=== PATIENT | female | born 1950 | race Caucasian/White ===

== ENCOUNTER 2021-08-30 13:01 | Inpatient (IN) | payer OTHER ==
--- NOTE | 2021-08-30 16:04 | P.HP ---
Certification for Inpatient With expected LOS: >2 Midnights Practitioner: I am a practitioner with admitting privileges, knowledge of patient current condition, hospital course, and medical plan of care. Services: Services provided to patient in accordance with Admission requirements found in Title 42 Section 412.3 of the Code of Federal Regulations Patient History Date of Service: 08/30/21 Reason for admission: Abdominal pain nausea vomiting History of Present Illness: Patient is 71 years of age developed acute onset of nausea vomiting and abdominal pain went to EMERGENCY room and was transferred with a diagnosis of possible volvulus he is having severe abdominal pain prior history of weight loss surgery Allergies morphine Allergy (Verified 08/30/21 13:27) Hives hydromorphone [From Dilaudid] Adverse Reaction (Verified 08/30/21 13:28) Shortness of breath meperidine [From Demerol] Adverse Reaction (Verified 08/30/21 13:27) hallucinations Penicillins Adverse Reaction (Verified 08/30/21 13:27) Shortness of breath Home Medications: Levothyroxine [Synthroid] 50 mcg PO [id number] 08/30/21 - Past Medical/Surgical History Has patient received pneumonia vaccine in the past: Yes Diabetic: No -: Hypothyroidism -: Hiatal hernia -: Gastric Bypass sx -: Cholecystectomy - Social History Smoking Status: Never smoker Alcohol use: No CD- Drugs: No Caffeine use: Yes Place of Residence: Home Review of Systems 10-point ROS is otherwise unremarkable Gastrointestinal: Nausea, Vomiting, Abdominal Pain Physical Examination - Vital Signs Temperature: 99.0 F Blood Pressure: 151/84 Pulse: 85 Respirations: 16 Pulse Ox (%): 99 - Physical Exam General: Alert, Moderate distress Neck: Supple Respiratory: Clear to auscultation bilaterally Cardiovascular: No edema, Regular rate/rhythm Gastrointestinal: Normal bowel sounds, Tenderness (Rebound tenderness) Musculoskeletal: No clubbing, No contractures, No warmth Assessment and Plan - Problems (Diagnosis) (1) Volvulus of ascending colon Current Visit: Yes Status: Acute Plan: Patient is 71 years of age admitted with acute onset of abdominal pain nausea vomiting Joon here from [facility] emergency room CT scan showed dilated right colon decompressed left colon spacious for developing volvulus free fluid in the abdomen prior history of gastric bypass moderate size hiatal hernia moderate intrahepatic biliary dilatation suspect chronic apparently her pancreatic duct is also dilated probably chronic white count is 10.7 hemoglobin 14.7 BUN 16 creatinine 0.5 electrolytes are normal urinalysis is negative this was from record review of [facility] emergency room Will admit to make her n.p.o. consult Dr. Baca general surgery which he has been informed pain relief IV fluids other orders as per general surgery - Advance Directives Does patient have a Living Will: No Does patient have a Durable POA for Healthcare: No
[2021-08-30] MEDS: ONDANSETRON 4 MG/2 ML VIAL IV PRN (16:12)
[2021-08-30] MEDS: FENTANYL CITR 100 MCG/2 ML IV PRN ×2 (16:15→20:30)
[2021-08-30] MEDS: NA CHLORIDE 0.9% 1,000 ML IV SCH (16:17)
[2021-08-30 17:01] LABS: Albumin 2.8 g/dL (3.4-5.0); Bilirubin Total 0.7 mg/dL (0.2-1.0); Potassium 3.2 mmol/L (3.5-5.1); Protein, Total 6.3 g/dL (6.4-8.2); Thyroid Stimulating Hormone 2.68 uIU/mL (0.360-3.740)
--- NOTE | 2021-08-30 17:24 | P.CNS ---
Date of Consult: 08/30/21 PC: 8-year-old female was transferred from a outpatient emergency room to our facility with abdominal pain. Pain apparently began 2 days ago. Has been intermittent over that time. Now has got to the point where it hurts when she is tries to move. States she has not had any bowel movements. HPC: Previous morbid obesity PSHx: Ronald-en-Y gastric bypass surgery, gallbladder surger Social Hx: Allergic to morphine Demerol hydromorphone Sys R: No cough, wheeze, shortness of breath. No chest pain or palpitations. Has some arthritis in her hips and her back, but does not take any medication for this apart from Advil or Motrin. O/E: Awake alert stable at the moment HEENT: Nonicteric Chest: Chest movement equal bilaterally Abd: Abdomen is soft, does have some lower abdominal discomfort Lyons: Intact Data: CT scan shows dilated loops of colon. The report suggests early volvulus, but the cecum is in the normal position. The sigmoid colon is seen in the true pelvis. There is a "swirling affect" seen in the upper part of the abdomen but does not show any true vascular compromise. The CT scan study was done with IV contrast, and no oral. Impression: Abdominal pain, per radiology possible early volvulus Plan: The patient has been admitted to the hospital. She will receive IV fluids, pain medicine, and I will have her place a nasogastric tube for now. We will repeat lab work in the a.m. May benefit with a CT scan of abdomen and pelvis tomorrow with oral contrast. I have discussed with with the patient, she understands that if things change or she should suddenly decline she may require surgical intervention. She is comfortable with this decision.
[2021-08-31] MEDS: FENTANYL CITR 100 MCG/2 ML IV PRN ×4 (01:06→21:46)
[2021-08-31] MEDS: ONDANSETRON 4 MG/2 ML VIAL IV PRN ×4 (01:07→21:48)
[2021-08-31] MEDS: NA CHLORIDE 0.9% 1,000 ML IV SCH ×2 (03:37→19:00)
[2021-08-31 04:27] LABS: Absolute Lymphocytes (CBC) 1.5 K/uL (0.7-4.9); Hematocrit 38.4 % (36.0-45.0); Lymphocytes % 15.9 % (15.3-44.8); MCV 88.7 fL (80-100); MPV 7.6 fL (7.6-11.3); RBC Red Blood Cell Count 4.33 M/uL (3.86-4.86)
[2021-08-31 04:49] LABS: Albumin 2.7 g/dL (3.4-5.0); Bilirubin Total 0.7 mg/dL (0.2-1.0); Potassium 3.2 mmol/L (3.5-5.1); Protein, Total 6.1 g/dL (6.4-8.2)
--- NOTE | 2021-08-31 08:25 | RAD REPORT ---
EXAM DESCRIPTION: RAD - Chest Single View - 08/31/2021 5:34 am CLINICAL HISTORY: Abdominal pain Chest pain. COMPARISON: No comparisons FINDINGS: Portable technique limits examination quality. The lungs are emphysematous but grossly clear. The heart is normal in size. No displaced fractures. IMPRESSION: No acute intrathoracic process suspected.
--- NOTE | 2021-08-31 09:30 | RAD REPORT ---
EXAM DESCRIPTION: CTAbdomen Pelvis W Contrast - 08/31/2021 9:11 am CLINICAL HISTORY: Abdominal pain. r/o obstruction COMPARISON: No comparisons TECHNIQUE: Biphasic CT imaging of the abdomen and pelvis was performed with 100 ml non-ionic IV cont rast. All CT scans are performed using dose optimization technique as appropriate and may include automated exposure control or mA/KV adjustment according to patient size. FINDINGS: The lung bases are clear.Moderate hiatal hernia with postsurgical changes present. Several low-density hepatic lesions are present compatible with cysts. Somewhat poorly visualized enh ancing lesion is seen in the posterior right lobe of the liver superiorly measuring 3.6 x 2.4 cm. Mod erate biliary dilatation in the liver. Cholecystectomy. The spleen, pancreas, adrenal glands and both kidneys are normal. There is significant dilatation of small bowel loops in the central superior abdomen measuring up to 9 cm in distention. There is a twisting appearance in caliber change of the small bowel present. The findings are suspicious for internal hernia or volvulus. Mild free fluid is seen in the abdomen and p carlita. Sigmoid diverticulosis coli without diverticulitis. No evidence of significant lymphadenopath y. Lumbar degenerative changes are present. IMPRESSION: Significant small bowel dilatation is present in the upper abdomen measuring up to 9 cm in diameter. There is a twisting in the central upper mesenteric with significant caliber change of t he small bowel suggesting an internal hernia or volvulus is present.
[2021-08-31] MEDS: ENOXAPARIN 40 MG/0.4 ML SQ SCH (10:31)
[2021-08-31] MEDS: Ringers Lactate 1,000 ML IV ONE ×2 (13:35→14:09)
[2021-08-31] MEDS ORDERED: dexAMETHasone 10 MG/ML VIAL ONE (13:39)
[2021-08-31] MEDS ORDERED: propofoL 200 MG/20 ML VIAL IV ONE (13:39)
[2021-08-31] MEDS ORDERED: FENTANYL CITR 250 MCG/5 ML ONE (13:40)
[2021-08-31] MEDS ORDERED: ONDANSETRON 4 MG/2 ML VIAL ONE ×2 (13:40→17:15)
[2021-08-31] MEDS ORDERED: LIDOCAINE 2% MPF 5 ML VIAL ONE (13:40)
[2021-08-31] MEDS ORDERED: KETOROLAC 30 MG/ML INJ ONE (13:40)
[2021-08-31] MEDS ORDERED: ROCURONIUM 50 MG/5 ML VIAL IV ONE (13:40)
[2021-08-31] MEDS ORDERED: VECURONIUM 10 MG/VIAL IV ONE (13:43)
[2021-08-31] MEDS ORDERED: NS 0.9% VIAL 10 ML ONE ×2 (13:43→14:42)
[2021-08-31] MEDS ORDERED: SUCCINYLCHOLINE 20 MG/ML (10 ML) IV ONE (13:51)
[2021-08-31] MEDS: Levofloxacin500mg IV 500 MG/100 ML BAG IV ONE ×2 (14:09→14:45)
[2021-08-31] MEDS ORDERED: Phenylephrine HCl 10 MG/ML 1 ML VIAL ONE (14:42)
[2021-08-31] MEDS ORDERED: GLYCOPYRROLATE 0.2 MG/ML SYR ONE (16:29)
[2021-08-31] MEDS ORDERED: NEOSTIGMINE 1 MG/ML -10 ML VIAL ONE (16:29)
--- NOTE | 2021-08-31 16:40 | P.OP ---
Preoperative diagnosis: Bowel obstruction Postoperative diagnosis: Strangulated internal hernia Primary procedure: Exploratory laparotomy Secondary procedure: Right hemicolectomy Other procedure(s): , Ileocolic anastomosis, lysis of dense band Anesthesia: General Estimated blood loss: Less than 50 cc Specimen: Ilio cecal valve and right colon, umbilical implant, dense band Operative Technique: The patient brought the operating room placed supine on the table. After the induction of adequate general endotracheal anesthesia, the area of the abdomen was prepped with a DuraPrep solution, a Hatfield catheter was inserted, and she was draped in the usual aseptic manner. A generous midline incision was made below the umbilicus. This was brought down through the skin and subcutaneous tissue. We were able to divide the fascia in the midline. Using a hemostat we gently probed down through the layers to encountered the peritoneum itself. This was elevated and sharply incised with a 10 blade. Having safely accessed the peritoneal cavity, a finger was placed in the abdominal wall to protect this as we opened for the full length of our incision. As we did this, we could see that there was a marked amount of thinning of the tissue of the anterior abdominal wall. It appears the patient had a large hernia in the upper midline as well. We went through the hernia sac. The incision was then opened to just below the costal cartilage. At this point we could see the intestinal contents. There was a large dilated loop of colon seen in the right upper quadrant. A band coming from the right upper quadrant down towards the left was right across this and was markedly adherent showing evidence of strangulation of the intestine and the band itself. We tried to slowly reduce the ileum underneath this band however it became apparent that this part of the cecum was of questionable viability. The band was now fully lysed. It was sent for histopathology. The bowel having been freed we could now run it from the upper portion of the abdomen down to the ileocecal valve. The ileum was divided just proximal to the ileocecal valve. The mesentery of the cecum and right colon was now taken down. We were able to trace this up to the hepatic flexure area. The hole of the right side of the cecum was essentially already mobilized. In addition to the Band-Aid also gave this a causation of a cecal bascule. The intestine was now divided at the right colon. The mesentery of the right colon, cecum, and ileal were taken down with the LigaSure. We were now able to bring the ileum up towards this portion of colon. A [id number] functional end-to-end anastomosis was now constructed. We were also able to close the mesenteric defect with a running suture of chromic. At this point the abdomen was inspected to ensure adequate hemostasis. There was intermittent oozing from the remains of the omentum itself. This was controlled using the LigaSure. The intestines were now returned to their normal anatomical position. The abdomen was again inspected sure ensure adequate hemostasis. The midline incision was closed with a oh looped nylon one started from the bottom 1 at the top and these were tied just below the umbilicus. At this point the subcutaneous tissue was inspected. The skin was then approximated and closed with elsa. At the end of the procedure she was in a stable condition was sent to the recovery room. Needle sponge and instrument count were correct. No drains were placed. Complications: None Transferred to: Recovery Room Condition: Good
[2021-08-31] MEDS: FENTANYL CITR 100 MCG/2 ML ONE ×5 (17:10→17:55)
--- NOTE | 2021-08-31 17:37 | P.PN ---
Subjective Date of Service: 08/31/21 Chief Complaint: Abdominal pain nausea vomiting Subjective: Worsening Condition worseing c/o severe abdominal pain/ desean for repeat Ct of abdomen with contrast Review of Systems Gastrointestinal: Nausea, Vomiting, Abdominal Pain Physical Examination - Vital Signs Temperature: 97.2 F Blood Pressure: 146/64 Pulse: 72 Respirations: 16 Pulse Ox (%): 96 - Physical Exam General: Alert, Oriented x3, Moderate distress Respiratory: Clear to auscultation bilaterally Gastrointestinal: Hypoactive, Tenderness, Rebound, Guarding - Studies Laboratory Data (last 24 hrs) 08/31/21 04:07: Sodium 141, Potassium 3.2 L, BUN 14, Creatinine 0.55, Glucose 105, Total Bilirubin 0.7, AST 16, ALT 16, Alkaline Phosphatase 66 08/31/21 04:07: WBC 9.4, Hgb 13.1, Hct 38.4, Plt Count 239 Assessment And Plan - Current Problems (Diagnosis) (1) Volvulus of ascending colon Current Visit: Yes Status: Acute Plan: Pt hasa acute abdomen due to Volvulus. REpeat Ct pending Mild hypokalemia. PAin control with fentanyl/ Labs reviewed
[2021-08-31] MEDS ORDERED: NA CHLORIDE 0.9% 1,000 ML ONE (17:46)
[2021-09-01] MEDS: FENTANYL CITR 100 MCG/2 ML IV PRN ×6 (01:40→21:54)
[2021-09-01] MEDS: ONDANSETRON 4 MG/2 ML VIAL IV PRN ×6 (01:40→21:54)
[2021-09-01] MEDS: NA CHLORIDE 0.9% 1,000 ML IV SCH ×2 (03:08→13:39)
[2021-09-01 05:03] LABS: Absolute Lymphocytes (CBC) 0.7 K/uL (0.7-4.9); Hematocrit 33.3 % (36.0-45.0); MCV 89.3 fL (80-100); MPV 7.5 fL (7.6-11.3); RBC Red Blood Cell Count 3.73 M/uL (3.86-4.86)
[2021-09-01 05:17] LABS: Potassium 3.7 mmol/L (3.5-5.1)
[2021-09-01 06:04] VITALS: BMI 26.3
[2021-09-01] MEDS: ENOXAPARIN 40 MG/0.4 ML SQ SCH (09:10)
[2021-09-01] MEDS: LEVOTHYROXINE SOD 0.05 MG TABLET PO SCH (11:25)
--- NOTE | 2021-09-01 17:01 | P.PN ---
Subjective Date of Service: 09/01/21 Chief Complaint: Abdominal pain nausea vomiting Patient complaining of intermittent abdominal pain. No vomiting. No BM yet but states that she has been passing gas. Physical Examination - Vital Signs Temperature: 98.4 F Blood Pressure: 139/66 Pulse: 77 Respirations: 14 Pulse Ox (%): 94 - Physical Exam General: Alert, In no apparent distress, Oriented x3 HEENT: Mucous membr. moist/pink Neck: JVD not distended Respiratory: Clear to auscultation bilaterally, Normal air movement Cardiovascular: No edema, Regular rate/rhythm, Normal S1 S2 Gastrointestinal: Hypoactive, Non-distended, Tenderness Musculoskeletal: No swelling Integumentary: No rashes Neurological: Normal speech, Normal strength at 5/5 x4 extr - Studies Laboratory Data (last 24 hrs) 09/01/21 04:44: Sodium 144, Potassium 3.7, BUN 16, Creatinine 0.51 L, Glucose 116 H 09/01/21 04:44: WBC 12.1 H D, Hgb 11.2 L, Hct 33.3 L, Plt Count 249 Assessment And Plan - Current Problems (Diagnosis) (1) Volvulus of ascending colon Current Visit: Yes Status: Acute - Plan Continue pain management as needed. Patient is n.p.o. General surgery considering ice chips. Serial abdominal examination. Continue IV fluid. Mild leukocytosis today. We will start antibiotics if WBC continues to trend up.
[2021-09-01] MEDS: Levofloxacin500mg IV 500 MG/100 ML BAG IV SCH (21:52)
[2021-09-02] MEDS: NA CHLORIDE 0.9% 1,000 ML IV SCH ×3 (00:14→18:50)
[2021-09-02] MEDS: ONDANSETRON 4 MG/2 ML VIAL IV PRN ×2 (02:18→06:01)
[2021-09-02] MEDS: FENTANYL CITR 100 MCG/2 ML IV PRN ×2 (02:19→06:01)
[2021-09-02 05:12] LABS: Absolute Lymphocytes (CBC) 1.1 K/uL (0.7-4.9); Hematocrit 32.4 % (36.0-45.0); Lymphocytes % 13.6 % (15.3-44.8); MCV 89.6 fL (80-100); MPV 7.5 fL (7.6-11.3); RBC Red Blood Cell Count 3.61 M/uL (3.86-4.86)
[2021-09-02 05:20] LABS: Potassium 3.5 mmol/L (3.5-5.1)
[2021-09-02] MEDS: LEVOTHYROXINE SOD 0.05 MG TABLET PO SCH (06:01)
[2021-09-02] MEDS: ENOXAPARIN 40 MG/0.4 ML SQ SCH (09:16)
[2021-09-02] MEDS: HYDROCODONE/APAP 7.5/325 MG TAB PO PRN ×3 (10:36→21:03)
--- NOTE | 2021-09-02 15:00 | P.PN ---
Subjective Date of Service: 09/02/21 Chief Complaint: Abdominal pain nausea vomiting Patient complaining of intermittent abdominal pain. She is tolerating clear liquid diet. No BM yet but states that she has been passing gas. Physical Examination - Vital Signs Temperature: 98.8 F Blood Pressure: 115/57 Pulse: 80 Respirations: 18 Pulse Ox (%): 98 - Physical Exam General: Alert, In no apparent distress, Oriented x3 HEENT: Mucous membr. moist/pink Neck: JVD not distended Respiratory: Clear to auscultation bilaterally, Normal air movement Cardiovascular: No edema, Regular rate/rhythm, Normal S1 S2 Gastrointestinal: Normal bowel sounds, Soft and benign, Non-distended Musculoskeletal: No swelling Integumentary: No rashes, No cyanosis Neurological: Normal strength at 5/5 x4 extr - Studies Laboratory Data (last 24 hrs) 09/02/21 04:45: Sodium 141, Potassium 3.5, BUN 11, Creatinine 0.43 L, Glucose 93 09/02/21 04:45: WBC 8.4 D, Hgb 11.0 L, Hct 32.4 L, Plt Count 268 Assessment And Plan - Current Problems (Diagnosis) (1) Volvulus of ascending colon Current Visit: Yes Status: Acute - Plan Continue pain management as needed. Currently on clear liquid diet. Diet advancement per general surgery Serial abdominal examination. Continue IV fluid. Reduced IV fluid rate Patient started on Levaquin. Leukocytosis resolved.
[2021-09-02] MEDS: Levofloxacin500mg IV 500 MG/100 ML BAG IV SCH (21:02)
[2021-09-03] MEDS: ONDANSETRON 4 MG/2 ML VIAL IV PRN (00:28)
[2021-09-03] MEDS: HYDROCODONE/APAP 7.5/325 MG TAB PO PRN ×5 (00:28→22:24)
[2021-09-03] MEDS: LEVOTHYROXINE SOD 0.05 MG TABLET PO SCH (05:12)
[2021-09-03 06:15] LABS: Absolute Lymphocytes (CBC) 1.3 K/uL (0.7-4.9); Hematocrit 29.8 % (36.0-45.0); Lymphocytes % 21.2 % (15.3-44.8); MCV 89.4 fL (80-100); MPV 7.1 fL (7.6-11.3); RBC Red Blood Cell Count 3.33 M/uL (3.86-4.86)
[2021-09-03 06:25] LABS: Potassium 3.6 mmol/L (3.5-5.1)
[2021-09-03] MEDS: ENOXAPARIN 40 MG/0.4 ML SQ SCH (08:59)
[2021-09-03] MEDS: NA CHLORIDE 0.9% 1,000 ML IV SCH (12:01)
--- NOTE | 2021-09-03 12:47 | P.PN ---
Subjective Date of Service: 09/03/21 Chief Complaint: Abdominal pain nausea vomiting Patient complaining of intermittent abdominal pain. She has been tolerating clear liquid diet. She had bowel movement this morning. Physical Examination - Vital Signs Temperature: 98.5 F Blood Pressure: 116/63 Pulse: 66 Respirations: 16 Pulse Ox (%): 98 - Physical Exam General: Alert, In no apparent distress, Oriented x3 HEENT: Mucous membr. moist/pink Neck: JVD not distended Respiratory: Clear to auscultation bilaterally, Normal air movement Cardiovascular: No edema, Regular rate/rhythm, Normal S1 S2 Gastrointestinal: Soft and benign, Non-distended Musculoskeletal: No swelling Integumentary: No rashes Neurological: Normal strength at 5/5 x4 extr - Studies Laboratory Data (last 24 hrs) 09/03/21 05:49: Sodium 136, Potassium 3.6, BUN 8, Creatinine 0.45 L, Glucose 95 09/03/21 05:49: WBC 5.9 D, Hgb 10.1 L, Hct 29.8 L, Plt Count 261 Assessment And Plan - Current Problems (Diagnosis) (1) Volvulus of ascending colon Current Visit: Yes Status: Acute - Plan Continue pain management as needed. Patient had a bowel movement today. Case discussed with Dr. Pruitt. Diet advanced to full liquid. Continue IV fluids until patient oral intake improved Continue Levaquin. Leukocytosis resolved. Activity as tolerated.
--- NOTE | 2021-09-03 17:24 | P.PN ---
Date of Service: 09/03/21 Subjective: I reviewed the entire chart prior to seeing the patient. I was asked to evaluate this patient as Dr. Baca is out of town. Patient is awake and alert with minimal nausea but no vomiting. Patient was advanced to full liquid diet. Patient is passing gas. Pain is well controlled. Objective: Vital signs stable, afebrile. Laboratory data reviewed. Abdomen: Soft, nondistended, positive bowel sound, no nontender. Wound is clean, dry and intact. Assessment: Status post right hemicolectomy Plan: Patient is clinically doing very well. Encourage ambulation, incentive spirometry and DVT prophylaxis. Advance to GI soft diet in the morning. If tolerated, patient can go home in the next day or 2. CC:
[2021-09-03 23:46] VITALS: O2SAT 97
[2021-09-04] MEDS: LEVOTHYROXINE SOD 0.05 MG TABLET PO SCH (05:59)
[2021-09-04] MEDS: NA CHLORIDE 0.9% 1,000 ML IV SCH (06:51)
[2021-09-04] MEDS: ENOXAPARIN 40 MG/0.4 ML SQ SCH (09:19)
[2021-09-04] MEDS: HYDROCODONE/APAP 7.5/325 MG TAB PO PRN (10:48)
--- NOTE | 2021-09-04 10:57 | P.DS ---
Admission Date: 08/30/21 Discharge Date: 09/04/21 Disposition: ROUTINE DISCHARGE Discharge Condition: FAIR Reason for Admission: Abdominal pain nausea vomiting - Problems (1) Volvulus of ascending colon Current Visit: Yes Status: Acute Brief History of Present Illness: Patient is 71 years of age with a prior history of weight loss surgery developed acute onset of nausea vomiting and abdominal pain. CT abdomen and pelvis done in the ED demonstrated small bowel dilatation, and a bowel twist suggestive of volvulus versus internal hernia. General surgery was consulted and patient hospitalized for further management. Hospital Course: Admitted to the medical floor, seen by general surgery-Dr. Baca who performed right hemicolectomy, ileocecal anastomosis and lysis of band. Patient was treated with antibiotics briefly. Her clinical condition improved with return of bowel function. Patient had a bowel movement and tolerated soft diet. General surgery followed and patient deemed stable for discharge. Vital Signs/Physical Exam: Temp Pulse Resp BP Pulse Ox 98.6 F 79 18 132/67 95 09/04/21 08:00 09/04/21 08:00 09/04/21 10:48 09/04/21 08:00 09/04/21 10:48 General: Alert, In no apparent distress, Oriented x3 HEENT: Mucous membr. moist/pink Neck: JVD not distended Respiratory: Clear to auscultation bilaterally, Normal air movement Cardiovascular: No edema, Regular rate/rhythm, Normal S1 S2 Gastrointestinal: Normal bowel sounds, Soft and benign, Non-distended Musculoskeletal: No swelling Integumentary: No rashes Neurological: Normal strength at 5/5 x4 extr Laboratory Data at Discharge: WBC 5.9 K/uL (4.3-10.9) D 09/03/21 05:49 Hgb 10.1 g/dL (12.0-15.0) L 09/03/21 05:49 Hct 29.8 % (36.0-45.0) L 09/03/21 05:49 Plt Count 261 K/uL (152-406) 09/03/21 05:49 Sodium 136 mmol/L (136-145) 09/03/21 05:49 Potassium 3.6 mmol/L (3.5-5.1) 09/03/21 05:49 BUN 8 mg/dL (7-18) 09/03/21 05:49 Creatinine 0.45 mg/dL (0.55-1.3) L 09/03/21 05:49 Glucose 95 mg/dL (74-106) 09/03/21 05:49 Total Bilirubin 0.7 mg/dL (0.2-1.0) 08/31/21 04:07 AST 16 U/L (15-37) 08/31/21 04:07 ALT 16 U/L (12-78) 08/31/21 04:07 Alkaline Phosphatase 66 U/L (45-117) 08/31/21 04:07 Lipase 105 U/L (73-393) 08/30/21 16:22 Home Medications: Levothyroxine [Synthroid*] 50 mcg PO [id number] 08/30/21 Codeine/APAP [Tylenol W/Codeine #3 tab] 1 tab PO Q6HP PRN #30 tab 09/04/21 New Medications: Codeine/APAP [Tylenol W/Codeine #3 tab] 1 tab PO Q6HP PRN #30 tab PRN Reason: Pain Diet: Regular Activity: Ad camille Followup: Duncan Baca MD [ACTIVE - CAN ADMIT] - 1 Week Time spent managing pt's care (in minutes): 37
[2021-09-04 12:31] VITALS: BP 124/69; TEMP 97.8
--- OUTSIDE RECORDS SUMMARY | 2021-09-09 21:41 | XMS REPORT | Continuity of Care Document ---
:1950 Author Organization [facility] t Address [address] [place] [address] Care Team Providers Name Role Phone Juan Harrington MD Primary Care Physician JUAN HARRINGTON Attending Clinician Unavailable Adriel MARTINS Attending Clinician Unavailable LAB90 Attending Clinician Unavailable MAMADOUID-JOSE FRAGA Attending Clinician Unavailab jacob OLIVER-JOSE PLUMMER Attending Clinician Unavailable Juan Harrington MD Attending Clinician AMOS_Jed_Kimberly Attending Clinician Unavailable COVID-PFIZER VACC-2JOSE Attending Clinician UnavailJOSE Clarke Attending Clinician Unavailable Nieves Adkins Attending Clinician [phone] Stephane Michelle Attending Clinician Unavailable AMOS_Jed_Kimberly Admitting Clinician Unavailable Stephane Michelle Admitting Clinician Unavailable Payers Payer Name Policy Type Policy Number Effective Date Expiration Date S siobhan [employer] TXP 7 [id number] 2021 CLASSIC NO PREMIUM 00:00:00 R2T MEDICARE B-[place]: [id number] 2016 NOVDrivewyzeS SOLUTIONS 00:00:00 Problems Condition Condition Condition Status Onset Resolution Last Treating Co mments Source Name Details Category Date Date Treatment Clinician Date Elevated Elevated Disease Active 2020-02 Kelse y LDL LDL 2-01 Seybold cholestero cholestero 00:00: l level l level 00 Hypothyroi Hypothyroi Disease Active 2020-02 K marimar dism dism 1-10 Seybold (acquired) (acquired) 00:00: 00 Hx of Hx of Disease Active 2020-02 Toya bariatric bariatric 1-10 Seyb old surgery surgery 00:00: 00 Allergies, Adverse Reactions, Alerts Allergy Allergy Status Severity Reaction(s) Onset Inactive Treating Comm ents Source Name Type Date Date Clinician Penicill Propensi Active Toya amine ty to 4-19 Seybold adverse 00:00: reaction 00 s hydromor DA Active U 2018-0 [facility] phone 3-13 Clear 00:00: Caicedo [address] [facility] Hydromor Propensi Active 0 Toya phone ty to 5-17 Seybold adverse 00:00: reaction 00 s Meperidi Propensi Active Other 0 Hallucina Michael sey ne ty to 2-07 tions Seybold adverse 00:00: reaction 00 s Penicill Propensi Active Rash Toya in G ty to 2-07 Seybold adverse 00:00: reaction 00 s Penicill DA Active U 0 [facility] ins 1-23 Clear 00:00: Caicedo [address] [facility] meperidi DA Active U 2017-0 [facility] ne 1-23 Clear 00:00: Caicedo [address] [facility] "ALL DA Active U 2017-0 [facility] NARCOTIC 1-22 Bayshor S" 00:00: e 00 [facility] [place] Social History Social Habit Start Date Stop Date Quantity Comments Source History of Toya Santos tobacco use Exposure to Not sure Toya casarez SARS-CoV-2 (event) Tobacco use and 2020-12-31 2020-12-31 Smokeless tobacco Miguel Salmeronold exposure 00:00:00 00:00:00 non-user Sex Ass[birth year] Toya mejia 00:00:00 00:00:00 Smoking Status Start Date Stop Date Source Smokes tobacco daily 2020-12-31 00:00:00 Toya Santos Medications Ordered Filled Start Stop Current Ordering Indication Dosage Frequency Signature Comments Components Source Medication Medication Date Date Medication? Clinician (SIG) Name Name Multiple Yes 1{tbl} Take 1 Kelse y Vitamins-Mi 4-19 tablet by Sey bold nerals 08:21: mouth (Multi-Indy 58 daily min/Mineral (before s) oral lunch) Tablet Sucralfate Yes 1g Take 1 g Michael sey 1 g oral 4-10 by mouth Seybold Tablet 00:00: at bedtime 00 Omeprazole Yes 1{capsu Take 1 Ke lsey 20 MG oral 4-06 le} capsule by P4RCy bold Delayed 00:00: mouth Release 00 daily Capsule Multiple 2020-02 Yes 1{tbl} Take 1 Kelse y Vitamins-Mi 2-01 tablet by Zympi bold nerals 09:39: mouth (Multi-Indy 47 daily min/Mineral (before s) oral lunch) Tablet Levothyroxi 2020-02 Yes [id number] 50ug Take 1 Toya ne Sodium 2-01 tablet (50 Seyb old 50 MCG oral 00:00: mcg total) Tablet 00 by mouth every morning Levothyroxi 2020-02 Yes [id number] 50ug Take 1 Toya ne Sodium 2-01 tablet (50 Seyb old 50 MCG oral 00:00: mcg total) Tablet 00 by mouth every morning Levothyroxi 2020-02- No 50ug Take 50 Ke lsey ne Sodium 1-10 11-10 mcg by Seybold 50 MCG oral 08:40: 00:00 mouth Tablet 15 :00 every morning Multiple 2020-02 Yes 1{tbl} Take 1 Kelse y Vitamins-Mi 1-10 tablet by P4RCy bold nerals 08:03: mouth (Multi-Indy 37 daily min/Mineral (before s) oral lunch) Tablet Levothyroxi 2020-02 Yes [id number] 50ug Take 1 Toya ne Sodium 1-10 tablet (50 Seyb old 50 MCG oral 00:00: mcg total) Tablet 00 by mouth every morning Levothyroxi 2020-02- No [id number] 50ug Take 1 Toya ne Sodium 1-10 12-01 tablet (50 Sey bold 50 MCG oral 00:00: 00:00 mcg total) Tablet 00 :00 by mouth every morning Immunizations Ordered Immunization Filled Immunization Date Status Commen ts Source Name Name COVID-19 VACCINE 2021-06-09 Completed Toya alvaradoqi [employer] 12+ ([place] 00:00:00 cap) Covid-19 Vaccine 2021-01-21 Completed Toya Viktoriya delgadillold ([employer]), Mrna-lnp, 00:00:00 Osmar Protein, Pf, 30mcg/0.3ml,IM Covid-19 Vaccine 2021-01-21 Completed Toya Viktoriya alvaradobold ([employer]), Mrna-lnp, 00:00:00 Osmar Protein, Pf, 30mcg/0.3ml,IM Influenza Virus 2020-12-31 Completed Toya mejia Vaccine, 00:00:00 Quadrivalent, High Dose, Age 65 And Up Covid-19 Vaccine 2020-12-31 Completed Toya alvaradobold ([employer]), Mrna-lnp, 00:00:00 Osmar Protein, Pf, 30mcg/0.3ml,IM Influenza Virus 2020-12-31 Completed Toya mejia Vaccine, 00:00:00 Quadrivalent, High Dose, Age 65 And Up Covid-19 Vaccine 2020-12-31 Completed Toya alvaradobold ([employer]), Mrna-lnp, 00:00:00 Osmar Protein, Pf, 30mcg/0.3ml,IM Influenza Virus 2020-12-31 Completed Toya mejia Vaccine, 00:00:00 Quadrivalent, High Dose, Age 65 And Up Covid-19 Vaccine 2020-12-31 Completed Toya alvaradobold ([employer]), Mrna-lnp, 00:00:00 Osmar Protein, Pf, 30mcg/0.3ml,IM Vital Signs Vital Name Observation Time Observation Value Comments Source Systolic blood pressure 2021-06-09 13:17:00 150 mm[Hg] Toya Santos Diastolic blood 2021-06-09 13:17:00 73 mm[Hg] Michaelse y Seybold pressure Heart rate 2021-06-09 13:17:00 63 /min Toya S hcristianobotanisha Body temperature 2021-06-09 13:17:00 36.94 Opal Antonia ey Seybold Respiratory rate 2021-06-09 13:17:00 15 /min Antonia christiano Seybold Body height 2021-06-09 13:17:00 170.2 cm Toya Sadler eybold Body weight 2021-06-09 13:17:00 69.4 kg Toya S eybold BMI 2021-06-09 13:17:00 23.96 kg/m2 Toya S eybold Systolic blood pressure 2021-01-21 15:33:00 140 mm[Hg] Toya Seybold Diastolic blood 2021-01-21 15:33:00 72 mm[Hg] Kelse y Seybold pressure Heart rate 2021-01-21 15:33:00 71 /min Toya S eybold Body temperature 2021-01-21 15:33:00 36.67 Opal Antonia ey Seybold Respiratory rate 2021-01-21 15:33:00 16 /min Antonia ey Seybold Body height 2021-01-21 15:33:00 170.2 cm Toya S eybold Body weight 2021-01-21 15:33:00 66.225 kg Toya Sadler eybold BMI 2021-01-21 15:33:00 22.87 kg/m2 Tyoa S eybold Systolic blood pressure 2020-12-31 14:00:00 138 mm[Hg] Toya Seybold Diastolic blood 2020-12-31 14:00:00 72 mm[Hg] Kelse y Seybold pressure Heart rate 2020-12-31 14:00:00 67 /min Toya S eybold Body temperature 2020-12-31 14:00:00 36.61 Opal Antonia ey Seybold Respiratory rate 2020-12-31 14:00:00 15 /min Antonia ey Seybold Body height 2020-12-31 14:00:00 170.2 cm Toya Sadler eybold Body weight 2020-12-31 14:00:00 65.772 kg Toya S eybold BMI 2020-12-31 14:00:00 22.71 kg/m2 Toya Sadler eybold Procedures This patient has no known procedures. Encounters Start End Encounter Admission Attending Care Care Encounter Source Date/Time Date/Time Type Type Clinicians Facility Department ID 2021-09-07 2021-09-07 Outpatient TOYA HARRINGTON [id number] Toya 00:00:00 00:00:00 AIMEE Seybol d 2021-09-01 2021-09-01 Outpatient LAKSHMI TOYA LYON [id number] Toya 00:00:00 00:00:00 WANDY Seybol d 2021-08-17 2021-08-17 Outpatient TOYA HARRINGTON [id number] Toya 00:00:00 00:00:00 AIMEE Seybol d 2021-06-16 2021-06-16 Outpatient TOYA HARRINGTON [id number] Toya 00:00:00 00:00:00 AIMEE Seybol d 2021-06-10 2021-06-10 Outpatient TOYA HARRINGTON [id number] Toya 00:00:00 00:00:00 AIMEE Seybol d 2021-06-09 2021-06-09 Outpatient LAB90 TOYA LYON [id number] Toya 10:20:00 10:20:00 Seybol d 2021-06-09 2021-06-09 Outpatient COVID-PFIZE TOYA LYON [id number] Toya 10:00:00 10:00:00 R BOOSTER, Sey bold CAICEDO 2021-06-09 2021-06-09 Outpatient COVID-PFIZE TOYA LYON [id number] Toya 10:00:00 10:00:00 R VACC, Seybol d CAICEDO 2021-06-09 2021-06-09 Office HarlanSimon brantley [id number] Toya 08:15:00 08:30:00 Visit Aimee Ledezma [id number] Se jackie Garcia [id number] 2021-03-11 2021-03-11 Outpatient TOYA LYON [id number] Toya 00:00:00 00:00:00 Seybol d 2021-02-04 2021-02-04 Outpatient GC_EDEC_Hay PRIV PRIV [id number] [facility] 03:06:00 03:06:00 es_A [id number] Medica l 2021-02-04 2021-02-04 Outpatient GC_EDEC_Hay PRIV PRIV [id number] [facility] 03:06:00 03:06:00 es_A [id number] Medica l 2021-02-02 2021-02-02 Outpatient TOYA TOYA [id number] Toya 00:00:00 00:00:00 Seybol d 2021-01-29 2021-01-29 Outpatient TOYA HARRINGTON [id number] Toya 00:00:00 00:00:00 AIMEE Seybol d 2021-01-28 2021-01-28 Outpatient TOYA TOYA [id number] Toya 00:00:00 00:00:00 Seybol d 2021-01-21 2021-01-21 Outpatient LAB90 TOYA TOYA [id number] Toya 10:15:00 10:15:00 Seybol d 2021-01-21 2021-01-21 Office Simon Harrington [id number] Toya 09:30:00 10:00:00 Visit Aimee Ledezma [id number] Se jackie Garcia [id number] 2021-01-21 2021-01-21 Outpatient COVID-PFIZE TOYA LYON [id number] Toya 09:00:00 09:00:00 R VACC-2, Seyb old CAICEDO 2021-01-12 2021-01-12 Outpatient TOYA LYON [id number] Toya 00:00:00 00:00:00 Seybol d 2020-12-31 2020-12-31 Outpatient SIMON HSIEH TOYA LYON [id number] Toya 10:00:00 10:00:00 Seybol d 2020-12-31 2020-12-31 Outpatient LAB90 TOYA TOYA [id number] Toya 09:30:00 09:30:00 Seybol d 2020-12-31 2020-12-31 Outpatient COVID-PFIZE TOYA LYON [id number] Toya 09:15:00 09:15:00 R VACC-1, Seyb old CAICEDO 2020-12-31 2020-12-31 Office Simon Harrington [id number] Toya 07:53:00 08:38:00 Visit Aimee Ledezma [id number] Se jackie Garcia [id number] 2020-12-31 2020-12-31 Outpatient TOYA HARRINGTON [id number] Toya 00:00:00 00:00:00 AIMEE casarez 2020-06-27 2020-06-27 Outpatient GC_EDEC_Hay PRIV PRIV [id number] [facility] 01:07:00 01:07:00 es_A [id number] Medica l 2020-06-12 2020-06-12 Outpatient GC_EDEC_Hay PRIV PRIV [id number] [facility] 01:17:00 01:17:00 es_A [id number] Medica l 2020-06-10 2020-06-10 Outpatient GC_EDEC_Hay PRIV PRIV [id number] [facility] 01:19:00 01:19:00 es_A [id number] Medica l 2020-06-10 2020-06-10 Outpatient Jed, PRIV PRIV [id number] 00:00:00 00:00:00 Chrystal [id number] [facility] [id number] 2020-06-09 2020-06-09 Outpatient GC_EDEC_Hay PRIV PRIV [id number] [facility] 10:07:00 10:07:00 es_A [id number] Medica l 2020-06-06 2020-06-06 Outpatient GC_EDEC_Hay PRIV PRIV [id number] [facility] 09:55:00 09:55:00 es_A [id number] Medica l 2020-06-04 2020-06-04 Outpatient GC_EDEC_Hay PRIV PRIV [id number] [facility] 02:16:00 02:16:00 es_A [id number] Medica l 2018-05-05 2018-05-16 [facility] [id number] [facility] 15:09:00 21:04:00 Kathleen Guerrero [facility] Results Test Description Test Time Test Comments Results Result [facility] e Comments COMMON BILE DUCT 2018-05-15 13:28:00 RUN DATE: 05/15/18 [facility] PAGE 1 RUN TIME: 1328 Specimen Inquiry RUN USER: INTERFACE PATIENT: ANA PENALOZA LOC: CHRISTI U #: [id number] AGE/SX: 67/F ROOM: [facility] RE05/05/18REG DR: Kathleen Michelle MD : 52 BED: A DIS: STATUS: ADM IN TLOC: SPEC #: [id number] RECD: 05/11/18 STATUS: KAREL REQ #: [id number] LEEANN: 05/11/18- SUBM DR: Kathleen Michelle MD ENTERED: 05/11/18 SP TYPE: COMMON NATHALIE OTHR DR: No Primary or Family Physician Gilberto Conway MD, Ronald W DO Lam, David N MDORDERED: GROSS COPIES TO: No Primary or Family Physician Gilberto Conway MD [address] [place] [address] Kathleen Michelle MD [address] [place], [place] [id number] Alexis High DO [address] [place] [address] Khoi Ivory MD [address] [place] [address] PROCEDURES: GROSS (05/12/18-1250) TISSUES: BILE DUCT, NOS - BX AND 4 SLIDES CLINICAL HISTORY COLLECTION DATE: 05/11/18 HISTORY BILE DUCT STRICTURE CONTINUED ON NEXT PAGE RUN DATE: 05/15/18 [facility] PAGE 2 RUN TIME: 1328 Specimen Inquiry RUN USER: INTERFACE SPEC #: [id number] PATIENT: PENALOZAANA BROWNE #[id number] (Continued) COMMENT The bile duct biopsy, including multiple deeper levels, shows mild acute and chronic inflammation with cytologic atypia. Additionally, there are detached strips of columnar cells with cytologic atypia and intraepithelial neutrophils. Cytology evaluation shows tissue fragments and small groups of atypical ductal cells and neutrophils. The atypia is within spectrum of reactive changes. Overall, a reactive atypia in a background of acute and chronic inflammation is favored. However, possibility of a well differentiated tumor cannot be entirely ruled out. Recommend clinical correlation and follow up as clinically indicated. Intradepartmental consultation: RRB/DMW FINAL DIAGNOSIS Common bile duct stricture, distal, biopsy: ACUTE AND CHRONIC INFLAMMATION WITH ATYPIA (see comment) Common bile duct stricture, distal, brushing: DUCTAL CELLS WITH ACUTE INFLAMMATION AND ATYPIA, (see comment) FA/sm D 30914, 08496 MACROSCOPIC The specimen consists of four slides to be stained for cytologic evaluation and two red-cotto biopsy fragments measuring 0.2 cm each. GROSS PERFORMED AT [facility] [address] [place] [address] (P)[phone] PERFORMING SITE Diagnosis performed at: [facility] [place] [address] [place] [address] CONTINUED ON NEXT PAGE RUN DATE: 05/15/18 [facility] PAGE 3 RUN TIME: 1328 Specimen Inquiry RUN USER: INTERFACE SPEC #: [id number] PATIENT: ANA PENALOZA #[id number] (Continued) Signed SIGNATURE ON FILE London Peres MD 05/15/18 1328 END OF REPORT COMPREHENSIVE METABOLIC PANEL 2018-05-15 05:49:00 Test Item Value Reference Range Interpretation Comme nts SODIUM (test code = NA) 144 mmol/L 136-145 N POTASSIUM (test code = K) 3.3 mmol/L 3.5-5.1 L CHLORIDE (test code = CL) 109.0 mmol/L 98-107 H CARBON DIOXIDE (test code = 26.0 mmol/L 21-32 N CO2) ANION GAP (test code = GAP) 12.3 10-20 N GLUCOSE (test code = GLU) 82 mg/dL 74-106 N BLOOD UREA NITROGEN (test code 12 mg/dL 7-18 N = BUN) GLOMERULAR FILTRATION RATE > 60 mL/min >=60 E stimated GFR by using (test code = GFR) Modified M DRD formula.Chronic kidney disease is defined as either kidney d amageor GFR <60 mL/min/1.73 m2 for >3 months. CREATININE (test code = CREAT) 0.60 mg/dL 0.55-1.02 N Note change in reference range due to ch ashley in reagent. BUN/CREATININE RATIO (test code 20.0 10-20 N = BUN/CREA) TOTAL PROTEIN (test code = 5.8 gram/dL 6.4-8.2 L PROT) ALBUMIN (test code = ALB) 2.3 g/dL 3.4-5.0 L GLOBULIN (test code = GLOB) 3.5 gram/dL 2.7-4.2 N ALBUMIN/GLOBULIN RATIO (test 0.7 0.75-1.50 L code = A/G) CALCIUM (test code = CA) 8.5 mg/dL 8.5-10.1 N BILIRUBIN TOTAL (test code = 1.00 mg/dL 0.0-1.0 N BILT) SGOT/AST (test code = AST) 116 IUnit/L 15-37 H SGPT/ALT (test code = ALT) 173 IUnit/L 12-78 H ALKALINE PHOSPHATASE TOTAL 116 IUnit/L 45-117 N * *Note change in reference (test code = ALKP) range due to change in reagent. COMPREHENSIVE METABOLIC [id number] 05:29:00 Test Item Value Reference Range Interpretation Comments SODIUM (test code = NA) 144 mmol/L 136-145 N POTASSIUM (test code = K) 3.3 mmol/L 3.5-5.1 L CHLORIDE (test code = CL) 109.0 mmol/L 98-107 H CARBON DIOXIDE (test code = CO2) mmol/L 21-32 ANION GAP (test code = GAP) 10-20 GLUCOSE (test code = GLU) mg/dL 74-106 BLOOD UREA NITROGEN (test code = mg/dL 7-18 BUN) GLOMERULAR FILTRATION RATE (test mL/min >=60 code = GFR) CREATININE (test code = CREAT) mg/dL 0.55-1.02 BUN/CREATININE RATIO (test code 10-20 = BUN/CREA) TOTAL PROTEIN (test code = PROT) gram/dL 6.4-8.2 ALBUMIN (test code = ALB) g/dL 3.4-5.0 GLOBULIN (test code = GLOB) gram/dL 2.7-4.2 ALBUMIN/GLOBULIN RATIO (test 0.75-1.50 code = A/G) CALCIUM (test code = CA) mg/dL 8.5-10.1 BILIRUBIN TOTAL (test code = mg/dL 0.0-1.0 BILT) SGOT/AST (test code = AST) IUnit/L 15-37 SGPT/ALT (test code = ALT) IUnit/L 12-78 ALKALINE PHOSPHATASE TOTAL (test IUnit/L 45-117 code = ALKP) CBC W/AUTO [id number] 05:22:00 Test Item Value Reference Range Interpretation Comments WHITE BLOOD CELL (test code = 8.3 K/mm3 4.5-12.5 N WBC) RED BLOOD CELL (test code = 4.08 mill/mm3 3.7-5.2 N RBC) HEMOGLOBIN (test code = HGB) 11.6 gram/dL 11.5-15.5 N HEMATOCRIT (test code = HCT) 37.2 % 36.0-46.0 N MEAN CELL VOLUME (test code = 91.2 fL 80-98 N MCV) MEAN CELL HGB (test code = MCH) 28.4 picogram 27.0-33.0 N MEAN CELL HGB CONCETRATION 31.2 gram/dL 33.0-36.0 L (test code = MCHC) RED CELL DISTRIBUTION WIDTH 14.6 % 11.6-16.2 N (test code = RDW) RED CELL DISTRIBUTION WIDTH SD 49.3 fL 37.0-51.0 N (test code = RDW-SD) PLATELET COUNT (test code = 297 K/mm3 150-450 N PLT) MEAN PLATELET VOLUME (test code 9.1 fL 6.7-11.0 N = MPV) NEUTROPHIL % (test code = NT%) 48.5 % 39.0-69.0 N IMMATURE GRANULOCYTE % (test 0.6 % 0.0-5.0 N code = IG%) LYMPHOCYTE % (test code = LY%) 40.4 % 25.0-55.0 N MONOCYTE % (test code = MO%) 8.6 % 0.0-10.0 N EOSINOPHIL % (test code = EO%) 1.5 % 0.0-5.0 N BASOPHIL % (test code = BA%) 0.4 % 0.0-1.0 N NUCLEATED RBC % (test code = 0.0 % 0-0 N NRBC%) NEUTROPHIL # (test code = NT#) 4.02 K/mm3 1.8-7.7 N IMMATURE GRANULOCYTE # (test 0.05 x10 3/uL 0-0.03 H code = IG#) LYMPHOCYTE # (test code = LY#) 3.34 K/mm3 1.0-5.0 N MONOCYTE # (test code = MO#) 0.71 K/mm3 0-0.8 N EOSINOPHIL # (test code = EO#) 0.12 K/mm3 0.0-0.5 N BASOPHIL # (test code = BA#) 0.03 K/mm3 0.0-0.2 N NUCLEATED RBC # (test code = 0.00 K/mm3 0.0-0.1 N NRBC#) CBC W/AUTO [id number] 05:16:00 Test Item Value Reference Range Interpretation Comments WHITE BLOOD CELL (test code = K/mm3 4.5-12.5 WBC) RED BLOOD CELL (test code = RBC) mill/mm3 3.7-5.2 HEMOGLOBIN (test code = HGB) 11.6 gram/dL 11.5-15.5 N HEMATOCRIT (test code = HCT) 37.2 % 36.0-46.0 N MEAN CELL VOLUME (test code = fL 80-98 MCV) MEAN CELL HGB (test code = MCH) picogram 27.0-33.0 MEAN CELL HGB CONCETRATION (test gram/dL 33.0-36.0 code = MCHC) RED CELL DISTRIBUTION WIDTH % 11.6-16.2 (test code = RDW) RED CELL DISTRIBUTION WIDTH SD fL 37.0-51.0 (test code = RDW-SD) PLATELET COUNT (test code = PLT) K/mm3 150-450 MEAN PLATELET VOLUME (test code fL 6.7-11.0 = MPV) NEUTROPHIL % (test code = NT%) % 39.0-69.0 IMMATURE GRANULOCYTE % (test % 0.0-5.0 code = IG%) LYMPHOCYTE % (test code = LY%) % 25.0-55.0 MONOCYTE % (test code = MO%) % 0.0-10.0 EOSINOPHIL % (test code = EO%) % 0.0-5.0 BASOPHIL % (test code = BA%) % 0.0-1.0 NEUTROPHIL # (test code = NT#) K/mm3 1.8-7.7 LYMPHOCYTE # (test code = LY#) K/mm3 1.0-5.0 MONOCYTE # (test code = MO#) K/mm3 0-0.8 EOSINOPHIL # (test code = EO#) K/mm3 0.0-0.5 BASOPHIL # (test code = BA#) K/mm3 0.0-0.2 - SP PERC BRUSH [id number] 08:16:00 Name: ANA PENALOZA [facility] : 1950 Age/S: 67 / F [address] [facility] Unit #: [id number] Loc: ISMAEL Y[place] [address] Phys: Kathleen Michelle MD Acct: [id number] Dis Date: Status: ADM IN PHONE #: [phone] Exam Date: 05/11/2018 1506 FAX #: [phone] Reason: EXAMS: CPT CODE: [id number] SP PERC BRUSH BIOPSY [id number] Fluoro Time: 336 DAP (Gy m2): 74481 Air Kerma (mGy): 109.1 REASON FOR EXAM:Distal common bile duct obstruction PROCEDURE: 1. Cholangiogram with replacement and upsize of existing biliary drain 2. Gallatin biopsy of distal common bile duct stricture 3. Forcep biopsy ofdistal common bile duct stricture Anesthesia: General Anesthesiologist: Dr. Vela FINDINGS: Prior to the procedure, informed consent was obtained after risks and benefits of the procedure were explained to the patient. The patient agreed and wanted to proceed. The patient was brought to special procedures and placed supine on the table. The abdomen was prepped was draped in the usual fashion. All elements of maximal sterile barrier techniques were applied. Contrast injected into the existing biliary drain show persistent distal common bile duct stenosis/stricture with a short segment high-grade stenosis (90%). Gallatin biopsy of this area was performed with a 3 mm brush. Scanty samples were obtained.Additional forceps biopsy were obtained at the common bile duct stricture. All samples were submitted for cytology analysis. A new 10-Bermudian internal/external biliary drain was replaced over the guidewire with the distal tip formed within the small bowel and a side holes located within the common bile duct and right intrahepatic biliary duct MEDICATIONS: None COMPLICATIONS: None Blood loss: Less than 5 mL Fluoroscopic time: 336 seconds Radiation dose: 109 mGy IMPRESSION: Technically successfulbrush biopsy and forcep biopsy of the distal common bile duct stricture. Upsizing of the existing internal/external biliary drain from an 8-Bermudian to a 10-Bermudian biliary tube at 0816 Reported and signed by: James Wallis M.D. PAGE 1 Signed Report (CONTINUED) Name: ANA PENALOZA [facility] : 1950 Age/S: 67 / F [address] [facility] Unit #: [id number] Loc: ISMAEL [place] [address] Phys: Kathleen Michelle MD Acct: [id number] Dis Date: Status: ADM IN PHONE #: [phone] Exam Date: 05/11/2018 1503 FAX #: [phone] Reason: EXAMS: CPT CODE: [id number] SP PERC BRUSH BIOPSY [id number] Fluoro Time: 336 DAP (Gy m2): 07534 Air Kerma (mGy): 109.1 <Continued> CC: Kathleen Michelle MD; Alexis High DO Technologist: [facility] Date/Time: 05/12/2018 (08) tMICHELLE Orig Print D/T: S: 05/12/2018 (0819) PAGE 2 Signed Report- INJ CHOLANGIO EXST [id number] 08:16:00 Name: ANA PENALOZA [facility] : 1950 Age/S: 67 / F [address] [facility] Unit #: [id number] Loc: ISMAEL [place] [address] Phys: Kathleen Michelle MD Acct: [id number] Dis Date: Status: ADM IN PHONE #: [phone] Exam Date: 05/11/2018 1506 FAX #: [phone] Reason: EXAMS: CPT CODE: [id number] INJ CHOLANGIO EXST ACCES [id number] Fluoro Time: 336 DAP (Gy m2): 58899 Air Kerma (mGy): 109.1 REASON FOR EXAM:Distal common bile duct obstruction PROCEDURE: 1. Cholangiogram with replacement and upsize of existing biliary drain 2. Gallatin biopsy of distal common bile duct stricture 3. Forcep biopsy ofdistal common bile duct stricture Anesthesia: General Anesthesiologist: Dr. Vela FINDINGS: Prior to the procedure, informed consent was obtained after risks and benefits of the procedure were explained to the patient. The patient agreed and wanted to proceed. The patient was brought to special procedures and placed supine on the table. The abdomen was prepped was draped in the usual fashion. All elements of maximal sterile barrier techniques were applied. Contrast injected into the existing biliary drain show persistent distal common bile duct stenosis/stricture with a short segment high-grade stenosis (90%). Gallatin biopsy of this area was performed with a 3 mm brush. Scanty samples were obtained.Additional forceps biopsy were obtained at the common bile duct stricture. All samples were submitted for cytology analysis. A new 10-B[place]udian internal/external biliary drain was replaced over the guidewire with the distal tip formed within the small bowel and a side holes located within the common bile duct and right intrahepatic biliary duct MEDICATIONS: None COMPLICATIONS: None Blood loss: Less than 5 mL Fluoroscopic time: 336 seconds Radiation dose: 109 mGy IMPRESSION: Technically successfulbrush biopsy and forcep biopsy of the distal common bile duct stricture. Upsizing of the existing internal/external biliary drain from an 8-B[place]udian to a 10-B[place]udian biliary tube at 0816 Reported and signed by: James Wallis M.D. PAGE 1 Signed Report (CONTINUED) Name: PENALOZAANADAVE BROWNE [facility] : 1950 Age/S: 67 / F [address] [facility] Unit #: [id number] Loc: [place]MA[place] [address] Phys: Kathleen Michelle MD Acct: [id number] Dis Date: Status: ADM IN PHONE #: [phone] Exam Date: 05/11/2018 7669 FAX #: [phone] Reason: EXAMS: CPT CODE: [id number] INJ CHOLANGIO EXST ACCES 19518 Fluoro Time: 336 DAP (Gy m2): 70182 Air Kerma (mGy): 109.1 <Continued> CC: Kathleen Michelle MD; Alexis High DO Technologist: Chiki Drummond Trnvab Date/Time: 05/12/2018 (0816) Deion Orig Print D/T: S: 05/12/2018 (0819) PAGE 2 Signed Report- EXCHANGE BILIARY CATH 2018-05-12 08:16:00 Name: ANA PENALOZA [facility] : 1950 Age/S: 67 / F [address] [facility] Unit #: [id number] Loc: [place] [address] Phys: Kathleen Michelle MD Acct: [id number] Dis Date: Status: ADM IN PHONE #: [phone] Exam Date: 05/11/2018 1505 FAX #: [phone] Reason: EXAMS: CPT CODE: [id number] EXCHANGE BILIARY CATH 58602 Fluoro Time: 336 DAP (Gy m2): 60971 Air Kerma (mGy): 109.1 REASON FOR EXAM:Distal common bile duct obstruction PROCEDURE: 1. Cholangiogram with replacement and upsize of existing biliary drain 2. Gallatin biopsy of distal common bile duct stricture 3. Forcep biopsy ofdistal common bile duct stricture Anesthesia: General Anesthesiologist: Dr. Vela FINDINGS: Prior to the procedure, informed consent was obtained after risks and benefits of the procedure were explained to the patient. The patient agreed and wanted to proceed. The patient was brought to special procedures and placed supine on the table. The abdomen was prepped was draped in the usual fashion. All elements of maximal sterile barrier techniques were applied. Contrast injected into the existing biliary drain show persistent distal common bile duct stenosis/stricture with a short segment high-grade stenosis (90%). Gallatin biopsy of this area was performed with a 3 mm brush. Scanty samples were obtained.Additional forceps biopsy were obtained at the common bile duct stricture. All samples were submitted for cytology analysis. A new 10-Bermudian internal/external biliary drain was replaced over the guidewire with the distal tip formed within the small bowel and a side holes located within the common bile duct and right intrahepatic biliary duct MEDICATIONS: None COMPLICATIONS: None Blood loss: Less than 5 mL Fluoroscopic time: 336 seconds Radiation dose: 109 mGy IMPRESSION: Technically successfulbrush biopsy and forcep biopsy of the distal common bile duct stricture. Upsizing of the existing internal/external biliary drain from an 8-Bermudian to a 10-Bermudian biliary tube at 0816 Reported and signed by: James Wallis M.D. PAGE 1 Signed Report (CONTINUED) Name: ANA PENALOZA [facility] : 1950 Age/S: 67 / F [address] [facility] #: [id number] Loc: Christa palmer, ISMAEL [address] Phys: Kathleen Michelle MD Acct: [id number] Dis Date: Status: ADM IN PHONE #: [phone] Exam Date: 05/11/2018 7218 FAX #: [phone] Reason: EXAMS: CPT CODE: [id number] EXCHANGE BILIARY CATH 31855 Fluoro Time: 336 DAP (Gy m2): 63279 Air Kerma (mGy): 109.1 <Continued> CC: Kathleen Michelle MD; Alexis High DO Technologist: Chiki Drummond Trnvab Date/Time: 05/12/2018 (0816) [email or web address] Orig Print D/T: S: 05/12/2018 (818) PAGE 2 Signed ReportBASIC METABOLIC PANEL 2018-05-11 06:42:00 Test Item Value Reference Range Interpretation Comments SODIUM (test code = 142 mmol/L 136-145 N NA) POTASSIUM (test code 3.4 mmol/L 3.5-5.1 L = K) CHLORIDE (test code = 105.0 mmol/L 98-107 N CL) CARBON DIOXIDE (test 30.0 mmol/L 21-32 N code = CO2) ANION GAP (test code 10.4 10-20 N = GAP) GLUCOSE (test code = 79 mg/dL 74-106 N GLU) BLOOD UREA NITROGEN 7 mg/dL 7-18 N (test code = BUN) GLOMERULAR FILTRATION > 60 mL/min >=60 Estima sofi GFR by RATE (test code = using Panchito fied MDRD GFR) formula.Chronic kidney disease is defined as eith er kidney damageor GFR <60 mL/min/1.73 m2 for >3 months. CREATININE (test code 0.50 mg/dL 0.55-1.02 L Note change in = CREAT) reference range due to change in reagent. BUN/CREATININE RATIO 13.6 10-20 N (test code = BUN/CREA) CALCIUM (test code = 8.8 mg/dL 8.5-10.1 N CA) BASIC METABOLIC [id number] 06:37:00 Test Item Value Reference Range Interpretation Comments SODIUM (test code = NA) 142 mmol/L 136-145 N POTASSIUM (test code = K) 3.4 mmol/L 3.5-5.1 L CHLORIDE (test code = CL) 105.0 mmol/L 98-107 N CARBON DIOXIDE (test code = CO2) mmol/L 21-32 ANION GAP (test code = GAP) 10-20 GLUCOSE (test code = GLU) mg/dL 74-106 BLOOD UREA NITROGEN (test code = mg/dL 7-18 BUN) GLOMERULAR FILTRATION RATE (test mL/min >=60 code = GFR) CREATININE (test code = CREAT) mg/dL 0.55-1.02 BUN/CREATININE RATIO (test code 10-20 = BUN/CREA) CALCIUM (test code = CA) mg/dL 8.5-10.1 PROTHROMBIN [id number] 06:03:00 Test Item Value Reference Range Interpretation Comments PROTHROMBIN TIME 12.8 seconds 9.0-14.0 N PATIENT (test code = PTP) INTERNATIONAL NORMAL 1.1 0.8-1.2 N The the rapeutic range RATIO (test code = for oral INR) anticoagulant t herapy formost indicat ions is an internati onal normalized rati o (INR)of between 2.0 and 3.0. The recommended therapeutic INR range for various cli nical situations is l isted below: Clinical Situat ion INR range Pulmonary embol ism treatment (2.0-3.0)Venou s thrombosis treatmentVenous thrombosis prophylaxis (hi gh risk surgery)Prevent ion of systemic emboli sm from: A cute myocardial infa rction Valvula r heart disease Atrial fibrilla tion Mechanical pros thetic heart valves (2.5-3.5) IS PATIENT ON ANTICOAGULANTS? NCOMMENTS TO SPACE SCIENCES DIRECTOR: NEED FOR SURGERY ON 05/11/18THROMBOPLASTIN TIME [id number] 06:03:00 Test Item Value Reference Range Interpretation Comments THROMBOPLASTIN TIME PARTIAL 34.7 seconds 25.0-36.5 N (test code = PTT) IS PATIENT ON ANTICOAGULANTS? NCOMMENTS TO SPACE SCIENCES DIRECTOR: NEED FOR SURGERY ON 05/11/18CBC W/AUTO [id number] 05:44:00 Test Item Value Reference Range Interpretation Comments WHITE BLOOD CELL (test code = 8.8 K/mm3 4.5-12.5 N WBC) RED BLOOD CELL (test code = 4.12 mill/mm3 3.7-5.2 N RBC) HEMOGLOBIN (test code = HGB) 11.9 gram/dL 11.5-15.5 N HEMATOCRIT (test code = HCT) 38.0 % 36.0-46.0 N MEAN CELL VOLUME (test code = 92.2 fL 80-98 N MCV) MEAN CELL HGB (test code = MCH) 28.9 picogram 27.0-33.0 N MEAN CELL HGB CONCETRATION 31.3 gram/dL 33.0-36.0 L (test code = MCHC) RED CELL DISTRIBUTION WIDTH 14.6 % 11.6-16.2 N (test code = RDW) RED CELL DISTRIBUTION WIDTH SD 49.9 fL 37.0-51.0 N (test code = RDW-SD) PLATELET COUNT (test code = 276 K/mm3 150-450 N PLT) MEAN PLATELET VOLUME (test code 9.4 fL 6.7-11.0 N = MPV) NEUTROPHIL % (test code = NT%) 57.3 % 39.0-69.0 N IMMATURE GRANULOCYTE % (test 0.5 % 0.0-5.0 N code = IG%) LYMPHOCYTE % (test code = LY%) 31.4 % 25.0-55.0 N MONOCYTE % (test code = MO%) 9.8 % 0.0-10.0 N EOSINOPHIL % (test code = EO%) 0.8 % 0.0-5.0 N BASOPHIL % (test code = BA%) 0.2 % 0.0-1.0 N NUCLEATED RBC % (test code = 0.0 % 0-0 N NRBC%) NEUTROPHIL # (test code = NT#) 5.03 K/mm3 1.8-7.7 N IMMATURE GRANULOCYTE # (test 0.04 x10 3/uL 0-0.03 H code = IG#) LYMPHOCYTE # (test code = LY#) 2.76 K/mm3 1.0-5.0 N MONOCYTE # (test code = MO#) 0.86 K/mm3 0-0.8 H EOSINOPHIL # (test code = EO#) 0.07 K/mm3 0.0-0.5 N BASOPHIL # (test code = BA#) 0.02 K/mm3 0.0-0.2 N NUCLEATED RBC # (test code = 0.00 K/mm3 0.0-0.1 N NRBC#) MANUAL DIFF REQUIRED (test code NO = MDIFF) CBC W/AUTO [id number] 05:43:00 Test Item Value Reference Range Interpretation Comments WHITE BLOOD CELL (test code = K/mm3 4.5-12.5 WBC) RED BLOOD CELL (test code = RBC) mill/mm3 3.7-5.2 HEMOGLOBIN (test code = HGB) 11.9 gram/dL 11.5-15.5 N HEMATOCRIT (test code = HCT) 38.0 % 36.0-46.0 N MEAN CELL VOLUME (test code = fL 80-98 MCV) MEAN CELL HGB (test code = MCH) picogram 27.0-33.0 MEAN CELL HGB CONCETRATION (test gram/dL 33.0-36.0 code = MCHC) RED CELL DISTRIBUTION WIDTH % 11.6-16.2 (test code = RDW) RED CELL DISTRIBUTION WIDTH SD fL 37.0-51.0 (test code = RDW-SD) PLATELET COUNT (test code = PLT) K/mm3 150-450 MEAN PLATELET VOLUME (test code fL 6.7-11.0 = MPV) NEUTROPHIL % (test code = NT%) % 39.0-69.0 IMMATURE GRANULOCYTE % (test % 0.0-5.0 code = IG%) LYMPHOCYTE % (test code = LY%) % 25.0-55.0 MONOCYTE % (test code = MO%) % 0.0-10.0 EOSINOPHIL % (test code = EO%) % 0.0-5.0 BASOPHIL % (test code = BA%) % 0.0-1.0 NEUTROPHIL # (test code = NT#) K/mm3 1.8-7.7 LYMPHOCYTE # (test code = LY#) K/mm3 1.0-5.0 MONOCYTE # (test code = MO#) K/mm3 0-0.8 EOSINOPHIL # (test code = EO#) K/mm3 0.0-0.5 BASOPHIL # (test code = BA#) K/mm3 0.0-0.2 FLUID,[id number] 16:16:00 RUN DATE: 05/10/18 [place] [facility] PAGE 1 RUN TIME: 1616 Specimen Inquiry RUN USER: INTERFACE PATIENT: ANA PENALOZA LOC: MychalDWAINE U #: [id number] AGE/SX: 67/F ROOM: [facility] RE05/05/18SAY DR: Kathleen Michelle MD : [birth year] BED: A DIS: STATUS: ADM IN TLOC: SPEC #: [id number] RECD: 05/09/18 STATUS: KAREL JACOBO #: [id number] LEEANN: 05/08/18- SUBM DR: James Wallis MD ENTERED: 05/09/18 SP TYPE: FL OTHER OTHR DR: Gilberto Conway MD, Ronald W DO Lam, David N MDORDERED: GROSS COPIES TO: Gilberto Conway MD [address] [place] [address] Alexis High DO [address] [place], [place] [id number] Khoi Ivory MD [address] [place] [address] James Wallis MD [address] [place] [address] MARKERS: INTRADEPARTMENTAL CONSULT PROCEDURES: GROSS (05/10/18-1313) TISSUES: BILE, NOS - 3 ML GREEN CLINICAL HISTORY COLLECTION DATE: 05/08/2018 HISTORY OF BILE DUCT OBSTRUCTION COMMENT Two concentrated smears, a cytospin and cell block are prepared from the fluid. Fragments of particulate debris are present. A few of these resemble minute fragments of plant material. Significant numbers of epithelial cells are not present. Bacterial forms are noted including rods and cocci. Correlation is necessary. CONTINUED ON NEXT PAGE RUN DATE: 05/10/18 [facility] PAGE 2 RUN TIME: 1616 Specimen Inquiry RUN USER: INTERFACE SPEC #: [id number] PATIENT: ANA PENALOZA #[id number] (Continued) COMMENT (Continued) Intradepartmental consultation: FA FINAL DIAGNOSIS Bile, cytology: PARTICULATE DEBRIS BACTERIAL FORMS PRESENT (RODS AND COCCI) RRB/sm D 62409, 81784 MACROSCOPIC The specimen consists of 3 mL of green fluid to be concentrated and processed for cytologic evaluation. GROSS PERFORMED AT [facility] [address] [place] [address] [phone] MICROSCOPIC All of the stains, including any controls performed, stain appropriately. MICROSCOPIC PERFORMED AT [facility] [address] [place] [address] [phone])[phone] PERFORMING SITE Diagnosis performed at: [facility] [address] [place] [id number] Signed SIGNATURE ON FILE Bernabe Klein MD 05/10/18 1616 END OF REPORT AG [id number] 08:23:00 Test Item Value Reference Range Interpretation Comments AG CARCINOEMBRYONIC (test code = 0.9 ng/mL 0.0-3.0 N CEA) ALPHA FETOPROTEIN TUMOR [id number] 08:23:00 Test Item Value Reference Interpretation Comments Range ALPHA FETOPROTEIN 2.7 ng/mL 0.0-8.3 Ann Diag nostics TUMOR MARKER Electrochemilum inescence (test code = Immunoassay(ECL IA)Values AFPTM) obtained with d ifferent assay methods or kits cannotbe used interchangeably . Results cannot be inter preted asabsolute evid ence of the presence or abs ence of malignantdiseas e.This test is not interpretab le in females. [id number] 08:23:00 Test Item Value Reference Range Interpretation Comments CA 19-9 (test code = CA19) Unit/mL AG [id number] 08:23:00 Test Item Value Reference Range Interpretation Comments AG CARCINOEMBRYONIC (test code = 0.9 ng/mL 0.0-3.0 N CEA) ALPHA FETOPROTEIN TUMOR [id number] 08:23:00 Test Item Value Reference Interpretation Comments Range ALPHA FETOPROTEIN 2.7 ng/mL 0.0-8.3 Ann Diag nostics TUMOR MARKER Electrochemilum inescence (test code = Immunoassay(ECL IA)Values AFPTM) obtained with d ifferent assay methods or kits cannotbe used interchangeably . Results cannot be inter preted asabsolute evid ence of the presence or abs ence of malignantdiseas e.This test is not interpretab le in females. [id number] 08:23:00 Test Item Value Reference Range Interpretation Comments CA 19-9 (test 32 U/mL 0-35 Ann Diagnost ics code = CA19) Electrochemilum inescence Immunoassay(ECL IA)Values obtained with different assay methods or kits cannotbe u sed interchangeably . Results cannot be interpreted asabsolute evidence of the presence or absence of malignantdiseas e.Performed At: [facility] [address] [id number] Daryl Monroe MD Ph:[phone] [id number] 06:13:00 Test Item Value Reference Range Interpretation Comments AG CARCINOEMBRYONIC (test code = 0.9 ng/mL 0.0-3.0 N CEA) ALPHA FETOPROTEIN TUMOR [id number] 06:13:00 Test Item Value Reference Range Interpretation Comments ALPHA FETOPROTEIN TUMOR MARKER (test ng/mL code = AFPTM) [id number] 06:13:00 Test Item Value Reference Range Interpretation Comments CA 19-9 (test code = CA19) Unit/mL COMPREHENSIVE METABOLIC [id number] 06:08:00 Test Item Value Reference Range Interpretation Comments SODIUM (test code = 141 mmol/L 136-145 N NA) POTASSIUM (test code = 3.5 mmol/L 3.5-5.1 N K) CHLORIDE (test code = 107.0 mmol/L 98-107 N CL) CARBON DIOXIDE (test 28.0 mmol/L 21-32 N code = CO2) ANION GAP (test code = 9.5 10-20 L GAP) GLUCOSE (test code = 87 mg/dL 74-106 N GLU) BLOOD UREA NITROGEN 7 mg/dL 7-18 N (test code = BUN) GLOMERULAR FILTRATION > 60 mL/min >=60 Estima sofi GFR by RATE (test code = GFR) using Modified MDRD formula.Chronic kidney disease is defined as eith er kidney damageor GFR <60 mL/min/1.73 m2 for >3 months. CREATININE (test code 0.50 mg/dL 0.55-1.02 L Note change in = CREAT) reference range due to change in reagent. BUN/CREATININE RATIO 14.4 10-20 N (test code = BUN/CREA) TOTAL PROTEIN (test 5.9 gram/dL 6.4-8.2 L code = PROT) ALBUMIN (test code = 2.5 g/dL 3.4-5.0 L ALB) GLOBULIN (test code = 3.4 gram/dL 2.7-4.2 N GLOB) ALBUMIN/GLOBULIN RATIO 0.7 0.75-1.50 L (test code = A/G) CALCIUM (test code = 8.4 mg/dL 8.5-10.1 L CA) BILIRUBIN TOTAL (test 0.30 mg/dL 0.0-1.0 N code = BILT) SGOT/AST (test code = 17 IUnit/L 15-37 N AST) SGPT/ALT (test code = 22 IUnit/L 12-78 N ALT) ALKALINE PHOSPHATASE 63 IUnit/L 45-117 N Note change in TOTAL (test code = reference range due ALKP) to change in reagent. COMPREHENSIVE METABOLIC [id number] 05:58:00 Test Item Value Reference Range Interpretation Comments SODIUM (test code = NA) 141 mmol/L 136-145 N POTASSIUM (test code = K) 3.5 mmol/L 3.5-5.1 N CHLORIDE (test code = CL) 107.0 mmol/L 98-107 N CARBON DIOXIDE (test code = CO2) mmol/L 21-32 ANION GAP (test code = GAP) 10-20 GLUCOSE (test code = GLU) mg/dL 74-106 BLOOD UREA NITROGEN (test code = mg/dL 7-18 BUN) GLOMERULAR FILTRATION RATE (test mL/min >=60 code = GFR) CREATININE (test code = CREAT) mg/dL 0.55-1.02 BUN/CREATININE RATIO (test code 10-20 = BUN/CREA) TOTAL PROTEIN (test code = PROT) gram/dL 6.4-8.2 ALBUMIN (test code = ALB) g/dL 3.4-5.0 GLOBULIN (test code = GLOB) gram/dL 2.7-4.2 ALBUMIN/GLOBULIN RATIO (test 0.75-1.50 code = A/G) CALCIUM (test code = CA) mg/dL 8.5-10.1 BILIRUBIN TOTAL (test code = mg/dL 0.0-1.0 BILT) SGOT/AST (test code = AST) IUnit/L 15-37 SGPT/ALT (test code = ALT) IUnit/L 12-78 ALKALINE PHOSPHATASE TOTAL (test IUnit/L 45-117 code = ALKP) BODY FLUID CELL [id number] 11:09:00 Test Item Value Reference Range Interpretation Comments FLUID SOURCE (test BILE code = SOURCEFL) FLUID COLOR (test GREEN COLORLESS code = COLFL) FLUID APPEARANCE HAZY (test code = APPFL) FLUID WBC (test 0 per mm3 0-150 N QC performed - Cell code = WBCFL) count on both sides of chamber agreeswithin 20 % ? Y FLUID RBC (test 14 per mm3 0-50 N RESULTS CALL ED TO code = RBCFL) [id number] BY Netta ARCEOKP1 05/08/18 2210 FLUID COMMENT (test PATHOLOGST.TO code = COMFL) REVIEW TOTAL CELLS COUNTED 0 cells NONE SEE N. ON DIFF (test code = TOTCELLFL) REVIEWED BY (test DRVern PATHOLOGIST code = REVIEW) [facility] BILIARY CATH [id number] 07:00:00 Name: ANA PENALOZA [facility] : 1950 Age/S: 67 / F [address] [facility] Unit #: [id number] Loc: [place] [address] Phys: Kathleen Michelle MD Acct: [id number] Dis Date: Status: ADM IN PHONE #: [phone] Exam Date: 05/08/2018 1401 FAX #: [phone] Reason: EXAMS: CPT CODE: [id number] [facility] BILIARY CATH INT/EXT 26065 Fluoro Time: 474 DAP (Gy m2): 29941 Air Kerma (mGy): 176.2 REASON FOR EXAM:Right upper quadrant pain, status post gastric bypass with dilated common bile duct PROCEDURE: Ultrasound and fluoroscopic guided cholangiogram and placement of biliary drainage tube Anesthesia: General Anesthesiologist: Dr. Barajas FINDINGS: Prior to the procedure,informed consent was obtained after risks and benefits of the procedure were explained to the patient. The patient agreed and wanted to proceed. The patient was brought to special pro cedures and placed supine on the table. The abdomen was prepped was draped in the usual fashion. All elements of maximal sterile barrier techniques were applied. Ultrasound demonstrates mild dilatation of the common bile duct with minimal intrahepatic biliary dilatation. Under real time ultrasound guidance, a 22-gauge Chiba needle was advanced into the dilated commonbile duct. A cholangiogram was performed. It shows a high- grade stricture at the distal common bile duct in the area of the head to the pancreas. There is minimal intrahepatic biliary distention. An AccuStick needle was advanced into a dilated right hepatic duct. The AccuStick sheath was advanced into the common bile duct. The guidewire was successfully advanced past the distal common bile duct stenosis. An 8-Bermudian biliary tube was in place would be distal tip in the small bowel and the proximal sidehole within the right hepatic duct. MEDICATIONS: None COMPLICATIONS: None Blood loss: Less than 5 mL Fluoroscopic time: 480 seconds Radiation dose: 176 mGy IMPRESSION: Mild dilatation of the common bile duct with a high-grade stricture in the distal common bile duct in the area of the head of the pancreas. Successful placement of an 8-Bermudian biliary tube. at 0700 Reported and signed by: James Wallis M.D. PAGE 1 Signed Report (CONTINUED) Name: PENALOZAANA [facility] : 1950 Age/S: 67 / F [address] [facility] Unit #: [id number] Loc: [place] [address] Phys: Kathleen Michelle MD Acct: [id number] Dis Date: Status: ADM IN PHONE #: [phone] Exam Date: 05/08/2018 1401 FAX #: [phone] Reason: EXAMS: CPT CODE: [id number] [facility] BILIARY CATH INT/EXT 97272 Fluoro Time: 474 DAP (Gy m2): 32185 Air Kerma (mGy): 176.2 <Continued> CC: Kathleen Michelle MD; Alexis High DO Technologist: BRANT PHAN RT(R) Trnscb Date/Time: 05/09/2018 (0700) tMICHELLE Orig Print D/T: S: 05/09/2018 (0703) PAGE 2 Signed Report- INJ CHOLANG EXST ACCES [id number] 07:00:00 Name: ANA PENALOZA [facility] : 1950 [age]/S: [age] / F [address] [facility] Unit #: [id number] Loc: [place] Yee [address] Phys: RomatheodorakimebrlyKathleen Stephane KINNEY Acct: [id number] Dis Date: Status: ADM IN PHONE #: [phone] Exam Date: 05/08/2018 1401 FAX #: [phone] Reason: EXAMS: CPT CODE: [id number] [place] [address] Fluoro Time: 474 DAP (Gy m2): 97413 Air Kerma (mGy): 176.2 REASON FOR EXAM:Right upper quadrant pain, status post gastric bypass with dilated common bile duct PROCEDURE: Ultrasound and fluoroscopic guided cholangiogram and placement of biliary drainage tube Anesthesia: General Anesthesiologist: Dr. Barajas FINDINGS: Prior to the procedure,informed consent was obtained after risks and benefits of the procedure were explained to the patient. The patient agreed and wanted to proceed. The patient was brought to special procedures and placed supine on the table. The abdomen was prepped was draped in the usual fashion. All elements of maximal sterile barrier techniques were applied. Ultrasound demonstrates mild dilatation of the common bile duct with minimal intrahepatic biliary dilatation. Under real time ultrasound guidance, a 22-gauge Chiba needle was advanced into the dilated commonbile duct. A cholangiogram was performed. It shows a high-grade stricture at the distal common bile duct in the area of the head to the pancreas. There is minimal intrahepatic biliary distention. An AccuStick needle was advanced into a dilated right hepatic duct. The AccuStick sheath was advanced into the common bile duct. The guidewire was successfully advanced past the distal common bile duct stenosis. An 8-Bermudian biliary tube was in place would be distal tip in the small bowel and the proximal sidehole within the right hepatic duct. MEDICATIONS: None COMPLICATIONS: None Blood loss: Less than 5 mL Fluoroscopic time: 480 seconds Radiation dose: 176 mGy IMPRESSION: Mild dilatation of the common bile duct with a high-grade stricture in the distal common bile duct in the area of the head of the pancreas. Successful placement of an 8-Bermudian biliary tube. at 0700 Reported and signed by: James Wallis M.D. PAGE 1 Signed Report (CONTINUED) Name: ANA PENALOZA [facility] : 1950 Age/S: 67 / F [facility] Unit #: [id number] Loc: [place] [address] Phys: Kathleen Michelle MD Acct: [id number] Dis Date: Status: ADM IN PHONE #: [phone] Exam Date: 05/08/2018 1401 FAX #: [phone] Reason: EXAMS: CPT CODE: [id number] [place] [address] Fluoro Time: 474 DAP (Gy m2): 30182 Air Kerma (mGy): 176.2 <Continued> CC: Kathleen Michelle MD; Alexis High DO Technologist: BRANT PHAN RT(R) Trnscb Date/Time: 05/09/2018 (07) [email or web address] Orig Print D/T: S: 05/09/2018 (0703) PAGE 2 Signed Report- USG NDL PLACEMENT (Bxg/Asp)2018-05-09 07:00:00 Name: ANA PENALOZA [facility] : 1950 Age/S: 67 / F [facility] Unit #: [id number] Loc: [place] [address] Phys: James Wallis MD Acct: [id number] Dis Date: Status: ADM IN PHONE #: [phone] Exam Date: 05/08/2018 1353 FAX #: [phone] Reason: CHOLANGIOGRAM W/POSS BILIARY DRAIN EXAMS: CPTCODE: [id number] USG NDL PLACEMENT (Bxg/Asp) 19160 REASON FOR EXAM:Right upper quadrant pain, status post gastric bypass with dilated common bile duct PROCEDURE: Ultrasound and fluoroscopic guided cholangiogram and placement of biliary drainage tube Anesthesia: General Anesthesiologist: Dr. Barajas FINDINGS: Prior to the procedure, informed consent was obtained after risks and benefits of the procedure were explained to the patient. The patient agreed and wanted to proceed. The patient was brought to special procedures and placed supine on the table. The abdomen was prepped was draped in the usual fashion. All elements of maximal sterile barrier techniques were applied. Ultrasound demonstrates mild dilatation of the common bile duct with minimal intrahepatic biliary dilatation. Under real time ultrasound guidance, a 22-gauge Chiba needle was advanced into the dilated common bile duct. A cholangiogram was performed. It shows a high-grade stricture at the distal common bile duct in the area of the head to the pancreas. There is minimal intrahepatic biliary distention. An AccuStick needle was advanced into a dilated right hepatic duct. The AccuStick sheath was advanced into the common bile duct. The guidewire was successfully advanced past the distal common bile duct stenosis. An 8-Bermudian biliary tube was in place would be distal tip in the small bowel and the proximal sidehole within the right hepatic duct. MEDICATIONS: None COMPLICATIONS: None Blood loss:Less than 5 mL Fluoroscopic time: 480 seconds Radiation dose: 176 mGy IMPRESSION: Mild dilatation of the common bile duct with a high-grade stricture in the distal common bile duct in the area of the head of the pancreas. Successful placement of an 8-Bermudian biliary tube. at 0700 Reported and signed by: James Wallis M.D. PAGE 1 Signed Report (CONTINUED) Name: ANA PENALOZA [facility] : 1950 Age/S: 67 / F [address] [facility] Unit #: [id number] Loc: [place] [address] Phys: James Wallis MD Acct: [id number] Dis Date: Status: ADM IN PHONE #: [phone] Exam Date: 05/08/2018 9348 FAX #: [phone] Reason: CHOLANGIOGRAM W/POSS BILIARY DRAIN EXAMS: CPT CODE: [id number] USG NDL PLACEMENT (Bxg/Asp) [id number] <Continued> CC: Kathleen Michelle MD;Alexis High DO Technologist: TOBIN PURCELL RT(R),GALINA Trnscb Date/Time:05/09/2018 (0700) [email or web address] Orig Print D/T: S: 05/09/2018 (0703) Probe: PAGE 2 [address] Report[address]ODY FL[address] CE[id number] 22:49:00 Test Item Value Reference Range Interpretation Comments FLUID SOURCE (test BILE code = SOURCEFL) FLUID COLOR (test GREEN COLORLESS code = COLFL) FLUID APPEARANCE HAZY (test code = APPFL) FLUID WBC (test 0 per mm3 0-150 N QC performed - Cell code = WBCFL) count on both sides of chamber agreeswithin 20 % ? Y FLUID RBC (test 14 per mm3 0-50 N RESULTS CALL ED TO code = RBCFL) [id number] BY Netta ARCEOKP 05/08/18 2210 FLUID COMMENT (test PATHOLOGST.TO code = COMFL) REVIEW TOTAL CELLS COUNTED 0 cells NONE SEE N. ON DIFF (test code = TOTCELLFL) REVIEWED BY (test PATHOLOGIST code = REVIEW) BODY FLUID CELL [id number] 22:10:00 Test Item Value Reference Range Interpretation Comments FLUID SOURCE (test BILE code = SOURCEFL) FLUID COLOR (test GREEN COLORLESS code = COLFL) FLUID APPEARANCE HAZY (test code = APPFL) FLUID WBC (test code 0 per mm3 0-150 N QC perf ormed - Cell = WBCFL) count on both s ides of chamber agreesw ithin 20% ? Y FLUID RBC (test code 14 per mm3 0-50 N RESULTS CALLED TO = RBCFL) [id number] [facility]18 2210 TOTAL CELLS COUNTED cells ON DIFF (test code = TOTCELLFL) REVIEWED BY (test PATHOLOGIST code = REVIEW) BODY FLUID CELL [id number] 16:44:00 Test Item Value Reference Range Interpretation Comments FLUID SOURCE (test code = SOURCEFL) FLUID COLOR (test COLORLESS code = COLFL) FLUID APPEARANCE (test code = APPFL) FLUID WBC (test code per mm3 0-150 = WBCFL) FLUID WBC AUTO (test 30 cells/uL code = WBCFLA) FLUID RBC (test code per mm3 0-50 = RBCFL) FLUID RBC AUTO (test 1000 cells/uL code = RBCFLA) FLUID TOTAL CELLS 33 cells/uL >0 Fluid WBC (test code = TCFL) RBC Type cells/uL cells/uL CSF (0-5) n/a Peritoneal n/a n/a Pleu ral n/a n/a Synovial <2 00 n/a Jesus isadora CSF (0-30) n /a TOTAL CELLS COUNTED cells ON DIFF (test code = TOTCELLFL) REVIEWED BY (test PATHOLOGIST code = REVIEW) THYROID PROFILE [id number] 06:15:00 Test Item Value Reference Range Interpretation Comments T3 UPTAKE (test code = 34.0 % 30.0-40.0 N T3UP) T4 (THYROXINE) (test 9.3 ug/dL 4.5-13.9 N code = T4) T7 (FREE THYROXINE 3.16 FTI 1.3-5.1 N INDEX) (test code = T7) THYROID STIMULATING 6.650 uIU/mL 0.36-3.74 H TSH REFE RENCE HORMONE (test code = RANGES: EUTHYROID: TSH) 0.35 - 4.3 mIU/mL HYPO : > 5.5 mIU/mL HYPER : < 0.35 mIU/mL BASIC METABOLIC [id number] 05:57:00 Test Item Value Reference Range Interpretation Comments SODIUM (test code = 147 mmol/L 136-145 H NA) POTASSIUM (test code 3.8 mmol/L 3.5-5.1 N = K) CHLORIDE (test code = 111.0 mmol/L 98-107 H CL) CARBON DIOXIDE (test 30.0 mmol/L 21-32 N code = CO2) ANION GAP (test code 9.8 10-20 L = GAP) GLUCOSE (test code = 82 mg/dL 74-106 N GLU) BLOOD UREA NITROGEN 11 mg/dL 7-18 N (test code = BUN) GLOMERULAR FILTRATION > 60 mL/min >=60 Estima sofi GFR by RATE (test code = using Panchito fied MDRD GFR) formula.Chronic kidney disease is defined as [facility] kidney damageor GFR <60 mL/min/1.73 m2 for >3 months. CREATININE (test code 0.50 mg/dL 0.55-1.02 L Note change in = CREAT) reference range due to change in reagent. BUN/CREATININE RATIO 21.4 10-20 H (test code = BUN/CREA) CALCIUM (test code = 8.7 mg/dL 8.5-10.1 N CA) BASIC METABOLIC [id number] 05:50:00 Test Item Value Reference Range Interpretation Comments SODIUM (test code = NA) 147 mmol/L 136-145 H POTASSIUM (test code = K) 3.8 mmol/L 3.5-5.1 N CHLORIDE (test code = CL) 111.0 mmol/L 98-107 H CARBON DIOXIDE (test code = CO2) mmol/L 21-32 ANION GAP (test code = GAP) 10-20 GLUCOSE (test code = GLU) mg/dL 74-106 BLOOD UREA NITROGEN (test code = mg/dL 7-18 BUN) GLOMERULAR FILTRATION RATE (test mL/min >=60 code = GFR) CREATININE (test code = CREAT) mg/dL 0.55-1.02 BUN/CREATININE RATIO (test code 10-20 = BUN/CREA) CALCIUM (test code = CA) mg/dL 8.5-10.1 PROTHROMBIN [id number] 05:37:00 Test Item Value Reference Range Interpretation Comments PROTHROMBIN TIME 11.8 seconds 9.0-14.0 N PATIENT (test code = PTP) INTERNATIONAL NORMAL 1.0 0.8-1.2 N The the rapeutic range RATIO (test code = for oral INR) anticoagulant t herapy formost indicat ions is an internati onal normalized rati o (INR)of between 2.0 and 3.0. The recommended therapeutic INR range for various cli nical situations is l isted below: Clinical Situat ion INR range Pulmonary embol ism treatment (2.0-3.0)Venou s thrombosis treatmentVenous thrombosis prophylaxis (hi gh risk surgery)Prevent ion of systemic emboli sm from: A cute myocardial infa rction Valvula r heart disease Atrial fibrilla tion Mechanical pros thetic heart valves (2.5-3.5) IS PATIENT ON ANTICOAGULANTS? NTHROMBOPLASTIN TIME [id number] 05:37:00 Test Item Value Reference Range Interpretation Comments THROMBOPLASTIN TIME PARTIAL 36.7 seconds 25.0-36.5 H (test code = PTT) IS PATIENT ON ANTICOAGULANTS? NCBC W/AUTO [id number] 05:28:00 Test Item Value Reference Range Interpretation Comments WHITE BLOOD CELL (test code = 7.6 K/mm3 4.5-12.5 N WBC) RED BLOOD CELL (test code = 4.30 mill/mm3 3.7-5.2 N RBC) HEMOGLOBIN (test code = HGB) 12.5 gram/dL 11.5-15.5 N HEMATOCRIT (test code = HCT) 40.1 % 36.0-46.0 N MEAN CELL VOLUME (test code = 93.3 fL 80-98 N MCV) MEAN CELL HGB (test code = MCH) 29.1 picogram 27.0-33.0 N MEAN CELL HGB CONCETRATION 31.2 gram/dL 33.0-36.0 L (test code = MCHC) RED CELL DISTRIBUTION WIDTH 14.5 % 11.6-16.2 N (test code = RDW) RED CELL DISTRIBUTION WIDTH SD 49.1 fL 37.0-51.0 N (test code = RDW-SD) PLATELET COUNT (test code = 302 K/mm3 150-450 N PLT) MEAN PLATELET VOLUME (test code 9.6 fL 6.7-11.0 N = MPV) NEUTROPHIL % (test code = NT%) 47.1 % 39.0-69.0 N IMMATURE GRANULOCYTE % (test 0.4 % 0.0-5.0 N code = IG%) LYMPHOCYTE % (test code = LY%) 43.8 % 25.0-55.0 N MONOCYTE % (test code = MO%) 6.8 % 0.0-10.0 N EOSINOPHIL % (test code = EO%) 1.6 % 0.0-5.0 N BASOPHIL % (test code = BA%) 0.3 % 0.0-1.0 N NUCLEATED RBC % (test code = 0.0 % 0-0 N NRBC%) NEUTROPHIL # (test code = NT#) 3.56 K/mm3 1.8-7.7 N IMMATURE GRANULOCYTE # (test 0.03 x10 3/uL 0-0.03 N code = IG#) LYMPHOCYTE # (test code = LY#) 3.31 K/mm3 1.0-5.0 N MONOCYTE # (test code = MO#) 0.51 K/mm3 0-0.8 N EOSINOPHIL # (test code = EO#) 0.12 K/mm3 0.0-0.5 N BASOPHIL # (test code = BA#) 0.02 K/mm3 0.0-0.2 N NUCLEATED RBC # (test code = 0.00 K/mm3 0.0-0.1 N NRBC#) CBC W/AUTO [id number] 05:21:00 Test Item Value Reference Range Interpretation Comments WHITE BLOOD CELL (test code = K/mm3 4.5-12.5 WBC) RED BLOOD CELL (test code = RBC) mill/mm3 3.7-5.2 HEMOGLOBIN (test code = HGB) 12.5 gram/dL 11.5-15.5 N HEMATOCRIT (test code = HCT) 40.1 % 36.0-46.0 N MEAN CELL VOLUME (test code = fL 80-98 MCV) MEAN CELL HGB (test code = MCH) picogram 27.0-33.0 MEAN CELL HGB CONCETRATION (test gram/dL 33.0-36.0 code = MCHC) RED CELL DISTRIBUTION WIDTH % 11.6-16.2 (test code = RDW) RED CELL DISTRIBUTION WIDTH SD fL 37.0-51.0 (test code = RDW-SD) PLATELET COUNT (test code = PLT) K/mm3 150-450 MEAN PLATELET VOLUME (test code fL 6.7-11.0 = MPV) NEUTROPHIL % (test code = NT%) % 39.0-69.0 IMMATURE GRANULOCYTE % (test % 0.0-5.0 code = IG%) LYMPHOCYTE % (test code = LY%) % 25.0-55.0 MONOCYTE % (test code = MO%) % 0.0-10.0 EOSINOPHIL % (test code = EO%) % 0.0-5.0 BASOPHIL % (test code = BA%) % 0.0-1.0 NEUTROPHIL # (test code = NT#) K/mm3 1.8-7.7 LYMPHOCYTE # (test code = LY#) K/mm3 1.0-5.0 MONOCYTE # (test code = MO#) K/mm3 0-0.8 EOSINOPHIL # (test code = EO#) K/mm3 0.0-0.5 BASOPHIL # (test code = BA#) K/mm3 0.0-0.2 - MRI ABDOMEN W/O [id number] 11:46:00 FAX: Gilberto Davies [phone] [place]: St: ADM FAX: SusankimberlyKathleen IMD FAX: Evonne Alexis High Miguel [phone] Name: ANA PENALOZA [facility] : 1950 Age/S: 67/F [address] [facility] Unit #: [id number] Loc: V.[address] [place] [address] Phys: Gilberto ConwayOK Acct: [id number] Dis Date: Status: ADM IN PHONE #: [phone] Exam Date: 05/05/2018 1134 FAX #: [phone] Reason: r/o CBD stone EXAMS: CPT CODE: [id number] MRI ABDOMEN W/O CONT 48472 HISTORY: Evaluate for CBD stones. COMPARISON: Ultrasound and CT scan from May 03, 2018. MRCP: 3-D images Dilated CBD measuring 1.3 cm. No filling defects are visible however abrupt termination at the ampulla. This could represent a stone at the ampulla. Dilated pancreatic duct at 5.8 mm. Dilated common hepatic and right and left hepatic ducts. Patient is post cholecystectomy. No ascites. IMPRESSION: Dilated CBD at 1.3 cm with abrupt termination at the ampulla. This could represent an ampullary stone. ERCP would be of value. Dilated pancreatic duct at 5.8 mm. at 1146 Reported and signed by: Guilherme Silverman M.D. CC: Gilberto Conway MD; Kathleen Michelle MD; Alexis High DO Technologist: Delmar Phoenix)(MR) Trnscrd Date/Time/By: 05/05/2018 (1146) : By: [email or web address] Orig Print D/T: S: 05/05/2018 (6841) PAGE 1 Signed [id number] 03:18:00 Test Item Value Reference Range Interpretation Comments TROPONIN-I (test code = TROPI) <0.015 ng/mL 0-0.045 N COMMENTS TO SPACE SCIENCES DIRECTOR: COLLECT 3 HOURS AFTER PREVIOUS SAMPLECOMPREHENSIVE METABOLIC [id number] 03:18:00 Test Item Value Reference Range Interpretation Comments SODIUM (test code = 143 mmol/L 136-145 N NA) POTASSIUM (test code = 3.7 mmol/L 3.5-5.1 N K) CHLORIDE (test code = 110.0 mmol/L 98-107 H CL) CARBON DIOXIDE (test 22.0 mmol/L 21-32 N code = CO2) ANION GAP (test code = 14.7 10-20 N GAP) GLUCOSE (test code = 89 mg/dL 74-106 N GLU) BLOOD UREA NITROGEN 8 mg/dL 7-18 N (test code = BUN) GLOMERULAR FILTRATION > 60 mL/min >=60 Estima sofi GFR by RATE (test code = GFR) using Modified MDRD formula.Chronic kidney disease is defined as ei er kidney damageor GFR <60 mL/min/1.73 m2 for >3 months. CREATININE (test code 0.40 mg/dL 0.55-1.02 L Note change in = CREAT) reference range due to change in reagent. BUN/CREATININE RATIO 20.5 10-20 H (test code = BUN/CREA) TOTAL PROTEIN (test 5.2 gram/dL 6.4-8.2 L code = PROT) ALBUMIN (test code = 2.8 g/dL 3.4-5.0 L ALB) GLOBULIN (test code = 2.4 gram/dL 2.7-4.2 L GLOB) ALBUMIN/GLOBULIN RATIO 1.2 0.75-1.50 N (test code = A/G) CALCIUM (test code = 8.0 mg/dL 8.5-10.1 L CA) BILIRUBIN TOTAL (test 0.30 mg/dL 0.0-1.0 N code = BILT) SGOT/AST (test code = 8 IUnit/L 15-37 L AST) SGPT/ALT (test code = 12 IUnit/L 12-78 N ALT) ALKALINE PHOSPHATASE 64 IUnit/L 45-117 N Note change in TOTAL (test code = reference range due ALKP) to change in reagent. COMPREHENSIVE METABOLIC [id number] 03:10:00 Test Item Value Reference Range Interpretation Comments SODIUM (test code = NA) 143 mmol/L 136-145 N POTASSIUM (test code = K) 3.7 mmol/L 3.5-5.1 N CHLORIDE (test code = CL) 110.0 mmol/L 98-107 H CARBON DIOXIDE (test code = CO2) mmol/L 21-32 ANION GAP (test code = GAP) 10-20 GLUCOSE (test code = GLU) mg/dL 74-106 BLOOD UREA NITROGEN (test code = mg/dL 7-18 BUN) GLOMERULAR FILTRATION RATE (test mL/min >=60 code = GFR) CREATININE (test code = CREAT) mg/dL 0.55-1.02 BUN/CREATININE RATIO (test code 10-20 = BUN/CREA) TOTAL PROTEIN (test code = PROT) gram/dL 6.4-8.2 ALBUMIN (test code = ALB) g/dL 3.4-5.0 GLOBULIN (test code = GLOB) gram/dL 2.7-4.2 ALBUMIN/GLOBULIN RATIO (test 0.75-1.50 code = A/G) CALCIUM (test code = CA) mg/dL 8.5-10.1 BILIRUBIN TOTAL (test code = mg/dL 0.0-1.0 BILT) SGOT/AST (test code = AST) IUnit/L 15-37 SGPT/ALT (test code = ALT) IUnit/L 12-78 ALKALINE PHOSPHATASE TOTAL (test IUnit/L 45-117 code = ALKP) CBC W/AUTO [id number] 02:48:00 Test Item Value Reference Range Interpretation Comments WHITE BLOOD CELL (test code = 8.1 K/mm3 4.5-12.5 N WBC) RED BLOOD CELL (test code = 4.12 mill/mm3 3.7-5.2 N RBC) HEMOGLOBIN (test code = HGB) 12.0 gram/dL 11.5-15.5 N HEMATOCRIT (test code = HCT) 37.9 % 36.0-46.0 N MEAN CELL VOLUME (test code = 92.0 fL 80-98 N MCV) MEAN CELL HGB (test code = MCH) 29.1 picogram 27.0-33.0 N MEAN CELL HGB CONCETRATION 31.7 gram/dL 33.0-36.0 L (test code = MCHC) RED CELL DISTRIBUTION WIDTH 14.6 % 11.6-16.2 N (test code = RDW) RED CELL DISTRIBUTION WIDTH SD 49.1 fL 37.0-51.0 N (test code = RDW-SD) PLATELET COUNT (test code = 255 K/mm3 150-450 N PLT) MEAN PLATELET VOLUME (test code 9.2 fL 6.7-11.0 N = MPV) NEUTROPHIL % (test code = NT%) 57.6 % 39.0-69.0 N IMMATURE GRANULOCYTE % (test 0.2 % 0.0-5.0 N code = IG%) LYMPHOCYTE % (test code = LY%) 32.8 % 25.0-55.0 N MONOCYTE % (test code = MO%) 7.8 % 0.0-10.0 N EOSINOPHIL % (test code = EO%) 1.4 % 0.0-5.0 N BASOPHIL % (test code = BA%) 0.2 % 0.0-1.0 N NUCLEATED RBC % (test code = 0.0 % 0-0 N NRBC%) NEUTROPHIL # (test code = NT#) 4.65 K/mm3 1.8-7.7 N IMMATURE GRANULOCYTE # (test 0.02 x10 3/uL 0-0.03 N code = IG#) LYMPHOCYTE # (test code = LY#) 2.65 K/mm3 1.0-5.0 N MONOCYTE # (test code = MO#) 0.63 K/mm3 0-0.8 N EOSINOPHIL # (test code = EO#) 0.11 K/mm3 0.0-0.5 N BASOPHIL # (test code = BA#) 0.02 K/mm3 0.0-0.2 N NUCLEATED RBC # (test code = 0.00 K/mm3 0.0-0.1 N NRBC#) MANUAL DIFF REQUIRED (test code NO = MDIFF) [id number] 22:26:00 Test Item Value Reference Range Interpretation Comments TROPONIN-I (test code = TROPI) <0.015 ng/mL 0-0.045 N COMMENTS TO SPACE SCIENCES DIRECTOR: COLLECT 3 HOURS AFTER PREVIOUS SAMPLE- US ABDOMEN [id number] 19:15:00 Name: ANA PENALOZA [facility] : 1950 Age/S: 67 / F [address] [facility] Unit #: [id number] Loc: [place] [address] Phys: Kathleen Michelle MD Acct: [id number] Dis Date: Status: ADM IN PHONE #: [phone] Exam Date: 05/03/2018 1840 FAX #: [phone] Reason: RUQ cons tant pain EXAMS: CPTCODE: [id number] US ABDOMEN [facility] [id number] EXAM: Ultrasound abdomen, limited; INFORMATION: Right upper quadrant pain; FINDINGS: The liver is enlarged and shows several small cysts. A 1 cm echogenic lesion was seen anteriorly in the right lobe consistent with a small hemangioma. The slightly larger cavernous hemangioma, demonstrated by CT he was not clearly identified on this study. Status post cholecystectomy. There is minimal dilatation of the central portions of intrahepatic bile ducts and there is significant dilatation of the common bile duct, up to 17 mm. There is noevidence of a stone or other obstructing lesion. The pancreas is unremarkable. Theright kidney is of normal size and shape; no hydronephrosis, no stones and no parenchymal abnormalities. The right kidney measures 8.3 x 4.6 x 4.1 cm. No ascites. Imaged portions of the IVC and abdominal aorta are unremarkable. IMPRESSION: 1. Multiple hepatic cysts and small cavernous hemangioma. The large hemangioma demonstrated by CT he was not identified sonographically. 2. Dilatation of the extrahepatic bile duct without obvious obstructing lesion and mild dilatation of intrahepatic ducts. at 1915 Reported and signed by: Kwaku Ayon M.D. CC: Kathleen Michelle MD; Alexis High DO Technologist: Jyothi Perez Trnscb Date/Time: 05/03/2018 (1914) [place] Orig Print D/T: S: 05/03/2018 (1917) Probe: PAGE 1 Signed Report- CT ABD PELVIS [id number] 16:05:00 Name: ANA PENALOZA [facility] : 1950 Age/S: 67 / F [address] [facility] Unit #: [id number] Loc: [place] [address] Phys: Virgilio Hughes MD Acct: [id number] Dis Date: Status: REG ER PHONE #: [phone] Exam Date: 05/03/2018 1443 FAX #: [phone] Reason: RUQ pain EXAMS: CPTCODE: [id number] CT ABD PELVIS W/CONT 80720 EXAM: CT ofthe abdomen and pelvis with contrast; INFORMATION: Right upper quadrant pain; TECHNIQUE AND FINDINGS: CT dose reduction protocol; 5 mm cuts through the abdomen and pelvis during and after intravenous infusion of contrast material. The liver is of normal size and shape. There are multiple cysts in both lobes of the liver; the largest measures 3cm in diameter. There is a 2.5 cm lesion with nodular enhancement and gradual fill-in on the delayed study. This lesion is located in segment 6 of the liver is consistent with a cavernous hemangioma. 1; a flash enhancing lesion in the anterior lateral aspect of segment 7 a lso fills in on the delayed scan and is consistent with a small cavernous hemangioma. Status post cholecystectomy; dilatation of extrahepatic bile ducts without evidence of obstructing lesion. Atrophic pancreas without focal lesions. Spleen, adrenal glands and kidneys unremarkable. No hydronephrosis. No acute bowel abnormalities. No pelvic mass lesions.No retroperitoneal adenopathy. Calcified plaques in the abdominal aorta and the iliac arteries. IMPRESSION: 1. No acute abdominal or pelvic abnormalities. 2. Multiple small hepatic cysts. 3. 2 cavernous hemangiomas in the right lobe of the liver. 3. Extrahepatic biliary dilatation without evidence of an obstructing lesion. at 1605 Reported and signed by: Kwaku Ayon M.D. CC: Alexis High DO; Virgilio Hughes MD Technologist:Karan Love RT(R),(MR),(CT); CTDI: DLP: Trnscb Date/Time: 05/03/2018 (1605) [place] Orig Print D/T: S: 05/03/2018 (9235) CTDI: DLP: PAGE 1 Signed Report- CT CHEST W/[id number] 15:57:00 Name: ANA PENALOZA [facility] : 1950 Age/S: 67 / F [address] [facility] Unit #: [id number] Loc: [place] [address] Phys: Virgilio Hughes MD Acct: [id number] Dis Date: Status: REG ER PHONE #: [phone] Exam Date: 05/03/2018 1443 FAX #: [phone] Reason: RUQ pain hypotension sudden onset EXAMS: CPTCODE: [id number] CT CHEST W/CONTRAST 74204 EXAM: CT ofthe chest with contrast; INFORMATION: Chest pain, hypotension; TECHNIQUE: CT dose reduction protocol; 1.25 mm cuts were obtained through the chest during intravenous infusion of contrast material; multiplanar reconstructions were obtained; PE protocol; FINDINGS: The pulmonary arteries are densely enhancing and are without filling defects. The thoracic aorta shows calcified plaques; no evidence of dissection or aneurysm; calcifications of the ordering arteries; No evidence of hilar or mediastinal adenopathy; No effusions. Lung windows show no parenchymal abnormalities. IMPRESSION: No evidence of pulmonary embolism, aortic dissection or other acute abnormalities. at 1557 Reported and signed by: Kwaku Ayon M.D. CC: Alexis High DO; Virgilio Hughes MD Technologist:Karan Love RT (R),(MR),(CT); CTDI: DLP: Trnscb Date/Time: 05/03/2018 (0327) [place] Orig Print D/T: S: 05/03/2018 (1600) CTDI: DLP: PAGE 1 Signed ReportBASIC METABOLIC [id number] 14:04:00 Test Item Value Reference Range Interpretation Comments SODIUM (test code = 144 mmol/L 136-145 N NA) POTASSIUM (test code 3.4 mmol/L 3.5-5.1 L = K) CHLORIDE (test code = 111.0 mmol/L 98-107 H CL) CARBON DIOXIDE (test 24.0 mmol/L 21-32 N code = CO2) ANION GAP (test code 12.4 10-20 N = GAP) GLUCOSE (test code = 84 mg/dL 74-106 N GLU) BLOOD UREA NITROGEN 13 mg/dL 7-18 N (test code = BUN) GLOMERULAR FILTRATION > 60 mL/min >=60 Estima sofi GFR by RATE (test code = using Panchito fied MDRD GFR) formula.Chronic kidney disease is defined as eith er kidney damageor GFR <60 mL/min/1.73 m2 for >3 months. CREATININE (test code 0.70 mg/dL 0.55-1.02 N Note change in = CREAT) reference range due to change in reagent. BUN/CREATININE RATIO 19.3 10-20 N (test code = BUN/CREA) CALCIUM (test code = 8.9 mg/dL 8.5-10.1 N CA) HEPATIC FUNCTION [id number] 14:04:00 Test Item Value Reference Range Interpretation Comments TOTAL PROTEIN (test 6.5 gram/dL 6.4-8.2 N code = PROT) ALBUMIN (test code = 2.9 g/dL 3.4-5.0 L ALB) GLOBULIN (test code = 3.6 gram/dL 2.7-4.2 N GLOB) ALBUMIN/GLOBULIN RATIO 0.8 0.75-1.50 N (test code = A/G) BILIRUBIN TOTAL (test 0.40 mg/dL 0.0-1.0 N code = BILT) BILIRUBIN DIRECT (test 0.10 mg/dL 0.0-0.20 N code = BILD) SGOT/AST (test code = 11 IUnit/L 15-37 L AST) SGPT/ALT (test code = 16 IUnit/L 12-78 N ALT) ALKALINE PHOSPHATASE 72 IUnit/L 45-117 N Note change in TOTAL (test code = reference range due ALKP) to change in reagent. [id number] 14:04:00 Test Item Value Reference Range Interpretation Comments LIPASE (test code = LIP) 106 U/L 73.0-393.0 N HCG SERUM [id number] 14:04:00 Test Item Value Reference Range Interpretation Comments HCG SERUM QUAL (test NEGATIVE NEGATIVE This H CGQL test is NOT code = HCGQL) applicable for MALE patients.Check with nurse about probable order error.If Tumor Marker Test needed, nu rse should order test "HCG TU"(Test #550.10234)---- - [id number] 14:04:00 Test Item Value Reference Range Interpretation Comments TROPONIN-I (test code = TROPI) <0.015 ng/mL 0-0.045 N BASIC METABOLIC [id number] 14:00:00 Test Item Value Reference Range Interpretation Comments SODIUM (test code = NA) 144 mmol/L 136-145 N POTASSIUM (test code = K) 3.4 mmol/L 3.5-5.1 L CHLORIDE (test code = CL) 111.0 mmol/L 98-107 H CARBON DIOXIDE (test code = CO2) mmol/L 21-32 ANION GAP (test code = GAP) 10-20 GLUCOSE (test code = GLU) mg/dL 74-106 BLOOD UREA NITROGEN (test code = mg/dL 7-18 BUN) GLOMERULAR FILTRATION RATE (test mL/min >=60 code = GFR) CREATININE (test code = CREAT) mg/dL 0.55-1.02 BUN/CREATININE RATIO (test code 10-20 = BUN/CREA) CALCIUM (test code = CA) mg/dL 8.5-10.1 HEPATIC FUNCTION [id number] 14:00:00 Test Item Value Reference Range Interpretation Comments TOTAL PROTEIN (test code = PROT) gram/dL 6.4-8.2 ALBUMIN (test code = ALB) g/dL 3.4-5.0 GLOBULIN (test code = GLOB) gram/dL 2.7-4.2 ALBUMIN/GLOBULIN RATIO (test code = 0.75-1.50 A/G) BILIRUBIN TOTAL (test code = BILT) mg/dL 0.0-1.0 BILIRUBIN DIRECT (test code = BILD) mg/dL 0.0-0.20 SGOT/AST (test code = AST) IUnit/L 15-37 SGPT/ALT (test code = ALT) IUnit/L 12-78 ALKALINE PHOSPHATASE TOTAL (test IUnit/L 45-117 code = ALKP) [id number] 14:00:00 Test Item Value Reference Range Interpretation Comments LIPASE (test code = LIP) U/L 73.0-393.0 HCG SERUM [id number] 14:00:00 Test Item Value Reference Range Interpretation Comments HCG SERUM QUAL (test NEGATIVE NEGATIVE This H CGQL test is NOT code = HCGQL) applicable for MALE patients.Check with nurse about probable order error.If Tumor Marker Test needed, nu rse should order test "HCG TU"(Test #[id number])---- - [id number] 14:00:00 Test Item Value Reference Range Interpretation Comments TROPONIN-I (test code = TROPI) ng/mL 0-0.045 BASIC METABOLIC [id number] 13:55:00 Test Item Value Reference Range Interpretation Comments SODIUM (test code = NA) 144 mmol/L 136-145 N POTASSIUM (test code = K) 3.4 mmol/L 3.5-5.1 L CHLORIDE (test code = CL) 111.0 mmol/L 98-107 H CARBON DIOXIDE (test code = CO2) mmol/L 21-32 ANION GAP (test code = GAP) 10-20 GLUCOSE (test code = GLU) mg/dL 74-106 BLOOD UREA NITROGEN (test code = mg/dL 7-18 BUN) GLOMERULAR FILTRATION RATE (test mL/min >=60 code = GFR) CREATININE (test code = CREAT) mg/dL 0.55-1.02 BUN/CREATININE RATIO (test code 10-20 = BUN/CREA) CALCIUM (test code = CA) mg/dL 8.5-10.1 HEPATIC FUNCTION [id number] 13:55:00 Test Item Value Reference Range Interpretation Comments TOTAL PROTEIN (test code = PROT) gram/dL 6.4-8.2 ALBUMIN (test code = ALB) g/dL 3.4-5.0 GLOBULIN (test code = GLOB) gram/dL 2.7-4.2 ALBUMIN/GLOBULIN RATIO (test code = 0.75-1.50 A/G) BILIRUBIN TOTAL (test code = BILT) mg/dL 0.0-1.0 BILIRUBIN DIRECT (test code = BILD) mg/dL 0.0-0.20 SGOT/AST (test code = AST) IUnit/L 15-37 SGPT/ALT (test code = ALT) IUnit/L 12-78 ALKALINE PHOSPHATASE TOTAL (test IUnit/L 45-117 code = ALKP) [id number] 13:55:00 Test Item Value Reference Range Interpretation Comments LIPASE (test code = LIP) U/L 73.0-393.0 HCG SERUM [id number] 13:55:00 Test Item Value Reference Range Interpretation Comments HCG SERUM QUAL (test code = HCGQL) NEGATIVE [id number] 13:55:00 Test Item Value Reference Range Interpretation Comments TROPONIN-I (test code = TROPI) ng/mL 0-0.045 URINALYSIS [id number] 13:48:00 Test Item Value Reference Range Interpretation Comments UA COLOR (test code = COLU) STRAW YELLOW UA APPEARANCE (test code = CLEAR CLEAR APPU) UA GLUCOSE DIPSTICK (test NEGATIVE mg/dL NEGATIVE code = DGLUU) UA BILIRUBIN DIPSTICK (test NEGATIVE mg/dL NEGATIVE code = BILU) UA KETONE DIPSTICK (test 20 (Small) mg/dL NEGATIVE A code = KETU) UA SPECIFIC GRAVITY (test 1.005 1.001-1.035 code = SGU) UA BLOOD DIPSTICK (test code Negative NEGATIVE = FRANK) UA PH DIPSTICK (test code = 7.0 5.0-8.0 LORI) UA PROTEIN DIPSTICK (test Negative mg/dL NEGATIVE code = PROU) UA UROBILINIOGEN DIPSTICK NEGATIVE mg/dL NEGATIVE (test code = URO) UA NITRITE DIPSTICK (test NEGATIVE NEGATIVE code = LIT) UA LEUKOCYTE ESTERASE W NEGATIVE NEGATIVE REFLEX (test code = LEUUR) UA WBC (test code = WBCU) 0-5 #/HPF 0-5 UA RBC (test code = RBCU) 0-2 #/HPF 0-5 UA EPITHELIAL CELLS (test FEW per HPF FEW code = EPIU) UA BACTERIA (test code = MODERATE #/HPF NONE A BACU) Urine Source? Clean CatchCBC W/O [id number] 13:46:00 Test Item Value Reference Range Interpretation Comments WHITE BLOOD CELL (test code = 8.9 K/mm3 4.5-12.5 N WBC) RED BLOOD CELL (test code = 4.42 mill/mm3 3.7-5.2 N RBC) HEMOGLOBIN (test code = HGB) 13.1 gram/dL 11.5-15.5 N HEMATOCRIT (test code = HCT) 39.8 % 36.0-46.0 N MEAN CELL VOLUME (test code = 90.0 fL 80-98 N MCV) MEAN CELL HGB (test code = MCH) 29.6 picogram 27.0-33.0 N MEAN CELL HGB CONCETRATION 32.9 gram/dL 33.0-36.0 L (test code = MCHC) RED CELL DISTRIBUTION WIDTH 14.6 % 11.6-16.2 N (test code = RDW) PLATELET COUNT (test code = 282 K/mm3 150-450 N PLT) MEAN PLATELET VOLUME (test code 9.9 fL 6.7-11.0 N = MPV) CBC W/O [id number] 13:42:00 Test Item Value Reference Range Interpretation Comments WHITE BLOOD CELL (test code = K/mm3 4.5-12.5 WBC) RED BLOOD CELL (test code = RBC) mill/mm3 3.7-5.2 HEMOGLOBIN (test code = HGB) 13.1 gram/dL 11.5-15.5 N HEMATOCRIT (test code = HCT) 39.8 % 36.0-46.0 N MEAN CELL VOLUME (test code = fL 80-98 MCV) MEAN CELL HGB (test code = MCH) picogram 27.0-33.0 MEAN CELL HGB CONCETRATION (test gram/dL 33.0-36.0 code = MCHC) RED CELL DISTRIBUTION WIDTH % 11.6-16.2 (test code = RDW) PLATELET COUNT (test code = PLT) K/mm3 150-450 MEAN PLATELET VOLUME (test code fL 6.7-11.0 = MPV)
== END 2021-09-04 12:00 | disposition home or self-care (01) | DRG 329 ==
LOC: 2ND 13:04 → 3RD-ICU 08-31 16:39 → 2ND 09-02 11:15
PROVIDERS: ADMIT Internal Medicine Sleep Medicine; ATTEND Internal Medicine Sleep Medicine
PROC: 0DNB0ZZ Release Ileum, Open Approach (ICD-10-PCS; 2021-08-31)
PROC: 0DNF0ZZ Release Right Large Intestine, Open Approach (ICD-10-PCS; 2021-08-31)
PROC: 0DTF0ZZ Resection of Right Large Intestine, Open Approach (ICD-10-PCS; principal; 2021-08-31 13:00)
DX: K56.50 Intestinal adhesions [bands], unspecified as to partial versus complete obstruction (principal); K42.1 Umbilical hernia with gangrene; K56.2 Volvulus; E03.9 Hypothyroidism, unspecified; Z98.84 Bariatric surgery status; D12.2 Benign neoplasm of ascending colon; Z88.0 Allergy status to penicillin
CPT/HCPCS: 36415; 71045; 74177; 80048; 80053; 83690; 84443; 85025; 88304; 88305; 88307; 97116; 97161; 97530; J0330; J1100; J1650; J2370; J2405; J2704; J2710; J3010; J7030; J7120; Q9967

== ENCOUNTER 2021-09-07 07:34 | Emergency (ER) | payer OTHER ==
[2021-09-07 09:45] LABS: Absolute Lymphocytes (CBC) 1.7 K/uL (0.7-4.9); Hematocrit 33.7 % (36.0-45.0); Lymphocytes % 18.2 % (15.3-44.8); MCV 87.6 fL (80-100); MPV 6.2 fL (7.6-11.3); RBC Red Blood Cell Count 3.85 M/uL (3.86-4.86)
[2021-09-07 09:49] LABS: Protime INR 1.13
--- NOTE | 2021-09-07 09:50 | ER ---
Nurse's Notes [facility] Name: Jamila Castillo Age: 71 yrs Sex: Female : 1950 Arrival Date: 09/07/2021 Time: 07:36 Bed 16 Private MD: Diagnosis: Serous Drainage from Surgical Site Presentation: 09/07 08:13 Chief complaint: Patient states: small bowel resection x 1 week and states 'pink blood vg1 oozing' at surgical site and was released from hospital x 2 days ago. Denies fever or purulent drainage. Coronavirus screen: Vaccine status: Patient reports receiving the 2nd dose of the covid vaccine. Client denies travel out of the [place] in the last 14 days. Ebola Screen: Patient denies exposure to infectious person. Patient denies travel to an Ebola-affected area in the 21 days before illness onset. Initial Sepsis Screen: Does the patient meet any 2 criteria? No. Patient's initial sepsis screen is negative. Does the patient have a suspected source of infection? No. Patient's initial sepsis screen is negative. Risk Assessment: Do you want to hurt yourself or someone else? Patient reports no desire to harm self or others. Onset of symptoms was September 06, 2021. 08:13 Method Of Arrival: Wheelchair vg1 08:13 Acuity: KAYLA 3 vg1 Triage Assessment: 08:17 General: Appears uncomfortable, Behavior is cooperative. Pain: Complains of pain in vg1 abdomen. Historical: - Allergies: 08:17 PENICILLINS; vg1 08:17 Demerol; vg1 08:17 Dilaudid; vg1 - Home Meds: 08:17 levothyroxine oral [Active]; vg1 - PMHx: 08:17 Hypothyroidism; vg1 - PSHx: 08:17 Small bowel resection; Cholecystectomy; hysterectomy; Thyroidectomy; vg1 - Immunization history:: Client reports receiving the 2nd dose of the Covid vaccine. - Social history:: Smoking status: Patient reports the use of cigarette tobacco products, denies chronic smoking, but will smoke occasionally. Screenin:10 Abuse screen: Denies threats or abuse. Denies injuries from another. Nutritional machuca screening: No deficits noted. Tuberculosis screening: No symptoms or risk factors identified. Fall Risk None identified. Assessment: 10:10 Derm: Wound noted abdomen, surgical incision drainage. machuca Vital Signs: 08:13 BP 116 / 71; Pulse 78; Resp 16; Temp 98.2; Pulse Ox 96% on R/A; Weight 71.21 kg; Height vg1 5 ft. 7 in. (170.18 cm); Pain 8/10; 08:13 Body Mass Index 24.59 (71.21 kg, 170.18 cm) vg1 ED Course: 07:36 Patient arrived in ED. mr 08:16 Carissa Higgins, [facility] 7 08:17 Rohan Chung DO is Attending Physician. jh7 08:17 Triage completed. vg1 08:17 Arm band placed on. vg1 09:30 Surgeon. eb 09:48 Duncan Baca MD is Referral Physician. 7 10:10 Patient has correct armband on for positive identification. Bed in low position. machuca 10:10 No provider procedures requiring assistance completed. Inserted saline lock: 20 gauge machuca in left antecubital area, using aseptic technique. IV discontinued, intact, Pressure dressing applied. Administered Medications: No medications were administered Medication: 10:10 VIS not applicable for this client. machuca Outcome: 09:49 Discharge ordered by . 7 10:11 Discharged to home ambulatory. machuca 10:11 Condition: good 10:11 Discharge instructions given to patient. 10:11 Patient left the ED. machuca Signatures: Shayy Heller mr MayerSadie Victoria, RN RN 1 Lin Sales RN RN Carissa Higgins FNP [employer]IE[employer]ICATION[employer] OFFICER [facility]
--- NOTE | 2021-09-07 09:50 | EDPHYS ---
Physician Documentation [facility] Name: Jamila Castillo Age: 71 yrs Sex: Female : 1950 Arrival Date: 09/07/2021 Time: 07:36 Bed 16 Private MD: ED Physician Rohan Chung HPI: 09/07 08:35 This 71 yrs old Female presents to ER via Wheelchair with complaints of Post Surgical jh7 Bleeding. 08:35 Onset: The symptoms/episode began/occurred last night. Associated signs and symptoms: jh7 Pertinent positives: Pertinent negatives: abdominal pain, fever. Patient presents for excessive post surgical drainage after a small bowel resection occurring 1 week ago today. She states that Dr. Baca performed the surgery. She states that she was released from the hospital 2 days ago. Denies any fever, increased tenderness, redness, or purulent drainage. States that its light pink drainage that has been running down her leg and soaking her clothes. Historical: - Allergies: 08:17 PENICILLINS; vg1 08:17 Demerol; vg1 08:17 Dilaudid; vg1 - Home Meds: 08:17 levothyroxine oral [Active]; vg1 - PMHx: 08:17 Hypothyroidism; vg1 - PSHx: 08:17 Small bowel resection; Cholecystectomy; hysterectomy; Thyroidectomy; vg1 - Immunization history:: Client reports receiving the 2nd dose of the Covid vaccine. - Social history:: Smoking status: Patient reports the use of cigarette tobacco products, denies chronic smoking, but will smoke occasionally. ROS: 08:35 Constitutional: Negative for fever, chills, and weight loss, Neck: Negative for injury, jh7 pain, and swelling, Cardiovascular: Negative for chest pain, palpitations, and edema, Respiratory: Negative for shortness of breath, cough, wheezing, and pleuritic chest pain, Abdomen/GI: Negative for abdominal pain, nausea, vomiting, diarrhea, and constipation, Back: Negative for injury and pain, Neuro: Negative for headache, weakness, numbness, tingling, and seizure. 08:35 Skin: Positive for Post surgical drainage, Negative for abrasions, erythema, rash, swelling. 08:35 All other systems are negative. Exam: 09:27 Constitutional: This is a well developed, well nourished patient who is awake, alert, jh7 and in no acute distress. Cardiovascular: Regular rate and rhythm with a normal S1 and S2. No gallops, murmurs, or rubs. Normal PMI, no JVD. No pulse deficits. Respiratory: Lungs have equal breath sounds bilaterally, clear to auscultation and percussion. No rales, rhonchi or wheezes noted. No increased work of breathing, no retractions or nasal flaring. Abdomen/GI: Soft, non-tender, with normal bowel sounds. No distension or tympany. No guarding or rebound. No evidence of tenderness throughout. Back: No spinal tenderness. No costovertebral tenderness. Full range of motion. Neuro: Awake and alert, GCS 15, oriented to person, place, time, and situation. Motor strength 5/5 in all extremities. Sensory grossly intact. Normal gait. 09:27 Skin: Large vertical surgical incision from the epigastrum to the pubic area with surgical elsa placed. There is a significant amount of serosanguineous drainage near the umbilicus with no erythema, tenderness to palpation, purulent drainage, or warmth to the touch.. Vital Signs: 08:13 BP 116 / 71; Pulse 78; Resp 16; Temp 98.2; Pulse Ox 96% on R/A; Weight 71.21 kg; Height vg1 5 ft. 7 in. (170.18 cm); Pain 8/10; 08:13 Body Mass Index 24.59 (71.21 kg, 170.18 cm) vg1 MDM: 07:49 Patient medically screened. ms3 09:00 Differential diagnosis: Surgical site infection, surgical wound dehiscence. Data [facility] reviewed: vital signs, nurses notes, lab test result(s). Data interpreted: Pulse oximetry: is 96 %. Interpretation: normal. Counseling: I had a detailed discussion with the patient and/or guardian regarding: the historical points, exam findings, and any diagnostic results supporting the discharge/admit diagnosis, the need for outpatient follow up, a general surgeon. ED course: Spoke to general surgeon Dr. Baca regarding the patient's condition. He suggested that I remove 1 staple from the surgical site. This will allow the serous drainage to be more easily released. The patient will then follow-up in his clinic on Tuesday. I relayed this information to the patient and removed 1 staple directly superior to the umbilicus. Her wound was dressed with an ABD pad. If she develops any new concerning symptoms, she may return to the ER for further eval.. 09/07 08:17 Order name: CBC with Diff; Complete Time: 09:50 [facility] 09/07 08:17 Order name: CMP 7 09/07 08:17 Order name: PT-INR; Complete Time: 09:50 jh7 Administered Medications: No medications were administered Disposition: 21:50 Co-signature as Attending Physician, Rohan Chung DO I was immediately available on-site ms3 in the Emergency Department for consultation in the care of the patient. . Disposition Summary: 09/07/21 09:49 Discharge Ordered Location: Home [facility] Problem: new [facility] Symptoms: are unchanged [facility] Condition: Stable [facility] Diagnosis - Serous Drainage from Surgical Site [facility] Followup: [facility] - With: Duncan Baca MD - When: 48 Hours - Reason: Recheck today's complaints Discharge Instructions: - Discharge Summary Sheet [facility] - Open Small Bowel Resection, Care After [facility] Forms: - Medication Reconciliation Form [facility] - Thank You Letter [facility] Signatures: Dispatcher [employer] Lavinia Coulter RN RN vg1 Rohan Chung DO DO ms3 Carissa Higgins FNP [employer] [facility] Corrections: (The following items were deleted from the chart) 10:48 09:27 Skin: Large vertical surgical incision inferior to the umbilicus with surgical jh7 elsa placed. There is a significant amount of serosanguineous drainage with no erythema, tenderness to palpation, purulent drainage, or warmth to the touch.. [facility] 10:48 09:27 Constitutional: This is a well developed, well nourished patient who is awake, jh7 alert, and in no acute distress. Cardiovascular: Regular rate and rhythm with a normal S1 and S2. No gallops, murmurs, or rubs. Normal PMI, no JVD. No pulse deficits. Respiratory: Lungs have equal breath sounds bilaterally, clear to auscultation and percussion. No rales, rhonchi or wheezes noted. No increased work of breathing, no retractions or nasal flaring. Abdomen/GI: Soft, non-tender, with normal bowel sounds. No distension or tympany. No guarding or rebound. No evidence of tenderness throughout. Back: No spinal tenderness. No costovertebral tenderness. Full range of motion. Neuro: Awake and alert, GCS 15, oriented to person, place, time, and situation. Motor strength 5/5 in all extremities. Sensory grossly intact. Normal gait. jh7
[2021-09-07 10:30] VITALS: BP 116/71; TEMP 98.2; O2SAT 96
[2021-09-07 11:19] LABS: Albumin 2.2 g/dL (3.4-5.0); Bilirubin Total 0.4 mg/dL (0.2-1.0); Protein, Total 5.9 g/dL (6.4-8.2)
[2021-09-07 11:44] LABS: Potassium 3.5 mmol/L (3.5-5.1)
== END 2021-09-07 10:11 | disposition home or self-care (01) ==
LOC: ER 07:34
DX: Z48.01 Encounter for change or removal of surgical wound dressing (principal); Z98.890 Other specified postprocedural states
CPT/HCPCS: 36415; 80053; 85025; 85610; 99283

== ENCOUNTER 2021-12-10 14:48 | Observation (INO) | payer OTHER ==
--- OUTSIDE RECORDS SUMMARY | 2021-12-10 14:56 | XMS REPORT | Continuity of Care Document ---
:1950 Author Organization [facility] t Address [address] [place] [address] Care Team Providers Name Role Phone Alexis High DO Primary Care Physician [phone] JAMESON STONE Attending Clinician Unavailable JOE FUENTES Attending Clinician Unavailable AIMEE HARRINGTON Attending Clinician Unavailable LAB90 Attending Clinician Unavailable WANDY MARTINS Attending Clinician Unavailable COVID-PFIZER BOOSTER, [place] Attending Clinician Unava ilable COVID-PFIZER VACC, [place] Attending Clinician Unavaildillon Harrington MD, Aimee Garcia Attending Clinician [phone] [email or web address] Attending Clinician Unavailable COVID-PFIZER VACC-2, [place] Attending Clinician Master brock [facility] Attending Clinician Unavailable Chrystal Adkins Attending Clinician [phone] Kathleen Michelle I Attending Clinician Unavailable [email or web address]_A Admitting Clinician Unavailable Kathleen Michelle I Admitting Clinician Unavailable Payers Payer Name Policy Type Policy Number Effective Date Expiration Date [facility] [place] 7 [id number] 2021 CLASSIC NO PREMIUM 00:00:00 R2T MEDICARE B-[place]: [id number] 2016 [employer] 00:00:00 Problems Condition Condition Condition Status Onset Resolution Last Treating Co mments Source Name Details Category Date Date Treatment Clinician Date Hyperchole Hyperchole Disease Active K marimar sterolemia sterolemia 06-09 Se ybold 00:00: - 00 Externa l Elevated Elevated Disease Active 2020-02 Kelse y LDL LDL 2- Seybold cholestero cholestero 00:00: l level l level 00 Hypothyroi Hypothyroi Disease Active 2020-02 K elsey dism dism 1-10 Seybold (acquired) (acquired) 00:00: - 00 Externa l Hx of Hx of Disease Active 2020-02 Toya bariatric bariatric 1- Seyb old surgery surgery 00:00: - 00 Externa l Hypothyroi Hypothyroi Problem Active P rivia dism dism 06-10 Medical 00:00: 00 Chronic Chronic Disease Active [facility] midline midline 8 st low back low back 00:00: Hospit a pain with pain with 00 l right-side right-side d sciatica d sciatica Obesity Obesity Disease Recurre [facility] i nce [facility] 00:00: Hospita 00 l Right Right Disease Active [facility] flank pain flank pain 09-11 st 00:00: Hospita 00 l Flank pain Flank pain Disease Active M ethodi 09-09 st 00:00: Hospita 00 l History of History of Disease Active M ethodi Ronald-en-Y Ronald-en-Y 08-16 gastric gastric 00:00: Hospita bypass bypass 00 l Fatty Fatty Disease Recurre Methodi liver liver nce 08-08 st 00:00: Hospita 00 l Arthritis Arthritis Disease Recurre Me thodi nce 06-14 st 00:00: Hospita 00 l Hypothyroi Hypothyroi Disease Recurre Methodi dism dism nce 06-14 st 00:00: Hospita 00 l Allergies, Adverse Reactions, Alerts Allergy Allergy Status Severity Reaction(s) Onset Inactive Treating Comm ents Source Name Type Date Date Clinician Penicill Propensi Active 2022-0 Toya amine ty to 06-09 Seybold adverse 00:00: reaction 00 s Penicill Propensi Active Toya amine ty to 06-09 Seybold adverse 00:00: - reaction 00 Externa s l hydromor DA Active [facility] phone 3-13 Clear 00:00: Caicedo 00 [facility] Hydromor Propensi Active Toya phone ty to 07-07 Seybold adverse 00:00: - reaction 00 Externa s l Hydromor Propensi Active Method i phone ty to 07-07 st adverse 00:00: Hospita reaction 00 l s to drug Meperidi Propensi Active Other Hallucina Michael sey ne ty to 03-30 tions Seybold adverse 00:00: - reaction 00 Externa s l Penicill Propensi Active Rash Toya in G ty to 03-30 Seybold adverse 00:00: - reaction 00 Externa s l Meperidi Propensi Active Other (See Hallucina Methodi ne ty to Comments) 03-[address] adverse 00:00: Hospita reaction 00 l s to drug Penicill Propensi Active Rash Method i in ty to 03-30 st adverse 00:00: Hospita reaction 00 l s to drug Penicill DA Active [facility] ins 1-23 Clear 00:00: Caicedo 00 [facility] meperidi DA Active [facility] ne 1-23 Clear 00:00: Caicedo 00 [facility] "ALL DA Active [facility] NARCOTIC 1- [facility]" [facility] Demerol Allergy Active [facility] Dilaudid Allergy Active [facility] Penicill Allergy Active [facility] amine to Medical sub[facility]anc [facility] Family History Family Member Diagnosis Comments Start Date Stop Date Source Natural [facility] Natural mother [facility] Social History Social Habit Start Date Stop Date Quantity Comments Source History of tobacco Toya Santos - use External Exposure to Not sure Toya casarez SARS-CoV-2 (event) History SDOH [facility] History SDOH [facility] Tobacco use and 2020-12-31 2020-12-31 Smokeless tobacco Ke lsey Seybold - exposure 00:00:00 00:00:00 non-user External Alcohol intake 2018-09-27 2018-09-27 Current [facility] 00:00:00 00:00:00 non-drinker of Hospital alcohol (finding) History SDOH 2018-07-04 2018-07-04 1 [facility] Frequency 00:00:00 00:00:00 Hospita l Cigarettes smoked 2017-04-04 2017-04-[address] current (pack per 00:00:00 00:00:00 Hospita l day) - Reported Cigarette 2017-04-04 2017-04-04 [facility] pack-years 00:00:00 00:00:00 Hospital Sex Ass[birth year] At [birth year] [facility] 00:00:00 00:[facility]:00 Hospital Smoking Status Start Date Stop Date Source Former Smoker [facility] Smokes tobacco daily 2020-12-31 00:00:00 Toya Seybold - External Medications Ordered Filled Start Stop Current Ordering Indication Dosage Frequency Signature Comments Components Source Medication Medication Date Date Medication? Clinician (SIG) Name Name Multiple 2021-02 Yes 1{tbl} Take 1 Kelse y Vitamins-Mi 0-03 tablet by Simin busby nerals 08:39: mouth - (Multi-Indy 28 daily Externa min/Mineral (before l s) oral lunch) Tablet Famotidine 2021-02 Yes [id number] 20mg Take 1 Toya (PEPCID) 20 0-03 tablet (20 Se ybold MG oral 00:00: mg total) - tablet 00 by mouth 2 Externa times l daily Vitamin D, Yes [id number] TAKE ONE Toya Ergocalcife 7-13 CAPSULE BY Se ybpatricia rol, 1.25 00:00: MOUTH ONCE - MG (67864 00 WEEKLY Externa UT) oral l Capsule Multiple Yes 1{tbl} Take 1 Kelse y Vitamins-Mi 4-19 tablet by Sejada bold nerals 08:21: mouth (Multi-Indy 58 daily min/Mineral (before s) oral lunch) Tablet Sucralfate Yes 1g Take 1 g Michael sey 1 g oral 4-10 by mouth Seybold Tablet 00:00: at bedtime 00 Sucralfate 2021- No 1g Take 1 g Ke lsey 1 g oral 4-10 10-03 by mouth Seybol d Tablet 00:00: 00:00 at bedtime - 00 :00 Externa l Omeprazole Yes 1{capsu Take 1 Ke lsey 20 MG oral 4- le} capsule by Sey bold Delayed 00:00: mouth Release 00 daily Capsule Omeprazole 0 2021- No 1{capsu Take 1 K elsey 20 MG oral 4-06 10- le} capsule by Se ybold Delayed 00:00: 00:00 mouth - Release 00 :00 daily Externa Capsule l Multiple 2020-02 Yes 1{tbl} Take 1 Kelse y Vitamins-Mi 2-01 tablet by Sey bold nerals 09:39: mouth (Multi-Indy 47 daily min/Mineral (before s) oral lunch) Tablet Levothyroxi 2020-02 Yes [id number] 50ug Take 1 Toya ne Sodium 2-01 tablet (50 Seyb old 50 MCG oral 00:00: mcg total) - Tablet 00 by mouth Externa every l morning Levothyroxi 2020-02 Yes [id number] 50ug Take 1 Toya ne Sodium 2-01 tablet (50 Seyb old 50 MCG oral 00:00: mcg total) Tablet 00 by mouth every morning Levothyroxi 2020-02 Yes [id number] 50ug Take 1 Toya ne Sodium 2-01 tablet (50 Seyb old 50 MCG oral 00:00: mcg total) Tablet 00 by mouth every morning Levothyroxi 2020-02- No 50ug Take 50 Ke lsey ne Sodium 1-10 11-10 mcg by Seybold 50 MCG oral 08:40: 00:00 mouth Tablet 15 :00 every morning Multiple 2020-02 Yes 1{tbl} Take 1 Kelse y Vitamins-Mi 1-10 tablet by Sey bold nerals 08:03: mouth (Multi-Indy 37 daily min/Mineral (before s) oral lunch) Tablet Levothyroxi 2020-02 Yes [id number] 50ug Take 1 Toya ne Sodium 1-10 tablet (50 Seyb old 50 MCG oral 00:00: mcg total) Tablet 00 by mouth every morning Levothyroxi 2020-02- No [id number] 50ug Take 1 Toya ne Sodium 1-10 12-01 tablet (50 Sey bold 50 MCG oral 00:00: 00:00 mcg total) Tablet 00 :00 by mouth every morning promethazin 2019-0 Yes 25mg Q6H Take 25 mg Methodi e 5-[address] (PHENERGAN) 08:29: every 6 Hos aide 25 MG 09 (six) l tablet hours as needed for nausea or vomiting. ergocalcife 2019-0 Yes [id number] Q7D Take Meth samantha rol 5-14 50,[address] (VITAMIN 08:29: Units by Hospi ta D2) 50,000 09 mouth once l unit a week. capsule ferrous 2019-0 Yes 325mg QD Take 325 Metho di sulfate 325 5-[address] (65 FE) MG 08:29: mouth Hospit a tablet 09 daily with l breakfast. multivitami 2019-0 Yes 1{tbl} QD Take 1 Me thodi n with 5-[address] minerals 08:29: mouth Hospita tablet 09 daily l before lunch. levothyroxi 2019-0 Yes 50ug QD Take 50 Met hodi ne 5-[address] (SYNTHROID, 08:29: mouth Hospi ta LEVOXYL) 50 09 every l mcg tablet morning. cholecalcif 2019-0 Yes [id number] QD Take Meth samantha nikhil 5-14 10,000 [address] (VITAMIN 08:29: Units by Hospi ta D3) 10,000 09 mouth l unit daily capsule before lunch. promethazin 2019-0 Yes 25mg Q6H Take 25 mg Methodi e 5-[address] (PHENERGAN) 08:29: every 6 Hos aide 25 MG 09 (six) l tablet hours as needed for nausea or vomiting. ergocalcife 2019-0 Yes [id number] Q7D Take Meth samantha rol 5-14 50,000 [address] (VITAMIN 08:29: Units by Hospi ta D2) 50,000 09 mouth once l unit a week. capsule ferrous 2019-0 Yes 325mg QD Take 325 Metho di sulfate 325 5-[address] (65 FE) MG 08:29: mouth Hospit a tablet 09 daily with l breakfast. multivitami 2019-0 Yes 1{tbl} QD Take 1 Me thodi n with 5-[address] minerals 08:29: mouth Hospita tablet 09 daily l before lunch. levothyroxi 2019-0 Yes 50ug QD Take 50 Met hodi ne 5-[address] (SYNTHROID, 08:29: mouth Hospi ta LEVOXYL) 50 09 every l mcg tablet morning. cholecalcif 2019-0 Yes [id number] QD Take Meth samantha nikhil 5-14 10,000 st (VITAMIN 08:29: Units by Hospi ta D3) 10,000 09 mouth l unit daily capsule before lunch. promethazin 2019-0 Yes 25mg Q6H Take 25 mg Methodi e 5-[address] (PHENERGAN) 08:29: every 6 Hos aide 25 MG 09 (six) l tablet hours as needed for nausea or vomiting. ergocalcife 2019-0 Yes [id number] Q7D Take Meth samantha rol 5-14 50,000 st (VITAMIN 08:29: Units by Hospi ta D2) 50,000 09 mouth once l unit a week. capsule ferrous 0 Yes 325mg QD Take 325 Metho di sulfate 325 5-[address] (65 FE) MG 08:29: mouth Hospit a tablet 09 daily with l breakfast. multivitami 2019-0 Yes 1{tbl} QD Take 1 Me thodi n with 5-[address] minerals 08:29: mouth Hospita tablet 09 daily l before lunch. levothyroxi 2019-0 Yes 50ug QD Take 50 Met hodi ne 5-[address] (SYNTHROID, 08:29: mouth Hospi ta LEVOXYL) 50 09 every l mcg tablet morning. cholecalcif 2019-0 Yes [id number] QD Take Meth samantha nikhil 5-14 10,000 st (VITAMIN 08:29: Units by Hospi ta D3) 10,000 09 mouth l unit daily capsule before lunch. ondansetron 2018- Yes 4mg Q8H Take 1 Meth samantha (ZOFRAN) 4 2-29 tablet (4 st MG tablet 00:00: mg total) Hos aide 00 by mouth l every 8 (eight) hours as needed for nausea or vomiting for up to 10 doses. ondansetron 2018- Yes 4mg Q8H Take 1 Meth samantha (ZOFRAN) 4 2-29 tablet (4 st MG tablet 00:00: mg total) Hos aide 00 by mouth l every 8 (eight) hours as needed for nausea or vomiting for up to 10 doses. ondansetron 2017-02 Yes 4mg Q8H Take 1 Meth samantha (ZOFRAN) 4 2-29 tablet (4 st MG tablet 00:00: mg total) Hos aide 00 by mouth l every 8 (eight) hours as needed for nausea or vomiting for up to 10 doses. pantoprazol 2017-02 Yes TAKE ONE Me thodi e 2-[address] (PROTONIX) 00:00: MOUTH Hospit a 40 MG EC 00 DAILY l tablet pantoprazol 2017-02 Yes TAKE ONE Me thodi e 2-[address] (PROTONIX) 00:00: MOUTH Hospit a 40 MG EC 00 DAILY l tablet pantoprazol 2017-02 Yes TAKE ONE Me thodi e 2-[address] (PROTONIX) 00:00: MOUTH Hospit a 40 MG EC 00 DAILY l tablet cyanocobala 2017-[address] Met [facility], 07-19 1,[address] [facility] ([facility] daily. B-12) 1,000 mcg tablet, sublingual cyanocobala 2017-[address] Met [facility], 07-19 1,[address] vitamin 00:00[facility] tongue l (VITAMIN daily. B-12) 1,000 mcg tablet, sublingual cyanocobala 2018-[address] Met [facility], 07-19 1,[address] vitamin [facility]:00[facility] tongue l (VITAMIN daily. B-12) 1,000 mcg tablet, sublingual ergocalcife ergocalcife No ergocalcif [facility] rol rol nikhil Medical (vitamin (vitamin (vitamin D2) D2) D2) levothyroxi levothyroxi No 1 Q1D levothyrox [facility] ne 50 mcg ne 50 mcg ine 50 mcg Medical tablet Take tablet Take tablet 1 tablet 1 tablet Take 1 every day every day tablet by oral by oral every day route. route. by oral route. 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 cap) COVID-19 VACCINE 2021-06-09 Completed Toya S eybold PFIZER 12+ ([place] 00:00:00 cap) Covid-19 Vaccine 2021-01-21 Completed Toya S eybold ([facility]), Mrna-lnp, 00:00:00 - Ext ernal Osmar Protein, Pf, 30mcg/0.3ml,IM Covid-19 Vaccine 2021-01-21 Completed Toya S eybold ([facility]), Mrna-lnp, 00:00:00 Osmar Protein, Pf, 30mcg/0.3ml,IM Covid-19 Vaccine 2021-01-21 Completed Toya S eybold ([facility]), Mrna-lnp, 00:00:00 Osmar Protein, Pf, 30mcg/0.3ml,IM Influenza Virus 2020-12-31 Completed Toya Se ybold Vaccine, 00:00:00 - External Quadrivalent, High Dose, Age 65 And Up Covid-19 Vaccine 2020-12-31 Completed Toya S eybold ([facility]), Mrna-lnp, 00:00:00 - Ext ernal Osmar Protein, Pf, 30mcg/0.3ml,IM Influenza Virus 2020-12-31 Completed Toya Se ybold Vaccine, 00:00:00 Quadrivalent, High Dose, Age 65 And Up Covid-19 Vaccine 2020-12-31 Completed Toya S eybold ([facility]), Mrna-lnp, 00:00:00 Osmar Protein, Pf, 30mcg/0.3ml,IM Influenza Virus 2020-12-31 Completed Toya Se ybold Vaccine, 00:00:00 Quadrivalent, High Dose, Age 65 And Up Covid-19 Vaccine 2020-12-31 Completed Toya S eybold ([facility]), Mrna-lnp, 00:00:00 Osmar Protein, Pf, 30mcg/0.3ml,IM Influenza Virus 2020-12-31 Completed Toya Se ybold Vaccine, 00:00:00 Quadrivalent, High Dose, Age 65 And Up Covid-19 Vaccine 2020-12-31 Completed Toya S eybold ([facility]), Mrna-lnp, 00:00:00 Osmar Protein, Pf, 30mcg/0.3ml,IM Vital Signs Vital Name Observation Time Observation Value Comments Source Systolic blood 2021-11-23 13:34:00 140 mm[Hg] Toya Seybold - pressure External Diastolic blood 2021-11-23 13:34:00 70 mm[Hg] Kelse y Seybold - pressure External Heart rate 2021-11-23 13:34:00 91 /min Toya S eybold - External Body temperature 2021-11-23 13:34:00 36.5 Opal Antonia ey Seybold - External Respiratory rate 2021-11-23 13:34:00 16 /min Antonia ey Seybold - External Body height 2021-11-23 13:34:00 170.2 cm Toya S eybold - External Body weight 2021-11-23 13:34:00 68.947 kg Toya Sadler eybold - External BMI 2021-11-23 13:34:00 23.81 kg/m2 Toya S eybold - External Systolic blood 2021-06-09 13:17:00 150 mm[Hg] Toya Seybold pressure Diastolic blood 2021-06-09 13:17:00 73 mm[Hg] Kelse y Seybold pressure Heart rate 2021-06-09 13:17:00 63 /min Toya S eybold Body temperature 2021-06-09 13:17:00 36.94 Opal Antonia ey Seybold Respiratory rate 2021-06-09 13:17:00 15 /min Antonia ey Seybold Body height 2021-06-09 13:17:00 170.2 cm Toya S eybold Body weight 2021-06-09 13:17:00 69.4 kg Toya S eybold BMI 2021-06-09 13:17:00 23.96 kg/m2 Toya S eybold Systolic blood 2021-01-21 15:33:00 140 mm[Hg] Toya Seybold pressure Diastolic blood 2021-01-21 15:33:00 72 mm[Hg] Kelse y Seybold pressure Heart rate 2021-01-21 15:33:00 71 /min Toya S eybold Body temperature 2021-01-21 15:33:00 36.67 Opal Antonia ey Seybold Respiratory rate 2021-01-21 15:33:00 16 /min Antonia ey Seybold Body height 2021-01-21 15:33:00 170.2 cm Toya S eybold Body weight 2021-01-21 15:33:00 66.225 kg Toya S eybold BMI 2021-01-21 15:33:00 22.87 kg/m2 Toya S eybold Systolic blood 2020-12-31 14:00:00 138 mm[Hg] Toya Seybold pressure Diastolic blood 2020-12-31 14:00:00 72 mm[Hg] Kelse y Seybold pressure Heart rate 2020-12-31 14:00:00 67 /min Toya S eybold Body temperature 2020-12-31 14:00:00 36.61 Opal Antonia ey Seybold Respiratory rate 2020-12-31 14:00:00 15 /min Antonia ey Seybold Body height 2020-12-31 14:00:00 170.2 cm Toya Sadler eybold Body weight 2020-12-31 14:00:00 65.772 kg Toya Sadler eybold BMI 2020-12-31 14:00:00 22.71 kg/m2 Toya Sadler eybold Height 2020-06-10 00:00:00 66.98 [in_i] [facility] BMI (Body Mass Index) 2020-06-10 00:00:00 21.1 kg/m2 [facility] Body Weight 2020-06-10 00:00:00 134.7 [lb_av] [facility] Procedures Procedure Date / Time Performed Performing Clinician Atilio VASQUEZ 2021-11-23 13:50:51 Aimee Harrington Kelse y Seybold - External Plan of Care Planned Activity Planned Date Details Comments Source Future Scheduled 2021-12-10 HEPATITIS B VACCINES [facility] Test 11:44:59 (1 of 3 - 3-dose series) [code = HEPATITIS B VACCINES (1 of 3 - 3-dose series)] Future Scheduled 2021-12-10 COVID-19 VACCINE (#1) [facility] Test 11:44:59 [code = COVID-19 VACCINE (#1)] Future Scheduled 2021-12-10 BREAST CANCER [facility] Test 11:44:59 SCREENING [code = BREAST CANCER SCREENING] Future Scheduled 2021-12-10 COLONOSCOPY SCREENING [facility] Test 11:44:59 [code = COLONOSCOPY SCREENING] Future Scheduled 2021-12-10 SHINGLES VACCINES (1 Met [facility] Test 11:44:59 of 2) [code = SHINGLES VACCINES (1 of 2)] Future Scheduled 2021-12-10 65+ PNEUMOCOCCAL [facility] Test 11:44:59 VACCINE (1 - PCV) [code = 65+ PNEUMOCOCCAL VACCINE (1 - PCV)] Future Scheduled 2021-12-10 INFLUENZA VACCINE [facility] Test 11:44:59 [code = INFLUENZA VACCINE] Future Scheduled 2021-10-21 COVID-19 VACCINE (#1) [facility] Test 06:18:04 [code = COVID-19 VACCINE (#1)] Future Scheduled 2021-10-21 Hepatitis C screening [facility] Test 06:18:04 (procedure) [code = 552581330] Future Scheduled 2021-10-21 BREAST CANCER [facility] Test 06:18:04 SCREENING [code = BREAST CANCER SCREENING] Future Scheduled 2021-10-21 COLONOSCOPY SCREENING [facility] Test 06:18:04 [code = COLONOSCOPY SCREENING] Future Scheduled 2021-10-21 SHINGLES VACCINES (1 Met [facility] Test 06:18:04 of 2) [code = SHINGLES VACCINES (1 of 2)] Future Scheduled 2021-10-21 HEPATITIS B VACCINES Met [facility] Test 06:18:04 (1 of 3 - Risk 3-dose series) [code = HEPATITIS B VACCINES (1 of 3 - Risk 3-dose series)] Future Scheduled 2021-10-21 65+ PNEUMOCOCCAL [facility] Test 06:18:04 VACCINE (1 - PCV) [code = 65+ PNEUMOCOCCAL VACCINE (1 - PCV)] Future Scheduled 2021-10-21 INFLUENZA VACCINE [facility] Test 06:18:04 [code = INFLUENZA VACCINE] Future Scheduled 2021-10-21 COVID-19 VACCINE (#1) [facility] Test 06:18:04 [code = COVID-19 VACCINE (#1)] Future Scheduled 2021-10-21 Hepatitis C screening [facility] Test 06:18:04 (procedure) [code = 279352503] Future Scheduled 2021-10-21 BREAST CANCER [facility] Test 06:18:04 SCREENING [code = BREAST CANCER SCREENING] Future Scheduled 2021-10-21 COLONOSCOPY SCREENING [facility] Test 06:18:04 [code = COLONOSCOPY SCREENING] Future Scheduled 2021-10-21 SHINGLES VACCINES (1 Met [facility] Test 06:18:04 of 2) [code = SHINGLES VACCINES (1 of 2)] Future Scheduled 2021-10-21 HEPATITIS B VACCINES Met [facility] Test 06:18:04 (1 of 3 - Risk 3-dose series) [code = HEPATITIS B VACCINES (1 of 3 - Risk 3-dose series)] Future Scheduled 2021-10-21 65+ [facility] 06:18:04 VACCINE (1 - PCV) [code = 65+ PNEUMOCOCCAL VACCINE (1 - PCV)] Future Scheduled 2021-10-21 INFLUENZA VACCINE Method [facility] Test 06:18:04 [code = INFLUENZA VACCINE] Diagnostic Test 2020-06-10 TSH + free T4, serum [facility] Pending 00:00:00 [code = TSH + free T4, serum] Diagnostic Test 2020-06-10 CMP, serum or plasma [facility] Pending 00:00:00 [code = CMP, serum or plasma] Diagnostic Test 2020-06-10 vitamin D, [facility] Pending 00:00:00 25-hydroxy, total, serum [code = vitamin D, 25-hydroxy, total, serum] Encounters Start End Encounter Admission Attending Care Care Encounter Source Date/Time Date/Time Type Type Clinicians Facility Department ID 2022-02-23 2022-02-23 Outpatient TOYA STONE [id number] Toya 08:30:00 08:30:00 JAMESON Salmeronol hermelindo 2021-12-10 2021-12-10 Outpatient TOYA FUENTES [id number] Toya 13:45:00 13:45:00 JOE Seybol d 2021-12-10 2021-12-10 Outpatient TOYA FUENTES [id number] Toya 00:00:00 00:00:00 JOE Salmeronol hermelindo 2021-11-24 2021-11-24 Outpatient TOYA HARRINGTON [id number] Toya 00:00:00 00:00:00 AIMEE Seybol d 2021-11-23 2021-11-23 Outpatient LAB90 TOYA LYON [id number] Toya 09:40:00 09:40:00 Seybol d 2021-11-23 2021-11-23 Outpatient TOYA HARRINGTON [id number] Toya 08:30:00 08:30:00 AIMEE Seybol d 2021-09-07 2021-09-07 Outpatient TOYA HARRINGTON [id number] Toya 00:00:00 00:00:00 AIMEE Seybol d 2021-09-01 2021-09-01 Outpatient TOYA MARTINS [id number] Toya 00:00:00 00:00:00 WANDY Seybol d 2021-08-17 2021-08-17 Outpatient TOYA HARRINGTON [id number] Toya 00:00:00 00:00:00 AIMEE Seybol d 2021-06-16 2021-06-16 Outpatient TOYA HARRINGTON [id number] Toya 00:00:00 00:00:00 AIMEE Seybol d 2021-06-10 2021-06-10 Outpatient TOYA HARRINGTON [id number] Toya 00:00:00 00:00:00 AIMEE Seybol d 2021-06-09 2021-06-09 Outpatient LAB90 TOYA LYON [id number] Toya 10:20:00 10:20:00 Seybol d 2021-06-09 2021-06-09 Outpatient COVID-PFIZE TOYA LYON [id number] Toya 10:00:00 10:00:00 R BOOSTER, Sey bold CAICEDO 2021-06-09 2021-06-09 Outpatient COVID-PFIZE TOYA LYON [id number] Toya 10:00:00 10:00:00 R VACC, Seybol d CAICEDO 2021-06-09 2021-06-09 Office Simon Harrington [id number] Toya 08:15:00 08:30:00 Visit Aimee Ledezma [id number] Se jackie Somogyi [id number] 2021-03-11 2021-03-11 Outpatient TOYA LYON [id number] Toya 00:00:00 00:00:00 Seybol d 2021-02-04 2021-02-04 Outpatient GC_EDEC_Hay PRIV PRIV [id number] [facility] 03:06:00 03:06:00 es_A [id number] Medica l 2021-02-04 2021-02-04 Outpatient GC_EDEC_Hay PRIV PRIV [id number] [facility] 03:06:00 03:06:00 es_A [id number] Medica l 2021-02-02 2021-02-02 Outpatient TOYA LYON [id number] Toya 00:00:00 00:00:00 Seybol d 2021-01-29 2021-01-29 Outpatient TOYA HARRINGTON [id number] Toya 00:00:00 00:00:00 AIMEE Seybol d 2021-01-28 2021-01-28 Outpatient TOYA LYON [id number] Toya 00:00:00 00:00:00 Seybol d 2021-01-21 2021-01-21 Outpatient LAB90 TOYA LYON [id number] oTya 10:15:00 10:15:00 Seybol d 2021-01-21 2021-01-21 Office Simon Harrington [id number] Toya 09:30:00 10:00:00 Visit Aimee Ledezma [id number] Se jackie Holcombogyi [id number] 2021-01-21 2021-01-21 Outpatient COVID-PFIZE TOYA LYON [id number] [facility]a 09:00:00 09:00:00 Adriel MAK-Jaron Ann 2021-01-12 2021-01-12 Outpatient TOYA LYON [id number] [facility] 00:00:00 00:00:00 Seybol d 2020-12-31 2020-12-31 Outpatient SIMON HSIEH [id number] [facility]a 10:00:00 10:00:00 Seybol d 2020-12-31 2020-12-31 Outpatient LAB90 TOYA TOYA [id number] Toya 09:30:00 09:30:00 Seybol d 2020-12-31 2020-12-31 Outpatient COVID-PFIZE TOYA LYON [id number] [facility]a 09:15:00 09:15:00 R VACC-1, Seyb old CAICEDO 2020-12-31 2020-12-31 Office Simon Harrington [id number] Toya 07:53:00 08:38:00 Visit Aimee Ledezma [id number] Se jackie Holcombgale [id number] 2020-12-31 2020-12-31 Outpatient JUANY TOYA LYON [id number] [place] 00:00:00 00:00:00 AIMEE Salmeronol d 2020-06-27 2020-06-27 Outpatient GC_EDEC_Hay PRIV PRIV 211 [id number] [facility] 01:07:00 01:07:00 es_A [id number] Medica l 2020-06-12 2020-06-12 Outpatient GC_EDEC_Hay PRIV PRIV 211 [id number] [facility] 01:17:00 01:17:00 es_A [id number] Medica l 2020-06-10 2020-06-10 Outpatient GC_EDEC_Hay PRIV PRIV 211 [id number] [facility] 01:19:00 01:19:00 es_A [id number] Medica l 2020-06-10 2020-06-10 Outpatient Adkins, PRIV PRIV [id number] 00:00:00 00:00:00 Chrystal [id number] [facility] [id number] 2020-06-10 2020-06-10 Chrystal PRIV [facility] [id number] [facility] 00:00:00 00:00:00 [facility] Medic master Adkins MD: GC_EDEC_Pas [address] [facility] [address], [place] [address] , Ph. 2020-06-09 2020-06-09 Outpatient GC_EDEC_Hay PRIV PRIV 211 [id number] [facility] 10:07:00 10:07:00 es_A [id number] Medica l 2020-06-06 2020-06-06 Outpatient GC_EDEC_Hay PRIV PRIV 211 [id number] [facility] 09:55:00 09:55:00 es_A [id number] Medica l 2020-06-04 2020-06-04 Outpatient GC_EDEC_Hay PRIV PRIV 211 [id number] [facility] 02:16:00 02:16:00 es_A [id number] Medica l 2018-05-05 2018-05-16 Inpatient EM Miguel Angel [facility] [id number] [facility] 15:09:00 21:04:00 Nkoli [facility] Results Test Description Test Time Test Comments Results Result Comments Source QUANTAFLO 2021-11-23 13:52:32 Test Item Value Reference Range Interpretation Comme nts QuantaFlo left side (test code See_Comment [Automated message] The system which = 95328-1S) generated this result transmitted reference range : 1.40 - 0.90 NA. The reference range was not used to interpret this result as normal/abnormal . QuantaFlo right side (test code See_Comment Presentation Factors: Hypertension, = 50290-5P) Smoking History Exercise Modality: At Resthad issues with right hand being cold, applied h and warmer. Corrected ResultNormal - 1.40 - 1.00Borderline - 0.99 - 0.90Mild - 0.89 - 0.60Moderate - 0.59 - 0.30Se pearl - 0.29 - 0.00 [Automated mess age] The system which generated this result transmitted reference range : 1.40 - 0.90 NA. The reference range was not used to interpret this result as normal/abnormal . Toya Santos - ExternalCOMMON BILE [id number] 13:28:00 RUN DATE: 05/15/18 [facility] PAGE 1 RUN TIME: 1328 Specimen Inquiry RUN USER: INTERFACE KENNEY ENT: ANA PENALOZA LOC: CHRISTI U #: [id number] AGE/SX: 67/F ROOM: [facility] RE05/05/18REG DR: Kathleen Michelle MD : 51 BED: A DIS: STATUS: ADM IN TLOC: SPEC #: [id number] RECD: 05/11/18 STATUS: KAREL JACOBO #: [id number] LEEANN: 05/11/18- SUBM DR: Kathleen Michelle MD ENTERED: 05/11/18 SP TYPE: COMMON NATHALIE OTHR DR: No Primary or Family Physician Gilberto Conway MD, Ronald W DO Lam, David N MDORDERED: GROSS COPIES TO: No Primary or Family Physician Gilberto Conway MD[address] [place] [address] Kathleen Michelle MD [address] [address] Alexis High DO [address] [place] [address] Khoi Ivory MD [address] [place] [address] PROCEDURES: GROSS (05/12/18-1250) TISSUES: BILE DUCT, NOS - BX AND 4 SLIDES CLINICAL HISTORY COLLECTION DATE: 05/11/18 HISTORY BILE DUCT STRICTURE CONTINUED ON NEXT PAGE RUN DATE: 05/15/18 [place] - Lab PAGE 2 RUN TIME: 1328 Specimen Inquiry RUN USER: INTERFACE SPEC #: [id number] PATIENT: ANA PENALOZA #[id number] (Continued) COMMENT The bile duct biopsy, including multiple deeper levels, shows mild acute and chronic inflammation with cytologic atypia.Additionally, there are detached strips of columnar cells with cytologic atypia and intraepithelial neutrophils. Cytology evaluation shows tissue fragments and small groups of atypical ductal cells andneutrophils. The atypia is within spectrum of reactive [...] INFLAMMATION AND ATYPIA, (see comment) FA/sm D 39[address], [address]237 MACROSCOPIC The specimen consists of four slides to be stained for cytologic evaluation and two red-cotto biopsy fragments measuring 0.2 cm each. GROSS PERFORMED AT [facility] [address] [place] [address] [phone] PERFORMING SITE Diagnosis performed at: [facility], [place] [address] [place] [address] CONTINUED ON NEXT PAGE RUN DATE: 05/15/18 [facility] Lab PAGE 3 RUN TIME: 1328 Specimen Inquiry RUN USER: INTERFACE SPEC #: [id number] PATIENT: ANA PENALOZA #[id number] (Continued) Signed SIGNATURE ON FILE London Peres MD 05/15/18 1328 END OF REPORT COMPREHENSIVE METABOLIC [id number] 05:49:00 Test Item Value Reference Range Interpretation Comments SODIUM (test code = 144 mmol/L 136-145 N NA) POTASSIUM (test code = 3.3 mmol/L 3.5-5.1 L K) CHLORIDE (test code = 109.0 mmol/L 98-107 H CL) CARBON DIOXIDE (test 26.0 mmol/L 21-32 N code = CO2) ANION GAP (test code = 12.3 10-20 N GAP) GLUCOSE (test code = 82 mg/dL 74-106 N GLU) BLOOD UREA NITROGEN 12 mg/dL 7-18 N (test code = BUN) GLOMERULAR FILTRATION > 60 mL/min >=60 Estima sofi GFR by RATE (test code = GFR) using Modified MDRD formula.Chronic kidney disease is defined as eith er kidney damageor GFR <60 mL/min/1.73 m2 for >3 months. CREATININE (test code 0.60 mg/dL 0.55-1.02 N Note change in = CREAT) reference range due to change in reagent. BUN/CREATININE RATIO 20.0 10-20 N (test code = BUN/CREA) TOTAL PROTEIN (test 5.8 gram/dL 6.4-8.2 L code = PROT) ALBUMIN (test code = 2.3 g/dL 3.4-5.0 L ALB) GLOBULIN (test code = 3.5 gram/dL 2.7-4.2 N GLOB) ALBUMIN/GLOBULIN RATIO 0.7 0.75-1.50 L (test code = A/G) CALCIUM (test code = 8.5 mg/dL 8.5-10.1 N CA) BILIRUBIN TOTAL (test 1.00 mg/dL 0.0-1.0 N code = BILT) SGOT/AST (test code = 116 IUnit/L 15-37 H AST) SGPT/ALT (test code = 173 IUnit/L 12-78 H ALT) ALKALINE PHOSPHATASE 116 IUnit/L 45-117 N Note change in TOTAL (test code = reference range due ALKP) to change in reagent. COMPREHENSIVE METABOLIC [id number] 05:29:00 Test Item Value Reference Range Interpretation [...] IUnit/L 45-117 code = ALKP) CBC W/AUTO [id number] 05:22:00 Test Item Value Reference Range Interpretation [...] 0.00 K/mm3 0.0-0.1 N NRBC#) CBC W/AUTO [id number] 05:16:00 Test Item Value Reference Range Interpretation [...] BA#) K/mm3 0.0-0.2 - SP PERC BRUSH [id number] 08:16:00 Name: ANA PENALOZA [facility] : 1950 Age/S: 67 / F [address] [facility] Unit #: [id number] Loc: [place] [address] Phys: Kathleen Michelle MD Acct: [id number] Dis Date: Status: ADMIN PHONE #: [phone] Exam Date: 05/11/2018 1820 FAX #: [phone] Reason: EXAMS: CPT CODE: [id number] SP PERC BRUSH BIOPSY 90798 Fluoro Time: 336 DAP (Gy m2): 92427 Air Kerma (mGy): 109.1 REASONFOR EXAM:Distal common bile duct obstruction PROCEDURE: 1. Cholangiogram with replacement and upsizeof existing biliary drain 2. [place] biopsy of distal common bile duct stricture 3. Forcep biopsy of distal common bile duct stricture Anesthesia: General Anesthesiologist: [...] bile duct stenosis/stricture with a short segment high- grade stenosis (90%). [place] biopsy of this area was performed with a 3 mm brush. Scanty samples were obtained. Additional forceps biopsy were obtained at the common bile duct stricture. All samples were submitted for cytology analysis. A new 10-Micronesian internal/external biliary drain was replaced over the guidewire with the distal tip formed within the small bowel and a side holes located within the common bile duct and right intrahepatic biliary duct MEDICATIONS: None COMPLICATIONS: None Blood loss: Less than 5 mL Fluoroscopic time: 336 seconds Radiation dose: 109 mGy IMPRESSION: Technically successful brush biopsy and forcep biopsy of the distal common bile duct stricture. Upsizing of the existing internal/external biliary drain from an 8-Micronesian to a 10-Micronesian biliary tube at 0816 Reported and signed by: James Wallis M.D. PAGE 1 Signed Report (CONTINUED)Name: ANA PENALOZA [facility] : 1950 Age/S: 67 / F [address] [facility] Unit #: [id number] Loc: [place] [address] Phys: Kathleen Michelle MD Acct: [id number] Dis Date: Status: ADM IN PHONE #: [phone] Exam Date: 05/11/2018 1501 FAX #: [phone] Reason: EXAMS: CPT CODE: [id number] SP PERC BRUSH BIOPSY 92594 Fluoro Time: 336 DAP (Gy m2): 85668 Air Kerma (mGy): 109.1 (Continued) CC: Kathleen Michelle MD; Alexis High DO Technologist: Chiki Drummond [facility] Date/Time: 05/12/2018 (08) t.[email or web address].KRUNALL Orig Print D/T: S: 05/12/2018 (0819) PAGE 2 Signed Report- INJ CHOLANGIO EXST [id number] 08:16:00 Name: ANA PENALOZA [facility] : 1950 Age/S: 67 / F [address] [facility] Unit #: [id number] Loc: [place] [address] Phys: Kathleen Michelle MD Acct: [id number] Dis Date: Status: ADM IN PHONE #: [phone] Exam Date: 05/11/2018 1504 FAX #: [phone] Reason: EXAMS: CPT CODE: [id number] INJ CHOLANGIO EXST ACCES 12324 Fluoro Time: 336 DAP (Gy m2): 49718 Air Kerma (mGy): 109.1 REASON FOR EXAM:Distal common bile duct obstruction PROCEDURE: 1. Cholangiogram with replacement and upsize of existing biliary drain 2. [place] biopsy of distal common bile duct stricture 3. Forcep biopsy of distal common bile duct stricture Anesthesia: General Anesthesiologist: [...] with a short segment high-grade stenosis (90%). [place] biopsy of this area was performed with a 3 mm brush. Scanty samples were obtained. Additional forceps biopsy were obtained at the common bile duct stricture. All samples were submitted for cytology analysis. A new 10-Micronesian internal/external biliary drain was replaced over the guidewire with the distal tip formed within the small bowel and a side holes located within the common bile duct and right intrahepatic biliary duct MEDICATIONS: None COMPLICATIONS: None Blood loss: Less than 5 mL Fluoroscopic time: 336 seconds Radiation dose: 109 mGy IMPRESSION: Technically successful brush biopsy and forcep biopsy of the distal common bile duct stricture. Upsizing of the existing internal/external biliary drain from an 8-Micronesian to a 10-Micronesian biliary tube at 0816 Reported and signed by: James Wallis M.D. PAGE 1 Signed Report (CONTINUED) Name: ANA PENALOZA [facility] : 1950 Age/S: 67 / F [address] [facility] Unit #: [id number] Loc: [place] [address] Phys: Kathleen Michelle MD Acct: [id number] Dis Date: Status: ADM IN PHONE #: [phone] Exam Date: 05/11/2018 1503 FAX #: [phone] Reason: EXAMS: CPT CODE: [id number] INJ CHOLANGIO EXST ACCES 17532 Fluoro Time: 336 DAP (Gy m2): 11520 Air Kerma (mGy): 109.1 (Continued) CC: Kathleen Michelle MD; Alexis High DO Technologist: Chiki Drummond Trnscb Date/Time: 05/12/2018 (0816) FamiliaL Orig Print D/T: S: 05/12/2018 (8887) PAGE 2 Signed Report- EXCHANGE BILIARY [id number] 08:16:00 Name: ANA PENALOZA [facility] : 1950 Age/S: 67 / F [address] Unit #: [id number] Loc: [place] [address] Phys: Kathleen Michelle MD Acct: [id number] Dis Date: Status: ADMIN PHONE #: [phone] Exam Date: 05/11/2018 1509 FAX #: [phone] Reason: EXAMS: CPT CODE: [id number] EXCHANGE BILIARY CATH 82907 Fluoro Time: 336 DAP (Gy m2): 69591 Air Kerma (mGy): 109.1 REASON FOR EXAM:Distal common bile duct obstruction PROCEDURE: 1. Cholangiogram with replacement and upsize of existing biliary drain 2. [place] biopsy of distal common bile duct stricture 3. Forcep biopsy of distal common bile duct stricture Anesthesia: General Anesthesiologist: Dr. Vela FINDINGS: Prior to the procedure, informed consent was obtained after risks and benefits of the procedure were explainedto the patient. The patient agreed and wanted to proceed. The patient was brought to special procedures and placed supine on the table. The abdomen was prepped was draped in the usual fashion. All elements of maximal sterile barrier techniques were applied. Contrast injected into the existing biliary drain show persistent distal common bile duct stenosis/stricture with a short segment high-grade stenosis (90%). [place] biopsy of this area was performed with a 3 mm brush. Scanty samples were obtained. A dditional forceps biopsy were obtained at the common bile duct stricture. All samples were submittedfor cytology analysis. A new 10-Micronesian internal/external biliary drain was replaced over the guidewire with the distal tip formed within the small bowel and a side holes located within the common bile duct and right intrahepatic biliary duct MEDICATIONS: None COMPLICATIONS: None Blood loss: Less than5 mL Fluoroscopic time: 336 seconds Radiation dose: 109 mGy IMPRESSION: Technically successful brushbiopsy and forcep biopsy of the distal common bile duct stricture. Upsizing of the existing internal/external biliary drain from an 8-Micronesian to a 10-Micronesian biliary tube at 0816 Reported and signed by: James Wallis M.D. PAGE 1 Signed Report (CONTINUED) Name: ANA PENALOZA [facility] : 1950 Age/S: 67 / F [address] Unit #: [id number] Loc: [place] [address] Phys: Kathleen Michelle MD Acct: [id number] Dis Date: Status: ADM IN PHONE #: [phone] Exam Date: 05/11/2018 150 FAX #: [phone] Reason: EXAMS: CPT CODE: [id number] EXCHANGE BILIARY CATH 15993 Fluoro Time: 336 DAP (Gy m2): 55539 Air Kerma (mGy): 109.1 (Continued) CC: Kathleen Michelle MD; Alexis High DO Technologist: Chiki Drummond Trnsc[facility] Date/Time:05/12/2018 (815) t.[email or web address] Orig Print D/T: S: 05/12/2018 (0819) PAGE 2 Signed ReportBASI METABOLIC PANEL 2018-05-11 06:42:00 Test Item Value [...] 8.8 mg/dL 8.5-10.1 N CA) BASIC METABOLIC [id number] 06:37:00 Test Item Value Reference Range Interpretation [...] (test code = CA) mg/dL 8.5-10.1 PROTHROMBIN [id number] 06:03:00 Test Item Value Reference Range Interpretation [...] ion INR range Pulmonary embol ism treatment (2.0-3.0)Venous thrombosis treatmentVenous thrombosis prophylaxis (hi gh risk surgery)Prevent ion of systemic emboli sm from: Acute myocardial infa rction Valvular heart disease Atrial fibrillation Mechanical pros thetic heart valves (2.5-3.5) IS PATIENT ON ANTICOAGULANTS? NCOMMENTS TO CONSTRUCTION CARPENTERS HELPER: NEED FOR SURGERY ON 05/11/18THROMBOPLASTIN TIME [id number] 06:03:00 Test Item Value Reference Range Interpretation Comments THROMBOPLASTIN TIME PARTIAL 34.7 seconds 25.0-36.5 N (test code = PTT) IS PATIENT ON ANTICOAGULANTS? NCOMMENTS TO CONSTRUCTION CARPENTERS HELPER: NEED FOR SURGERY ON 05/11/18CBC W/AUTO [id number] 05:44:00 Test Item Value Reference Range Interpretation [...] (test code NO = MDIFF) CBC W/AUTO [id number] 05:43:00 Test Item Value Reference Range Interpretation [...] # (test code = BA#) K/mm3 0.0-0.2 [facility],[id number] 16:16:00 RUN DATE: 05/10/18 [place] [facility] PAGE 1 RUN TIME: 1616 Specimen Inquiry RUN USER: INTERFACE KENNEY ENT: ANA PENALOZA LOC: HCRISTI U #: [id number] AGE/SX: 67/F ROOM: [facility] RE05/05/18[facility] DR: Kathleen Michelle MD : 51 BED: A DIS: STATUS: ADM IN TLOC: SPEC #: [id number] RECD: 05/09/18 STATUS: KAREL JACOBO #: [id number] LEEANN: 05/08/18- SUBM DR: James Wallis MD ENTERED: 05/09/18-0 SP TYPE: FLOCARRIE HUNT DR: Gilberto Conway MD, Ronald W DO Lam, David N MDORDERED: LORRIE COPIESTO: Gilberto Conway MD [address] [place] [address] Alexis High DO[address] [place], [place] [address] Khoi Ivory MD [address] [place] [address] James Wallis MD [address] [place] [address] MARKERS: INTRADEPARTMENTAL CONSULT PROCEDURES: LORRIE (05/10/18-1313) TISSUES: BILE, NOS - 3 ML [...] CONTINUED ON NEXT PAGE RUN DATE: 05/10/18 [facility] PAGE 2 RUN TIME: 1616 Specimen Inquiry RUN USER: INTERFACE ---- --------SPEC #: [id number] PATIENT: ANA PENALOZA #[id number] (Continued) COMMENT (Continued) Intradepartmental consultation: FA FINAL DIAGNOSIS Bile, cytology: PARTICULATE DEBRIS BACTERIAL FORMS PRESENT (RODS AND COCCI) RRB/ D [address], [address] MACROSCOPIC The specimen consists of 3 mL of green fluid to be concentrated and processed for cytologic evaluation. GROSS PERFORMED AT [facility] [address] [place] [address] [phone] MICROSCOPIC All of the stains, including any controls performed, stain appropriately. MICROSCOPIC PERFORMED AT [facility] [address] [place] [address] (p)[phone] PERFORMING SITE Diagnosis performed at: [facility], [address] [address] Signed SIGNATURE ON FILE Bernabe Klein MD 05/10/18 1616 END OF REPORT AG [id number] 08:23:00 Test Item Value Reference Range Interpretation Comments AG CARCINOEMBRYONIC (test code = 0.9 ng/mL 0.0-3.0 N CEA) ALPHA FETOPROTEIN TUMOR [id number] 08:23:00 Test Item Value Reference Interpretation Comments Range ALPHA FETOPROTEIN 2.7 ng/mL 0.0-8.3 Ann [employer] nostics TUMOR MARKER Electrochemilum inescence (test code = Immunoassay(ECL IA)Values AFPTM) obtained with d ifferent assay methods or kits cannotbe used interchangeably . Results cannot be inter preted asabsolute evid ence of the presence or abs ence of malignantdiseas e.This test is not interpretab le in females. [id number] 08:23:00 Test Item Value Reference Range Interpretation Comments CA 19-9 (test code = CA19) Unit/mL AG [id number] 08:23:00 Test Item Value Reference Range Interpretation Comments AG CARCINOEMBRYONIC (test code = 0.9 ng/mL 0.0-3.0 N CEA) ALPHA FETOPROTEIN TUMOR [id number] 08:23:00 Test Item Value Reference Interpretation Comments Range ALPHA FETOPROTEIN 2.7 ng/mL 0.0-8.3 Ann [place] [employer] TUMOR MARKER Electrochemilum inescence (test code = Immunoassay(ECL IA)Values AFPTM) obtained with d ifferent assay methods or kits cannotbe used interchangeably . Results cannot be inter preted asabsolute evid ence of the presence or abs ence of malignantdiseas e.This test is not interpretab le in females. [id number] 08:23:00 Test Item Value Reference Range Interpretation Comments CA 19-9 (test 32 U/mL 0-35 [facility] code = CA19) Electrochemilum inescence Immunoassay(ECL IA)Values obtained with different assay methods or kits cannotbe u sed interchangeably . Results cannot be interpreted asabsolute evidence of the presence or absence of malignantdiseas e.Performed At: [facility] [address] [id number] Daryl Monroe MD Ph:[phone] [id number] 06:13:00 Test Item Value Reference Range Interpretation Comments AG CARCINOEMBRYONIC (test code = 0.9 ng/mL 0.0-3.0 N CEA) ALPHA FETOPROTEIN TUMOR [id number] 06:13:00 Test Item Value Reference Range Interpretation Comments ALPHA FETOPROTEIN TUMOR MARKER (test ng/mL code = AFPTM) [id number] 06:13:00 Test Item Value Reference Range Interpretation Comments CA 19-9 (test code = CA19) Unit/mL COMPREHENSIVE METABOLIC [id number] 06:08:00 Test Item Value Reference Range Interpretation [...] ALKP) to change in reagent. COMPREHENSIVE METABOLIC [id number] 05:58:00 Test Item Value Reference Range Interpretation [...] 45-117 code = ALKP) BODY FLUID CELL [id number] 11:09:00 Test Item Value Reference Range Interpretation [...] RESULTS CALL ED TO code = RBCFL) [id number] BY Netta ARCEOKP1 05/08/18 2210 FLUID COMMENT (test PATHOLOGST.TO code = COMFL) REVIEW TOTAL CELLS COUNTED 0 cells NONE SEE N. ON DIFF (test code = TOTCELLFL) REVIEWED BY (test DRVern PATHOLOGIST code = REVIEW) [facility] BILIARY CATH [id number] 07:00:00 Name: ANA PENALOZA [facility] : 1950 Age/S: 67 / F [address] [facility] Unit #: [id number] Loc: [place] [address] Phys: Kathleen Michelle MD Acct: [id number] Dis Date: Status: ADM IN PHONE #: [phone] Exam Date: 05/08/2018 1401 FAX #: [phone] Reason: EXAMS: CPT CODE: [id number] [facility] BILIARY CATH INT/EXT 68953 Fluoro Time: 474 DAP (Gy m2): 81388 Air Kerma (mGy): 176.2 REASON FOR EXAM:Right [...] the distal common bile duct stenosis. An 8-Micronesian biliary tube was in place would be [...] of the pancreas. Successful placement of an 8-Micronesian biliary tube. at 0700 Reported and signed by: James Wallis M.D. PAGE 1 Signed Re port (CONTINUED) Name: ANA PENALOZA [facility] : 1950 Age/S: 67 / F [address] [facility] Unit #: [id number] Loc: [place] [address] Phys: Kathleen Michelle MD Acct: [id number] Dis Date: Status: ADM IN PHONE #: [phone] Exam Date: 05/08/2018 1401 FAX #: [phone] Reason: EXAMS: CPT CODE: [id number] [facility] BILIARY CATH INT/EXT 76809 Fluoro Time: 474 DAP (Gy m2): 23310 Air Kerma (mGy): 176.2 (Continued) CC: Kathleen Michelle MD; Alexis High DO Technologist: BRANT PHAN RT(R) Trnscb Date/Time: 05/09/2018 (0700) t.[email or web address].KRUNALL Orig Print D/T: S: 05/09/2018 (0703) PAGE 2 Signed Report- INJ CHOLANG EXST ACCES [id number] 07:00:00 Name: ANA PENALOZA [facility] : 1950 Age/S: 67 / F [address] [facility] Unit #: [id number] Loc: [place] [address] Phys: Kathleen Michelle MD Acct: [id number] Dis Date: Status: ADMIN PHONE #: [phone] Exam Date: 05/08/2018 1401 FAX #: [phone] Reason: EXAMS: CPT CODE: [id number] [place] [address] Fluoro Time: 474 DAP (Gy m2): 97590 Air Kerma (mGy): 176.2 REASON FOR EXAM:Right [...] The guidewire was successfully advanced past the distalcommon bile duct stenosis. An 8-Micronesian biliary tube was in place would be distal tip in the small bowel and the proximal sidehole within the right hepatic duct. MEDICATIONS: None COMPLICATIONS: None Blood loss: Less than 5 mL Fluoroscopic time: 480 seconds Radiation dose: 176 mGy IMPRESSION: Mild dilatation of the common bile duct with a high-grade stricture in the distal common bile duct in the areaof the head of the pancreas. Successful placement of an 8-Micronesian biliary tube. at 0700 Reported and signed by: James Wallis M.D. PAGE 1 Signed Report (CONTINUED) Name: ANA PENALOZA [facility] : 1950 Age/S: 67 / F [address] [facility] Unit #: [id number] Loc: [place] [address] Phys: Kathleen Michelle MD Acct: [id number] Dis Date: Status: ADM IN PHONE #: [phone] Exam Date: 05/08/2018 1401 FAX #: [phone] Reason: EXAMS: CPT CODE: [id number] [place] [address] Fluoro Time: 474 DAP (Gy m2): 77049 Air Kerma (mGy): 176.2 (Continued) CC: Kathleen Michelle MD; Alexis High DO Technologist: BRANT PHAN RT(R) Trnscb Date/Time: 05/09/2018 (07) tOSMARVTL Orig Print D/T: S: 05/09/2018 (0703) PAGE 2 Signed Report- USG NDL PLACEMENT (Bxg/Asp)2018-05-09 07:00:00 Name: ANA PENALOZA [facility] : 1950 Age/S: 67 / F [address] [facility] Unit #: [id number] Loc: [place] [address] Phys: James Wallis MD Acct: [id number] Dis Date: Status: ADM IN PHONE#: [phone] Exam Date: 05/08/2018 1353 FAX #: [phone] Reason: CHOLANGIOGRAM W/POSS BILIARY DRAIN EXAMS: CPT CODE: [id number] USG NDL PLACEMENT (Bxg/Asp) 93819 REASON FOR EXAM:Right upper quadrant pain, status post gastric bypass with dilated common bile duct PROCEDURE: Ultrasound and fluorosco pic guided cholangiogram and placement of biliary drainage tube Anesthesia: General Anesthesiologist: Dr. Barajas FINDINGS: Prior to the procedure, informed consent was obtained after risks and benefitsof the procedure were explained to the patient. [...] the distal common bile duct stenosis. An 8-Micronesian biliary tube was in place would be distal tip in the small bowel and the proximal sideholewithin the right hepatic duct. MEDICATIONS: None COMPLICATIONS: None Blood loss: Less than 5 mL Fluoroscopic time: 480 seconds Radiation dose: 176 mGy IMPRESSION: Mild dilatation of the common bile duct with a high-grade stricture in the distal common bile duct in the area of the head of the pancreas.Successful placement of an 8-Micronesian biliary tube. at 0700 Reported and signed by: James Wallis M.D. PAGE 1 Signed Report (CONTINUED) Name: ANA PENALOZA [facility] : 1950 Age/S: 67 / F [address] [facility] Unit #: [id number] Loc: [place] [address] Phys: James Wallis MD Acct: [id number] Dis Date: Status: ADM IN PHONE #: [phone] Date: 05/08/2018 1353 FAX #: [phone] Reason: CHOLANGIOGRAM W/POSS BILIARY DRAIN EXAMS: CPTCODE: [id number] USG NDL PLACEMENT (Bxg/Asp) 83155 (Continued) CC: Kathleen Michelle MD; Alexis High DO Technologist: TOBIN PURCELL RT(R),RDMS Trnscb Date/Time: 05/09/2018 (0700) tMICHELLE Orig Print D/T: S: 05/09/2018 (0703) Probe: PAGE [id number] 22:49:00 Test Item Value Reference Range Interpretation [...] RESULTS CALL ED TO code = RBCFL) [id number] [facility] 05[facility]08[facility]18 2210 FLUID COMMENT (test PATHOLOGST.TO code = COMFL) REVIEW TOTAL CELLS COUNTED 0 cells NONE SEE N. ON DIFF (test code = TOTCELLFL) REVIEWED BY (test PATHOLOGIST code = REVIEW) BODY FLUID CELL [id number] 22:10:00 Test Item Value Reference Range Interpretation [...] 0-50 N RESULTS CALLED TO = RBCFL) [id number] [facility] 05/08[facility]18 2210 TOTAL CELLS COUNTED cells ON DIFF (test code = TOTCELLFL) REVIEWED BY (test PATHOLOGIST code = REVIEW) BODY FLUID CELL [id number] 16:44:00 Test Item Value Reference Range Interpretation [...] TOTAL CELLS 33 cells/uL >0 Fluid WBC RBC Type (test code = TCFL) cells/uL cells/uL CSF (0-5) n/a Peritoneal n/a n/a Pleural n/a n/a Synovial <200 n /a CSF (0- 30) n/a TOTAL CELLS COUNTED cells ON DIFF (test code = TOTCELLFL) REVIEWED BY (test PATHOLOGIST code = REVIEW) THYROID PROFILE [id number] 06:15:00 Test Item Value Reference Range Interpretation Comments T3 UPTAKE (test code = 34.0 % 30.0-40.0 N T3UP) T4 (THYROXINE) (test 9.3 ug/dL 4.5-13.9 N code = T4) T7 (FREE THYROXINE 3.16 FTI 1.3-5.1 N INDEX) (test code = T7) THYROID STIMULATING 6.650 uIU/mL 0.36-3.74 H TSH REFE RENCE HORMONE (test code = RANGES: EUTHYROID: TSH) 0.35 - 4.3 mIU/ mL HYPO : > 5.5 mIU/mL HYPER : < 0.35 mIU/mL BASIC METABOLIC [id number] 05:57:00 Test Item Value Reference Range Interpretation [...] 8.7 mg/dL 8.5-10.1 N CA) BASIC METABOLIC [id number] 05:50:00 Test Item Value Reference Range Interpretation [...] (test code = CA) mg/dL 8.5-10.1 PROTHROMBIN [id number] 05:37:00 Test Item Value Reference Range Interpretation [...] ion INR range Pulmonary embol ism treatment (2.0-3.0)Venous thrombosis treatmentVenous thrombosis prophylaxis (hi gh risk surgery)Prevent ion of systemic emboli sm from: Acute myocardial infa rction Valvular heart disease Atrial fibrillation Mechanical pros thetic heart valves (2.5-3.5) IS PATIENT ON ANTICOAGULANTS? NTHROMBOPLASTIN TIME [id number] 05:37:00 Test Item Value Reference Range Interpretation Comments THROMBOPLASTIN TIME PARTIAL 36.7 seconds 25.0-36.5 H (test code = PTT) IS PATIENT ON ANTICOAGULANTS? NCBC W/AUTO [id number] 05:28:00 Test Item Value Reference Range Interpretation [...] 0.00 K/mm3 0.0-0.1 N NRBC#) CBC W/AUTO [id number] 05:21:00 Test Item Value Reference Range Interpretation [...] BA#) K/mm3 0.0-0.2 - MRI ABDOMEN W/O [id number] 11:46:00 FAX: Gilberto Davies [phone] [place]: B St: ADM FAX: Kathleen Michelle MD FAX: Alexis Osorio [phone] Name: ANA PENALOZA [facility] : 1950 Age/S: 67/F [address] [facility] Unit #: [id number] Loc: [place] [address] Phys: Gilberto Conway MD Acct: [id number] Dis Date: Status: ADM IN PHONE #: [phone] Exam Date: 05/05/2018 1134 FAX #: [phone] Reason: r/o CBD st one EXAMS: CPT CODE: [id number] MRI ABDOMEN W/O CONT 68173 HISTORY: Evaluate for CBD stones. COMPARISON: Ultrasound [...] pancreatic duct at 5.8 mm. at 1146 Reportedand signed by: Guilherme Silverman M.D. CC: Gilberto Conway MD; Kathleen Michelle MD; Alexis High DO Technologist: Delmar Phoenix)(MR) Trnscrd Date/Time/By: 05/05/2018 (6712) : By: [email or web address] Orig Print D/T: S: 05/05/2018 (8682) PAGE 1 Signed [id number] 03:18:00 Test Item Value Reference Range Interpretation Comments TROPONIN-I (test code = TROPI) <0.015 ng/mL 0-0.045 N COMMENTS TO [employer] HELPER: COLLECT 3 HOURS AFTER PREVIOUS SAMPLECOMPREHENSIVE METABOLIC [id number] 03:18:00 Test Item Value Reference Range Interpretation [...] ALKP) to change in reagent. COMPREHENSIVE METABOLIC [id number] 03:10:00 Test Item Value Reference Range Interpretation [...] IUnit/L 45-117 code = ALKP) CBC W/AUTO [id number] 02:48:00 Test Item Value Reference Range Interpretation [...] DIFF REQUIRED (test code NO = MDIFF) [id number] 22:26:00 Test Item Value Reference Range Interpretation Comments TROPONIN-I (test code = TROPI) <0.015 ng/mL 0-0.045 N COMMENTS TO CONSTRUCTION [employer]ENT[employer] HELPER: COLLECT 3 HOURS AFTER PREVIOUS SAMPLE- US ABDOMEN LTD 2018-05-03 19:15:00 Name: ANA PENALOZA [facility] : 1950 Age/S: 67 / F [facility] Unit #: [id number] Loc: [place] [address] Phys: Kathleen Michelle MD Acct: [id number] Dis Date: Status: ADM INPHONE #: [phone] Exam Date: 05/03/2018 1840 FAX #: [phone] Reason: RUQ constant pain EXAMS: CPT CODE: [id number] US ABDOMEN LTD 71383 EXAM: Ultrasound abdomen, limited; INFORMATION: Right upper [...] duct, up to 17 mm. There is no evidence of a stone or other obstructing lesion. The pancreas is unremarkable. The right kidney is of normal size and shape; nohydronephrosis, no stones and no parenchymal abnormalities. The right kidney measures 8.3 x 4.6 x 4.1 cm. No ascites. Imaged portions of the IVC and abdominal aorta are unremarkable. IMPRESSION: 1. Multiple hepatic cysts and small cavernous hemangioma. The large hemangioma demonstrated by CT he was not identified sonographically. 2. Dilatation of the extrahepatic bile duct without obvious obstructinglesion and mild dilatation of intrahepatic ducts. at 1915 Reported and signed by: Kwaku Ayon M.D. CC: Kathleen Michelle MD; Alexis Holliday DO Technologist: Jyothi Perez Trnneb Date/Time: 05/03/2018 (1914) Francisco Orig Print D/T: S: 05/03/2018 (1917) Probe: PAGE 1 Signed Report- CT ABD PELVIS [id number] 16:05:00 Name: ANA PENALOZA [facility] : 1950 Age/S: 67 / F [address] [facility] Unit #: [id number] Loc: [place] [address] Phys: Virgilio Hughes MD Acct: [id number] Dis Date: Status: REG ER PHONE #: [phone] Exam Date: 05/03/2018 1849 FAX #: [phone] Reason: RUQ pain EXAMS: CPT CODE:[id number] CT ABD PELVIS W/CONT 50581 EXAM: CT of the abdomen and pelvis with contrast; INFORMATION:Right upper quadrant pain; TECHNIQUE AND FINDINGS: CT dose reduction protocol; 5 mm cuts through the abdomen and pelvis during and after intravenous infusion of contrast material. The liver is of normal size and shape. There are multiple cysts in both lobes of the liver; the largest measures 3 cm in diameter. There is a 2.5 cm lesion with nodular enhancement and gradual fill-in on the delayed study.This lesion is located in segment 6 of the liver is consistent with a cavernous hemangioma. 1; a flash enhancing lesion in the anterior lateral aspect of segment 7 also fills in on the delayed scan andis consistent with a small cavernous hemangioma. Status post cholecystectomy; dilatation of extrahepatic bile ducts without evidence of obstructing lesion. Atrophic pancreas without focal lesions. Spleen, adrenal glands and kidneys unremarkable. No hydronephrosis. No acute bowel abnormalities. No pelvic mass lesions. No retroperitoneal adenopathy. Calcified plaques in the abdominal [...] RT(R),(MR),(CT); CTDI: DLP: Trnscb Date/Time: 05/03/2018 (1605) [email or web address] Orig Print D/T: S: 05/03/2018 (1608) CTDI: DLP: PAGE 1 Signed Report- CT CHEST [id number] 15:57:00 Name: ANA PENALOZA [facility] : 1950 Age/S: 67 / F [address] [facility] Unit #: [id number] Loc: [place] [address] Phys: Virgilio Hughes MD Acct: [id number] Dis Date: Status: REG ER PHONE #: [phone] Exam Date: 05/03/2018 1443 FAX #: [phone] Reason: RUQ pain hypotension sudden onset EXAMS: CPT CODE: [id number] CT CHEST W/CONTRAST 80841 EXAM: CT of the chest with contrast; INFO RMATION: Chest pain, hypotension; TECHNIQUE: CT dose reduction protocol; 1.25 mm cuts were obtainedthrough the chest during intravenous infusion of contrast material; multiplanar reconstructions wereobtained; PE protocol; FINDINGS: The pulmonary arteries are densely enhancing and are without filling defects. The thoracic aorta shows calcified plaques; no evidence of dissection or aneurysm; calcifications of the ordering arteries; No evidence of hilar or mediastinal adenopathy; No effusions. Lungwindows show no parenchymal abnormalities. IMPRESSION: No evidence of pulmonary embolism, aortic dissection or other acute abnormalities. Electronically Signed by Venkat Ayon on 05/03 at 1557 Reported and signed by: Kwaku Ayon M.D. CC: Alexis High DO; Virgilio Hughes MD Technologist:Karan Love RT(R),(MR),(CT); CTDI: DLP: Trnscb Date/Time: 05/03/2018 (1557) tLAVERNEW Orig Print D/T: S: 05/03/2018 (1600) CTDI: DLP: PAGE 1 Signed ReportBASIC METABOLIC [id number] 14:04:00 Test Item Value Reference Range Interpretation [...] GFR) formula.Chronic kidney disease is defined as ei er kidney damageor GFR <60 mL/min/1.73 m2 for >3 months. CREATININE (test code 0.70 mg/dL 0.55-1.02 N Note change in = CREAT) reference range due to change in reagent. BUN/CREATININE RATIO 19.3 10-20 N (test code = BUN/CREA) CALCIUM (test code = 8.9 mg/dL 8.5-10.1 N CA) HEPATIC FUNCTION [id number] 14:04:00 Test Item Value Reference Range Interpretation [...] range due ALKP) to change in reagent. [id number] 14:04:00 Test Item Value Reference Range Interpretation Comments LIPASE (test code = LIP) 106 U/L 73.0-393.0 N HCG SERUM [id number] 14:04:00 Test Item Value Reference Range Interpretation Comments HCG SERUM QUAL (test NEGATIVE NEGATIVE This H CGQL test is NOT code = HCGQL) applicable for MALE patients.Check with nurse about probable order error.If Tumor Marker Test needed, nu rse should order test "HCG TU"(Test #550.85173)---- - [id number] 14:04:00 Test Item Value Reference Range Interpretation Comments TROPONIN-I (test code = TROPI) <0.015 ng/mL 0-0.045 N BASIC METABOLIC [id number] 14:00:00 Test Item Value Reference Range Interpretation [...] code = CA) mg/dL 8.5-10.1 HEPATIC FUNCTION [id number] 14:00:00 Test Item Value Reference Range Interpretation [...] TOTAL (test IUnit/L 45-117 code = ALKP) [id number] 14:00:00 Test Item Value Reference Range Interpretation Comments LIPASE (test code = LIP) U/L 73.0-393.0 HCG SERUM [id number] 14:00:00 Test Item Value Reference Range Interpretation Comments HCG SERUM QUAL (test NEGATIVE NEGATIVE This H CGQL test is NOT code = HCGQL) applicable for MALE patients.Check with nurse about probable order error.If Tumor Marker Test needed, nu rse should order test "HCG TU"(Test #550.63493)---- - [id number] 14:00:00 Test Item Value Reference Range Interpretation Comments TROPONIN-I (test code = TROPI) ng/mL 0-0.045 BASIC METABOLIC [id number] 13:55:00 Test Item Value Reference Range Interpretation [...] code = CA) mg/dL 8.5-10.1 HEPATIC FUNCTION [id number] 13:55:00 Test Item Value Reference Range Interpretation [...] TOTAL (test IUnit/L 45-117 code = ALKP) [id number] 13:55:00 Test Item Value Reference Range Interpretation Comments LIPASE (test code = LIP) U/L 73.0-393.0 HCG SERUM [id number] 13:55:00 Test Item Value Reference Range Interpretation Comments HCG SERUM QUAL (test code = HCGQL) NEGATIVE [id number] 13:55:00 Test Item Value Reference Range Interpretation Comments TROPONIN-I (test code = TROPI) ng/mL 0-0.045 URINALYSIS [id number] 13:48:00 Test Item Value Reference Range Interpretation [...] A BACU) Urine Source? Clean CatchCBC W/O [id number] 13:46:00 Test Item Value Reference Range Interpretation [...] fL 6.7-11.0 N = MPV) CBC W/O [id number] 13:42:00 Test Item Value Reference Range Interpretation [...]
[2021-12-10 15:56] LABS: Urine Blood Trace-intact (Negative); Urine Glucose Negative (Negative); Urine Protein Negative (Negative); Urine pH 6.5 (5.0-7.0)
[2021-12-10 16:01] LABS: Absolute Lymphocytes (CBC) 2.8 K/uL (0.7-4.9); Hematocrit 40.3 % (36.0-45.0); RBC Red Blood Cell Count 4.58 M/uL (3.86-4.86)
[2021-12-10 16:11] LABS: Protime INR 0.95
[2021-12-10 16:23] LABS: SARS-CoV-2 Antigen Rapid Res Negative (Negative)
[2021-12-10] MEDS ORDERED: Ciprofloxacin 200mg IV 200 MG/100 ML IV.SOLN. IV ONE (16:28)
[2021-12-10] MEDS ORDERED: NA CHLORIDE 0.9% 2,000 ML ONE (16:28)
[2021-12-10] MEDS ORDERED: METRONIDAZOLE 500mg IVPB 500 MG/100 ML BAG IV ONE (16:28)
[2021-12-10] MEDS ORDERED: FAMOTIDINE 20 MG/2 ML VIAL IV ONE (16:28)
[2021-12-10 16:30] LABS: Albumin 3.4 g/dL (3.4-5.0); Bilirubin Direct 0.1 mg/dL (0-0.2); Bilirubin Total 0.4 mg/dL (0.2-1.0); Magnesium 1.9 mg/dL (1.8-2.4); Potassium 3.5 mmol/L (3.5-5.1); Protein, Total 7.3 g/dL (6.4-8.2)
[2021-12-10 16:31] LABS: Troponin High Sensitivity 5.8 pg/mL (<58.9)
[2021-12-10] MEDS ORDERED: ACETAMINOPHEN 500 MG TAB ONE (16:47)
--- NOTE | 2021-12-10 18:23 | RAD REPORT ---
EXAM DESCRIPTION: CT - Abdomen Pelvis W Contrast - 12/10/2021 6:09 pm CLINICAL HISTORY: Abdominal pain COMPARISON: none. TECHNIQUE: Computed axial tomography of the abdomen pelvis was obtained. 100 cc [id number] was admin istered intravenously. Oral contrast was not requested which limits evaluation of bowel and appendix All CT scans are performed using dose optimization technique as appropriate and may include automated exposure control or mA/KV adjustment according to patient size. FINDINGS: A 3.5 centimeter vascular lesion posterior segment right lobe the liver without obvious ch ashley. Sub centimeter additional enhancing lesion within the anterior segment right lobe of liver. Mul tiple hepatic cysts. Cholecystectomy with prominence of the biliary tree. The spleen, pancreas, adrenals and kidneys demonstrate no significant abnormality. There is mild malr otation of the right kidney. There is no evidence of diverticulitis. Hysterectomy. Gastric bypass. History postsurgical changes ri ght colon. No obstruction IMPRESSION: 3.5 centimeter vascular lesion within the liver may represent a hemangioma. Nonemergent MRI of the liver would be helpful for further evaluation Prominence of biliary tree often a normal finding in an orally patient status post cholecystectomy. P athology such as a stricture or nonvisualized stone can also result in this appearance should be cecy elated clinically and with appropriate lab values
--- NOTE | 2021-12-10 18:48 | ER ---
Nurse's Notes [facility] Name: Jamila Castillo Age: 71 yrs Sex: Female : 1950 Arrival Date: 12/10/2021 Time: 14:51 Bed 24 Private MD: Kassandra Claros Diagnosis: Abdominal pain, Generalized;Vomiting Presentation: 12/10 15:08 Chief complaint: Patient states: nausea and dry heaves since 0800 this morning. hb Coronavirus screen: Vaccine status: Patient reports receiving the 2nd dose of the covid vaccine. Client denies travel out of the [place] in the last 14 days. At this time, the client does not indicate any symptoms associated with coronavirus-19. Ebola Screen: Patient negative for fever greater than or equal to 101.5 degrees Fahrenheit, and additional compatible Ebola Virus Disease symptoms Patient denies exposure to infectious person. Patient denies travel to an Ebola-affected area in the 21 days before illness onset. Initial Sepsis Screen: Does the patient meet any 2 criteria? No. Patient's initial sepsis screen is negative. Does the patient have a suspected source of infection? No. Patient's initial sepsis screen is negative. Risk Assessment: Do you want to hurt yourself or someone else? Patient reports no desire to harm self or others. Onset of symptoms was December 10, 2021. 15:08 Method Of Arrival: Ambulatory hb 15:08 Acuity: KAYLA 3 hb Triage Assessment: 15:11 General: Appears in no apparent distress. comfortable, well groomed, well developed, hb well nourished, Behavior is calm, cooperative, appropriate for age. Pain: Complains of pain in abdomen. GI: Reports lower abdominal pain. Historical: - Allergies: 15:11 Demerol; hb 15:11 Dilaudid; hb 15:11 PENICILLINS; hb - Home Meds: 15:11 levothyroxine oral [Active]; hb - PMHx: 15:11 Hypothyroidism; hb - PSHx: 15:11 Cholecystectomy; hysterectomy; Small bowel resection; Thyroidectomy; hb - Immunization history:: Adult Immunizations up to date. - Social history:: Smoking status: . Screenin:21 Abuse screen: Denies threats or abuse. Denies injuries from another. Nutritional hb screening: No deficits noted. Tuberculosis screening: No symptoms or risk factors identified. Fall Risk None identified. Assessment: 16:51 General: Appears in no apparent distress. Behavior is calm, cooperative. Pain: Pain hb currently is 7 out of 10 on a pain scale. Neuro: Level of Consciousness is awake, alert, obeys commands, Oriented to person, place, time, situation, Reports headache. Cardiovascular: Patient's skin is warm and dry. Respiratory: Respiratory effort is even, unlabored, Respiratory pattern is regular, symmetrical. GI: Reports lower abdominal pain, upper abdominal pain, nausea. : No signs and/or symptoms were reported regarding the genitourinary system. EENT: No signs and/or symptoms were reported regarding the EENT system. Derm: Skin is pink, warm \T\ dry. Musculoskeletal: No signs and/or symptoms reported regarding the musculoskeletal system. 17:52 Reassessment: Patient appears in no apparent distress at this time. Patient and/or hb family updated on plan of care and expected duration. Pain level reassessed. Patient is alert, oriented x 3, equal unlabored respirations, skin warm/dry/pink. 19:40 Reassessment: Patient appears in no apparent distress at this time. Patient and/or hb family updated on plan of care and expected duration. Pain level reassessed. Patient is alert, oriented x 3, equal unlabored respirations, skin warm/dry/pink. Vital Signs: 15:08 BP 171 / 83; Pulse 72; Resp 18; Temp 98.6; Pulse Ox 97% ; Weight 66.68 kg; Height 5 ft. hb 7 in. (170.18 cm); Pain 3/10; 17:45 BP 168 / 82; Pulse 74; Resp 15; Pulse Ox 99% on R/A; hb 19:40 BP 142 / 84; Pulse 77; Resp 16; Pulse Ox 99% on R/A; hb 15:08 Body Mass Index 23.02 (66.68 kg, 170.18 cm) ED Course: 14:51 Patient arrived in ED. mr 14:51 Kassandra Claros is Private Physician. mr 14:53 Zen Ferguson MD is Attending Physician. jyoti 15:11 Triage completed. hb 15:51 SARS RAPID Sent. hb 16:14 Inserted saline lock: 20 gauge in left antecubital area, using aseptic technique. hb 16:17 XRAY Chest (1 view) In Process Unspecified. EDMS 16:20 Lin Calle, RN is Primary Nurse. hb 16:21 Arm band placed on. hb 16:21 Patient has correct armband on for positive identification. hb 18:11 CT Abd/Pelvis - PO and IV Contrast In Process Unspecified. EDMS 18:38 Kerline Roach MD is Hospitalizing Provider. jyoti 23:18 No provider procedures requiring assistance completed. Patient admitted, IV remains in vc1 place. Administered Medications: 16:33 Drug: NS 0.9% 1000 ml Route: IV; Rate: 1 bolus; Site: left antecubital; hb 17:30 Follow up: Response: No adverse reaction; IV Status: Infusion continued; IV Intake: hb 1000ml 16:33 Drug: Pepcid (famotidine) 20 mg Route: IVP; Site: left antecubital; hb 17:52 Follow up: Response: No adverse reaction hb 16:33 Drug: Flagyl (metroNIDAZOLE) 500 mg Volume: 100 ml; Route: IVPB; Rate: 200 ml/hr; hb Infused Over: 30 mins; Site: left antecubital; 17:05 Follow up: Response: No adverse reaction; IV Status: Infusion continued; IV Intake: 50mlhb 16:50 Drug: Acetaminophen 1000 mg Route: PO; hb 17:00 Follow up: Response: No adverse reaction hb 17:51 Drug: Cipro (ciprofloxacin) 400 mg Volume: 200 ml; Route: IVPB; Infused Over: 60 mins; hb Site: left antecubital; 18:50 Follow up: Response: No adverse reaction; IV Status: Completed infusion; IV Intake: hb 100ml 17:51 Drug: NS 0.9% 1000 ml Route: IV; Rate: 125 ml/hr; Site: left antecubital; hb 20:01 Drug: Ketorolac 15 mg Route: IVP; Site: left antecubital; hb 21:00 Follow up: Response: No adverse reaction hb 20:01 Drug: Benadryl (diphenhydrAMINE) 12.5 mg Route: IVP; Site: left antecubital; hb 21:00 Follow up: Response: No adverse reaction hb 20:01 Drug: Reglan (metoCLOPramide) 5 mg Route: IVP; Site: left antecubital; hb 21:00 Follow up: Response: No adverse reaction hb Medication: 16:52 VIS not applicable for this client. hb Intake: 17:05 IV: 50ml; Total: 50ml. hb 17:30 IV: 1000ml; Total: 1050ml. hb 18:50 IV: 100ml; Total: 1150ml. hb Outcome: 18:47 Decision to Hospitalize by Provider. jyoti 23:18 Admitted to Tele accompanied by tech, via wheelchair, room 402, with chart, Report vc1 called to Karen 23:18 Condition: good 23:18 Instructed on the need for admit. 23:19 Patient left the ED. vc1 Signatures: Dispatcher [employer] EDZen Jensen MD MD cha Rivera Shayy Lin Patterson RN RN Mela Garcia RN RN vc1
--- NOTE | 2021-12-10 18:48 | EDPHYS ---
Physician Documentation [facility] Name: Jamila Castillo Age: 71 yrs Sex: Female : 1950 Arrival Date: 12/10/2021 Time: 14:51 Bed 24 Private MD: Kassandra Claros ED Physician Zen Ferguson HPI: 12/10 18:15 This 71 yrs old Female presents to ER via Ambulatory with complaints of jyoti Nausea. 18:15 The patient presents to the emergency department with nausea, vomiting, that is jyoti intermittent. Historical: - Allergies: 15:11 Demerol; hb 15:11 Dilaudid; hb 15:11 PENICILLINS; hb - Home Meds: 15:11 levothyroxine oral [Active]; hb - PMHx: 15:11 Hypothyroidism; hb - PSHx: 15:11 Cholecystectomy; hysterectomy; Small bowel resection; Thyroidectomy; hb - Immunization history:: Adult Immunizations up to date. - Social history:: Smoking status: . ROS: 18:29 Constitutional: Negative for fever, chills, and weight loss, Eyes: Negative for injury, jyoti pain, redness, and discharge, ENT: Negative for injury, pain, and discharge, Neck: Negative for injury, pain, and swelling, Cardiovascular: Negative for chest pain, palpitations, and edema, Respiratory: Negative for shortness of breath, cough, wheezing, and pleuritic chest pain, Back: Negative for injury and pain, : Negative for injury, bleeding, discharge, and swelling, MS/Extremity: Negative for injury and deformity, Skin: Negative for injury, rash, and discoloration, Neuro: Negative for headache, weakness, numbness, tingling, and seizure, Psych: Negative for depression, anxiety, suicide ideation, homicidal ideation, and hallucinations, Allergy/Immunology: Negative for hives, rash, and allergies, Endocrine: Negative for neck swelling, polydipsia, polyuria, polyphagia, and marked weight changes, Hematologic/Lymphatic: Negative for swollen nodes, abnormal bleeding, and unusual bruising. 18:29 Abdomen/GI: Positive for abdominal pain, nausea and vomiting, of the right lower quadrant and left lower quadrant. Exam: 18:29 Constitutional: This is a well developed, well nourished patient who is awake, alert, jyoti and in no acute distress. Head/Face: Normocephalic, atraumatic. Eyes: Pupils equal round and reactive to light, extra-ocular motions intact. Lids and lashes normal. Conjunctiva and sclera are non-icteric and not injected. Cornea within normal limits. Periorbital areas with no swelling, redness, or edema. ENT: Nares patent. No nasal discharge, no septal abnormalities noted. Tympanic membranes are normal and external auditory canals are clear. Oropharynx with no redness, swelling, or masses, exudates, or evidence of obstruction, uvula midline. Mucous membranes moist. Neck: Trachea midline, no thyromegaly or masses palpated, and no cervical lymphadenopathy. Supple, full range of motion without nuchal rigidity, or vertebral point tenderness. No Meningismus. Chest/axilla: Normal chest wall appearance and motion. Nontender with no deformity. No lesions are appreciated. Cardiovascular: Regular rate and rhythm with a normal S1 and S2. No gallops, murmurs, or rubs. Normal PMI, no JVD. No pulse deficits. Respiratory: Lungs have equal breath sounds bilaterally, clear to auscultation and percussion. No rales, rhonchi or wheezes noted. No increased work of breathing, no retractions or nasal flaring. Back: No spinal tenderness. No costovertebral tenderness. Full range of motion. Female : Normal external genitalia. Skin: Warm, dry with normal turgor. Normal color with no rashes, no lesions, and no evidence of cellulitis. MS/ Extremity: Pulses equal, no cyanosis. Neurovascular intact. Full, normal range of motion. Neuro: Awake and alert, GCS 15, oriented to person, place, time, and situation. Cranial nerves II-XII grossly intact. Motor strength 5/5 in all extremities. Sensory grossly intact. Cerebellar exam normal. Normal gait. Psych: Awake, alert, with orientation to person, place and time. Behavior, mood, and affect are within normal limits. 18:29 ECG was reviewed by the Attending Physician. 18:29 Abdomen/GI: Inspection: abdomen appears normal, Bowel sounds: active, all quadrants, Palpation: mild abdominal tenderness, in the right lower quadrant and left lower quadrant, Liver: no appreciated palpable abnormalities, Hernia: not appreciated. Vital Signs: 15:08 BP 171 / 83; Pulse 72; Resp 18; Temp 98.6; Pulse Ox 97% ; Weight 66.68 kg; Height 5 ft. hb 7 in. (170.18 cm); Pain 3/10; 17:45 BP 168 / 82; Pulse 74; Resp 15; Pulse Ox 99% on R/A; hb 19:40 BP 142 / 84; Pulse 77; Resp 16; Pulse Ox 99% on R/A; hb 15:08 Body Mass Index 23.02 (66.68 kg, 170.18 cm) hb MDM: 14:53 Patient medically screened. jyoti 18:33 Differential diagnosis: Nonspecific abd pain, gastritis, pancreatitis, diverticulitis, jyoti viral gastroenteritis, gastroenteritis. Data reviewed: vital signs, nurses notes, lab test result(s), EKG, radiologic studies, CT scan, plain films. Data interpreted: athletic monitor: rate is 74 beats/min, rhythm is regular, Pulse oximetry: on room air is 99 %. Test interpretation: by ED physician or midlevel provider: ECG, plain radiologic studies. Counseling: I had a detailed discussion with the patient and/or guardian regarding: the historical points, exam findings, and any diagnostic results supporting the discharge/admit diagnosis, lab results, radiology results, the need for further work-up and treatment in the hospital. Physician consultation: Duncan Baca MD and will see patient IF NECESSARY .PLEASE ADMIT. 12/10 14:57 Order name: Basic Metabolic Panel; Complete Time: 17:22 12/10 14:57 Order name: CBC with Diff; Complete Time: 17:22 12/10 14:57 Order name: LFT's; Complete Time: 17:22 12/10 14:57 Order name: Magnesium; Complete Time: 17:22 12/10 14:57 Order name: NT PRO-BNP; Complete Time: 17:22 12/10 14:57 Order name: PT-INR; Complete Time: 17:22 12/10 14:57 Order name: Troponin HS; Complete Time: 17:22 12/10 14:57 Order name: XRAY Chest (1 view); Complete Time: 19:25 jyoti 12/10 14:57 Order name: Lipase; Complete Time: 17:22 12/10 14:57 Order name: CT Abd/Pelvis - PO and IV Contrast; Complete Time: 18:29 12/10 14:57 Order name: Urine Culture [facility] 12/10 14:57 Order name: SARS RAPID; Complete Time: 17:22 jyoti 12/10 15:56 Order name: Urine Dipstick-Ancillary; Complete Time: 17:22 EDMS 12/10 14:57 Order name: EKG; Complete Time: 14:57 [facility] 12/10 14:57 Order name: Cardiac monitoring; Complete Time: 16:51 [facility] 12/10 14:57 Order name: EKG - Nurse/Tech; Complete Time: 16:51 [facility] 12/10 14:57 Order name: IV Saline Lock; Complete Time: 15:51 [facility] 12/10 14:57 Order name: Labs collected and sent; Complete Time: 15:51 jyoti 12/10 14:57 Order name: O2 Per Protocol; Complete Time: 15:51 [facility] 12/10 14:57 Order name: O2 Sat Monitoring; Complete Time: 15:51 [facility] 12/10 14:57 Order name: Urine Dipstick-Ancillary (obtain specimen); Complete Time: 16:51 jyoti EC:29 Rate is 74 beats/min. Rhythm is regular. QRS [place] is Normal. [place] interval is normal. QRS jyoti interval is normal. QT interval is normal. No Q waves. T waves are Normal. No ST changes noted. Clinical impression: NSR w/ Non-specific ST/T Changes and No evidence of ischemia. Interpreted by me. Reviewed by me. Administered Medications: 16:33 Drug: NS 0.9% 1000 ml Route: IV; Rate: 1 bolus; Site: left antecubital; hb 17:30 Follow up: Response: No adverse reaction; IV Status: Infusion continued; IV Intake: hb 1000ml 16:33 Drug: Pepcid (famotidine) 20 mg Route: IVP; Site: left antecubital; hb 17:52 Follow up: Response: No adverse reaction hb 16:33 Drug: Flagyl (metroNIDAZOLE) 500 mg Volume: 100 ml; Route: IVPB; Rate: 200 ml/hr; hb Infused Over: 30 mins; Site: left antecubital; 17:05 Follow up: Response: No adverse reaction; IV Status: Infusion continued; IV Intake: 50mlhb 16:50 Drug: Acetaminophen 1000 mg Route: PO; hb 17:00 Follow up: Response: No adverse reaction hb 17:51 Drug: Cipro (ciprofloxacin) 400 mg Volume: 200 ml; Route: IVPB; Infused Over: 60 mins; hb Site: left antecubital; 18:50 Follow up: Response: No adverse reaction; IV Status: Completed infusion; IV Intake: hb 100ml 17:51 Drug: NS 0.9% 1000 ml Route: IV; Rate: 125 ml/hr; Site: left antecubital; hb 20:01 Drug: Ketorolac 15 mg Route: IVP; Site: left antecubital; hb 21:00 Follow up: Response: No adverse reaction hb 20:01 Drug: Benadryl (diphenhydrAMINE) 12.5 mg Route: IVP; Site: left antecubital; hb 21:00 Follow up: Response: No adverse reaction hb 20:01 Drug: Reglan (metoCLOPramide) 5 mg Route: IVP; Site: left antecubital; hb 21:00 Follow up: Response: No adverse reaction hb Disposition Summary: 12/10/21 18:47 Hospitalization Ordered Hospitalization Status: Observation jyoti Provider: Kerline Roach cha Location: Telemetry/[facility]Sur (observation) jyoti Condition: Fair jyoti Problem: new jyoti Symptoms: have improved jyoti Bed/Room Type: Standard jyoti Room Assignment: 402(12/10/21 20:51) mw Diagnosis - Abdominal pain, Generalized jyoti - Vomiting jyoti Forms: - Medication Reconciliation Form jyoti - SBAR form jyoti Signatures: Dispatcher [employer] EDEmely Gordon RN RN Zen Johnson MD MD cha Baxter, Heather, RN RN hb Brown, Sophia, PA-C PA-C sb4 Corrections: (The following items were deleted from the chart) 20:51 18:47 jyoti mw
--- NOTE | 2021-12-10 19:09 | RAD REPORT ---
EXAM DESCRIPTION: Dora Single View12/10/2021 4:15 pm CLINICAL HISTORY: Abd pain COMPARISON: none FINDINGS: The lungs appear clear of acute infiltrate. The heart is normal size IMPRESSION: No acute abnormalities displayed
[2021-12-10] MEDS ORDERED: DIPHENHYDRAMINE 50 MG/ML VIAL ONE (19:54)
[2021-12-10] MEDS ORDERED: KETOROLAC 30 MG/ML INJ ONE (19:55)
--- NOTE | 2021-12-10 19:55 | P.HP ---
Certification for Inpatient Patient admitted to: Observation With expected LOS: <2 Midnights Patient will require the following post-hospital care: None Practitioner: I am a practitioner with admitting privileges, knowledge of patient current condition, hospital course, and medical plan of care. Services: Services provided to patient in accordance with Admission requirements found in Title 42 Section 412.3 of the Code of Federal Regulations Patient History Date of Service: 12/10/21 Primary Care Provider: Kassandra Claros Reason for admission: Abdominal Pain, Nausea History of Present Illness: Patient is a 71 year old female with history of hypothyroidism and small bowel obstruction status post hemicolectomy 3 months ago who presented to the ED with complaints of nausea, abdominal pain, and dry heaving. Patient reports that her symptoms began this morning. She has not eaten anything out of the ordinary. She denies vomiting, constipation, or diarrhea. She reports a normal BM this morning. She states that she has been recovering well from her surgery and was cleared by Dr. Baca this week. No lab abnormalities present. Vital signs stable. CT abdomen pelvis showed "3.5 centimeter vascular lesion within the liver may represent a hemangioma. Nonemergent MRI of the liver would be helpful for further evaluation. Prominence of biliary tree often a normal finding in an orally patient status post cholecystectomy. Pathology such as a stricture or nonvisualized stone can also result in this appearance should be correlated clinically and with appropriate lab values." Dr. Baca was contacted and wishes for patient to be admitted for observation and will see patient if necessary. She was given fluids, cipro and flagyl in ED. Patient reports she is still nauseated but no longer dry heaving. She is only complaining of headache at this time. She will be admitted for observation. Allergies morphine Allergy (Verified 08/30/21 13:27) Hives hydromorphone [From Dilaudid] Adverse Reaction (Verified 08/30/21 13:28) Shortness of breath meperidine [From Demerol] Adverse Reaction (Verified 08/30/21 13:27) hallucinations Penicillins Adverse Reaction (Verified 08/30/21 13:27) Shortness of breath Home medications list reviewed: Yes Home Medications: Levothyroxine [Synthroid*] 50 mcg PO [id number] 08/30/21 Codeine/APAP [Tylenol W/Codeine #3 tab] 1 tab PO Q6HP PRN #30 tab 09/04/21 - Past Medical/Surgical History Diabetic: No -: Hypothyroidism -: Hiatal hernia -: Gastric Bypass sx -: Cholecystectomy -: Hysterectomy -: Hemicolectomy -: Thyroidectomy Psychosocial/ Personal History: Patient lives at home. - Family History Family History: Reviewed- Non-Contributory - Social History Smoking Status: Never smoker Alcohol use: No CD- Drugs: No Caffeine use: Yes Place of Residence: Home Review of Systems Gastrointestinal: Nausea, Other (Dry Heaves) Physical Examination - Physical Exam General: Alert, In no apparent distress HEENT: Atraumatic, PERRLA, EOMI, Sclerae nonicteric Neck: Supple, 2+ carotid pulse no bruit, No LAD, Without JVD or thyroid abnormality Respiratory: Clear to auscultation bilaterally, Normal air movement Cardiovascular: Regular rate/rhythm, Normal S1 S2 Gastrointestinal: Normal bowel sounds, No tenderness Musculoskeletal: No tenderness Integumentary: No rashes Neurological: Normal speech, Normal strength at 5/5 x4 extr, Normal tone, Normal affect - Studies Laboratory Data (last 24 hrs) 12/10/21 15:35: PT 10.5, INR 0.95 12/10/21 15:35: WBC 7.70, Hgb 13.5, Hct 40.3, Plt Count 401 12/10/21 15:35: Sodium 140, Potassium 3.5, BUN 13, Creatinine 0.69, Glucose 96, Magnesium 1.9, Total Bilirubin 0.4, AST 13 L, ALT 23, Alkaline Phosphatase 75, Lipase 168 Assessment and Plan - Problems (Diagnosis) (1) Nausea Current Visit: Yes Status: Acute (2) Abdominal pain Current Visit: Yes Status: Acute Qualifiers: Abdominal location: generalized Qualified Code(s): R10.84 - Generalized abdominal pain (3) Hypothyroidism Current Visit: Yes Status: Acute Qualifiers: Hypothyroidism type: postoperative Qualified Code(s): E89.0 - Postprocedu ral hypothyroidism (4) Status post right hemicolectomy Current Visit: Yes Status: Chronic - Plan -Gentle IV hydration -Clear liquid diet for bowel rest -Antiemetics as needed -Repeat upright abdominal imaging in AM -Monitor and replete electrolytes per protocol -Reconcile and continue home medications -VTE prophylaxis -Full code Discharge Plan: Home Plan to discharge in: 24 Hours - Advance Directives Does patient have a Living Will: No Does patient have a Durable POA for Healthcare: No - Code Status/Comfort Care Code Status Assessed: Yes (Full) Critical Care: No Time Spent Managing Pts Care (In Minutes): 50
[2021-12-10] MEDS ORDERED: METOCLOPRAMIDE 10 MG/2mL INJ ONE (19:56)
[2021-12-10] MEDS ORDERED: NA CHLORIDE 0.9% 1,000 ML IV SCH (20:14)
[2021-12-10] MEDS ORDERED: ONDANSETRON 4 MG/2 ML VIAL IV PRN (20:14)
[2021-12-10] MEDS ORDERED: ACETAMINOPHEN 500 MG TAB PO PRN (20:14)
[2021-12-10 20:19] VITALS: BMI 23.0
[2021-12-11] MEDS ORDERED: KETOROLAC 30 MG/ML INJ IV ONE (00:13)
[2021-12-11] MEDS ORDERED: MAGNESIUM SULFATE 1 gm IVPB 1 GM/100 ML BAG IV ONE (00:13)
[2021-12-11] MEDS ORDERED: DIPHENHYDRAMINE 50 MG/ML VIAL IV ONE (00:13)
[2021-12-11 00:31] VITALS: O2SAT 99
[2021-12-11] MEDS ORDERED: METOCLOPRAMIDE 10 MG/2mL INJ IV SCH (01:00)
[2021-12-11 04:53] LABS: Absolute Lymphocytes (CBC) 2.1 K/uL (0.7-4.9); Hematocrit 33.3 % (36.0-45.0); Lymphocytes % 43.4 % (15.3-44.8); MCV 88.7 fL (80-100); MPV 6.8 fL (7.6-11.3); RBC Red Blood Cell Count 3.76 M/uL (3.86-4.86)
[2021-12-11 05:05] LABS: Magnesium 2.2 mg/dL (1.8-2.4); Potassium 3.8 mmol/L (3.5-5.1)
--- NOTE | 2021-12-11 08:49 | RAD REPORT ---
EXAM DESCRIPTION: RAD - Abdomen W Erect - 12/11/2021 6:07 am CLINICAL HISTORY: abd pain, history of SBO/hemicolectomy Pain COMPARISON: Abdomen Pelvis W Contrast dated 12/10/2021 FINDINGS: Contrast is present in the colon. No bowel obstruction pattern evident. No free intraperit [place] air seen. Surgical clips seen right upper quadrant. IMPRESSION: No evidence of bowel obstruction.
--- NOTE | 2021-12-11 10:12 | P.DS ---
Admission Date: 12/10/21 Discharge Date: 12/11/21 Primary Care Provider: Kassandra Claros Disposition: ROUTINE DISCHARGE Discharge Condition: FAIR Reason for Admission: Abdominal Pain, Nausea - Problems (1) Intractable nausea and vomiting Current Visit: Yes Status: Acute (2) Abdominal pain Current Visit: Yes Status: Acute Qualifiers: Abdominal location: generalized Qualified Code(s): R10.84 - Generalized abdominal pain (3) Hypothyroidism Current Visit: Yes Status: Acute Qualifiers: Hypothyroidism type: postoperative Qualified Code(s): E89.0 - Postprocedural hypothyroidism (4) Status post right hemicolectomy Current Visit: Yes Status: Chronic Brief History of Present Illness: Patient is a 71 year old female with history of hypothyroidism and small bowel obstruction status post hemicolectomy 3 months ago who presented to the ED with complaints of nausea, abdominal pain, and dry heaving. Patient reports that her symptoms began this morning. She has not eaten anything out of the ordinary. She denies vomiting, constipation, or diarrhea. She states that she has been recovering well from her surgery and was cleared by Dr. Baca this week. No lab abnormalities present. Vital signs stable. CT abdomen pelvis showed "3.5 centimeter vascular lesion within the liver may represent a hemangioma. Prominence of biliary tree often a normal finding in an orally patient status post cholecystectomy. Dr. Baca was contacted and wishes for patient to be admitted for observation and will see patient if necessary. She was given fluids, cipro and flagyl in ED. tolerance for further management. Hospital Course: Patient treated supportively with IV fluid and antiemetics as needed. No indication for antibiotics. Patient's symptoms improved and tolerated solid diet. KUB today is unremarkable. Patient is deemed stable for discharge. Vital Signs/Physical Exam: Temp Pulse Resp BP Pulse Ox 97.6 F 52 18 119/53 L 96 12/11/21 04:00 12/11/21 04:00 12/11/21 04:00 12/11/21 04:00 12/11/21 04:00 General: Alert, In no apparent distress, Oriented x3 HEENT: Mucous membr. moist/pink Neck: Supple, JVD not distended Respiratory: Clear to auscultation bilaterally, Normal air movement Cardiovascular: No edema, Regular rate/rhythm, Normal S1 S2, No murmurs Gastrointestinal: Normal bowel sounds, Soft and benign, Non-distended, No tenderness Musculoskeletal: No swelling Integumentary: No rashes, No cyanosis Neurological: Normal strength at 5/5 x4 extr Laboratory Data at Discharge: WBC 4.90 K/uL (4.3-10.9) 12/11/21 03:46 Hgb 10.9 g/dL (12.0-15.0) L D 12/11/21 03:46 Hct 33.3 % (36.0-45.0) L 12/11/21 03:46 Plt Count 310 K/uL (152-406) 12/11/21 03:46 PT 10.5 SECONDS (9.5-12.5) 12/10/21 15:35 INR 0.95 12/10/21 15:35 Sodium 141 mmol/L (136-145) 12/11/21 03:46 Potassium 3.8 mmol/L (3.5-5.1) 12/11/21 03:46 BUN 9 mg/dL (7-18) 12/11/21 03:46 Creatinine 0.63 mg/dL (0.55-1.3) 12/11/21 03:46 Glucose 85 mg/dL (74-106) 12/11/21 03:46 Phosphorus 4.0 mg/dL (2.5-4.9) 12/11/21 03:46 Magnesium 2.2 mg/dL (1.8-2.4) 12/11/21 03:46 Total Bilirubin 0.4 mg/dL (0.2-1.0) 12/10/21 15:35 AST 13 U/L (15-37) L 12/10/21 15:35 ALT 23 U/L (12-78) 12/10/21 15:35 Alkaline Phosphatase 75 U/L (45-117) 12/10/21 15:35 Lipase 168 U/L (73-393) 12/10/21 15:35 Home Medications: Levothyroxine [Synthroid*] 50 mcg PO [id number] 08/30/21 Famotidine [Pepcid*] 20 mg PO BID 12/10/21 Rosuvastatin [Crestor*] 10 mg PO DAILY 12/10/21 Diet: AHA Activity: Ad camille Followup: Kassandra Claros MD [Primary Care Provider] -
[2021-12-11 10:36] VITALS: BP 133/93
[2021-12-11 12:11] VITALS: TEMP 97
--- NOTE | 2021-12-12 16:57 | EKG ---
Test Date: 2021-12-10 Test Time: 18:34:15 Category Development Analyst: HB MEASUREMENT RESULTS: Intervals: Rate: 64 MN: 200 QRSD: 86 QT: 410 QTc: 422 [place]: P: 87 MN: 200 QRS: 65 T: 64 INTERPRETIVE STATEMENTS: Normal sinus rhythm Normal ECG No previous ECG available for comparison Electronically Signed On 12-12-21 16:54:06 CDT by Lucien Corrigan
== END 2021-12-11 12:07 | disposition home or self-care (01) ==
LOC: ER 14:48 → ERHOLD 20:05 → 4TH 22:22
PROVIDERS: ADMIT Internal Medicine; ATTEND Internal Medicine
DX: R10.9 Unspecified abdominal pain (principal); R11.2 Nausea with vomiting, unspecified; E03.9 Hypothyroidism, unspecified; Z88.0 Allergy status to penicillin; Z88.6 Allergy status to analgesic agent; Z90.49 Acquired absence of other specified parts of digestive tract; Z20.822 Contact with and (suspected) exposure to COVID-19
CPT/HCPCS: 96365; 96367; 93005; 87088; 85025 ×2; 87086; 80048 ×2; 36415; 83735 ×2; 84100; 85610; 80076; 81003; 84484; 83690; 83880; 74177; 74019; 71045; 96375; 99285; 87811; Q9967; J2765 ×2; J1200 ×2; J3475; J0744; J7030; J2405; G0378 ×3

== ENCOUNTER 2022-05-06 13:50 | Emergency (ER) | payer OTHER ==
--- OUTSIDE RECORDS SUMMARY | 2022-05-06 13:55 | XMS REPORT | Continuity of Care Document ---
:1950 Author Organization [facility] t Address [address] [place] [address] Care Team Providers Name Role Phone Alexis High DO Primary Care Physician [phone] JOE FUENTES Attending Clinician Unavailable AIMEE HARRINGTON Attending Clinician Unavailable JAMESON STONE Attending Clinician Unavailable [id number] Attending Clinician Unavailable WANDY MARTINS Attending Clinician Unavailable COVID-PFIZER BOOSTER, [place] Attending Clinician Mary ford COVID-PFIZER VACC, [place] Attending Clinician Unavaildillon Harrington MD, Aimee Garcia Attending Clinician [phone] [email or web address] Attending Clinician Unavailable COVID-PFIZER VACC-2, [place] Attending Clinician Master brock [facility]ending Clinician Unavailable Chrystal Adkins Attending Clinician [phone] Kathleen Michelle I Attending Clinician Unavailable Ant Admitting Clinician Unavailable Kathleen Michelle I Admitting Clinician Unavailable Payers Payer Name Policy Type Policy Number Effective Date Expiration Date Viktoriya mccann [employer]LLC[employer] TXP [id number] 2021 CLASSIC NO PREMIUM 00:00:00 R2T MEDICARE B-[place]: [id number] 2016 NOVMymCart 00:00:00 Problems Condition Condition Condition Status Onset Resolution Last Treating Co mments Source Name Details Category Date Date Treatment Clinician Date Right Right Disease Active 2021-02 Toya lower lower 0-20 Seybold quadrant quadrant 00:00: - abdominal abdominal 00 Exte rna pain pain l Nausea Nausea Disease Active 2021-02 Toya 0-20 Seybold 00:00: - 00 Externa l History of History of Disease Active 2021-02 Krista minaya obstructio obstructio 0-20 Se ybold n of large n of large 00:00: - intestine intestine 00 Exte rna l History of History of Disease Active 2021-02 Krista minaya right right 0-20 Seybold hemicolect hemicolect 00:00: - kenya kenya 00 Externa l Gastroesop Gastroesop Disease Active 2021-02 Krista minaya hageal hageal 0-20 Seybold reflux reflux 00:00: - disease disease 00 Externa without without l esophagiti esophagiti s s Hyperchole Hyperchole Disease Active Krista minaya sterolemia sterolemia 4-19 Se ybold 00:00: - 00 Externa l Elevated Elevated Disease Active 2020-02 Kelse y LDL LDL 2-01 Seybold cholestero cholestero 00:00: l level l level 00 Hypothyroi Hypothyroi Disease Active 2020-02 K marimar dism dism 1-10 Seybold (acquired) (acquired) 00:00: - 00 Externa l Hx of Hx of Disease Active 2020-02 Toya bariatric bariatric 1-10 Seyb old surgery surgery 00:00: - 00 Externa l Hypothyroi Hypothyroi Problem Active P rivia dism dism 4-20 Medical 00:00: 00 Chronic Chronic Disease Active [facility] midline midline 8-07 st low back low back 00:00: Hospit a pain with pain with 00 l right-side right-side d sciatica d sciatica Obesity Obesity Disease Recurre [facility] i nce 4-08 st 00:00: Hospita 00 l Right Right Disease Active [facility] flank pain flank pain 09-11 00:00: Hospita 00 l Flank pain Flank pain Disease Active M ethodi 09-09 00:00: Hospita 00 l History of History [...] [facility] phone 3-13 Clear 00:00: Caicedo [address] [facility] Hydromor Propensi Active Toya phone ty to 07-07 Seybold adverse 00:00: - reaction 00 Externa s l Hydromor Propensi Active Method i phone ty to 07-07 adverse 00:00: Hospita reaction 00 l s [...] [facility] ins 1-23 Clear 00:00: Caicedo 00 [facility] meperidi DA Active U [facility] ne 03-15 Clear 00:00: Caicedo 00 [facility] "ALL DA Active U [facility] NARCOTIC 03-14 [facility] [facility]" [facility] Demerol Allergy Active [facility] Dilaudid Allergy Active [facility] Penicill Allergy Active [facility] amine to Medical sub[facility] Family History Family Member Diagnosis Comments Start Date Stop Date Source Natural father [facility] Natural mother Cancer [facility] Social History Social Habit Start Date Stop Date Quantity Comments Source History of tobacco Toya Santos - use External Exposure to Not sure Toya casarez SARS-CoV-2 (event) History [facility] Alcohol Std Drinks Hospit al History [facility] Alcohol Binge Hospital Tobacco use and 2020-12-31 2020-12-31 Smokeless tobacco Ke jocelyne Seybold - exposure 00:00:00 00:00:00 non-user External Alcohol intake 2018-09-27 2018-09-27 Current Hinduism 00:00:00 00:00:00 non-drinker of Hospital alcohol (finding) History SDOH 2018-07-04 2018-07-04 1 [facility] Alcohol Frequency 00:00:00 00:00:00 Hospita l Cigarettes smoked 2017-04-04 2017-04-[address] current (pack per 00:00:00 00:00:00 Hospita l day) - Reported Cigarette 2017-04-04 2017-04-04 [facility] pack-years 00:00:00 00:00:00 Hospital Sex Ass[birth year] At [birth year] [facility] 00:00:00 00:00:00 Hospital Smoking Status Start Date Stop Date Source Former Smoker [facility] Smokes tobacco daily 2020-12-31 00:00:00 Toya Santos - External Medications Ordered Filled Start Stop Current Ordering Indication Dosage Frequency Signature Comments Components Source Medication Medication Date Date Medication? Clinician (SIG) Name Name Cynthia 2022- Yes [id number] Take 2 Toya n 250 MG 1-10 -16 tablets by Seyb old oral Tablet 00:00: 05:59 mouth on - 00 :00 day 1 then Externa 1 tablet l by mouth daily for 4 days thereafter . Famotidine 2021-02 Yes [id number] 20mg Take 1 Toya (PEPCID) 20 2-22 tablet (20 Se ybold MG oral 00:00: mg total) - tablet 00 by mouth 2 Externa times l daily Levothyroxi 2021-02 Yes [id number] TAKE ONE Toya ne Sodium 2-06 TABLET BY Jarono ld 50 MCG oral 00:00: MOUTH - Tablet 00 EVERY Externa MORNING l Multiple 2021-02 Yes 1{tbl} Take 1 Kelse y Vitamins-Mi 0-20 tablet by [employer] Capzles nerapolinar 13:41: mouth - (Multi-Indy 32 daily Externa min/Mineral (before l s) oral lunch) Tablet Rosuvastati 2021-02 Yes [id number] 10mg Take 1 Toya n Calcium 0-04 tablet (10 Seyb old 10 MG oral 00:00: mg total) - Tablet 00 by mouth Externa daily l Multiple 2021-02 Yes 1{tbl} Take 1 Kelse y Vitamins-Mi 0-03 tablet by Simin Capzles nerapolinar 08:39: mouth - (Multi-Indy 28 daily Externa min/Mineral (before l s) oral lunch) Tablet Famotidine 2021-02 Yes [id number] 20mg Take 1 Toya (PEPCID) 20 0-03 tablet (20 Se ybold MG oral 00:00: mg total) - tablet 00 by mouth 2 Externa times l daily Vitamin D, Yes [id number] TAKE ONE Toya Ergocalcife 7-13 CAPSULE BY Se jackie hodge, 1.25 00:00: MOUTH ONCE - MG ( WEEKLY Externa UT) oral l Capsule Vitamin D, Yes [id number] TAKE ONE Toya Ergocalcife 7-13 CAPSULE BY [employer] hodge, 1.25 00:00: MOUTH ONCE - MG ( WEEKLY Externa UT) oral l Capsule Multiple Yes 1{tbl} Take 1 Kelse y Vitamins-Mi 4-19 tablet by [employer] Capzles nerals 08:21: mouth (Multi-Indy 58 daily min/Mineral (before s) oral lunch) Tablet Sucralfate Yes 1g Take 1 g Michael sey 1 g oral 4-10 by mouth Seybold Tablet 00:00: at bedtime 00 Sucralfate 2021-0 2021- No 1g Take 1 g Ke lsey 1 g oral 4-10 10-03 by mouth Seybol d Tablet 00:00: 00:00 at bedtime - 00 :00 Externa l Omeprazole Yes 1{capsu Take 1 Ke lsey 20 MG oral 4-06 le} capsule by Sey bold Delayed 00:00: mouth Release 00 daily Capsule Omeprazole 2021- No 1{capsu Take 1 K elsey 20 MG oral 4-06 10- le} capsule by Se ybold Delayed 00:00: 00:00 mouth - Release 00 :00 daily Externa Capsule l Multiple 2020-02 Yes 1{tbl} Take 1 Kelse y Vitamins-Mi 2-01 tablet by Sey bold nerals 09:39: mouth (Multi-Indy 47 daily min/Mineral (before s) oral lunch) Tablet Levothyroxi 2020-02 Yes [id number] 50ug Take 1 Toya ne Sodium 2-01 tablet (50 Seyb old 50 MCG oral 00:00: mcg total) - Tablet 00 by mouth Externa every l morning Levothyroxi 2020-02 Yes [id number] 50ug Take 1 Toya ne Sodium 2-01 tablet (50 Seyb old 50 MCG oral 00:00: mcg total) Tablet 00 by mouth every morning Levothyroxi 2020-02 Yes [id number] 50ug Take 1 Toya ne Sodium 2-01 [...] s) oral lunch) Tablet Levothyroxi 2020-02 Yes [id number] 50ug Take 1 Toya ne Sodium 1-10 tablet (50 Seyb old 50 MCG oral 00:00: mcg total) Tablet 00 by mouth every morning Levothyroxi 2020-02- No [id number] 50ug Take 1 Toya ne Sodium 1-10 - tablet (50 Sey bold 50 MCG oral 00:00: 00:00 mcg total) Tablet 00 :00 by mouth every morning multivitami 2019-0 Yes 1{tbl} QD Take 1 Me thodi n with 5-[address] minerals 08:29: mouth Hospita tablet 09 daily l before lunch. levothyroxi 2019-0 Yes 50ug QD Take 50 Met hodi ne 5-[address] (SYNTHROID, 08:29: mouth Hospi ta LEVOXYL) 50 09 every l mcg tablet morning. cholecalcif 2019-0 Yes [id number] QD Take Meth samantha nikhil 5-14 10,000 st (VITAMIN 08:29: Units by Hospi ta D3) 10,000 09 mouth l unit daily capsule before lunch. promethazin 2019-0 Yes 25mg Q6H Take 25 mg Methodi e 5-[address] (PHENERGAN) 08:29: every 6 Hos aide 25 MG 09 (six) l tablet hours as needed for nausea or vomiting. ergocalcife 2019 Yes [id number] Q7D Take Meth samantha rol 5-14 50,000 [...] l mcg tablet morning. cholecalcif 2019-0 Yes [id number] QD Take Meth samantha nikhil 5-14 10,000 st (VITAMIN 08:29: Units by Hospi ta D3) 10,000 09 mouth l unit daily capsule before lunch. promethazin 2019-0 Yes 25mg Q6H Take 25 mg Methodi e 5-[address] (PHENERGAN) 08:29: every 6 Hos aide 25 MG 09 (six) l tablet hours as needed for nausea or vomiting. ergocalcife 2019-0 Yes [id number] Q7D Take Meth samantha rol 5-14 50,000 [...] l mcg tablet morning. cholecalcif 2019-0 Yes [id number] QD Take Meth samantha nikhil 5-14 10,000 st (VITAMIN 08:29: Units by Hospi ta D3) 10,000 09 mouth l unit daily capsule before lunch. promethazin 2019-0 Yes 25mg Q6H Take 25 mg Methodi e 5-[address] (PHENERGAN) 08:29: every 6 Hos aide 25 MG 09 (six) l tablet hours as needed for nausea or vomiting. ergocalcife 2019-0 Yes [id number] Q7D Take Meth samantha rol 5-14 50,000 [...] l mcg tablet morning. cholecalcif 2019-0 Yes [id number] QD Take Meth samantha nikhil 5-14 10,000 st (VITAMIN 08:29: Units by Hospi ta D3) 10,000 09 mouth l unit daily capsule before lunch. multivitami 2019-0 Yes 1{tbl} QD Take 1 Me thodi n with 5-[address] minerals 08:29: mouth Hospita tablet 09 daily l before lunch. levothyroxi 2019-0 Yes 50ug QD Take 50 Met hodi ne 5-[address] (SYNTHROID, 08:29: mouth Hospi ta LEVOXYL) 50 09 every l mcg tablet morning. cholecalcif 2019-0 Yes [id number] QD Take Meth samantha nikhil 5-14 10,000 st (VITAMIN 08:29: Units by Hospi ta D3) 10,000 09 mouth l unit daily capsule before lunch. promethazin 2019-0 Yes 25mg Q6H Take 25 mg Methodi e 5-[address] (PHENERGAN) 08:29: every 6 Hos aide 25 MG 09 (six) l tablet hours as needed for nausea or vomiting. promethazin 2019-0 Yes 25mg Q6H Take 25 mg Methodi e 5-[address] (PHENERGAN) 08:29: every 6 Hos aide 25 MG 09 (six) l tablet hours as needed for nausea or vomiting. ergocalcife 2019-0 Yes [id number] Q7D Take Meth samantha rol 5-14 50,000 st (VITAMIN 08:29: Units by Hospi ta D2) 50,000 09 mouth once l unit a week. capsule ferrous 2019-0 Yes 325mg QD Take 325 Metho di sulfate 325 5-[address] (65 FE) MG 08:29: mouth Hospit a tablet 09 daily with l breakfast. ergocalcife 2019-0 Yes [id number] Q7D Take Meth samantha rol 5-14 50,000 [...] l mcg tablet morning. cholecalcif 2019-0 Yes [id number] QD Take Meth samantha nikhil 5-14 10,000 st (VITAMIN 08:29: Units by Hospi ta D3) 10,000 09 mouth l unit daily capsule before lunch. promethazin 2019- Yes 25mg Q6H Take 25 mg Methodi e 5-[address] (PHENERGAN) 08:29: every 6 Hos aide 25 MG 09 (six) l tablet hours as needed for nausea or vomiting. ergocalcife Yes [id number] Q7D Take Meth samantha rol 5-14 50,000 st (VITAMIN 08:29: Units by Hospi ta D2) 50,000 09 mouth once l unit a week. capsule ferrous Yes 325mg QD Take 325 Metho di sulfate 325 5-[address] (65 FE) MG 08:29: mouth Hospit a tablet 09 daily with l breakfast. ondansetron 2017-02 Yes 4mg Q8H Take 1 [...] vomiting for up to 10 doses. ondansetron 2018 Yes 4mg Q8H Take 1 Meth samantha [...] MG EC 00 DAILY l tablet cyanocobala 2018-[address] Met [facility] , 07-19 1,[address] vitamin 00:00: under the Hospi ta B- tongue l (VITAMIN daily. B-12) 1,000 mcg tablet, sublingual cyanocobala 2018-[address] Met [facility] , 07-19 1,[address] vitamin 00:00: under the Hospi ta B-, tongue l (VITAMIN daily. B-12) 1,000 mcg tablet, sublingual cyanocobala 2018-[address] Met [facility] 07-19 1,[address] vitamin 00:00: under the [facility] ta tongue l (VITAMIN daily. B-12) 1,000 mcg tablet, sublingual cyanocobala 2018-[address] Met [facility] 07-19 1,[address] vitamin 00:00: under the [facility] ta tongue l (VITAMIN daily. B-12) 1,000 mcg tablet, sublingual cyanocobala 2018-[address] Met [facility] 07-19 1,[address] vitamin 00:00: under the [facility] ta tongue l (VITAMIN daily. B-12) 1,000 mcg tablet, sublingual cyanocobala 2018-[address] Met [facility] 07-19 1,[address] vitamin 00:00: under the [facility] tongue l (VITAMIN daily. 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 al cap) COVID-19 VACCINE 2021-06-09 Completed Toya BRINK 12+ ([place]onson 00:00:00 - Paint Department Supervisor al cap) COVID-19 VACCINE 2021-06-09 Completed Toya BRINK 12+ ([place]onson 00:00:00 cap) Covid-19 Vaccine 2021-01-21 Completed Toya albert ([employer]ccol-e-games), Mrna-lnp, 00:00:00 - Ext ernal Osmar Protein, Pf, 30mcg/0.3ml,IM Covid-19 Vaccine 2021-01-21 Completed Toya S eybold ([employer]games), Mrna-lnp, 00:00:00 - Ext ernal Osmar Protein, Pf, 30mcg/0.3ml,IM Covid-19 Vaccine 2021-01-21 Completed Toya S eybold ([employer]cc[employer]-games), Mrna-lnp, 00:00:00 Osmar Protein, Pf, 30mcg/0.3ml,IM Covid-19 Vaccine 2021-01-21 Completed Toya S eybold ([employer]cc[employer]e-games), Mrna-lnp, 00:00:00 Osmar Protein, Pf, 30mcg/0.3ml,IM Influenza Virus 2020-12-31 Completed Toya Se ybold Vaccine, 00:00:00 - External Quadrivalent, High Dose, Age 65 And Up Covid-19 Vaccine 2020-12-31 Completed Toya S eybold ([employer]games), Mrna-lnp, 00:00:00 - Ext ernal Osmar Protein, Pf, 30mcg/0.3ml,IM Influenza Virus 2020-12-31 Completed Toya Se ybold Vaccine, 00:00:00 - External Quadrivalent, High Dose, Age 65 And Up Covid-19 Vaccine 2020-12-31 Completed Toya S eybold ([employer]cc[employer]-games), Mrna-lnp, 00:00:00 - Ext ernal Osmar Protein, Pf, 30mcg/0.3ml,IM Influenza Virus 2020-12-31 Completed Toya Se ybold Vaccine, 00:00:00 Quadrivalent, High Dose, Age 65 And Up Covid-19 Vaccine 2020-12-31 Completed Toya S eybold ([employer]ccol[employer]-games), Mrna-lnp, 00:00:00 Osmar Protein, Pf, 30mcg/0.3ml,IM Influenza Virus 2020-12-31 Completed Toya Se ybold Vaccine, 00:00:00 Quadrivalent, High Dose, Age 65 And Up Covid-19 Vaccine 2020-12-31 Completed Toya S eybold ([employer]ccol-e-games), Mrna-lnp, 00:00:00 Osmar Protein, Pf, 30mcg/0.3ml,IM Influenza Virus 2020-12-31 Completed Toya ybpatricia Vaccine, 00:00:00 Quadrivalent, High Dose, Age 65 And Up Covid-19 Vaccine 2020-12-31 Completed Toya Sadler christianoelinald ([employer]cc[employer]games), Mrna-lnp, 00:00:00 Osmar Protein, Pf, 30mcg/0.3ml,IM Vital Signs Vital Name Observation Time Observation Value Comments Source Systolic blood 2022-03-02 14:02:00 142 mm[Hg] Toya Seybold - pressure External Diastolic blood 2022-03-02 14:02:00 86 mm[Hg] Jona elias ybold - pressure External Heart rate 2022-03-02 14:02:00 69 /min Toyasimin alvaradobold - External Body temperature 2022-03-02 14:02:00 36.44 Opal Antonia alvarado Seybold - External Respiratory rate 2022-03-02 14:02:00 14 /min Antonia alvarado Seybold - External Body height 2022-03-02 14:02:00 170.2 cm Toyasimin alvaradobold - External Body weight 2022-03-02 14:02:00 66.679 kg Toyasimin alvaradobold - External BMI 2022-03-02 14:02:00 23.02 kg/m2 Toyasimin alvaradobold - External Oxygen saturation in 2022-03-02 14:02:00 99 /min Toya Sefidelpatricia - Arterial blood by External Pulse oximetry Systolic blood 2021-11-23 13:34:00 140 mm[Hg] Toya ybold - pressure External Diastolic blood 2021-11-23 13:34:00 70 mm[Hg] Jona elias Seybold - pressure External Heart rate 2021-11-23 13:34:00 91 /min Toyasimin alvaradobold - External Body temperature 2021-11-23 13:34:00 36.5 Opal Antonia alvarado Seybold - External Respiratory rate 2021-11-23 13:34:00 16 /min Antonia alvarado Seybold - External Body height 2021-11-23 13:34:00 170.2 cm Toyasimin alvaradobold - External Body weight 2021-11-23 13:34:00 68.947 kg Toyasimin alvaradobold - External BMI 2021-11-23 13:34:00 23.81 kg/m2 [...] rate 2020-12-31 14:00:00 15 /min Antonia ey Tom Body height 2020-12-31 14:00:00 170.2 cm Toya albert Body weight 2020-12-31 14:00:00 65.772 kg Toya albert BMI 2020-12-31 14:00:00 22.71 kg/m2 Toya albert Height 2020-06-10 00:00:00 66.98 [in_i] [facility] BMI (Body Mass Index) 2020-06-10 00:00:00 21.1 kg/m2 [facility] Body Weight 2020-06-10 00:00:00 134.7 [lb_av] [facility] Procedures Procedure Date / Time Performed Performing Clinician Atilio VASQUEZ 2021-11-23 13:50:51 Aimee Harringtonse jada Santos - External Plan of Care Planned Activity Planned Date Details Comments Source Future Scheduled 2022-05-03 COLONOSCOPY SCREENING [facility] Test 10:08:16 [code = COLONOSCOPY SCREENING] Future Scheduled 2022-05-03 SHINGLES VACCINES (1 Met [facility] Test 10:08:16 of 2) [code = SHINGLES VACCINES (1 of 2)] Future Scheduled 2022-05-03 65+ PNEUMOCOCCAL [facility] Test 10:08:16 VACCINE (1 - PCV) [code = 65+ PNEUMOCOCCAL VACCINE (1 - PCV)] Future Scheduled 2022-05-03 INFLUENZA VACCINE Method [facility] Test 10:08:16 [code = INFLUENZA VACCINE] Future Scheduled 2022-05-03 COVID-19 VACCINE (#1) [facility] Test 10:08:16 [code = COVID-19 VACCINE (#1)] Future Scheduled 2022-05-03 BREAST CANCER [facility] Test 10:08:16 SCREENING [code = BREAST CANCER SCREENING] Future Scheduled 2022-05-03 COVID-19 VACCINE (#1) [facility] Test 10:08:16 [code = COVID-19 VACCINE (#1)] Future Scheduled 2022-05-03 BREAST CANCER [facility] Test 10:08:16 SCREENING [code = BREAST CANCER SCREENING] Future Scheduled 2022-05-03 COLONOSCOPY SCREENING [facility] Test 10:08:16 [code = COLONOSCOPY SCREENING] Future Scheduled 2022-05-03 SHINGLES VACCINES (1 Met [facility] Test 10:08:16 of 2) [code = SHINGLES VACCINES (1 of 2)] Future Scheduled 2022-05-03 65+ PNEUMOCOCCAL [facility] Test 10:08:16 VACCINE (1 - PCV) [code = 65+ PNEUMOCOCCAL VACCINE (1 - PCV)] Future Scheduled 2022-05-03 INFLUENZA VACCINE [facility] Test 10:08:16 [code = INFLUENZA VACCINE] Future Scheduled 2022-04-26 COVID-19 VACCINE (#1) [facility] Test 14:59:45 [code = COVID-19 VACCINE (#1)] Future Scheduled 2022-04-26 BREAST CANCER [facility] Test 14:59:45 SCREENING [code = BREAST CANCER SCREENING] Future Scheduled 2022-04-26 COLONOSCOPY SCREENING [facility] Test 14:59:45 [code = COLONOSCOPY SCREENING] Future Scheduled 2022-04-26 SHINGLES VACCINES (1 Met [facility] Test 14:59:45 of 2) [code = SHINGLES VACCINES (1 of 2)] Future Scheduled 2022-04-26 65+ PNEUMOCOCCAL [facility] Test 14:59:45 VACCINE (1 - PCV) [code = 65+ PNEUMOCOCCAL VACCINE (1 - PCV)] Future Scheduled 2022-04-26 INFLUENZA VACCINE [facility] Test 14:59:45 [code = INFLUENZA VACCINE] Future Scheduled 2021-12-10 HEPATITIS B VACCINES Met [facility] Test 11:44:59 (1 of 3 - 3-dose series) [code = HEPATITIS B VACCINES (1 of 3 - 3-dose series)] Future Scheduled 2021-12-10 COVID-19 VACCINE (#1) [facility] Test 11:44:59 [code = COVID-19 VACCINE (#1)] Future Scheduled 2021-12-10 BREAST CANCER [facility] Test 11:44:59 SCREENING [code = BREAST CANCER SCREENING] Future Scheduled 2021-12-10 COLONOSCOPY SCREENING [facility] Test 11:44:59 [code = COLONOSCOPY SCREENING] Future Scheduled 2021-12-10 SHINGLES VACCINES (1 [facility] Test 11:44:59 of 2) [code = SHINGLES VACCINES (1 of 2)] Future Scheduled 2021-12-10 65+ [facility]59 VACCINE (1 - PCV) [code = 65+ PNEUMOCOCCAL VACCINE (1 - PCV)] Future Scheduled 2021-12-10 INFLUENZA VACCINE [facility] Test 11:44:59 [code = INFLUENZA VACCINE] Future Scheduled 2021-10-21 COVID-19 VACCINE (#1) [facility] Test 06:18:04 [code = COVID-19 VACCINE (#1)] Future Scheduled 2021-10-21 Hepatitis C screening [facility] Test 06:18:04 (procedure) [code = 530037156] Future Scheduled 2021-10-21 BREAST CANCER [facility] Test 06:18:04 SCREENING [code = BREAST CANCER SCREENING] Future Scheduled 2021-10-21 COLONOSCOPY SCREENING [facility] Test 06:18:04 [code = COLONOSCOPY SCREENING] Future Scheduled 2021-10-21 SHINGLES VACCINES (1 Met [facility] Test 06:18:04 of 2) [code = SHINGLES VACCINES (1 of 2)] Future Scheduled 2021-10-21 HEPATITIS B VACCINES Met [facility] Test 06:18:04 (1 of 3 - Risk 3-dose series) [code = HEPATITIS B VACCINES (1 of 3 - Risk 3-dose series)] Future Scheduled 2021-10-21 65+ PNEUMOCOCCAL [facility] Test 06:18:04 VACCINE (1 - PCV) [code = 65+ PNEUMOCOCCAL VACCINE (1 - PCV)] Future Scheduled 2021-10-21 INFLUENZA VACCINE [facility] Test 06:18:04 [code = INFLUENZA VACCINE] Future Scheduled 2021-10-21 COVID-19 VACCINE (#1) [facility] Test 06:18:04 [code = COVID-19 VACCINE (#1)] Future Scheduled 2021-10-21 Hepatitis C screening [facility] Test 06:18:04 (procedure) [code = [id number]] Future Scheduled 2021-10-21 BREAST CANCER [facility] Test 06:18:04 SCREENING [code = BREAST CANCER SCREENING] Future Scheduled 2021-10-21 COLONOSCOPY SCREENING [facility] Test 06:18:04 [code = COLONOSCOPY SCREENING] Future Scheduled 2021-10-21 SHINGLES VACCINES (1 Met [facility] Test 06:18:04 of 2) [code = SHINGLES VACCINES (1 of 2)] Future Scheduled 2021-10-21 HEPATITIS B VACCINES Met [facility] Test 06:18:04 (1 of 3 - Risk 3-dose series) [code = HEPATITIS B VACCINES (1 of 3 - Risk 3-dose series)] Future Scheduled 2021-10-21 65+ [facility] 06:18:04 VACCINE (1 - PCV) [code = 65+ PNEUMOCOCCAL VACCINE (1 - PCV)] Future Scheduled 2021-10-21 INFLUENZA VACCINE Method [facility] Test 06:18:04 [code = INFLUENZA [...] Date/Time Type Type Clinicians Facility Department ID 2022-05-06 2022-05-06 Outpatient TOYA FUENTES [id number] Toya 00:00:00 00:00:00 JOE Seybol d 2022-03-02 2022-03-02 Outpatient TOYA HARRINGTON [id number] Toya 08:30:00 08:30:00 AIMEE Seybol d 2022-02-23 2022-02-23 Outpatient TOYA STONE [id number] Toya 08:30:00 08:30:00 JAMESON Seybol d 2022-02-11 2022-02-11 Outpatient TOYA FUENTES [id number] Toya 00:00:00 00:00:00 JOE Seybol d 2022-01-26 2022-01-26 Outpatient TOYA HARRINGTON [id number] Toya 00:00:00 00:00:00 AIMEE Seybol d 2021-12-11 2021-12-11 Outpatient TOYA FUENTES [id number] Toya 00:00:00 00:00:00 JOE Seybol d 2021-12-10 2021-12-10 Outpatient TOYA FUENTES [id number] Toya 13:45:00 13:45:00 JOE Seybol d 2021-12-10 2021-12-10 Outpatient TOYA FUENTES [id number] Toya 00:00:00 00:00:00 JOE Seybol d 2021-11-24 2021-11-24 Outpatient TOYA HARRINGTON [id number] [place] 00:00:00 00:00:00 AIMEE Seybol d 2021-11-23 2021-11-23 Outpatient LAB90 TOYA LYON [id number] [place] 09:40:00 09:40:00 Seybol d 2021-11-23 2021-11-23 Outpatient TOYA HARRINGTON [id number] [place] 08:30:00 08:30:00 AIMEE Seybol d 2021-09-07 2021-09-07 Outpatient TOYA HARRINGTON [id number] [place] 00:00:00 00:00:00 AIMEE Seybol d 2021-09-01 2021-09-01 Outpatient TOYA MARTINS [id number] [place] 00:00:00 00:00:00 WANDY Seybol d 2021-08-17 2021-08-17 Outpatient TOYA HARRINGTON [id number] [place] 00:00:00 00:00:00 AIMEE Seybol d 2021-06-16 2021-06-16 Outpatient TOYA HARRINGTON [id number] [place] 00:00:00 00:00:00 AIMEE Seybol d 2021-06-10 2021-06-10 Outpatient TOYA HARRINGTON [id number] [place] 00:00:00 00:00:00 AIMEE Seybol d 2021-06-09 2021-06-09 Outpatient LAB90 TOYA LYON [id number] [place] 10:20:00 10:20:00 Seybol d 2021-06-09 2021-06-09 Outpatient COVID-PFIZE TOYA LYON [id number] [place] 10:00:00 10:00:00 R BOOSTER, Sey bold ESTHERWOOD 2021-06-09 2021-06-09 Outpatient COVID-PFIZE TYOA LYON [id number] [place] 10:00:00 10:00:00 R VACC, Seybol d CAICEDO 2021-06-09 2021-06-09 Office Simon Harrington [id number] [place] 08:15:00 08:30:00 Visit Aimee Ledezma 350.1.13.13 Se jackie Somogyi 1.2.7.2.686 [id number] 2021-03-11 2021-03-11 Outpatient TOYA LYON [id number] [place] 00:00:00 00:00:00 Seybol d 2021-02-04 2021-02-04 Outpatient GC_EDEC_Hay PRIV PRIV 211 [id number] [facility] 03:06:00 03:06:00 es_A [id number] Medica l 2021-02-04 2021-02-04 Outpatient GC_EDEC_Hay PRIV PRIV 211 [id number] [facility] 03:06:00 03:06:00 es_A [id number] Medica l 2021-02-02 2021-02-02 Outpatient TOYA LYON [id number] [place] 00:00:00 00:00:00 Seybol d 2021-01-29 2021-01-29 Outpatient TOYA HARRINGTON [id number] [place] 00:00:00 00:00:00 AIMEE Seybol d 2021-01-28 2021-01-28 Outpatient TOYA LYON [id number] [place] 00:00:00 00:00:00 Seybol d 2021-01-21 2021-01-21 Outpatient LAB90 TOYA LYON [id number] [place] 10:15:00 10:15:00 Seybol d 2021-01-21 2021-01-21 Office Simon Harrington [id number] [place] 09:30:00 10:00:00 Visit Aimee Ledezma 350.1.13.13 Se jackie Zhangogyi 1.2.7.2.686 [id number] 2021-01-21 2021-01-21 Outpatient COVID-PFIZE TOYA TOYA [id number] [place] 09:00:00 09:00:00 R VACC-2, Seyb old CAICEDO 2021-01-12 2021-01-12 Outpatient TOYA TOYA [id number] [place] 00:00:00 00:00:00 Seybol d 2020-12-31 2020-12-31 Outpatient SIMON HSIEHSIMIN LYON [id number] [facility] 10:00:00 10:00:00 Seybol d 2020-12-31 2020-12-31 Outpatient LAB90 TOYA TOYA [id number] [place] 09:30:00 09:30:00 Seybol d 2020-12-31 2020-12-31 Outpatient COVID-PFIZE TOYA TOYA [id number] [facility] 09:15:00 09:15:00 R VACC-1, Seyb old CAICEDO 2020-12-31 2020-12-31 Office Simon Harrington [id number] [place] 07:53:00 08:38:00 Visit Aimee Ledezma 350.1.13.13 Se jackie Radha 1.2.7.2.686 [id number] 2020-12-31 2020-12-31 Outpatient JUANY TOYA LYON [id number] [place] 00:00:00 00:00:00 AIMEE casarez 2020-06-27 2020-06-27 Outpatient GC_EDEC_Hay PRIV PRIV 211 [id number] [facility] 01:07:00 01:07:00 es_A [id number] Medica l 2020-06-12 2020-06-12 Outpatient GC_EDEC_Hay PRIV PRIV 211 [id number] [facility] 01:17:00 01:17:00 es_A [id number] Medica l 2020-06-10 2020-06-10 Outpatient GC_EDEC_Hay PRIV PRIV 211 [id number] [facility] 01:19:00 01:19:00 es_A [id number] Medica l 2020-06-10 2020-06-10 Outpatient Adkins, PRIV PRIV [id number] 00:00:00 00:00:00 Chrystal [id number] [facility] [id number] 2020-06-10 2020-06-10 Chrystal [facility]IV [facility] 20 [facility] 00:00:00 00:00:00 [facility] - Medic master Adkins MD: GC_EDEC_Pas [address] [facility] [address], [facility] [address], [place] [address] , Ph. 2020-06-09 2020-06-09 Outpatient GC_EDEC_Hay PRIV PRIV 211 [id number] [facility] 10:07:00 10:07:00 es_A [id number] Medica l 2020-06-06 2020-06-06 Outpatient GC_EDEC_Hay PRIV PRIV 211 [id number] [facility] 09:55:00 09:55:00 es_A [id number] Medica l 2020-06-04 2020-06-04 Outpatient GC_EDEC_Hay PRIV PRIV 211 [id number] [facility] 02:16:00 02:16:00 es_A [id number] Medica l 2018-05-05 2018-05-16 Inpatient EM Miguel Angel [facility] [id number] [facility] 15:09:00 21:04:00 Kathleen 71 [facility] Results Test Description Test Time Test Comments Results Result Comments Source QUANTA[employer] 2021-11-23 13:52:32 Test Item Value Reference Range Interpretation Comme nts [employer] left side (test code See_Comment [Automated message] The system which = 12365-0X) generated this result transmitted reference range : 1.40 - 0.90 NA. The reference range was not used to interpret this result as normal/abnormal . [employer] right side (test code See_Comment Presentation Factors: Hypertension, = 62162-9P) Smoking History Exercise Modality: At Resthad issues [...] interpret this result as normal/abnormal . Toya Barroso [facility] BILE [id number] 13:28:00 RUN DATE: 05/15/18 [place] [facility] PAGE 1 RUN TIME: 1328 Specimen Inquiry RUN USER: INTERFACE KENNEY ENT: TREMAINEANA BROWNE LOC: CHRISTI U #: [id number] AGE/SX: 67/F ROOM: [facility] RE05/05/18REG DR: Kathleen Michelle MD : 51 BED: A DIS: STATUS: ADM IN TLOC: SPEC #: [id number] RECD: 05/11/18 STATUS: SOUT REQ #: [id number] LEEANN: 05/11/18- SUBM DR: Kathleen Michelle MD ENTERED: 05/11/18 SP TYPE: COMMON NATHALIE OTHR DR: No Primary or Family Physician Gilberto Conway MD, Ronald W DO Lam, David N MDORDERED: GROSS COPIES TO: No Primary or Family Physician Gilberto Conway MD [address] [place] [address] Kathleen Michelle MD [address] [facility], [place] [address] Alexis High DO [address] [place] [address] Khoi Ivory MD [address] [place] [address] PROCEDURES: GROSS (05/12/18-1250) TISSUES: BILE DUCT, NOS - BX AND 4 SLIDES CLINICAL HISTORY COLLECTION DATE: 05/11/18 HISTORY BILE DUCT STRICTURE CONTINUED ON NEXT PAGE RUN DATE: 05/15/18 [place] - Lab PAGE 2 RUN TIME: 1328 Specimen Inquiry RUN USER: INTERFACE SPEC #: [id number] PATIENT: ANA PENALOZA #[id number] (Continued) COMMENT The bile duct biopsy, including [...] INFLAMMATION AND ATYPIA, (see comment) FA/sm D 85061, 91240 MACROSCOPIC The specimen consists of four slides to be stained for cytologic evaluation and two red-cotto biopsy fragments measuring 0.2 cm each. GROSS PERFORMED AT [facility] [address] [place] [address] [phone] PERFORMING SITE Diagnosis performed at: [facility], [place] [address] [place], [place] [address] CONTINUED ON NEXT PAGE RUN DATE: 05/15/18 [facility] PAGE 3 RUN TIME: 1328 Specimen Inquiry RUN USER: INTERFACE SPEC #: [id number] PATIENT: ANA PENALOZA #[id number] (Continued) Signed SIGNATURE ON FILE London Peres MD 05/15/18 1328 END OF REPORT COMPREHENSIVE METABOLIC [id number] 05:49:00 Test Item Value Reference Range Interpretation [...] ALKP) to change in reagent. COMPREHENSIVE METABOLIC [id number] 05:29:00 Test Item Value Reference Range Interpretation [...] IUnit/L 45-117 code = ALKP) CBC W/AUTO [id number] 05:22:00 Test Item Value Reference Range Interpretation [...] 0.00 K/mm3 0.0-0.1 N NRBC#) CBC W/AUTO [id number] 05:16:00 Test Item Value Reference Range Interpretation [...] BA#) K/mm3 0.0-0.2 - SP PERC BRUSH [id number] 08:16:00 Name: ANA PENALOZA [facility] : 1950 Age/S: 67 / F [address] [facility] Unit #: [id number] Loc: [place] [address] Phys: Kathleen Michelle MD Acct: [id number] Dis Date: Status: ADM IN PHONE #: [phone] Exam Date: 05/11/2018 1501 FAX #: [phone] Reason: EXAMS: CPT CODE: [id number] SP PERC BRUSH BIOPSY 90758 Fluoro Time: 336 DAP (Gy m2): 85289 Air Kerma (mGy): 109.1 REASON FOR EXAM:Distal common bile duct obstruction PROCEDURE: 1. Cholangiogram with replacement and upsize of existing biliary drain 2. Limon biopsy of distal common bile duct stricture 3. Forcep biopsy of distal common bile duct stricture Anesthesia: General Anesthesiologist: Dr. Vela FINDINGS: Prior to the procedure, informed consent was obtained after risks and benefits of the procedure were explained tothe patient. The patient agreed and wanted to proceed. The patient was brought to special proceduresand placed supine on the table. The abdomen was prepped was draped in the usual fashion. All elements of maximal sterile barrier techniques were applied. Contrast injected into the existing biliary drain show persistent distal common bile duct stenosis/stricture with a short segment high- grade stenosis (90%). Limon biopsy of this area was performed with a 3 mm brush. Scanty samples were obtained. Additional forceps biopsy were obtained at the common bile duct stricture. All samples were submitted for cytology analysis. A new 10-Belarusian internal/external biliary drain was replaced over the guidewire w ith the distal tip formed within the small [...] the existing internal/external biliary drain from an 8-Belarusian to a 10-Belarusian biliary tube at 0816 Reported and signed by: James Wallis M.D. PAGE 1 Signed Report (CONTINUED)Name: ANA PENALOZA [facility] : 1950 Age/S: 67 / F [address] [facility] Unit #: [id number] Loc: [place] [address] Phys: Kathleen Michelle MD Acct: [id number] Dis Date: Status: ADMIN PHONE #: [phone] Exam Date: 05/11/2018 1504 FAX #: [phone] Reason: EXAMS: CPT CODE: [id number] SP PERC BRUSH BIOPSY 01537 Fluoro Time: 336 DAP (Gy m2): 78882 Air Kerma (mGy): 109.1 (Continued) CC: Kathleen Michelle MD; Alexis High DO Technologist: Chiki Drummond [facility] Date/Time: 05/12/2018 (815) tMICHELLE Orig Print D/T: S: 05/12/2018 (818) PAGE 2 Signed Report- INJ CHOLANGIO EXST [id number] 08:16:00 Name: ANA PENALOZA [facility] SP : 1950 Age/S: 67 / F [address] [facility] #: [id number] Loc: [place] [address] Phys: Kathleen Micehlle MD Acct: [id number] Dis Date: Status: ADM IN PHONE #: [phone] Exam Date: 05/11/2018 1504 FAX #: [phone] Reason: EXAMS: CPT CODE: [id number] INJ CHOLANGIO EXST ACCES 39537 Fluoro Time: 336 DAP (Gy m2): 27082 Air Kerma (mGy): 109.1 REASON FOR EXAM:Distal common bile duct obstruction PROCEDURE: 1. Cholangiogram with replacement and upsize of existing biliary drain 2. Limon biopsy of distal common bile duct stricture [...] with a short segment high-grade stenosis (90%). Limon biopsy of this area was performed with a 3 mm brush. Scanty samples were obtained. A dditional forceps biopsy were obtained at the common bile duct stricture. All samples were submittedfor cytology analysis. A new 10-Belarusian internal/external biliary drain was replaced over the [...] the existing internal/external biliary drain from an 8-Belarusian to a 10-Belarusian biliary tube at 0816 Reported and signed by: James Wallis M.D. PAGE 1 Signed Report (CONTINUED) Name: TREMAINEANA BROWNE [facility] : 1950 Age/S: 67 / F [address] Unit #:[id number] [place] [address] Phys: Kathleen Michelle MD Acct: [id number] Dis Date: Status: ADM IN PHONE #: [phone] Exam Date: 05/11/2018 1504 FAX #: [phone] Reason: EXAMS: CPT CODE: [id number] INJ CHOLANGIO EXST ACCES 92272 Fluoro Time: 336 DAP (Gy m2): 41272 Air Kerma (mGy): 109.1 (Continued) CC: Kathleen Michelle MD; Alexis High DO Technologist: Chiki Drummond Trnscb Date/Time: 05/12/2018 (815) [email or web address] Orig Print D/T: S: 05/12/2018 (08) PAGE 2 Signed Report- EXCHANGE BILIARY [id number] 08:16:00 Name: ANA PENALOZA [facility] : 1950 Age/S: 67 / F [address] [facility] Unit #: [id number] Loc: [place] [address] Phys: Kathleen Michelle MD Acct: [id number] Dis Date: Status: ADMIN PHONE #: [phone] Exam Date: 05/11/2018 1504 FAX #: [phone] Reason: EXAMS: CPT CODE: [id number] EXCHANGE BILIARY CATH 89525 Fluoro Time: 336 DAP (Gy m2): 42371 Air Kerma (mGy): 109.1 REASON FOR EXAM:Distal common bile duct obstruction PROCEDURE: 1. Cholangiogram with replacement and upsize of existing biliary drain 2. Limon biopsy of distal common bile duct stricture [...] with a short segment high-grade stenosis (90%). Limon biopsy of this area was performed with a 3 mm brush. Scanty samples were obtained. Ad ditional forceps biopsy were obtained at the common bile duct stricture. All samples were submitted for cytology analysis. A new 10-Belarusian internal/external biliary drain was replaced over the guidewire with the distal tip formed within the small bowel and a side holes located within the common bile duct and right intrahepatic biliary duct MEDICATIONS: None COMPLICATIONS: None Blood loss: Less than 5mL Fluoroscopic time: 336 seconds Radiation dose: 109 mGy IMPRESSION: Technically successful brush biopsy and forcep biopsy of the distal common bile duct stricture. Upsizing of the existing internal/external biliary drain from an 8-Belarusian to a 10-Belarusian biliary tube at 0816 Reported and signed by: James Wallis M.D. PAGE 1 Signed Report (CONTINUED) Name: ANA PENALOZA [facility] : 1950 Age/S: 67 / F [address] Unit #:[id number] [place]: [place] [address] Phys: Kathleen Michelle MD Acct: [id number] Dis Date: Status: ADMIN PHONE #: [phone] Exam Date: 05/11/2018 1505 FAX #: [phone] Reason: EXAMS: CPT CODE: [id number] EXCHANGE BILIARY CATH 58085 Fluoro Time: 336 DAP (Gy m2): 75835 Air Kerma (mGy): 109.1 (Continued) CC: Kathleen Michelle MD; Alexis High DO Technologist: Chiki Drummond Trnmtb Date/Time: 05/12/2018 (815) tJE.VTL Orig Print D/T: S: 05/12/2018 (818) PAGE [...] 8.8 mg/dL 8.5-10.1 N CA) BASIC METABOLIC [id number] 06:37:00 Test Item Value Reference Range Interpretation [...] (test code = CA) mg/dL 8.5-10.1 PROTHROMBIN [id number] 06:03:00 Test Item Value Reference Range Interpretation [...] (2.5-3.5) IS PATIENT ON ANTICOAGULANTS? NCOMMENTS TO SOCK BOARDER: NEED FOR SURGERY ON 05/11/18THROMBOPLASTIN TIME [id number] 06:03:00 Test Item Value Reference Range Interpretation Comments THROMBOPLASTIN TIME PARTIAL 34.7 seconds 25.0-36.5 N (test code = PTT) IS PATIENT ON ANTICOAGULANTS? NCOMMENTS TO SOCK BOARDER: NEED FOR SURGERY ON 05/11/18CBC W/AUTO [id number] 05:44:00 Test Item Value Reference Range Interpretation [...] (test code NO = MDIFF) CBC W/AUTO [id number] 05:43:00 Test Item Value Reference Range Interpretation [...] # (test code = BA#) K/mm3 0.0-0.2 [facility],[id number] 16:16:00 RUN DATE: 05/10/18 [place] [facility] PAGE 1 RUN TIME: 1616 Specimen Inquiry RUN USER: INTERFACE PAT IENT: ANA PENALOZA LOC: CHRISTI U #: [id number] AGE/SX: 67/F ROOM: [facility] RE05/05/18REG DR: Kathleen Michelle MD : 51 BED: A DIS: STATUS: ADM IN TLOC: SPEC #: [id number] RECD: 05/09/18-8STATUS: KAREL RE #: [id number] LEEANN: 05/08/18- DR: James Wallis MD ENTERED: 05/09/18-1030 SP TYPE: FL OTHER OTHR DR: Gilberto Conway MD, Ronald W DO Lam, David N MDORDERED: GROSS COPIESTO: Gilberto Conway MD [address] [place] [address] Alexis High DO[address] [place], [place] [address] Khoi Ivory MD [address] [place] [address] James Wallis MD [address] [place] [address] MARKERS: INTRADEPARTMENTAL CONSULT PROCEDURES: GROSS (05/10/18-1313) TISSUES: [...] CONTINUED ON NEXT PAGE RUN DATE: 05/10/18 [facility] PAGE 2 RUN TIME: 1616 Specimen Inquiry RUN USER: INTERFACE ---- --------SPEC #: [id number] PATIENT: ANA PENALOZA #[id number] (Continued) COMMENT (Continued) Intradepartmental consultation: FA FINAL DIAGNOSIS Bile, cytology: PARTICULATE DEBRIS BACTERIAL FORMS PRESENT (RODS AND COCCI) RRB/sm D 01427, 75211 MACROSCOPIC The specimen consists of 3 mL of green fluid to be concentratedand processed for cytologic evaluation. GROSS [facility]FOR[facility] [address] [place] [address] ([phone] MICROSCOPIC All of thestains, including any controls performed, stain appropriately. MICROSCOPIC PERFORMED AT [facility] [address] [place] [address] ([phone] PERFORMING SITE Diagnosis performed at: [facility], [address] [address] Signed SIGNATURE ON FILE Bernabe Klein MD 05/10/18 1616 END OF REPORT AG [id number] 08:23:00 Test Item Value Reference Range Interpretation Comments AG CARCINOEMBRYONIC (test code = 0.9 ng/mL 0.0-3.0 N CEA) ALPHA FETOPROTEIN TUMOR [id number] 08:23:00 Test Item Value Reference Interpretation Comments Range ALPHA FETOPROTEIN 2.7 ng/mL 0.0-8.3 Ann [employer] nostics TUMOR MARKER Electrochemilum inescence (test code = Immunoassay(ECL IA)Values AFPTM) obtained with d ifferent assay methods or kits cannotbe used interchangeably . Results cannot be inter preted asabsolute evid ence of the presence or abs ence of malignantdiseas e.This test is not interpretab le in females. [id number] 08:23:00 Test Item Value Reference Range Interpretation Comments CA 19-9 (test code = CA19) Unit/mL AG [id number] 08:23:00 Test Item Value Reference Range Interpretation Comments AG CARCINOEMBRYONIC (test code = 0.9 ng/mL 0.0-3.0 N CEA) ALPHA FETOPROTEIN TUMOR [id number] 08:23:00 Test Item Value Reference Interpretation Comments Range ALPHA FETOPROTEIN 2.7 ng/mL 0.0-8.3 Ann [employer] nostics TUMOR MARKER Electrochemilum inescence (test code = Immunoassay(ECL IA)Values AFPTM) obtained with d ifferent assay methods or kits cannotbe used interchangeably . Results cannot be inter preted asabsolute evid ence of the presence or abs ence of malignantdiseas e.This test is not interpretab le in females. [id number] 08:23:00 Test Item Value Reference Range Interpretation Comments CA 19-9 (test 32 U/mL 0-35 Ann [employer] code = CA19) Electrochemilum inescence Immunoassay(ECL IA)Values obtained with different assay methods or kits cannotbe u sed interchangeably . Results cannot be interpreted asabsolute evidence of the presence or absence of malignantdiseas e.Performed At: [facility] [address] [address] Daryl Monroe MD Ph:[phone] AG [id number] 06:13:00 Test Item Value Reference Range Interpretation Comments AG CARCINOEMBRYONIC (test code = 0.9 ng/mL 0.0-3.0 N CEA) ALPHA FETOPROTEIN TUMOR [id number] 06:13:00 Test Item Value Reference Range Interpretation Comments ALPHA FETOPROTEIN TUMOR MARKER (test ng/mL code = AFPTM) [id number] 06:13:00 Test Item Value Reference Range Interpretation Comments CA 19-9 (test code = CA19) Unit/mL COMPREHENSIVE METABOLIC [id number] 06:08:00 Test Item Value Reference Range Interpretation [...] ALKP) to change in reagent. COMPREHENSIVE METABOLIC [id number] 05:58:00 Test Item Value Reference Range Interpretation [...] 45-117 code = ALKP) BODY FLUID CELL [id number] 11:09:00 Test Item Value Reference Range Interpretation [...] RESULTS CALL ED TO code = RBCFL) [id number] BY Netta ARCEOKP1 05/08/18 2210 FLUID COMMENT (test PATHOLOGST.TO code = COMFL) REVIEW TOTAL CELLS COUNTED 0 cells NONE SEE N. ON DIFF (test code = TOTCELLFL) REVIEWED BY (test PATHOLOGIST code = REVIEW) JEREMIAS KLEIN - PLC BILIARY CATH INT/[id number] 07:00:00 Name: ANA PENALOZA [facility] : 1950 Age/S: 67 / F [address] [facility] Unit #: [id number] Loc: [place] [address] Phys: Kathleen Michelle MD Acct: [id number] Dis Date: Status: ADM IN PHONE #: [phone] Exam Date: 05/08/2018 1401 FAX #: [phone] Reason: EXAMS: CPT CODE: [id number] PLC BILIARY CATH INT/EXT 20199 Fluoro Time: 474 DAP (Gy m2): 70271 Air Kerma (mGy): 176.2 REASON FOR EXAM:Right [...] the distal common bile duct stenosis. An 8-Belarusian biliary tube was in place would be [...] of the pancreas. Successful placement of an 8-Belarusian biliary tube. at 0700 Reported and signed by: James Wallis M.D. PAGE 1 Signed Report (CONTINUED) Name: ANA PENALOZA [facility] : 1950 Age/S: 67 / F [address] [facility] Unit #: [id number] Loc: [place] [address] Phys: Kathleen Michelle MD Acct: [id number] Dis Date: Status: ADM IN PHONE #: [phone] Exam Date: 05/08/2018 1407 FAX #: [phone] Reason: EXAMS: CPT CODE: [id number] PLC BILIARY CATH INT/EXT 63420 Fluoro Time: 474 DAP (Gy m2): 98895 Air Kerma (mGy):176.2 (Continued) CC: Kathleen Michelle MD; Alexis High DO Technologist: BRANT PHAN RT(R)Trnscb Date/Time: 05/09/2018 (0700) [email or web address] Orig Print D/T: S: 05/09/2018 (0760) PAGE 2 Signed Report- SUKUMAR [place]ALL [id number] 07:00:00 Name: ANA PENALOZA [facility] : 1950 Age/S: 67 / F [address] [facility] #: [id number] Loc: [place] [address] Phys: Kathleen Michelle MD Acct: [id number] Dis Date: Status: ADMIN PHONE #: [phone] Exam Date: 05/08/2018 1401 FAX #: [phone] Reason: EXAMS: CPT CODE: [id number] [place] [address] Fluoro Time: 474 DAP (Gy m2): 06973 Air Kerma (mGy): 176.2 REASON FOR EXAM:Right [...] into a dilated right hepatic duct. The [place] was advanced into the common bile duct. The guidewire was successfully advanced past the distal common bile duct stenosis. An 8-Belarusian biliary tube was in place would be distal tip in the small bowel and the proximal sidehole within the right hepatic duct. MEDICATIONS: None COMPLICATIONS: None Blood loss: Less than 5 mL Fluoroscopic time: 480 seconds Radiation dose: 176 mGy IMPRESSION: Mild dil atation of the common bile duct with a high-grade stricture in the distal common bile duct in the area of the head of the pancreas. Successful placement of an 8- Belarusian biliary tube. at 0700 Reported and signed by: James Wallis M.D. PAGE 1 Signed Report (CONTINUED) Name: ANA PENALOZA [facility] : 1950 Age/S: 67 / F [address] [facility] Unit #: [id number] Loc: [place] [address] Phys: Kathleen Michelle MD Acct: [id number] Dis Date: Status: ADM IN PHONE #: [phone] Exam Date: 05/08/2018 1401 FAX #: [phone] Reason: EXAMS: CPT CODE: [id number] [place] [address] Fluoro Time: 474 DAP (Gy m2): 68377 Air Kerma(mGy): 176.2 (Continued) CC: Kathleen Michelle MD; Alexis High DO Technologist: BRANT PHAN RT(R) Trnscb Date/Time: 05/09/2018 (0700) Deion Orig Print D/T: S: 05/09/2018 (0703) PAGE 2 Signed Report- USG NDL PLACEMENT (Bxg/Asp) 2018-05-09 07:00:00 Name: ANA PENALOZA [facility] : 1950 Age/S: 67 / F [address] [facility] Unit #: [id number] Loc: [place] [address] Phys: James Wallis MD Acct: [id number] Dis Date: Status: ADM IN PHONE#: [phone] Exam Date: 05/08/2018 1353 FAX #: [phone] Reason: CHOLANGIOGRAM W/POSS BILIARY DRAIN EXAMS: CPT CODE: [id number] USG NDL PLACEMENT (Bxg/Asp) 62895 REASON FOR EXAM:Right upper quadrant pain, status post gastric bypass with dilated common bile duct PROCEDURE: Ultrasound and fluoroscopic guided cholangiogram and placement of biliary drainage tube Anesthesia: General Anesthesiologist:Dr. Barajas FINDINGS: Prior to the procedure, informed [...] bile duct with minimal intrahepatic biliary dilatation. Underreal time ultrasound guidance, a 22-gauge Chiba needle was advanced into the dilated common bile duct . A cholangiogram was performed. It shows a [...] the distal common bile duct stenosis. An 8-Belarusian biliary tube was in place would be [...] of the pancreas. Successful placement of an 8-Belarusian biliary tube. at 0700 Reported and signed by: James Wallis M.D. PAGE 1 Signed Report (CONTINUED) Name: ANA PENALOZA [facility] : 1950 Age/S: 67 / F [address] [facility] Unit #: [id number] Loc: [place] [address] Phys: James Wallis MD Acct: [id number] Dis Date: Status: ADM IN PHONE #: [phone] Exam Date: 05/08/2018 0940 FAX #: [phone] Reason: CHOLANGIOGRAM W/POSS BILIARY DRAIN EXAMS: CPT CODE: [id number] USG NDL PLACEMENT (Bxg/Asp) 88113 (Continued) CC: Kathleen Michelle MD; Alexis High DO Technologist: TOBIN PURCELL RT(R),RDMS Trnscb Date/Time: 05/09/2018 (07) Deion Orig Print D/T: S: 05/09/2018 (702) Probe: PAGE [id number] 22:49:00 Test Item Value Reference Range Interpretation [...] RESULTS CALL ED TO code = RBCFL) [id number] BY [facility] 05/08/18 2210 FLUID COMMENT (test PATHOLOGST.TO code = COMFL) REVIEW TOTAL CELLS COUNTED 0 cells NONE SEE N. ON DIFF (test code = TOTCELLFL) REVIEWED BY (test PATHOLOGIST code = REVIEW) BODY FLUID CELL [id number] 22:10:00 Test Item Value Reference Range Interpretation [...] 0-50 N RESULTS CALLED TO = RBCFL) [id number] BY NAVID Martí[facility]ELE[facility] 05/08/180 TOTAL CELLS COUNTED cells ON DIFF (test code = TOTCELLFL) REVIEWED BY (test PATHOLOGIST code = REVIEW) BODY FLUID CELL [id number] 16:44:00 Test Item Value Reference Range Interpretation [...] (test PATHOLOGIST code = REVIEW) THYROID PROFILE [id number] 06:15:00 Test Item Value Reference Range Interpretation [...] 4.3 mIU/ mL HYPO : > 5.5 mI U/mL HYPER : < 0.35 mIU/mL BASIC METABOLIC [id number] 05:57:00 Test Item Value Reference Range Interpretation [...] GFR) formula.Chronic kidney disease is defined as [facility] kidney damageor GFR <60 mL/min/1.73 m2 for >3 months. CREATININE (test code 0.50 mg/dL 0.55-1.02 L Note change in = CREAT) reference range due to change in reagent. BUN/CREATININE RATIO 21.4 10-20 H (test code = BUN/CREA) CALCIUM (test code = 8.7 mg/dL 8.5-10.1 N CA) BASIC METABOLIC [id number] 05:50:00 Test Item Value Reference Range Interpretation [...] (test code = CA) mg/dL 8.5-10.1 PROTHROMBIN [id number] 05:37:00 Test Item Value Reference Range Interpretation [...] (2.5-3.5) IS PATIENT ON ANTICOAGULANTS? NTHROMBOPLASTIN TIME [id number] 05:37:00 Test Item Value Reference Range Interpretation Comments THROMBOPLASTIN TIME PARTIAL 36.7 seconds 25.0-36.5 H (test code = PTT) IS PATIENT ON ANTICOAGULANTS? NCBC W/AUTO [id number] 05:28:00 Test Item Value Reference Range Interpretation [...] 0.00 K/mm3 0.0-0.1 N NRBC#) CBC W/AUTO [id number] 05:21:00 Test Item Value Reference Range Interpretation [...] BA#) K/mm3 0.0-0.2 - MRI ABDOMEN W/O [id number] 11:46:00 FAX: Gilberto Davies [phone] [place]: St: ADM FAX: Kathleen Michelle MD FAX: Jada HighAlexisswati Casarez [phone] Name: ANA PENALOZA [facility] : 1950 Age/S: 67/F [address] [facility] Unit #: [id number] Loc: V.2018 [place] [address] Phys: Gilberto Conway MD Acct: [id number] Dis Date: Status: ADM IN PHONE #: [phone] Exam Date: 05/05/2018 1134 FAX #: [phone] Reason: r/o CBD stone EXAMS: CPT CODE: [id number] MRI ABDOMEN W/O CONT [id number] HISTORY: Evaluate for CBD stones. COMPARISON: Ultrasound and CT scan from May 03, 2018. MRCP: 3- D images Dilated CBD measuring 1.3 cm. No filling defects are visible however abrupt termination at the ampulla. This could represent a stoneat the ampulla. Dilated pancreatic duct at 5.8 mm. Dilated common hepatic and right and left hepaticducts. Patient is post cholecystectomy. No ascites. IMPRESSION: Dilated CBD at 1.3 cm with abrupt termination at the ampulla. This could represent an ampullary stone. ERCP would be of value. Dilated pancreatic duct at 5.8 mm. at 1146 Reported and signed by: Guilherme Silverman M.D. CC: Gilberto Conway MD; Kathleen Michelle MD; Alexis High DO Technologist: Delmar Phoenix)(MR) Trnscrd Date/Time/By: 05/05/2018 (1146) : By: [email or web address] Orig Print D/T: S: 05/05/2018 (3728) PAGE 1 Signed [id number] 03:18:00 Test Item Value Reference Range Interpretation Comments TROPONIN-I (test code = TROPI) <0.015 ng/mL 0-0.045 N COMMENTS TO SOCK BOARDER: COLLECT 3 HOURS AFTER PREVIOUS SAMPLECOMPREHENSIVE METABOLIC [id number] 03:18:00 Test Item Value Reference Range Interpretation [...] MDRD formula.Chronic kidney disease is defined as [facility] kidney damageor GFR <60 mL/min/1.73 m2 for [...] ALKP) to change in reagent. COMPREHENSIVE METABOLIC [id number] 03:10:00 Test Item Value Reference Range Interpretation [...] IUnit/L 45-117 code = ALKP) CBC W/AUTO [id number] 02:48:00 Test Item Value Reference Range Interpretation [...] DIFF REQUIRED (test code NO = MDIFF) [id number] 22:26:00 Test Item Value Reference Range Interpretation Comments TROPONIN-I (test code = TROPI) <0.015 ng/mL 0-0.045 N COMMENTS TO SOCK BOARDER: COLLECT 3 HOURS AFTER PREVIOUS SAMPLE- US ABDOMEN LTD 2018-05-03 19:15:00 Name: ANA PENALOZA [facility] : 1950 Age/S: 67 / F [address] [facility] Unit #: [id number] Loc: [place] [address] Phys: Kathleen Michelle MD Acct: [id number] Dis Date: Status: ADM IN PHONE #: [phone] Exam Date: 05/03/2018 1840 FAX #: [phone] Reason: RUQ constant pain EXAMS: CPT CODE: [id number] US ABDOMEN LTD 90831 EXAM: Ultrasound abdomen, limited; INFORMATION: Right upper [...] central portions of intrahepatic bile ducts and thereis significant dilatation of the common bile duct, [...] Technologist: Jyothi Perez Trnscb Date/Time: 05/03/2018 (1914) AlexandroGRW OrigPrint D/T: S: 05/03/2018 (1917) Probe: PAGE 1 Signed Report - CT ABD PELVIS [id number] 16:05:00 Name: ANA PENALOZA [facility] : 1950 Age/S: 67 / F [address] [facility] Unit #: [id number] Loc: [place] [address] Phys: Virgilio Hughes MD Acct: [id number] Dis Date: Status: REG ER PHONE #: [phone] Exam Date: 05/03/2018 1443 FAX #: [phone] Reason: RUQ pain EXAMS: CPT CODE: [id number] CT ABD PELVIS W/CONT [id number] EXAM: CT of the abdomen and pelvis with contrast; INFORMATION: Right upper quadrant pain; TECHNIQUE AND FINDINGS: CT dose reduction protocol; 5 mm cuts through the ab domen and pelvis during and after intravenous infusion [...] also fills in on the delayed scan and isconsistent with a small cavernous hemangioma. Status post [...] or pelvic abnormalities. 2. Multiple small hepatic cysts.3. 2 cavernous hemangiomas in the right lobe of the liver. 3. Extrahepatic biliary dilatation without evidence of an obstructing lesion. at 1605 Reported and signed by: Kwaku Ayon M.D. CC: Alexis High DO; Virgilio Hughes MD Technologist:Karan Love RT(R),(MR),(CT); CTDI: DLP: Trnscb Date/Time: 05/03/2018 (1605) t.[email or web address] Orig Print D/T: S: 05/03/2018 (1598) CTDI: DLP: PAGE 1 Signed Report- CT CHEST [id number] 15:57:00 Name: ANA PENALOZA [facility] : 1950 Age/S: 67 / F [address] [facility] Unit #: [id number] Loc: [place] [address] Phys: Virgilio Hughes MD Acct: [id number] Dis Date: Status: REG ER PHONE #: [phone] Exam Date: 05/03/2018 1443 FAX #: [phone] Reason: RUQ pain hypotension suddenonset EXAMS: CPT CODE: [id number] CT CHEST W/CONTRAST 65556 EXAM: CT of the chest with contrast; INFO RMATION: Chest pain, hypotension; TECHNIQUE: CT dose reduction protocol; 1.25 mm cuts were obtained through the chest during intravenous infusion of contrast material; multiplanar reconstructions were obtained; PE protocol; FINDINGS: The pulmonary arteries are densely enhancing and are without fillingdefects. The thoracic aorta shows calcified plaques; no [...] Love RT(R),(MR),(CT); CTDI: DLP: Trnscb Date/Time: 05/03/2018 (2979) ElliottAdriel.GRW Orig Print D/T: S: 05/03/2018 (1413) CTDI: DLP: PAGE 1 Signed ReportBASIC METABOLIC [id number] 14:04:00 Test Item Value Reference Range Interpretation [...] 8.9 mg/dL 8.5-10.1 N CA) HEPATIC FUNCTION [id number] 14:04:00 Test Item Value Reference Range Interpretation [...] range due ALKP) to change in reagent. [id number] 14:04:00 Test Item Value Reference Range Interpretation Comments LIPASE (test code = LIP) 106 U/L 73.0-393.0 N HCG SERUM [id number] 14:04:00 Test Item Value Reference Range Interpretation Comments HCG SERUM QUAL (test NEGATIVE NEGATIVE This H CGQL test is NOT code = HCGQL) applicable for MALE patients.Check with nurse about probable order error.If Tumor Marker Test needed, nu rse should order test "HCG TU"(Test #550.07765)---- - [id number] 14:04:00 Test Item Value Reference Range Interpretation Comments TROPONIN-I (test code = TROPI) <0.015 ng/mL 0-0.045 N BASIC METABOLIC [id number] 14:00:00 Test Item Value Reference Range Interpretation [...] code = CA) mg/dL 8.5-10.1 HEPATIC FUNCTION [id number] 14:00:00 Test Item Value Reference Range Interpretation [...] TOTAL (test IUnit/L 45-117 code = ALKP) [id number] 14:00:00 Test Item Value Reference Range Interpretation Comments LIPASE (test code = LIP) U/L 73.0-393.0 HCG SERUM [id number] 14:00:00 Test Item Value Reference Range Interpretation Comments HCG SERUM QUAL (test NEGATIVE NEGATIVE This H CGQL test is NOT code = HCGQL) applicable for MALE patients.Check with nurse about probable order error.If Tumor Marker Test needed, nu rse should order test "HCG TU"(Test #550.79950)---- - [id number] 14:00:00 Test Item Value Reference Range Interpretation Comments TROPONIN-I (test code = TROPI) ng/mL 0-0.045 BASIC METABOLIC [id number] 13:55:00 Test Item Value Reference Range Interpretation [...] code = CA) mg/dL 8.5-10.1 HEPATIC FUNCTION [id number] 13:55:00 Test Item Value Reference Range Interpretation [...] TOTAL (test IUnit/L 45-117 code = ALKP) [id number] 13:55:00 Test Item Value Reference Range Interpretation Comments LIPASE (test code = LIP) U/L 73.0-393.0 HCG SERUM [id number] 13:55:00 Test Item Value Reference Range Interpretation Comments HCG SERUM QUAL (test code = HCGQL) NEGATIVE [id number] 13:55:00 Test Item Value Reference Range Interpretation Comments TROPONIN-I (test code = TROPI) ng/mL 0-0.045 URINALYSIS [id number] 13:48:00 Test Item Value Reference Range Interpretation [...] A BACU) Urine Source? Clean CatchCBC W/O [id number] 13:46:00 Test Item Value Reference Range Interpretation [...] fL 6.7-11.0 N = MPV) CBC W/O [id number] 13:42:00 Test Item Value Reference Range Interpretation [...]
[2022-05-06] MEDS ORDERED: DIAZEPAM 5 MG TABLET ONE (14:22)
[2022-05-06 14:31] LABS: Urine Blood 2+ (Negative); Urine Glucose Negative (Negative); Urine Protein Trace (Negative); Urine Specific Gravity <=1.005 (1.005-1.030)
[2022-05-06 14:46] LABS: Urine Bacteria 20-50 /HPF (<20); Urine Mucus Slight /HPF (None Seen); Urine WBC Clump Rare /HPF (None Seen)
[2022-05-06] MEDS ORDERED: CIPROFLOXACIN HCL 500 MG TAB ONE (15:04)
[2022-05-06] MEDS ORDERED: HYDROCODONE/APAP 5/325 MG TAB ONE (16:11)
[2022-05-06] MEDS ORDERED: PROMETHAZINE 25 MG TABLET ONE (16:12)
--- NOTE | 2022-05-06 16:14 | ER ---
Nurse's Notes [facility] Name: Jamila Castillo Age: 71 yrs Sex: Female : 1950 Arrival Date: 05/06/2022 Time: 13:55 Bed 4 Private MD: Kassandra Claros Diagnosis: UTI/ Urinary tract infection, site not specified;Headache Presentation: 05/06 14:01 Chief complaint: Patient states: migraine headache x 3 days, I also have some urinary kr3 issues, I can drink tea and have no issue but if I drink water it runs right through me and I cannot make it to the toilet. Coronavirus screen: Vaccine status: Patient reports receiving the 2nd dose of the covid vaccine. Ebola Screen: Patient denies travel to an Ebola-affected area in the 21 days before illness onset. Initial Sepsis Screen: Does the patient meet any 2 criteria? No. Patient's initial sepsis screen is negative. Does the patient have a suspected source of infection? No. Patient's initial sepsis screen is negative. Risk Assessment: Do you want to hurt yourself or someone else? Patient reports no desire to harm self or others. Onset of symptoms was May 02, 2022. 14:01 Method Of Arrival: Ambulatory kr3 14:01 Acuity: KAYLA 3 kr3 Triage Assessment: 14:07 Headache History: The patient has had previous headaches and this one is similar to kr3 previous episodes. General: Appears in no apparent distress. uncomfortable, Behavior is calm, cooperative, appropriate for age. Pain: Complains of pain in head. Neuro: Level of Consciousness is awake, alert, obeys commands, Oriented to person, place, time, situation. Historical: - Allergies: 14:04 Demerol; kr3 14:04 Dilaudid; kr3 14:04 PENICILLINS; kr3 - Home Meds: 14:06 levothyroxine oral [Active]; kr3 - PMHx: 14:04 Hypothyroidism; kr3 - PSHx: 14:06 Cholecystectomy; hysterectomy; Small bowel resection; Thyroidectomy; kr3 - Immunization history:: Adult Immunizations up to date. - Social history:: Smoking status: Patient reports the use of cigarette tobacco products, smokes one-half pack cigarettes per day. Vital Signs: 14:01 BP 122 / 72; Pulse 84; Resp 17; Temp 100; Pulse Ox 99% on R/A; Weight 65.32 kg; Height kr3 5 ft. 7 in. ; Pain 9/10; 14:01 Body Mass Index 22.55 (65.32 kg, 170.18 cm) kr3 14:01 Pain Scale: Adult kr3 Danay Coma Score: 15:14 Eye Response: spontaneous(4). Motor Response: obeys commands(6). Verbal Response: snw oriented(5). Total: 15. ED Course: 13:55 Patient arrived in ED. mr 13:55 Kassandra Claros is Private Physician. mr 13:55 Patti Sylvester F[facility]-C [facility]. snw 13:55 Clifford Donahue MD is Attending Physician. snw 14:04 Triage completed. kr3 14:08 Arm band placed on right wrist. Patient placed in an exam room, on a stretcher. kr3 14:10 Ernestine Flanagan, RN is Primary Nurse. ph 14:34 Urine Culture Sent. ko1 14:34 Urine Microscopic Only Sent. ko1 Administered Medications: 14:20 Drug: Diazepam PO 5 mg Route: PO; ko1 15:01 Drug: Ciprofloxacin PO 500 mg Route: PO; ko1 16:09 Drug: Promethazine PO 25 mg Route: PO; ko1 16:09 Drug: [place] PO 5 mg-325 mg 1 tabs Route: PO; ko1 Outcome: 16:13 Discharge ordered by . snw Signatures: Patti Sylvester FNP-C OIL FIELD TESTER-Csnw Shayy Heller mr Ernestine Flanagan RN RN Miladis Mahan RN RN kr3 Micki Mckinney RN RN ko1
--- NOTE | 2022-05-06 16:14 | EDPHYS ---
Physician Documentation [facility] Name: Jamila Castillo Age: 71 yrs Sex: Female : 1950 Arrival Date: 05/06/2022 Time: 13:55 Bed 4 Private MD: Kassandra Claros ED Physician Clifford Donahue HPI: 05/06 14:40 This 71 yrs old Female presents to ER via Ambulatory with complaints of Urinary snw Problem, Headache. 14:40 The patient complains of pain to the generalized. The patient describes the headache as snw a pressure. Onset: The symptoms/episode began/occurred 3 day(s) ago, and became persistent. Associated signs and symptoms: Pertinent positives: urinary s/s since the weekend (4-5 days), stomach "uneasy". Headache History: The patient has had previous headaches and this one is similar to previous episodes. The patient has not experienced similar symptoms in the past. It is unknown whether or not the patient has recently seen a physician. Historical: - Allergies: 14:04 Demerol; kr3 14:04 Dilaudid; kr3 14:04 PENICILLINS; kr3 - Home Meds: 14:06 levothyroxine oral [Active]; kr3 - PMHx: 14:04 Hypothyroidism; kr3 - PSHx: 14:06 Cholecystectomy; hysterectomy; Small bowel resection; Thyroidectomy; kr3 - Immunization history:: Adult Immunizations up to date. - Social history:: Smoking status: Patient reports the use of cigarette tobacco products, smokes one-half pack cigarettes per day. ROS: 14:41 ENT: Negative for injury, pain, and discharge, Neck: Negative for injury, pain, and snw swelling, Cardiovascular: Negative for chest pain, palpitations, and edema, Respiratory: Negative for shortness of breath, cough, wheezing, and pleuritic chest pain. 14:41 Back: Negative for injury and pain. 14:41 MS/Extremity: Negative for injury and deformity, Skin: Negative for injury, rash, and discoloration. 14:41 Psych: Negative for depression, anxiety, suicide ideation, homicidal ideation, and hallucinations. 14:41 Constitutional: Positive for body aches, malaise. 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 14:41 Abdomen/GI: Positive for uneasy. 14:41 : Positive for urinary symptoms. 14:41 Neuro: Positive for headache. Exam: 14:36 Head/Face: Normocephalic, atraumatic. Eyes: Pupils equal round and reactive to light, snw extra-ocular motions intact. Lids and lashes normal. Conjunctiva and sclera are non-icteric and not injected. Cornea within normal limits. Periorbital areas with no swelling, redness, or edema. ENT: Nares patent. No nasal discharge, no septal abnormalities noted. Tympanic membranes are normal and external auditory canals are clear. Oropharynx with no redness, swelling, or masses, exudates, or evidence of obstruction, uvula midline. Mucous membranes moist. Neck: Trachea midline, no thyromegaly or masses palpated, and no cervical lymphadenopathy. Supple, full range of motion without nuchal rigidity, or vertebral point tenderness. No Meningismus. Chest/axilla: Normal chest wall appearance and motion. Nontender with no deformity. No lesions are appreciated. Cardiovascular: Regular rate and rhythm with a normal S1 and S2. No gallops, murmurs, or rubs. Normal PMI, no JVD. No pulse deficits. 14:36 Abdomen/GI: Soft, non-tender, with normal bowel sounds. No distension or tympany. No guarding or rebound. No evidence of tenderness throughout. Back: No spinal tenderness. No costovertebral tenderness. Full range of motion. Skin: Warm, dry with normal turgor. Normal color with no rashes, no lesions, and no evidence of cellulitis. MS/ Extremity: Pulses equal, no cyanosis. Neurovascular intact. Full, normal range of motion. Psych: Awake, alert, with orientation to person, place and time. Behavior, mood, and affect are within normal limits. 14:36 Constitutional: The patient appears alert, uncomfortable. 14:36 Respiratory: the patient does not display signs of respiratory distress, Respirations: normal, Breath sounds: bronchial sounds. 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 Vital Signs: 14:01 BP 122 / 72; Pulse 84; Resp 17; Temp 100; Pulse Ox 99% on R/A; Weight 65.32 kg; Height kr3 5 ft. 7 in. ; Pain 9/10; 14:01 Body Mass Index 22.55 (65.32 kg, 170.18 cm) kr3 14:01 Pain Scale: Adult kr3 Danay Coma Score: 15:14 Eye Response: spontaneous(4). Motor Response: obeys commands(6). Verbal Response: snw oriented(5). Total: 15. MDM: 14:04 Patient medically screened. snw 14:16 Differential diagnosis: viral Infection, bacterial infection, pneumonia UTI, snw gastroenteritis. Data reviewed: vital signs, nurses notes, lab test result(s). I considered the following discharge prescriptions or medication management in the emergency department Medications were administered in the Emergency Department. See MAR pt with headache x 3 days, whole head aching, stomach "not nauseous but unsettled". Counseling: I had a detailed discussion with the patient and/or guardian regarding: the historical points, exam findings, and any diagnostic results supporting the discharge/admit diagnosis. 15:14 Differential diagnosis: migraine, tension headache. snw 15:15 Response to treatment: the patient's symptoms have mildly improved after treatment. snw Special discussion: Based on the history and exam findings, there is no indication for further emergent testing or inpatient evaluation. I discussed with the patient/guardian the need to see the primary care provider for further evaluation of the symptoms. 16:12 Response to treatment: pain decreased to tolerable., and as a result, I will discharge snw patient. 05/06 13:56 Order name: Urine Dipstick-Ancillary (obtain specimen); Complete Time: 14:30 snw 05/06 13:56 Order name: Urine Culture snw 05/06 13:56 Order name: Urine Microscopic Only; Complete Time: 15:12 snw 05/06 14:31 Order name: Urine Dipstick-Ancillary; Complete Time: 14:35 EDMS Administered Medications: 14:20 Drug: Diazepam PO 5 mg Route: PO; ko1 15:01 Drug: Ciprofloxacin PO 500 mg Route: PO; ko1 16:09 Drug: Promethazine PO 25 mg Route: PO; ko1 16:09 Drug: Tebbet[place] PO 5 mg-325 mg 1 tabs Route: PO; ko1 Disposition Summary: 05/06/22 16:13 Discharge Ordered Location: Home snw Condition: Stable snw Diagnosis - UTI/ Urinary tract infection, site not specified snw - Headache snw Followup: snw - With: Emergency Department - When: As needed - Reason: Worsening of condition Followup: snw - With: Private Physician - When: 2 - 3 days - Reason: Recheck today's complaints, Continuance of care, Re-evaluation by your physician Forms: - Medication Reconciliation Form snw - Thank You Letter snw - Antibiotic Education snw - Prescription Opioid Use snw Signatures: Dispatcher [employer] EDMS Patti Sylvester, MARY ANN-C HOSE TESTER-Csnw Miladis Mahan, RN RN kr3 Micki Mckinney, RN RN ko1
[2022-05-06 18:28] VITALS: BP 122/72; TEMP 100; O2SAT 99
== END 2022-05-06 16:37 | disposition home or self-care (01) ==
LOC: ER 13:50
DX: R51.9 Headache, unspecified (principal); N39.0 Urinary tract infection, site not specified; E03.9 Hypothyroidism, unspecified; Z88.0 Allergy status to penicillin; Z88.5 Allergy status to narcotic agent
CPT/HCPCS: 87088; 87086; 87077; 87186; 99284; Q0169; 81003; 81015

== ENCOUNTER 2023-01-25 05:59 | Observation (INO) | payer OTHER ==
[2023-01-19 10:23] LABS: Specific Gravity 1.007 (1.005-1.030); Urine Bilirubin NEGATIVE (Negative); Urine Blood Negative (Negative); Urine Clarity Clear (Clear); Urine Color Colorless (Yellow); Urine Glucose NEGATIVE (Negative); Urine Protein NEGATIVE (Negative); Urine Urobilinogen Normal (Normal); Urine pH 5.5 (5.0-7.0)
[2023-01-19 10:27] LABS: Absolute Lymphocytes (CBC) 2.7 K/uL (0.7-4.9); Hematocrit 37.3 % (36.0-45.0); Lymphocytes % 33.9 % (15.3-44.8); MCV 88.2 fL (80-100); Platelets 325 thou/uL (152-406); RBC Red Blood Cell Count 4.23 M/uL (3.86-4.86)
--- NOTE | 2023-01-19 10:30 | RAD REPORT ---
EXAM DESCRIPTION: Dora Davis (2 Views)01/19/2023 10:16 am CLINICAL HISTORY: Preop for hip surgery COMPARISON: 2021 FINDINGS: The lungs appear clear of acute infiltrate. The heart is normal size IMPRESSION: No acute abnormalities displayed
[2023-01-19 10:32] LABS: Protime INR 0.96
[2023-01-19 10:43] LABS: Albumin 3.3 g/dL (3.4-5.0); Bilirubin Total 0.4 mg/dL (0.2-1.0); Potassium 4.2 mEq/L (3.5-5.1); Protein, Total 7.2 g/dL (6.4-8.2)
[2023-01-25] MEDS ORDERED: GABAPENTIN 100 MG CAP ONE (06:16)
[2023-01-25] MEDS ORDERED: ACETAMINOPHEN 500 MG TAB ONE (06:17)
[2023-01-25] MEDS ORDERED: Oxycodone HCl/Acetaminophen 5/325 MG TAB ONE (06:17)
[2023-01-25] MEDS ORDERED: CELECOXIB 100 MG CAPSULE ONE (06:17)
[2023-01-25] MEDS ORDERED: Ringers Lactate 1,000 ML IV ONE (06:18)
[2023-01-25] MEDS ORDERED: MORPHINE SULFATE/PF 1 MG/ML (10 ML AMP) ONE (06:42)
[2023-01-25] MEDS ORDERED: BUPIVACAINE 0.75% MPF 10 ML VIAL ONE ×2 (06:42→12:04)
[2023-01-25] MEDS ORDERED: TRANEXAMIC ACID 1,000 MG/10 ML VIAL IV ONE (06:44)
[2023-01-25] MEDS ORDERED: EPINEPHRINE 1 MG/ML VIAL ONE (06:45)
[2023-01-25] MEDS ORDERED: LIDOCAINE 1% MPF 5 ML VIAL ONE (06:45)
[2023-01-25] MEDS ORDERED: CLINDAMYCIN 900MG/D5W 900 MG/50 ML IVPB IV ONE (07:04)
[2023-01-25] MEDS ORDERED: MIDAZOLAM HCL 2 MG/2 ML INJ ONE (07:36)
[2023-01-25] MEDS ORDERED: EPHEDRINE SULF 50 MG/ML VIAL ONE (08:27)
[2023-01-25] MEDS ORDERED: ONDANSETRON 4 MG/2 ML VIAL ONE (09:41)
[2023-01-25] MEDS ORDERED: dexAMETHasone 4 MG/ML VIAL ONE (09:41)
--- NOTE | 2023-01-25 09:53 | RAD REPORT ---
EXAM DESCRIPTION: RAD - Hip Right 1 View - 01/25/2023 9:18 am CLINICAL HISTORY: HIP IN OR COMPARISON: Hip Right 2 View dated 10/30/2022 TECHNIQUE: Right hip, 2 views. FINDINGS: Sequential images during right hip prosthesis placement demonstrate normal orientation of the acetabular cup and femoral stem components. No evidence of periprosthetic fractures. Surgical def ect seen along the lateral aspect of the thigh. IMPRESSION: Sequential images during right hip prosthesis placement as above.
--- NOTE | 2023-01-25 09:53 | P.BOP ---
Preoperative diagnosis: right hip arthritis Postoperative diagnosis: same Primary procedure: right total hip arthoplasty Estimated blood loss: 150 Anesthesia: General Complications: None Transferred to: Recovery Room Condition: Good
[2023-01-25] MEDS ORDERED: ONDANSETRON 4 MG/2 ML VIAL IV PRN (09:54)
[2023-01-25] MEDS ORDERED: DOCUSATE NA 100 MG CAP PO PRN (09:54)
[2023-01-25] MEDS ORDERED: propofoL 200 MG/20 ML VIAL IV ONE (11:48)
[2023-01-25] MEDS ORDERED: EPINEPHrine 1 MG/10 ML SYR ONE (11:48)
[2023-01-25] MEDS ORDERED: LIDOCAINE 2% MPF 5 ML VIAL ONE (11:48)
--- NOTE | 2023-01-25 12:38 | OP ---
Date of Procedure: 01/25/2023 Surgeon: Uri Vergara MD Preoperative Diagnosis: Right severe degenerative joint disease of the hip. Postoperative Diagnosis: Right severe degenerative joint disease of the hip. Procedure: Right total hip arthroplasty using the Gretta system. Estimated Blood Loss: 150 cc. Complications: There were no complications. Indications For Operation: Ms. Castillo is a 72-year-old female who has debilitating pain related to h er right hip. This persisted despite conservative measures and risks, benefits, and alternatives of different methods of treating this have been discussed with her. She states she understands things a s presented and opts for a total hip arthroplasty. The specific risks associated with this as well a s hospital portion, possible complications have been discussed in great detail. She states she under stands things presented, and wished to proceed. Description Of Procedure: Patient was taken to the operating room and in the seated position, underw ent spinal anesthesia. This was accomplished by Anesthesia staff and she was then rolled left side d own with an axillary roll. She was appropriately positioned using hip positioners and right lower ex tremity was then prepped and draped in usual sterile fashion during the procedure. After this, a sta ndard posterior lateral incision was taken down carefully through skin and soft tissues. Meticulous hemostasis being maintained using Bovie electrocautery. This led down to the fascia and a small stab wound was made in the fascia to ensure correct placement of the incision and palpation of gluteal te ndon. This fascial incision was then brought fully upwards until along the shaft of the femur until the gluteus lisa was encountered. It was then spread using finger pressure. The sciatic nerve wa s palpated and protected throughout the rest of the case and Charnley was gently placed. After this, the external rotators and capsule were then taken down and tagged for later repair. The hip was the n dislocated and cut in standard fashion. The labrum was then carefully removed as well as any soft tissues within the acetabulum. After this, it was slightly deepened and then sequentially reamed and the cup was placed. The cup appeared to be in good position. Attention was turned to the femur. T he stocking and box shop supervisor was used to lateralize the femur. It was then broached down to appropriate size. X-ra ys were taken which demonstrated the cup in good position as well as good fit of the femur, definitel y feels clinically that another step-up could lead to fracture and definitely felt very solid. The b colmenares was removed and a screw was placed. The x-rays were taken which demonstrated the screws a shaun le bit more posterior than I would like. Therefore, this screw was removed and replaced with another more central screw which appeared to go in appropriate position. It was then irrigated and the line r was placed. It was then trialed with a neutral which appeared to be too tight. Following this, th e 5 stem was then placed. It was then trialed with a standard which appeared to be too tight. It wa s then gradually reduced down to a -4. The -4 was relocated and appeared to have good range of motio n. It was definitely very stable with full flexion, full adduction and internal rotation to at least 45 degrees. This was selected as the final ball. The wound was copiously irrigated. The final bal l was placed. After this, the external rotators and capsule were then repaired back to the greater t rochanter using bone tunnels. After this was again irrigated, fascia closed in a watertight fashion using heavy Vicryl sutures, irrigating again and the skin was then closed using Vicryl sutures follow ed by elsa. Patient was then placed in Aquacel dressing, awakened, and taken to recovery room in good condition. No complications. SE/MODL Voice ID: [id number] Report ID: [id number]
--- OUTSIDE RECORDS SUMMARY | 2023-01-25 12:54 | XMS REPORT | Continuity of Care Document ---
:1950 Author Organization [facility] t Address [address] [facility] [facility] [place] [address] Care Team Providers Name Role Phone Alexis High DO Primary Care Physician [phone] JAMESON STONE Attending Clinician Unavailable AIMEE HARRINGTON Attending Clinician Unavailable JOE FUENTES Attending Clinician Unavailable LAB90 Attending Clinician Unavailable WANDY MARTINS Attending Clinician Unavailable COVID-PFIZER BOOSTER, BRISTOW Attending Clinician Unatiff ilable COVID-PFIZER VACC, BRISTOW Attending Clinician Unavaildillon Harrington MD, Aimee Garcia Attending Clinician [phone] Ant Attending Clinician Unavailable COVID-PFIZER VACC-2, BRISTOW Attending Clinician Master brock [facility] Attending Clinician Unavailable Chrystal Adkins Attending Clinician [phone] Kathleen Michelle I Attending Clinician Unavailable Ant Admitting Clinician Unavailable Kathleen Michelle I Admitting Clinician Unavailable Payers Payer Name Policy Type Policy Number Effective Date Expiration Date Viktoriya mccann WELLMONA TXP 7 [id number] 2021 CLASSIC NO PREMIUM 00:00:00 R2T MEDICARE B-[place]: [id number] 2016 NOVITAS SOLUTIONS 00:00:00 Problems Condition Condition Condition Status Onset Resolution Last Treating Co mments Source Name Details Category Date Date Treatment Clinician Date Primary Primary Disease Active Toya osteoarthr osteoarthr 10-27 Se ybold itis of itis of 00:00: - right knee right knee 00 Ex terna l Right hip Right hip Disease Active Michael sey pain pain 10-27 Seybold 00:00: - 00 Externa l Chronic Chronic Disease Active Toya right-side right-side 9 Se ybold d low back d low back 00:00: - pain with pain with 00 Exte rna right-side right-side l d sciatica d sciatica Right Right Disease Active 2021-02 Toya lower [...] level 00 Hypothyroi Hypothyroi Disease Active 2020-02 Krista minaya dism dism 1-10 Seybold (acquired) (acquired) 00:00: - 00 Externa l Hx of Hx of Disease Active 2020-02 Toya bariatric bariatric 1-10 Seyb old surgery surgery 00:00: - 00 Externa l Hypothyroi Hypothyroi Problem Active P rivia dism dism 20 Medical 00:00: 00 Chronic Chronic Disease Active [...] Disease Active M ethodi Ronald-en-Y Ronald-en-Y 08-16 st gastric gastric 00:00: Hospita bypass bypass 00 l History of History of Disease [...] ents Source Name Type Date Date Clinician Gabapent Propensi Active Nausea and 2022-02 Ke lindaey in ty to Vomiting 0-30 Seybold adverse 00:00: - reaction 00 Externa s l Penicill Propensi Active Toya amine ty to 4-19 Seybold adverse 00:00: reaction 00 s Penicill Propensi Active Toya amine ty to 4-19 Seybold adverse 00:00: - reaction 00 Externa s l Hydromor Propensi Active Other Toya phone-Bu ty to 3-13 reaction( Seybo ld pivacain adverse 00:00: s): - e-Nacl reaction 00 Shortness Exter na s of breath l hydromor DA Active [facility] phone 3-13 Clear 00:00: Caicedo 00 [facility] Hydromor Propensi Active Toya phone ty to [...] [facility] ins 1-23 Clear 00:00: Caicedo 00 [facility] meperidi DA Active [facility] ne 1-23 Clear 00:00: Caicedo 00 [facility] "ALL DA Active [facility] NARCOTIC 1-22 [facility] S" 00:[facility]: e [facility] Demerol Allergy Active [facility] Dilaudid Allergy Active [facility] Penicill Allergy Active [facility] amine to Medical sub[facility] Family History Family Member Diagnosis Comments Start Date Stop Date Source Natural [facility] Natural [facility] Social History Social Habit Start Date Stop Date Quantity Comments Source History SDOH [facility] Gender identity [facility] History SD[facility] History of tobacco Cigarette Smoker Toya Santos - use External Exposure to Not sure Toya casarez SARS-CoV-2 (event) [facility] Tobacco use and 2022-12-24 2022-12-24 Smokeless Toya mejia - exposure 00:00:00 00:00:00 tobacco non-user External History of Social 2018-10-08 2018-10-[address] function 00:00:00 00:00:00 Hospital Alcohol intake 2018-09-27 2018-09-27 Current [facility] 00:00:00 00:00:00 non-drinker of Hospital alcohol (finding) History SDOH 2018-07-04 2018-07-04 1 [facility] Alcohol Frequency 00:00:00 00:00:00 Hospita l Cigarettes smoked 2017-04-04 2017-04-[address] current (pack per 00:00:00 00:00:00 Hospita l day) - Reported Cigarette 2017-04-04 2017-04-04 [facility] pack-years 00:00:00 00:00:00 Hospital Sex Ass[birth year] At [birth year] [facility] 00:[facility] 00:[facility]00 Hospital Smoking Status Start Date Stop Date Source Former Smoker Nimesh Pina Smokes tobacco daily 2022-12-24 00:00:00 Toya Seybold - External Medications Ordered Filled Start Stop Current Ordering Indication Dosage Frequency Signature Comments Components Source Medication Medication Date Date Medication? Clinician (SIG) Name Name Multiple 2022-02 Yes 1{tbl} Take 1 Kelse y Vitamins-Mi 1-03 tablet by Simin starks 09:40: mouth - (Multi-Indy 08 daily Externa min/Mineral (before l s) oral lunch). Tablet Promethazin 2022-02 Yes [id number] 25mg Q.25D Take 1 Toya e HCl 0-30 tablet (25 Seybold (PHENERGAN) 00:00: mg total) - 25 MG oral 00 by mouth Exter na Tablet every 6 l hours as needed for nausea. Rosuvastati 2022-02 Yes 10mg Take 1 Antonia ey n Calcium 0-14 tablet (10 Seyb old 10 MG oral 00:00: mg total) - Tablet 00 by mouth Externa daily. l Tramadol 2022- No Toya HCl - 11-03 Seybold (ULTRAM) 50 00:00: 00:00 - MG oral 00 :00 Externa Tablet l Multiple Yes 1{tbl} Take 1 Kelse y Vitamins-Mi 9-06 tablet by Simin busby nerals 11:29: mouth - (Multi-Indy 48 daily Externa min/Mineral (before l s) oral lunch). Tablet Gabapentin Yes [id number] 100mg Q.5D Take 1 Toya 100 MG oral 10-27 capsule Seybo ld Capsule 00:00: (100 mg - 00 total) by Externa mouth 2 l times daily as needed. Gabapentin 0 2022- No [id number] 100mg Q.5D Take 1 Toya 100 MG oral 10-27- capsule Seyb old Capsule 00:00: 00:00 (100 mg - 00 :00 total) by Externa mouth 2 l times daily as needed. Azithromyci 2022- No Kelse y n 250 MG 7-18 10-27 Seybold oral Tablet 00:00: 00:00 - 00 :00 Externa l Famotidine 0 Yes [id number] TAKE ONE Toya (PEPCID) 20 6-27 TABLET BY Sey bold MG oral 00:00: MOUTH - tablet 00 TWICE A Externa DAY l Famotidine 2022-0 Yes [id number] TAKE ONE Toya (PEPCID) 20 6-27 TABLET BY Sey bold MG oral 00:00: MOUTH - tablet 00 TWICE A Externa DAY l Rosuvastati 2022- No [id number] TAKE ONE Toya n Calcium 4-07 10-27 TABLET BY Seyb old 10 MG oral 00:00: 00:00 MOUTH - Tablet 00 :00 DAILY Externa l Ketorolac 2022-0 2022- No [id number] 30mg Ke lsey Tromethamin 05-11- Seybold e (TORADOL) 19:45: 20:07 - 30 mg/mL 00 :00 Externa l Ketorolac 2022-0 2022- No [id number] 30mg 30 mg, Toya Tromethamin 05-11- intramuscu S eybold e (TORADOL) 19:45: 20:07 lar, ONCE, - 30 mg/mL 00 :00 On Tue Externa 05/11/22 at l 1445, For 1 dose Multiple 2022-0 Yes 1{tbl} Take 1 Kelse y Vitamins-Mi -21 tablet by Sey bold nerals 14:16: mouth - (Multi-Indy 15 daily Externa min/Mineral (before l s) oral lunch) Tablet Ondansetron 0 Yes [id number] 4mg Q.[id number] Take 1 Toya (ZOFRAN) 4 3-21 [id number] tablet (4 Seybold MG oral 00:00: 3D mg total) - TABLET 00 by mouth Externa DISPERSIBLE every 8 l hours as needed for nausea Ondansetron 2022-0 Yes [id number] 4mg Q.[id number] Take 1 Toya (ZOFRAN) 4 3-21 [id number] tablet (4 Seybold MG oral 00:00: 3D mg total) - TABLET 00 by mouth Externa DISPERSIBLE every 8 l hours as needed for nausea Ondansetron 0 Yes [id number] 4mg Q.[id number] Take 1 Toya (ZOFRAN) 4 3-21 [id number] tablet (4 Seybold MG oral 00:00: 3D mg total) - TABLET 00 by mouth Externa DISPERSIBLE every 8 l hours as needed for nausea Azithromyci 0 2022- No [id number] Take 2 Toya n 250 MG 1-10 -16 tablets by Seyb old oral Tablet 00:00: 05:59 mouth on - 00 :00 day 1 then Externa 1 tablet l by mouth daily for 4 days thereafter . Famotidine 2021-02 Yes [id number] 20mg Take 1 Toya (PEPCID) 20 2-22 tablet (20 Se ybold MG oral 00:00: mg total) - tablet 00 by mouth 2 Externa times l daily Famotidine 2021-02 Yes [id number] 20mg Take 1 Toya (PEPCID) 20 2-22 tablet (20 Se ybold MG oral 00:00: mg total) - tablet 00 by mouth 2 Externa times l daily Levothyroxi 2021-02 Yes [id number] TAKE ONE Toya ne Sodium 2-06 TABLET BY Seybo ld 50 MCG oral 00:00: MOUTH - Tablet 00 EVERY Externa MORNING l Levothyroxi 2021-02 Yes [id number] TAKE ONE Toya ne Sodium 2-06 TABLET BY Seybo ld 50 MCG oral 00:00: MOUTH - Tablet 00 EVERY Externa MORNING l Levothyroxi 2021-02 Yes [id number] TAKE ONE Toya ne Sodium 2-06 TABLET BY Seybo ld 50 MCG oral 00:00: MOUTH - Tablet 00 EVERY Externa MORNING l Levothyroxi 2021-02 Yes [id number] TAKE ONE Toya ne Sodium 2-06 TABLET BY Seybo ld 50 MCG oral 00:00: MOUTH - Tablet 00 EVERY Externa MORNING l Multiple 2021-02 Yes 1{tbl} Take 1 Kelse y Vitamins-Mi 0-20 tablet by Simin busby nerapolinar 13:41: mouth - (Multi-Indy 32 daily Externa min/Mineral (before l s) oral lunch) Tablet Rosuvastati 2021-02 Yes [id number] 10mg Take 1 Toya n Calcium 0-04 tablet (10 Seyb old 10 MG oral 00:00: mg total) - Tablet 00 by mouth Externa daily l Rosuvastati 2021-02 Yes [id number] 10mg Take 1 Toya n Calcium 0-04 tablet (10 Seyb old 10 MG oral 00:00: mg total) - Tablet 00 by mouth Externa daily l Multiple 2021-02 Yes 1{tbl} Take 1 Kelse y Vitamins-Mi 0-03 tablet by Simin busby nerapolinar 08:39: mouth - (Multi-Indy 28 daily Externa min/Mineral (before l s) oral lunch) Tablet Famotidine 2021-02 Yes [id number] 20mg Take 1 Toya (PEPCID) 20 0-03 tablet (20 Se ybold MG oral 00:00: mg total) - tablet 00 by mouth 2 Externa times l daily Vitamin D, Yes [id number] TAKE ONE Toya Ergocalcife 7-13 CAPSULE BY Se jackie hodge, 1.25 00:00: MOUTH ONCE - MG ( WEEKLY Externa UT) oral l Capsule Vitamin D, Yes [id number] TAKE ONE Toya Ergocalcife 7-13 CAPSULE BY Se jackie hodge, 1.25 00:00: MOUTH ONCE - MG ( WEEKLY Externa UT) oral l Capsule Vitamin D, Yes [id number] TAKE ONE Toya Ergocalcife 7-13 CAPSULE BY Se jackie hodge, 1.25 00:00: MOUTH ONCE - MG ( WEEKLY Externa UT) oral l Capsule Vitamin D, Yes [id number] TAKE ONE Toya Ergocalcife 7-13 CAPSULE BY Se parrapatricia hodge, 1.25 00:00: MOUTH ONCE - MG ( WEEKLY Externa UT) oral l Capsule Vitamin D, Yes [id number] TAKE ONE Toya Ergocalcife 7-13 CAPSULE BY Se parrapatricia hodge, 1.25 00:00: MOUTH ONCE - MG ( WEEKLY Externa UT) oral l Capsule Multiple Yes 1{tbl} Take 1 Kelse y Vitamins-Mi 4-19 tablet by Simin busby nerapolinar 08:21: mouth (Multi-Indy 58 daily min/Mineral (before s) oral lunch) Tablet Sucralfate Yes 1g Take 1 g Michael sey 1 g oral 4-10 by mouth Seybold Tablet 00:00: at bedtime 00 Sucralfate 2021-0 2021- No 1g Take 1 g Ke lsey 1 g oral 4-10 10-03 by mouth Seybol d Tablet 00:00: 00:00 at bedtime - 00 :00 Externa l Omeprazole 0 Yes 1{capsu Take 1 Ke lsey 20 MG oral 4-06 le} capsule by jada busby Delayed 00:00: mouth Release 00 daily Capsule Omeprazole 2021-0 2021- No 1{capsu Take 1 K elsey 20 MG oral 4-06 10- le} capsule by Se parrapatricia Delayed 00:00: 00:00 mouth - Release 00 :00 daily Externa Capsule l Multiple 2020-02 Yes 1{tbl} Take 1 Kelse y Vitamins-Mi 2-01 tablet by Simin busby nerapolinar 09:39: mouth (Multi-Indy 47 daily min/Mineral (before s) oral lunch) Tablet Levothyroxi 2020-02 Yes [id number] 50ug Take 1 Toya ne Sodium 2-01 tablet (50 Seyb old 50 MCG oral 00:00: mcg total) - Tablet 00 by mouth Externa every l morning Levothyroxi 2020-02 Yes [id number] 50ug Take 1 Toya ne Sodium 2-01 tablet (50 Seyb old 50 MCG oral 00:00: mcg total) Tablet 00 by mouth every morning Levothyroxi 2020-02 Yes [id number] 50ug Take 1 Toya ne Sodium 2-01 tablet (50 Seyb old 50 MCG oral 00:00: mcg total) Tablet 00 by mouth every morning Levothyroxi 2020-02- No 50ug Take 50 Ke lindaey ne Sodium 1-10 11-10 mcg by Seybold 50 MCG oral 08:40: 00:00 mouth Tablet 15 :00 every morning Multiple 2020-02 Yes 1{tbl} Take 1 Kelse y Vitamins-Mi 1-10 tablet by Sey bold nerals 08:03: mouth (Multi-Indy 37 daily min/Mineral (before s) oral lunch) Tablet Levothyroxi 2020-02 Yes [id number] 50ug Take 1 Toya ne Sodium 1-10 tablet (50 Seyb old 50 MCG oral 00:00: mcg total) Tablet 00 by mouth every morning Levothyroxi 2020-02- No [id number] 50ug Take 1 Toya ne Sodium 1-10 12-01 tablet (50 Sey bold 50 MCG oral 00:00: 00:00 mcg total) Tablet 00 :00 by mouth every morning multivitami 2019- Yes 1{tbl} QD Take 1 Me thodi n with 5-[address] minerals 08:29: mouth Hospita tablet 09 daily l before lunch. levothyroxi 2019-0 Yes 50ug QD Take 50 Met hodi ne 5-[address] (SYNTHROID, 08:29: mouth Hospi ta LEVOXYL) 50 09 every l mcg tablet morning. cholecalcif 2019-0 Yes [id number] QD Take Meth samantha nikhil 5-14 10,000 st (VITAMIN 08:29: Units by Hospi ta D3) 10,000 09 mouth l unit daily capsule before lunch. promethazin 2019-0 Yes 25mg Q6H Take 25 mg [facility] 5-[address] (PHENERGAN) 08:29: every 6 Hos aide 25 MG 09 (six) l tablet hours as needed for nausea or vomiting. ergocalcife 2019-0 Yes [id number] Q7D Take Meth samantha rol 5-14 50,000 [...] l mcg tablet morning. cholecalcif 2019-0 Yes [id number] QD Take Meth samantha nikhil 5-14 10,000 st (VITAMIN 08:29: Units by Hospi ta D3) 10,000 09 mouth l unit daily capsule before lunch. promethazin 2019-0 Yes 25mg Q6H Take 25 mg [facility] 5-[address] (PHENERGAN) 08:29: every 6 Hos aide 25 MG 09 (six) l tablet hours as needed for nausea or vomiting. ergocalcife 2019-0 Yes [id number] Q7D Take Meth samantha rol 5-14 50,000 [...] l mcg tablet morning. cholecalcif 2019-0 Yes [id number] QD Take Meth samantha nikhil 5-14 10,000 st (VITAMIN 08:29: Units by Hospi ta D3) 10,000 09 mouth l unit daily capsule before lunch. promethazin 2019-0 Yes 25mg Q6H Take 25 mg [facility] 5-[address] (PHENERGAN) 08:29: every 6 Hos aide 25 MG 09 (six) l tablet hours as needed for nausea or vomiting. ergocalcife 2019-0 Yes [id number] Q7D Take Meth samantha rol 5-14 50,000 [...] l mcg tablet morning. cholecalcif 2019-0 Yes [id number] QD Take Meth samantha nikhil 5-14 10,000 st (VITAMIN 08:29: Units by Hospi ta D3) 10,000 09 mouth l unit daily capsule before lunch. promethazin 2019-0 Yes 25mg Q6H Take 25 mg [facility] 5-[address] (PHENERGAN) 08:29: every 6 Hos aide 25 MG 09 (six) l tablet hours as needed for nausea or vomiting. ergocalcife 2019-0 Yes [id number] Q7D Take Meth samantha rol 5-14 50,000 [...] l mcg tablet morning. cholecalcif 2019-0 Yes [id number] QD Take Meth samantha nikhil 5-14 10,000 st (VITAMIN 08:29: Units by Hospi ta D3) 10,000 09 mouth l unit daily capsule before lunch. promethazin 2019-0 Yes 25mg Q6H Take 25 mg [facility] 5-[address] (PHENERGAN) 08:29: every 6 Hos aide 25 MG 09 (six) l tablet hours as needed for nausea or vomiting. ergocalcife 2019-0 Yes [id number] Q7D Take Meth samantha rol 5-14 50,000 [...] l mcg tablet morning. cholecalcif 2019-0 Yes [id number] QD Take Meth samantha nikhil 5-14 10,000 st (VITAMIN 08:29: Units by Hospi ta D3) 10,000 09 mouth l unit daily capsule before lunch. promethazin 2019-0 Yes 25mg Q6H Take 25 mg [facility] 5-[address] (PHENERGAN) 08:29: every 6 Hos aide 25 MG 09 (six) l tablet hours as needed for nausea or vomiting. ergocalcife 2019-0 Yes [id number] Q7D Take Meth samantha rol 5-14 50,000 [...] 50 09 every l mcg tablet morning. multivitami 2019-0 Yes 1{tbl} QD Take 1 Me thodi n with 5-[address] minerals 08:29: mouth Hospita tablet 09 daily l before lunch. levothyroxi 2019-0 Yes 50ug QD Take 50 Met hodi ne 5-[address] (SYNTHROID, 08:29: mouth Hospi ta LEVOXYL) 50 09 every l mcg tablet morning. cholecalcif 2019-0 Yes [id number] QD Take Meth samantha nikhil 5-14 10,000 st (VITAMIN 08:29: Units by Hospi ta D3) 10,000 09 mouth l unit daily capsule before lunch. promethazin 2019-0 Yes 25mg Q6H Take 25 mg [facility] 5-[address] (PHENERGAN) 08:29: every 6 Hos aide 25 MG 09 (six) l tablet hours as needed for nausea or vomiting. ergocalcife 2019-0 Yes [id number] Q7D Take Meth samantha rol 5-14 50,000 st (VITAMIN 08:29: Units by Hospi ta D2) 50,000 09 mouth once l unit a week. capsule cholecalcif 2019-0 Yes [id number] QD Take Meth samantha nikhil 5-14 10,000 st (VITAMIN 08:29: Units by Hospi ta D3) 10,000 09 mouth l unit daily capsule before lunch. ferrous 2019-0 Yes 325mg QD Take 325 Metho di sulfate 325 5-[address] (65 FE) MG 08:29: mouth Hospit a tablet 09 daily with l breakfast. promethazin 2019-0 Yes 25mg Q6H Take 25 mg [facility] 5-[address] (PHENERGAN) 08:29: every 6 Hos aide 25 MG 09 (six) l tablet hours as needed for nausea or vomiting. ergocalcife 2019-0 Yes [id number] Q7D Take Meth samantha rol 5-14 50,000 [...] tablet 09 daily l before lunch. levothyroxi 2018- Yes 50ug QD Take 50 Met hodi ne 5-[address] (SYNTHROID, 08:29: mouth Hospi ta LEVOXYL) 50 09 every l mcg tablet morning. cholecalcif 2019- Yes [id number] QD Take Meth samantha nikhil 5-14 10,000 st (VITAMIN 08:29: Units by Hospi ta D3) 10,000 09 mouth l unit daily capsule before lunch. promethazin Yes 25mg Q6H Take 25 mg [facility] 5-[address] (PHENERGAN) 08:29: every 6 Hos aide 25 MG 09 (six) l tablet hours as needed for nausea or vomiting. ergocalcife Yes [id number] Q7D Take Meth samantha rol 5-14 50,000 [...] vomiting for up to 10 doses. ondansetron 2017- Yes 4mg Q8H Take 1 Meth samantha (ZOFRAN) 4 2-29 tablet (4 st MG tablet 00:00: mg total) Hos aide 00 by mouth l every 8 (eight) hours as needed for nausea or vomiting for up to 10 doses. ondansetron 2017- Yes 4mg Q8H Take 1 Meth samantha [...] cyanocobala 2018-[address] Met hodi min, 5-29 1,[address] vitamin 00:00: under the [facility] ta tongue l (VITAMIN daily. B-12) 1,000 mcg tablet, sublingual cyanocobala 2018-[address] Met hodi min, 5-29 1,[address] vitamin 00:00: under the [facility] ta tongue l (VITAMIN daily. B-12) 1,000 mcg tablet, sublingual cyanocobala 2018-[address] Met hodi min, 5-29 1,[address] vitamin 00:00: under the [facility] ta tongue l (VITAMIN daily. B-12) 1,000 mcg tablet, sublingual cyanocobala 2018-[address] Met hodi min, 5-29 1,[address] vitamin 00:00: under the [facility] ta B tongue l (VITAMIN daily. B-12) 1,000 mcg tablet, sublingual cyanocobala 2018-[address] Met hodi min, 5-29 1,[address] vitamin 00:00: under the [facility] ta tongue l (VITAMIN daily. B-12) 1,000 mcg tablet, sublingual cyanocobala 2018-[address] Met hodi min, 5-29 1,[address] vitamin 00:00: under the [facility] ta tongue l (VITAMIN daily. B-12) 1,000 mcg tablet, sublingual cyanocobala 2018-[address] Met [facility] 07-19 1,[address] vitamin 00:00: under the [facility] tongue l (VITAMIN daily. B-12) 1,000 mcg tablet, sublingual cyanocobala 2018-[address] Met [facility] 07-19 1,[address] vitamin 00:00: under the [facility] ta tongue l (VITAMIN daily. B-12) 1,000 mcg tablet, sublingual cyanocobala 2018-[address] Met [facility] 07-19 1,[address] vitamin 00:00: under the [facility] tongue l (VITAMIN daily. B-12) 1,000 mcg tablet, sublingual ergocalcife ergocalcife No ergocalcif [facility] (vitamin (vitamin (vitamin D2) D2) D2) levothyroxi levothyroxi No 1 Q1D levothyrox [facility] ne 50 mcg ne 50 mcg ine 50 mcg Medical tablet Take tablet Take tablet 1 tablet 1 tablet Take 1 every day every day tablet by oral by oral every day route. route. by oral route. Immunizations Ordered Filled Immunization Date Status Comments [facility] e Immunization Name Name Influenza Virus 2021-11-23 Completed Toya Garay ybold Vaccine, 00:00:00 - External Quadrivalent, High Dose, Age 65 And Up Influenza Virus 2021-11-23 Completed Toya Garay ybold Vaccine, 00:00:00 - External Quadrivalent, High Dose, Age 65 And Up Influenza Virus 2021-11-23 Completed Toya Garay ybold Vaccine, 00:00:00 - External Quadrivalent, High Dose, Age 65 And Up Influenza Virus 2021-11-23 Completed Toya Garay ybold Vaccine, 00:00:00 - External Quadrivalent, High Dose, Age 65 And Up COVID-19 VACCINE 2021-06-09 Completed Toya Sadler [employer] Wintegra 12+ ([place] 00:00:00 - 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) COVID-19 VACCINE 2021-06-09 Completed Toya Sadler [employer] PFIZER 12+ ([place] 00:00:00 - 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) COVID-19 VACCINE 2021-06-09 Completed Toya alvaradobold PFIZER 12+ ([place] 00:00:00 - 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) COVID-19 VACCINE 2021-06-09 Completed Toya S eybold PFIZER 12+ ([place] 00:00:00 - 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) COVID-19 VACCINE 2021-06-09 Completed Toya Viktoriya alvaradobold PFIZER 12+ ([place] 00:00:00 cap) Covid-19 Vaccine 2021-01-21 Completed Toya alvaradobold ([employer]), Mrna-lnp, 00:00:00 - Ext ernal Osmar Protein, Pf, 30mcg/0.3ml,IM Covid-19 Vaccine 2021-01-21 Completed Toya alvaradobold ([employer]), Mrna-lnp, 00:00:00 - Ext ernal Osmar Protein, Pf, 30mcg/0.3ml,IM Covid-19 Vaccine 2021-01-21 Completed Toya alvaradobold ([employer]), Mrna-lnp, 00:00:00 - Ext ernal Osmar Protein, Pf, 30mcg/0.3ml,IM Covid-19 Vaccine 2021-01-21 Completed Toya alvaradobold ([employer]), Mrna-lnp, 00:00:00 - Ext ernal Osmar Protein, Pf, 30mcg/0.3ml,IM Covid-19 Vaccine 2021-01-21 Completed Toya alvaradobold ([employer]), Mrna-lnp, 00:00:00 Osmar Protein, Pf, 30mcg/0.3ml,IM Covid-19 Vaccine 2021-01-21 Completed Toya alvaradobold ([employer]), Mrna-lnp, 00:00:00 Osmar Protein, Pf, 30mcg/0.3ml,IM Influenza Virus 2020-12-31 Completed Toya mejia Vaccine, 00:00:00 - External Quadrivalent, High Dose, Age 65 And Up Covid-19 Vaccine 2020-12-31 Completed Toya alvaradobold ([employer]), Mrna-lnp, 00:00:00 - Ext ernal Osmar Protein, Pf, 30mcg/0.3ml,IM Influenza Virus 2020-12-31 Completed Toya Se ybold Vaccine, 00:00:00 - External Quadrivalent, High Dose, Age 65 And Up Covid-19 Vaccine 2020-12-31 Completed Toya S eybold ([employer]), Mrna-lnp, 00:00:00 - Ext ernal Osmar Protein, Pf, 30mcg/0.3ml,IM Influenza Virus 2020-12-31 Completed Toya Se ybold Vaccine, 00:00:00 - External Quadrivalent, High Dose, Age 65 And Up Covid-19 Vaccine 2020-12-31 Completed Toya S eybold ([employer]), Mrna-lnp, 00:00:00 - Ext ernal Osmar Protein, Pf, 30mcg/0.3ml,IM Influenza Virus 2020-12-31 Completed Toya Se ybold Vaccine, 00:00:00 - External Quadrivalent, High Dose, Age 65 And Up Covid-19 Vaccine 2020-12-31 Completed Toya S eybold ([employer]), Mrna-lnp, 00:00:00 - Ext ernal Osmar Protein, Pf, 30mcg/0.3ml,IM Influenza Virus 2020-12-31 Completed Toya Se ybold Vaccine, 00:00:00 Quadrivalent, High Dose, Age 65 And Up Covid-19 Vaccine 2020-12-31 Completed Toya S eybold ([employer]), Mrna-lnp, 00:00:00 Osmar Protein, Pf, 30mcg/0.3ml,IM Influenza Virus 2020-12-31 Completed Toya Se ybold Vaccine, 00:00:00 Quadrivalent, High Dose, Age 65 And Up Covid-19 Vaccine 2020-12-31 Completed Toya S eybold ([employer]), Mrna-lnp, 00:00:00 Osmar Protein, Pf, 30mcg/0.3ml,IM Influenza Virus 2020-12-31 Completed Toya Se ybold Vaccine, 00:00:00 Quadrivalent, High Dose, Age 65 And Up Covid-19 Vaccine 2020-12-31 Completed Toya S eybold ([employer]), Mrna-lnp, 00:00:00 Osmar Protein, Pf, 30mcg/0.3ml,IM Influenza Virus Unknown Completed Toya Se ybold Vaccine, - External Quadrivalent, High Dose, Age 65 And Up Covid-19 Vaccine Unknown Completed Toya delgadillold ([employer]), Mrna-lnp, - Ext ernal Osmar Protein, Pf, 30mcg/0.3ml,IM Covid-19 Vaccine Unknown Completed Toya alvaradobold ([employer]), Mrna-lnp, - Ext ernal Osmar Protein, Pf, 30mcg/0.3ml,IM COVID-19 VACCINE Unknown Completed Toya albert Wintegra 12+ ([employer] - 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) Influenza Virus Unknown Completed Toya Garay ybpatricia Vaccine, - External Quadrivalent, High Dose, Age 65 And Up Influenza vaccine, Unknown Completed Toya Santos quadrivalent, - External adjuvanted, 65+ Vital Signs Vital Name Observation Time Observation Value Comments Source Systolic blood 2022-12-24 14:33:00 130 mm[Hg] Toya Garayybold - pressure External Diastolic blood 2022-12-24 14:33:00 72 mm[Hg] Jona elias Seybold - pressure External Heart rate 2022-12-24 14:33:00 76 /min Toya alvaradobold - External Body temperature 2022-12-24 14:33:00 37 Opal Antonia alvarado Seybold - External Respiratory rate 2022-12-24 14:33:00 15 /min Antonia alvarado Seybold - External Body height 2022-12-24 14:33:00 170.2 cm Toya alvaradobotanisha - External Body weight 2022-12-24 14:33:00 69.4 kg Toya alvaradobotanisha - External BMI 2022-12-24 14:33:00 23.96 kg/m2 Toya alvaradobold - External Systolic blood 2022-10-27 16:27:00 148 mm[Hg] Toya Garayybold - pressure External Diastolic blood 2022-10-27 16:27:00 101 mm[Hg] Michaelse jada Seybold - pressure External Heart rate 2022-10-27 16:27:00 76 /min Toya alvaradobold - External Body temperature 2022-10-27 16:27:00 37.44 Opal Antonia ey Seybold - External Respiratory rate 2022-10-27 16:27:00 22 /min Antonia alvarado Seybold - External Body height 2022-10-27 16:27:00 170.2 cm Toya S eybold - External Body weight 2022-10-27 16:27:00 66.679 kg Toya Sadler eybold - External BMI 2022-10-27 16:27:00 23.02 kg/m2 Toya S eybold - External Systolic blood 2022-05-11 19:11:00 138 mm[Hg] Toya Seybold - pressure External Diastolic blood 2022-05-11 19:11:00 80 mm[Hg] Michaelse y Seybold - pressure External Heart rate 2022-05-11 19:11:00 69 /min Toya Sadler eybold - External Body temperature 2022-05-11 19:11:00 36.06 Opal Antonia ey Seybold - External Respiratory rate 2022-05-11 19:11:00 14 /min Antonia ey Seybold - External Body height 2022-05-11 19:11:00 170.2 cm Toya Sadler eybold - External Body weight 2022-05-11 19:11:00 66.679 kg Toya Sadler eybold - External BMI 2022-05-11 19:11:00 23.02 kg/m2 Toya Sadler eybold - External Systolic blood 2022-03-02 14:02:00 142 mm[Hg] Toya Seybold - pressure External Diastolic blood 2022-03-02 14:02:00 86 mm[Hg] Jona y Seybold - pressure External Heart rate 2022-03-02 14:02:00 69 /min Toya Salder eybold - External Body temperature 2022-03-02 14:02:00 36.44 Opal Antonia ey Seybold - External Respiratory rate 2022-03-02 14:02:00 14 /min Antonia ey Seybold - External Body height 2022-03-02 14:02:00 170.2 cm Toya Sadler eybold - External Body weight 2022-03-02 14:02:00 66.679 kg Toya S eybold - External BMI 2022-03-02 14:02:00 23.02 kg/m2 Toya Sadler eybold - External Oxygen saturation in 2022-03-02 14:02:00 99 /min Toya Santos - Arterial blood by External Pulse oximetry [...] Body weight 2021-11-23 13:34:00 68.947 kg Toya S eybold - External BMI 2021-11-23 13:34:00 23.81 [...] Body height 2021-01-21 15:33:00 170.2 cm Toya Sadler eybold Body weight 2021-01-21 15:33:00 66.225 kg Toya Sadler eybold BMI 2021-01-21 15:33:00 22.87 kg/m2 Toya S eybold Systolic blood 2020-12-31 14:00:00 138 mm[Hg] Toya Seybold pressure Diastolic blood 2020-12-31 14:00:00 72 mm[Hg] Kelse y Seybold pressure Heart rate 2020-12-31 14:00:00 67 /min Toya Sadler eybold Body temperature 2020-12-31 14:00:00 36.61 Opal [...] Planned Date Details Comments Source Future Scheduled 2023-01-21 [facility] Test 09:55:20 malignant neoplasm of colon (procedure) [code = 116896275] Future Scheduled 2023-01-21 [facility] 09:55:20 malignant neoplasm of colon (procedure) [code = 387145997] Future Scheduled 2023-01-21 [facility] Test 09:55:20 malignant neoplasm of colon (procedure) [code = 982597741] Future Scheduled 2023-01-21 COVID-19 VACCINE (#1) [facility] Test 09:55:20 [code = COVID-19 VACCINE (#1)] Future Scheduled 2023-01-21 BREAST CANCER [facility] Test 09:55:20 SCREENING [code = BREAST CANCER SCREENING] Future Scheduled 2023-01-21 [facility] Test 09:55:20 malignant neoplasm of colon (procedure) [code = 265885325] Future Scheduled 2023-01-21 [facility] Test 09:55:20 malignant neoplasm of colon (procedure) [code = 047340743] Future Scheduled 2023-01-21 SHINGLES VACCINES (1 [facility] Test 09:55:20 of 2) [code = SHINGLES VACCINES (1 of 2)] Future Scheduled 2023-01-21 65+ [facility] 09:55:20 VACCINE (1 - PCV) [code = 65+ PNEUMOCOCCAL VACCINE (1 - PCV)] Future Scheduled 2023-01-21 INFLUENZA VACCINE [facility] Test 09:55:20 (#1) [code = INFLUENZA VACCINE (#1)] Future Scheduled 2022-10-28 [facility] 09:49:19 malignant neoplasm of colon (procedure) [code = 141304100] Future Scheduled 2022-10-28 [facility] Test 09:49:19 malignant neoplasm of colon (procedure) [code = 338132854] Future Scheduled 2022-10-[address] [facility] Test 09:49:19 malignant neoplasm of colon (procedure) [code = 702122303] Future Scheduled 2022-10-28 COVID-19 VACCINE (#1) [facility] Test 09:49:19 [code = COVID-19 VACCINE (#1)] Future Scheduled 2022-10-28 [facility] Test 09:49:19 SCREENING [code = BREAST CANCER SCREENING] Future Scheduled 2022-10-28 [facility] Test 09:49:19 malignant neoplasm of colon (procedure) [code = 289958466] Future Scheduled 2022-10-28 [facility] Test 09:49:19 malignant neoplasm of colon (procedure) [code = 136451790] Future Scheduled 2022-10-28 SHINGLES VACCINES (1 [facility] Test 09:49:19 of 2) [code = SHINGLES VACCINES (1 of 2)] Future Scheduled 2022-10-28 65+ [facility]AL [facility] 09:49:19 VACCINE (1 - PCV) [code = 65+ PNEUMOCOCCAL VACCINE (1 - PCV)] Future Scheduled 2022-10-28 [facility]INE [facility] 09:49:19 (#1) [code = INFLUENZA VACCINE (#1)] Future Scheduled 2022-05-26 COVID-19 VACCINE (#1) [facility] Test 08:10:43 [code = COVID-19 VACCINE (#1)] Future Scheduled 2022-05-26 BREAST CANCER [facility] Test 08:10:43 SCREENING [code = BREAST CANCER SCREENING] Future Scheduled 2022-05-26 COLONOSCOPY SCREENING [facility] Test 08:10:43 [code = COLONOSCOPY SCREENING] Future Scheduled 2022-05-26 SHINGLES VACCINES (1 [facility] Test 08:10:43 of 2) [code = SHINGLES VACCINES (1 of 2)] Future Scheduled 2022-05-26 65+ [facility]AL [facility] 08:10:43 VACCINE (1 - PCV) [code = 65+ PNEUMOCOCCAL VACCINE (1 - PCV)] Future Scheduled 2022-05-26 INFLUENZA VACCINE [facility] Test 08:10:43 [code = INFLUENZA VACCINE] Future Scheduled 2022-05-03 COLONOSCOPY SCREENING [facility] Test 10:08:16 [code = COLONOSCOPY SCREENING] Future Scheduled 2022-05-03 SHINGLES VACCINES (1 [facility] Test 10:08:16 of 2) [code = SHINGLES VACCINES (1 of 2)] Future Scheduled 2022-05-03 65+ [facility]CCAL [facility] 10:08:16 VACCINE (1 - PCV) [code = 65+ PNEUMOCOCCAL VACCINE (1 - PCV)] Future Scheduled 2022-05-03 INFLUENZA VACCINE [facility] Test 10:08:16 [code = INFLUENZA VACCINE] Future Scheduled 2022-05-03 COVID-19 VACCINE (#1) [facility] Test 10:08:16 [code = COVID-19 VACCINE (#1)] Future Scheduled 2022-05-03 BRE[facility] CANCER [facility] Test 10:08:16 SCREENING [code = BREAST CANCER SCREENING] Future Scheduled 2022-05-03 COLONOSCOPY SCREENING [facility] Test 10:08:16 [code = COLONOSCOPY SCREENING] Future Scheduled 2022-05-03 SHINGLES VACCINES (1 [facility] Test 10:08:16 of 2) [code = SHINGLES VACCINES (1 of 2)] Future Scheduled 2022-05-03 65+ [facility] 10:08:16 VACCINE (1 - PCV) [code = 65+ PNEUMOCOCCAL VACCINE (1 - PCV)] Future Scheduled 2022-05-03 INFLUENZA VACCINE [facility] Test 10:08:16 [code = INFLUENZA VACCINE] Future Scheduled 2022-05-03 COVID-19 VACCINE (#1) [facility] Test 10:08:16 [code = COVID-19 VACCINE (#1)] Future Scheduled 2022-05-[address] [facility] Test 10:08:16 SCREENING [code = BREAST CANCER SCREENING] Future Scheduled 2022-04-26 COVID-19 VACCINE (#1) [facility] Test 14:59:45 [code = COVID-19 VACCINE (#1)] Future Scheduled 2022-04-[address] [facility] Test 14:59:45 SCREENING [code = BREAST CANCER SCREENING] Future Scheduled 2022-04-26 COLONOSCOPY SCREENING [facility] Test 14:59:45 [code = COLONOSCOPY SCREENING] Future Scheduled 2022-04-26 SHINGLES VACCINES (1 [facility] Test 14:59:45 of 2) [code = SHINGLES VACCINES (1 of 2)] Future Scheduled 2022-04-26 65+ [facility] 14:59:45 VACCINE (1 - PCV) [code = 65+ PNEUMOCOCCAL VACCINE (1 - PCV)] Future Scheduled 2022-04-26 INFLUENZA VACCINE [facility] Test 14:59:45 [code = INFLUENZA VACCINE] Future Scheduled 2021-12-10 HEPATITIS B VACCINES [facility] Test 11:44:59 (1 of 3 - 3-dose series) [code = HEPATITIS B VACCINES (1 of 3 - 3-dose series)] Future Scheduled 2021-12-10 COVID-19 VACCINE (#1) [facility] Test 11:44:59 [code = COVID-19 VACCINE (#1)] Future Scheduled 2021-12-[address] [facility] Test 11:44:59 SCREENING [code = BREAST CANCER SCREENING] Future Scheduled 2021-12-10 [facility] 11:44:59 [code = COLONOSCOPY SCREENING] Future Scheduled 2021-12-10 SHINGLES VACCINES (1 [facility] Test 11:44:59 of 2) [code = SHINGLES VACCINES (1 of 2)] Future Scheduled 2021-12-10 65+ [facility]OCCAL [facility] 11:44:59 VACCINE (1 - PCV) [code = 65+ PNEUMOCOCCAL VACCINE (1 - PCV)] Future Scheduled 2021-12-10 [facility]INE [facility] 11:44:59 [code = INFLUENZA VACCINE] Future Scheduled 2021-10-21 COVID-19 VACCINE (#[facility] 06:18:04 [code = COVID-19 VACCINE (#1)] Future Scheduled 2021-10-21 Hepatitis C screening [facility] Test 06:18:04 (procedure) [code = 289808890] Future Scheduled 2021-10-21 [facility] Test 06:18:04 SCREENING [code = BREAST CANCER SCREENING] Future Scheduled 2021-10-21 COLONOSCOPY SCREENING [facility] Test 06:18:04 [code = COLONOSCOPY SCREENING] Future Scheduled 2021-10-21 SHINGLES VACCINES (1 [facility] Test 06:18:04 of 2) [code = SHINGLES VACCINES (1 of 2)] Future Scheduled 2021-10-21 HEPATITIS B VACCINES [facility] Test 06:18:04 (1 of 3 - Risk 3-dose series) [code = HEPATITIS B VACCINES (1 of 3 - Risk 3-dose series)] Future Scheduled 2021-10-21 65+ [facility]OCOCCAL [facility] 06:18:04 VACCINE (1 - PCV) [code = 65+ PNEUMOCOCCAL VACCINE (1 - PCV)] Future Scheduled 2021-10-21 [facility]ACCINE [facility] 06:18:04 [code = INFLUENZA VACCINE] Future Scheduled 2021-10-21 COVID-19 VACCINE (#1) [facility] 06:18:04 [code = COVID-19 VACCINE (#1)] Future Scheduled 2021-10-21 Hepatitis C screening [facility] Test 06:18:04 (procedure) [code = 714266384] Future Scheduled 2021-10-[address] [facility] Test 06:18:04 SCREENING [code = BREAST CANCER SCREENING] Future Scheduled 2021-10-21 COLONOSCOPY SCREENING [facility] Test 06:18:04 [code = COLONOSCOPY SCREENING] Future Scheduled 2021-10-21 SHINGLES VACCINES (1 [facility] Test 06:18:04 of 2) [code = SHINGLES VACCINES (1 of 2)] Future Scheduled 2021-10-21 HEPATITIS B VACCINES [facility] Test 06:18:04 (1 of 3 - Risk 3-dose series) [code = HEPATITIS B VACCINES (1 of 3 - Risk 3-dose series)] Future Scheduled 2021-10-21 65+ [facility]AL [facility] Test 06:18:04 VACCINE (1 - PCV) [code = 65+ PNEUMOCOCCAL VACCINE (1 - PCV)] Future Scheduled 2021-10-21 INFLUENZA VACCINE [facility] Test 06:18:04 [code = INFLUENZA VACCINE] Diagnostic [...] Date/Time Type Type Clinicians Facility Department ID 2023-01-21 2023-01-21 Outpatient TOYA LYON [id number] Toya 00:00:00 00:00:00 Seybol d 2023-01-20 2023-01-20 Outpatient TOYA LYON [id number] Toya 00:00:00 00:00:00 Seybol d 2023-01-17 2023-01-17 Outpatient TOYA STONE [id number] Toya 10:00:00 10:00:00 JAMESON Seybol d 2023-01-06 2023-01-06 Outpatient TOYA LYON [id number] Toya 00:00:00 00:00:00 Seybol d 2023-01-06 2023-01-06 Outpatient TOYA LYON [id number] Toya 00:00:00 00:00:00 Seybol d 2022-12-31 2022-12-31 Outpatient TOYA LYON [id number] Toya 00:00:00 00:00:00 Seybol d 2022-12-31 2022-12-31 Outpatient TOYA LYON [id number] Toya 00:00:00 00:00:00 Seybol d 2022-12-24 2022-12-24 Outpatient TOYA STONE [id number] Toya 10:00:00 10:00:00 JAMESON Seybol d 2022-12-21 2022-12-21 Outpatient TOYA LYON [id number] Toya 00:00:00 00:00:00 Seybol d 2022-12-20 2022-12-20 Outpatient TOYA HARRINGTON [id number] Toya 00:00:00 00:00:00 AIMEE Seybol d 2022-12-20 2022-12-20 Outpatient TOYA HARRINGTON [id number] Toya 00:00:00 00:00:00 AIMEE Seybol d 2022-12-07 2022-12-07 Outpatient TOYA LYON [id number] Toya 00:00:00 00:00:00 Seybol d 2022-12-06 2022-12-06 Outpatient TOYA FUENTES [id number] [facility]a 09:15:00 09:15:00 JOE Seybol d 2022-12-02 2022-12-02 Outpatient TOYA HARRINGTON [id number] Toya 00:00:00 00:00:00 AIMEE Seybol d 2022-12-02 2022-12-02 Outpatient TOYA HARRINGTON [id number] Toya 00:00:00 00:00:00 AIMEE Seybol d 2022-12-01 2022-12-01 Outpatient TOYA HARRINGTON [id number] [facility]a 00:00:00 00:00:00 AIMEE Seybol d 2022-11-23 2022-11-23 Outpatient TOYA FUENTES [id number] [facility] 09:30:00 09:30:00 JOE Seybol d 2022-11-03 2022-11-03 Outpatient TOYA LYON [id number] Toya 00:00:00 00:00:00 Seybol d 2022-11-02 2022-11-02 Outpatient TOYA LYON [id number] Toya 00:00:00 00:00:00 Seybol d 2022-11-02 2022-11-02 Outpatient TOYA LYON [id number] Toya 00:00:00 00:00:00 Seybol d 2022-10-29 2022-10-29 Outpatient PRETOYA GRANT [id number] Toya 00:00:00 00:00:00 JOE Seybol d 2022-10-28 2022-10-28 Outpatient TOYA FUENTES [id number] [place]a 00:00:00 00:00:00 JOE Seybol d 2022-10-27 2022-10-27 Outpatient TOYA FUENTES [id number] Toya 11:30:00 11:30:00 JOE Seybol d 2022-10-27 2022-10-27 Outpatient TOYA LYON [id number] Toya 00:00:00 00:00:00 Seybol d 2022-09-03 2022-09-03 Outpatient TOYA HARRINGTON [id number] Toya 00:00:00 00:00:00 AIMEE Seybol d 2022-08-13 2022-08-13 Outpatient TOYA FUENTES [id number] Toya 00:00:00 00:00:00 JOE Seybol d 2022-05-27 2022-05-27 Outpatient TOYA HARRINGTON [id number] Toya 00:00:00 00:00:00 AIMEE Seybol d 2022-05-25 2022-05-25 Outpatient TOYA FUENTES [id number] Toya 10:45:00 10:45:00 JOE Seybol d 2022-05-11 2022-05-11 Outpatient TOYA HARRINGTON [id number] Toya 14:30:00 14:30:00 AIMEE Seybol d 2022-05-10 2022-05-10 Outpatient TOYA HARRINGTON [id number] Toya 00:00:00 00:00:00 AIMEE Seybol d 2022-05-06 2022-05-06 Outpatient PRETOYA GRANT [id number] Toya 00:00:00 00:00:00 JOE Seybol d 2022-05-06 2022-05-06 Outpatient TOYA HARRINTGON [id number] Toya 00:00:00 00:00:00 AIMEE Seybol d 2022-03-02 2022-03-02 Outpatient TOYA HARRINGTON [id number] Toya 08:30:00 08:30:00 AIMEE Seybol d 2022-02-23 2022-02-23 Outpatient TOYA STONE [id number] Toya 08:30:00 08:30:00 JAMESON Seybol d 2022-02-11 2022-02-11 Outpatient PRETOYA GRANT [id number] Otya 00:00:00 00:00:00 JOE Seybol d 2022-01-26 2022-01-26 Outpatient TOYA HARRINGTON [id number] [place]a 00:00:00 00:00:00 AIMEE Seybol d 2021-12-11 2021-12-11 Outpatient PRETOYA GRANT [id number] [place]a 00:00:00 00:00:00 JOE Seybol d 2021-12-10 2021-12-10 Outpatient PRETOYA GRANT [id number] Toya 13:45:00 13:45:00 JOE Seybol d 2021-12-10 2021-12-10 Outpatient PREZASTOYA [id number] Toya 00:00:00 00:00:00 JOE Seybol d 2021-11-24 2021-11-24 Outpatient TOYA HARRINGTON [id number] Toya 00:00:00 00:00:00 AIMEE Seybol d 2021-11-23 2021-11-23 Outpatient LAB90 TOYA LYON [id number] Toya 09:40:00 09:40:00 Seybol d 2021-11-23 2021-11-23 Outpatient TOYA HARRINGTON [id number] Toya 08:30:00 08:30:00 AIMEE Seybol d 2021-09-07 2021-09-07 Outpatient TOYA HARRINGTON [id number] Toya 00:00:00 00:00:00 AIMEE Seybol d 2021-09-01 2021-09-01 Outpatient TOYA MARTINS [id number] Toya 00:00:00 00:00:00 WANDY Seybol d 2021-08-17 2021-08-17 Outpatient TOYA HARRINGTON [id number] Toya 00:00:00 00:00:00 AIMEE Seybol d 2021-06-16 2021-06-16 Outpatient TOYA HARRINGTON [id number] Toya 00:00:00 00:00:00 AIMEE Seybol d 2021-06-10 2021-06-10 Outpatient TOYA HARRINGTON [id number] Toya 00:00:00 00:00:00 AIMEE Seybol d 2021-06-09 2021-06-09 Outpatient LAB90 TOYA LYON [id number] Toya 10:20:00 10:20:00 Seybol d 2021-06-09 2021-06-09 Outpatient COVID-PFIZE TOYA LYON [id number] Toya 10:00:00 10:00:00 R BOOSTER, Sey bold CAICEDO 2021-06-09 2021-06-09 Outpatient COVID-PFIZE TOYA LYON [id number] Toya 10:00:00 10:00:00 R VACC, Seybol d CAICEDO 2021-06-09 2021-06-09 Office Simon Harrington [id number] [facility] 08:15:00 08:30:00 Visit Aimee Ledezma [id number] Se jackie Garcia [id number] 2021-03-11 2021-03-11 Outpatient TOYA LYON [id number] [place] 00:00:00 00:00:00 Seybol d 2021-02-04 2021-02-04 Outpatient [facility] PRIV PRIV [id number] [facility] 03:06:00 03:06:00 es_A [id number] Medica l 2021-02-04 2021-02-04 Outpatient [facility]_Hay PRIV PRIV 211 [id number] [facility] 03:06:00 03:06:00 es_A [id number] Medica l 2021-02-02 2021-02-02 Outpatient TOYA LYON [id number] [facility] 00:00:00 00:00:00 Seybol d 2021-01-29 2021-01-29 Outpatient TOYA HARRINGTON [id number] [place] 00:00:00 00:00:00 AIMEE Seybol d 2021-01-28 2021-01-28 Outpatient TOYA LOYN [id number] [place] 00:00:00 00:00:00 Seybol d 2021-01-21 2021-01-21 Outpatient LAB90 TOYA LYON [id number] [facility] 10:15:00 10:15:00 Seybol d 2021-01-21 2021-01-21 Office Simon Harrington [id number] [facility] 09:30:00 10:00:00 Visit Aimee Darien [id number] Se jackie [place] [id number] 2021-01-21 2021-01-21 Outpatient COVID-PFIZE TOYA LYON [id number] [facility] 09:00:00 09:00:00 R VACC-2, Seyb patricia CAICEDO 2021-01-12 2021-01-12 Outpatient TOYA LYON [id number] [facility] 00:00:00 00:00:00 Seybol d 2020-12-31 2020-12-31 Outpatient SIMON HSIEH [id number] [facility] 10:00:00 10:00:00 Seybol d 2020-12-31 2020-12-31 Outpatient LAB90 TOYA LYON [id number] [facility] 09:30:00 09:30:00 Seybol d 2020-12-31 2020-12-31 Outpatient COVID-PFIZE TOYA LYON [id number] [facility] 09:15:00 09:15:00 Adriel MAK-1Jaron 2020-12-31 2020-12-31 Office Simon Harrington [id number] [facility] 07:53:00 08:38:00 Visit Aimee Ledezma [id number] jackie Garcia [id number] 2020-12-31 2020-12-31 Outpatient JUANY TOYA TOYA [id number] [place] 00:00:00 00:00:00 AIMEE casarez 2020-06-27 2020-06-27 Outpatient [facility] PRIV PRIV [id number] [facility] 01:07:00 01:07:00 es_A [id number] Medica l 2020-06-12 2020-06-12 Outpatient [facility] PRIV PRIV [id number] [facility] 01:17:00 01:17:00 es_A [id number] Medica l 2020-06-10 2020-06-10 Outpatient [facility] PRIV PRIV [id number] [facility] 01:19:00 01:19:00 es_A [id number] Medica l 2020-06-10 2020-06-10 Outpatient Jed PRIV PRIV [id number] 00:00:00 00:00:00 [facility] [id number] [facility] [id number] 2020-06-10 2020-06-10 [facility] 20 [facility] 00:00:00 00:00:00 [facility] Medic master Adkins MD: [facility] [address] [place] [address] [place] [address], [place]MAEL Yee [phone] , Ph. 2020-06-09 2020-06-09 Outpatient [facility]_Hay PRIV PRIV 211 [id number] [facility] 10:07:00 10:07:00 es_A [id number] Medica l 2020-06-06 2020-06-06 Outpatient [facility]_Hay PRIV PRIV 211 [id number] [facility] 09:55:00 09:55:00 es_A [id number] Medica l 2020-06-04 2020-06-04 Outpatient [facility] PRIV PRIV 211 [id number] [facility] 02:16:00 02:16:00 es_A [id number] Medica l 2018-05-05 2018-05-16 Inpatient VIVEK Michelle [facility] [id number] [facility] 15:09:00 21:04:00 Nkoli 71 [facility] Results Test Description Test Time Test Comments Results Result Comments Source QUANTAFLO 2021-11-23 13:52:32 Test Item Value Reference Range Interpretation Comme nts Arsenlo left side (test code See_Comment [Automated message] The system which = 22993-1I) generated this result transmitted reference range : 1.40 - 0.90 NA. The reference range was not used to interpret this result as normal/abnormal . BaldevaFlo right side (test code See_Comment Presentation Factors: Hypertension, = 24568-7D) Smoking History Exercise Modality: At Resthad issues [...] result as normal/abnormal . Toya Santos - [facility] BILE [id number] 13:28:00 RUN DATE: 05/15/18 [place] MissingLINK Lab PAGE 1 RUN TIME: 1328 Specimen Inquiry RUN USER: INTERFACE PATIE NT: ANA PENALOZA LOC: [facility] U #: [id number] AGE/SX: 67/F ROOM: [facility] RE05/05/18REG DR: Kathleen Michelle MD : 51 BED: A DIS: STATUS: ADM IN TLOC: SPEC #: [id number] RECD: 05/11/18 STATUS: KAREL DONNELL #: [id number] LEEANN: 05/11/18- SUBM DR: Kathleen Michelle MD ENTERED: 05/11/18 SP TYPE: COMMON NATHALIE OTHR DR: No Primary or Family Physician Gilberto Conway MD, Ronald W DO L am, David N MDORDERED: GROSS COPIES TO: No Primary or Family Physician Gilberto Conway MD [address] [place] [address] Kathleen Michelle MD [address] [place], [place] [id number] Alexis High DO [address] [place], [place] [id number] Khoi Ivory NMD [address] [place] [address] PROCEDURES: GROSS (05/12/18-1250) TISSUES: BILE DUCT, NOS - BX AND 4 SLIDES CLINICAL HISTORY COLLECTION DATE: 05/11/18 HISTORY BILE DUCT STRICTURE CONTINUED ON NEXT PAGE RUN DATE: 05/15/18 [place] - Lab PAGE 2 RUN TIME: 1328 Specimen Inquiry RUN USER: INTERFACE SPEC #: [id number] PATIENT: ANA PENALOZA #[id number] (Continued) COMMENT The bile duct biopsy, including [...] INFLAMMATION AND ATYPIA, (see comment) FA/sm D 93074, 66544 MACROSCOPICThe specimen consists of four slides to be stained for cytologic evaluation and two red-cotto biopsy fragments measuring 0.2 cm each. GROSS PERFORMED AT [facility] [address] [place] [address] ([phone] PERFORMING SITE Diagnosis performed at: [facility], [place] [address] [place] [address] CONTINUED ON NEXT PAGE RUN DATE: 05/15/18 [facility] PAGE 3 RUN TIME: 1328 Specimen Inquiry RUN USER: INTERFACE SPEC #: [id number] PATIENT: ANA PENALOZA #[id number] (Continued) Signed SIGNATURE ON FILE London Peres MD 05/15/18 1328 END OF REPORT COMPREHENSIVE METABOLIC [id number] 05:49:00 Test Item Value Reference Range Interpretation [...] ALKP) to change in reagent. COMPREHENSIVE METABOLIC [id number] 05:29:00 Test Item Value Reference Range Interpretation [...] IUnit/L 45-117 code = ALKP) CBC W/AUTO [id number] 05:22:00 Test Item Value Reference Range Interpretation [...] 0.00 K/mm3 0.0-0.1 N NRBC#) CBC W/AUTO [id number] 05:16:00 Test Item Value Reference Range Interpretation [...] BA#) K/mm3 0.0-0.2 - SP PERC BRUSH [id number] 08:16:00 Name: ANA PENALOZA [facility] : 1950 Age/S: 67 / F [address] Unit #: [id number] Loc: [place] [address] Phys: RomatheodoraKathleen carranza MD Acct: [id number] Dis Date: Status: ADM IN PHONE #: [phone] Exam Date: 05/11/2018 8901 FAX #: [phone] Reason: EXAMS: CPT CODE: [id number] SP PERC BRUSH BIOPSY [id number] Fluoro Time: 336 DAP (Gy m2): 93762 Air Kerma (mGy): 109.1 REASON FOR EXAM:Distal common bile duct obstruction PROCEDURE: 1. Cholangiogram with replacement and upsize of existing biliary drain 2. [place] biopsy of distal common bile duct stricture 3. Forcep biopsy of distal common bile duct stricture Anesthesia: General Anesthesiologist: Dr. Vela FINDINGS: Prior to theprocedure, informed consent was obtained after risks and [...] a short segment high- grade stenosis (90%). [place] biopsy of this area was performed with a 3 mm brush. Sc[place] samples were obtained. Additional forceps biopsy were obtained at the common bile duct stricture. All samples were submitted for cytology analysis. A new 10-Uzbek internal/external biliary drain was replaced over the [...] the existing internal/external biliary drain from an 8-Uzbek to a 10-Uzbek biliary tube at 0816 Reported and signed by: James Wallis M.D. PAGE 1 Signed Report (CONTINUED) Name: ANA PENALOZA [facility] : 1950 Age/S: 67 / F [address] Unit #:[id number] Loc: [place] [address] Phys: Kathleen Michelle MD Acct: [id number] Dis Date: Status: ADM IN PHONE #: [phone] Exam Date: 05/11/2018 1505 FAX #: [phone] Reason: EXAMS: CPT CODE: [id number] PERC BRUSH BIOPSY 52277 Fluoro Time: 336 DAP (Gy m2): 83220 Air Kerma (mGy): 109.1 (Continued) CC: Kathleen Michelle MD; Alexis High DO Technologist: Chiki Drummond [facility] Date/Time: 05/12/2018 (815) tJE.KRUNALL Orig Print D/T: S: 05/12/2018 (08) PAGE 2 Signed Report- INJ CHOLANGIO EXST [id number] 08:16:00 Name: ANA PENALOZA [facility] : 1950 Age/S: 67 / F [address] Unit #: [id number] Loc: [place] [address] Phys: Kathleen Michelle MD Acct: [id number] Dis Date: Status: ADMIN PHONE #: [phone] Exam Date: 05/11/2018 1508 FAX #: [phone] Reason: EXAMS: CPT CODE: [id number] INJ CHOLANGIO EXST ACCES 86876 Fluoro Time: 336 DAP (Gy m2): 82023 Air Kerma (mGy): 109.1 REASON FOR EXAM:Distal common bile duct obstruction PROCEDURE: 1. Cholangiogram with replacement and upsize of existing biliary drain 2. [place] biopsy of distal common bile duct stricture [...] with a short segment high-grade stenosis (90%). [place] biopsy of this area was performed with a 3 mm brush. Scanty samples were obtained. Additional forceps biopsy were obtained at the common bile duct stricture. All samples were submitted for cytology analysis. A new 10-Uzbek internal/external biliary drain was replaced over the [...] the existing internal/external biliary drain from an 8-Uzbek to a 10-Uzbek biliary tube at 0816 Reported and signed by: James Wallis M.D. PAGE 1 Signed Report (CONTINUED) Name: TREMAINEANA [facility] : 1950 Age/S: 67 / F [address] [facility] Unit #: [id number] Loc: [place] [address] Phys: Kathleen Michelle MD Acct: [id number] Dis Date: Status:ADM IN PHONE #: [phone] Exam Date: 05/11/2018 1500 FAX #: [phone] Reason: EXAMS: CPT CODE:[id number] INJ CHOLANGIO EXST ACCES 91788 Fluoro Time: 336 DAP (Gy m2): 79380 Air Kerma (mGy): 109.1 (Continued) CC: Kathleen Michelle MD; Alexis High DO Technologist: Chiki Drummond [facility] Date/Time: 05/12/2018 (815) Deion Orig Print D/T: S: 05/12/2018 (0819) PAGE 2 Signed Report- EXCHANGE BILIARY [id number] 08:16:00 Name: ANA PENALOZA [facility] : 1950 Age/S: 67 / F [address] Unit #:[id number] Loc: [place] [address] Phys: Kathleen Michelle MD Acct: [id number] Dis Date: Status: ADM IN PHONE #: [phone] Exam Date: 05/11/2018 1506 FAX #: [phone] Reason: EXAMS: CPT CODE: [id number] EXCHANGE BILIARY CATH 78456 Fluoro Time: 336 DAP (Gy m2): 63410 Air Kerma (mGy): 109.1 REASON FOR EXAM:Distal common bile duct obstruction PROCEDURE: 1. Cholangiogram with replacement and upsize of existing biliary drain 2. [place] biopsy of distal common bile duct stricture 3. Forcep biopsy ofdistal common bile duct stricture Anesthesia: General Anesthesiologist: Dr. Vela FINDINGS: Prior tothe procedure, informed consent was obtained after risks and benefits of the procedure were explained to the patient. The patient agreed and wanted to proceed. The patient was brought to special procedures and placed supine on the table. The abdomen was prepped was draped in the usual fashion. All elements of maximal sterile barrier techniques were applied. Contrast injected into the existing biliarydrain show persistent distal common bile duct stenosis/stricture with a short segment high-grade stenosis (90%). [place] biopsy of this area was performed with a 3 mm brush. Scanty samples were obtained.Additional forceps biopsy were obtained at the common bile duct stricture. All samples were submitted for cytology analysis. A new 10-Uzbek internal/external biliary drain was replaced over the guidewire with the distal tip formed within the small bowel and a side holes located within the common bileduct and right intrahepatic biliary duct MEDICATIONS: None COMPLICATIONS: None Blood loss: Less than5 mL Fluoroscopic time: 336 seconds Radiation dose: 109 mGy IMPRESSION: Technically successful brush biopsy and forcep biopsy of the distal common bile duct stricture. Upsizing of the existing internal/external biliary drain from an 8-Uzbek to a 10-Uzbek biliary tube at 0816 Reported and signed by: James Wallis M.D. PAGE 1 Signed Report (CONTINUED) Name: ANA PENALOZA [facility] : 1950 Age/S: 67 / F [address] Unit #: [id number] Loc: [place] [address] Phys: Kathleen Michelle MD Acct: [id number] Dis Date: Status: ADM IN PHONE #: [phone] Exam Date: 05/11/2018 1504 FAX #: [phone] Reason: EXAMS: CPT CODE: [id number] EXCHANGE BILIARY CATH 14361 Fluoro Time: 336 DAP (Gy m2): 68765 Air Kerma (mGy): 109.1 (Continued) CC: Kathleen Michelle MD; Alexis High DO Technologist: Chiki Drummond Trnsc[facility] Date/Time: 05/12/2018 (815) t.RANJANAL Orig Print D/T: S: 05/12/2018 (818) PAGE 2 Signed ReportBASIC METABOLIC [id number] 06:42:00 Test Item Value Reference Range Interpretation [...] GFR) formula.Chronic kidney disease is defined as [facility] kidney damageor GFR <60 mL/min/1.73 m2 for >3 months. CREATININE (test code 0.50 mg/dL 0.55-1.02 L Note change in = CREAT) reference range due to change in reagent. BUN/CREATININE RATIO 13.6 10-20 N (test code = BUN/CREA) CALCIUM (test code = 8.8 mg/dL 8.5-10.1 N CA) BASIC METABOLIC [id number] 06:37:00 Test Item Value Reference Range Interpretation [...] (test code = CA) mg/dL 8.5-10.1 PROTHROMBIN [id number] 06:03:00 Test Item Value Reference Range Interpretation [...] (2.5-3.5) IS PATIENT ON ANTICOAGULANTS? NCOMMENTS TO ROOF BOLTER: NEED FOR SURGERY ON 05/11/18THROMBOPLASTIN TIME [id number] 06:03:00 Test Item Value Reference Range Interpretation Comments THROMBOPLASTIN TIME PARTIAL 34.7 seconds 25.0-36.5 N (test code = PTT) IS PATIENT ON ANTICOAGULANTS? NCOMMENTS TO ROOF BOLTER: NEED FOR SURGERY ON 05/11/18[facility] W/AUTO [id number] 05:44:00 Test Item Value Reference Range Interpretation [...] (test code NO = MDIFF) CBC W/AUTO [id number] 05:43:00 Test Item Value Reference Range Interpretation [...] # (test code = BA#) K/mm3 0.0-0.2 FLUID,[id number] 16:16:00 RUN DATE: 05/10/18 [employer] PAGE 1 RUN TIME: 1616 Specimen Inquiry RUN USER: INTERFACE KENNEY ENT: ANA PENALOZA LOC: CHIRSTI U #: [id number] AGE/SX: 67/F ROOM: [facility] RE05/05/18[facility] DR: Kathleen Michelle MD : [birth year] BED: A DIS: STATUS: ADM IN TLOC: SPEC #: [id number] RECD: 05/09/18 STATUS: KAREL JACOBO #: [id number] LEEANN: 05/08/18- SUBM DR: James Wallis MD ENTERED: 05/09/18 SP TYPE: FL OTHER OTHR DR: Gilberto Conway MD, Ronald W DO Lam, David N MDORDERED: GROSS COPIESTO: Gilberto Conway MD [address] [place] [address] Alexis High DO [address] [place] [address] Khoi Ivory MD [address] [place] [address] James Wallis MD [address] [place] [address] MARKERS: INTRADEPARTMENTAL CONSULT PROCEDURES: GROSS (05/10/18-1313) TISSUES: BILE, NOS - 3 ML GREEN CLINICAL HISTORY COLLECTION DATE: 05/08/2018 HISTORY OF BILE DUCT OBSTRUCTION COMMENT Two concentrated smears, a cytospin and cell block are prepared from the fluid. Fragments of particulate debris are present. A few ofthese resemble minute fragments of plant material. Significant numbers of epithelial cells are not present. Bacterial forms are noted including rods and cocci. Correlation is necessary. CONTINUED ONNEXT PAGE RUN DATE: 05/10/18 [facility] PAGE 2 RUN TIME: 1616 Specimen Inquiry RUN USER: INTERFACE --- ---------SPEC #: [id number] PATIENT: ANA PENALOZA #[id number] (Continued) COMMENT (Continued) Intradepartmental consultation: FA FINAL DIAGNOSIS Bile, cytology: PARTICULATE DEBRIS BACTERIAL FORMS PRESENT (RODS AND COCCI) RRB/sm D 58778, 83029 MACROSCOPIC The specimen consists of 3 mL of green fluid to be concentrated and processed for cytologic evaluation. GROSS PERFORMED AT [facility] [address] [place] [address] [phone] MICROSCOPIC All of the stains, including any controls performed, stain appropriately. MICROSCOPIC PERFORMED AT [facility] [address] [place] [address] [phone] [facility] SITE Diagnosis performed at: [facility], [place] [address] [place] [address] Signed SIGNATURE ON FILE Bernabe Klein MD 05/10/18 1616 END OF REPORT AG [id number] 08:23:00 Test Item Value Reference Range Interpretation Comments AG CARCINOEMBRYONIC (test code = 0.9 ng/mL 0.0-3.0 N CEA) ALPHA FETOPROTEIN TUMOR [id number] 08:23:00 Test Item Value Reference Interpretation Comments Range ALPHA FETOPROTEIN 2.7 ng/mL 0.0-8.3 Ann Diag nostics TUMOR MARKER Electrochemilum inescence (test code = Immunoassay(ECL IA)Values AFPTM) obtained with d ifferent assay methods or kits cannotbe used interchangeably . Results cannot be inter preted asabsolute evid ence of the presence or abs ence of malignantdiseas e.This test is not interpretab le in females. CA [id number] 08:23:00 Test Item Value Reference Range Interpretation Comments CA 19-9 (test code = CA19) Unit/mL AG [id number] 08:23:00 Test Item Value Reference Range Interpretation Comments AG CARCINOEMBRYONIC (test code = 0.9 ng/mL 0.0-3.0 N CEA) ALPHA FETOPROTEIN TUMOR [id number] 08:23:00 Test Item Value Reference Interpretation Comments Range ALPHA FETOPROTEIN 2.7 ng/mL 0.0-8.3 Ann Diag nostics TUMOR MARKER Electrochemilum inescence (test code = Immunoassay(ECL IA)Values AFPTM) obtained with d ifferent assay methods or kits cannotbe used interchangeably . Results cannot be inter preted asabsolute evid ence of the presence or abs ence of malignantdiseas e.This test is not interpretab le in females. CA [id number] 08:23:00 Test Item Value Reference Range Interpretation Comments CA 19-9 (test 32 U/mL 0-35 Ann Diagnost ics code = CA19) Electrochemilum inescence Immunoassay(ECL IA)Values obtained with different assay methods or kits cannotbe u sed interchangeably . Results cannot be interpreted asabsolute evidence of the presence or absence of malignantdiseas e.Performed At: [address] [id number] Daryl Nicole MD [phone] [id number] 06:13:00 Test Item Value Reference Range Interpretation Comments AG CARCINOEMBRYONIC (test code = 0.9 ng/mL 0.0-3.0 N CEA) ALPHA FETOPROTEIN TUMOR [id number] 06:13:00 Test Item Value Reference Range Interpretation Comments ALPHA FETOPROTEIN TUMOR MARKER (test ng/mL code = AFPTM) [id number] 06:13:00 Test Item Value Reference Range Interpretation Comments CA 19-9 (test code = CA19) Unit/mL COMPREHENSIVE METABOLIC [id number] 06:08:00 Test Item Value Reference Range Interpretation [...] ALKP) to change in reagent. COMPREHENSIVE METABOLIC [id number] 05:58:00 Test Item Value Reference Range Interpretation [...] 45-117 code = ALKP) BODY FLUID CELL [id number] 11:09:00 Test Item Value Reference Range Interpretation [...] RESULTS CALL ED TO code = RBCFL) [id number] BY Netta ARCEOKP1 05/08/18 2210 FLUID COMMENT (test PATHOLOGST.TO code = COMFL) REVIEW TOTAL CELLS COUNTED 0 cells NONE SEE N. ON DIFF (test code = TOTCELLFL) REVIEWED BY (test DRVern PATHOLOGIST code = REVIEW) [facility] BILIARY CATH [id number] 07:00:00 Name: ANA PENALOZA [facility] : 1950 Age/S: 67 / F [address] Unit #: [id number] Loc: [place] [address] Phys: Kathleen Michelle MD Acct: [id number] Dis Date: Status: ADM IN PHONE #: [phone] Exam Date: 05/08/2018 1401 FAX #: [phone] Reason: EXAMS: CPT CODE: [id number] [facility] BILIARY CATH INT/EXT 59041 Fluoro Time: 474 DAP (Gy m2): 05079 Air Kerma (mGy): 176.2 REASON FOR EXAM:Right [...] the distal common bile duct stenosis. An 8-Uzbek biliary tube was in place would be [...] of the pancreas. Successful placement of an 8-Uzbek biliary tube. at 0700 Reported and signed by: James Wallis M.D. PAGE 1 Signed Report (CONTINUED) Name: ANA PENALOZA [facility] : 1950 Age/S: 67 / F [address] [facility] [address] [facility]: [id number] Loc: [place] [address] Phys: Kathleen Michelle MD Acct: [id number] Dis Date: Status: ADM IN PHONE #: [phone] Exam Date: 05/08/2018 1401 FAX #: [phone] Reason: EXAMS: CPT CODE: [id number] [facility] BILIARY CATH INT/EXT 95567 Fluoro Time: 474 DAP (Gy m2): 33213 Air Kerma (mGy): 176.2 (Continued) CC: Kathleen Michelle MD; Alexis High DO Technologist: BRANT PHAN RT(R) Trnscb Date/Time: 05/09/2018 (07) tMICHELLE Orig Print D/T: S: 05/09/2018 (0703) PAGE 2 Signed Report- INJ CHOLANG EXST ACCES [id number] 07:00:00 Name: ANA PENALOZA [facility] : 1950 Age/S: 67 / F [address] Unit #:[id number] Loc: [place] [address] Phys: Kathleen Michelle MD Acct: [id number] Dis Date: Status: ADMIN PHONE #: [phone] Exam Date: 05/08/2018 140 FAX #: [phone] Reason: EXAMS: CPT CODE: [id number] [place] [address] Fluoro Time: 474 DAP (Gy m2): 10201 Air Kerma (mGy): 176.2 REASON FOR EXAM:Right [...] ultrasound guidance, a 22-gauge Chiba needle was advancedinto the dilated common bile duct. A cholangiogram was performed. It shows a high-grade stricture atthe distal common bile duct in the area of the head to the pancreas. There is minimal intrahepatic biliary distention. An AccuStick needle was advanced into a dilated right hepatic duct. The AccuSticksheath was advanced into the common bile duct. The guidewire was successfully advanced past the distal common bile duct stenosis. An 8-Uzbek biliary tube was in place would be [...] of the pancreas. Successful placement of an 8-Uzbek biliary tube. at 0700 Reported and signed by: James Wallis M.D. PAGE 1 Signed Report (CONTINUED) Name: ANA PENALOZA [facility] : 1950 Age/S: 67 / F [address] [facility] Unit #: [id number] Loc: [place] [address] Phys: Kathleen Michelle MD Acct: [id number] Dis Date: Status: ADM IN PHONE #: [phone] Exam Date: 05/08/2018 1401 FAX #: [phone] Reason: EXAMS: CPT CODE: [id number] [place] [address] Fluoro Time: 474 DAP (Gy m2): 49878 Air Kerma (mGy): 176.2 (Continued) CC: Kathleen Michelle MD; Alexis High DO Technologist: BRANT PHAN RT(R) Trnscb Date/Time: 05/09/2018 (699) t.SDR.VTL Orig Print D/T: S: 05/09/2018 (0703) PAGE 2 Signed Report- USG NDL PLACEMENT (Bxg/Asp)2018-05-09 07:00:00 Name: ANA PENALOZA [facility] : 1950 Age/S: 67 / F [address] Unit #: [id number] Loc: [place] [address] Phys: James Wallis MD Acct: [id number] Dis Date: Status: ADM IN PHONE#: [phone] Exam Date: 05/08/2018 1353 FAX #: [phone] Reason: CHOLANGIOGRAM W/POSS BILIARY DRAIN EXAMS: CPT CODE: [id number] USG NDL PLACEMENT (Bxg/Asp) 56510 REASON FOR EXAM:Right upper quadrant pain, status [...] the distal common bile duct stenosis. An 8-Uzbek biliary tube was in place would be [...] of the pancreas. Successful placement of an 8-Uzbek biliary tube. Electronically Signed by Venkat Wallis on 2018 at 0700 Reported and signed by: James Wallis M.D. PAGE 1 Signed Report (CONTINUED) Name: ANA PENALOZA [facility] : 1950 Age/S: 67 / F [address] Unit #: [id number] Loc: [place] [address] Phys: James Wallis MD Acct: [id number] Dis Date: Status: ADM IN PHONE #: [phone] Exam Date: 05/08/2018 1353 FAX #: [phone] Reason: CHOLANGIOGRAM W/POSS BILIARY DRAIN EXAMS:CPT CODE: [id number] USG NDL PLACEMENT (Bxg/Asp) 91918 (Continued) CC: Kathleen Michelle MD; Alexis High DO Technologist: TOBIN PURCELL RT(R),[facility] Date/Time: 05/09/2018 (07) tOSMARVTLOrig Print D/T: S: 05/09/2018 (0703) Probe: PAGE [id number] 22:49:00 Test Item Value Reference Range Interpretation [...] RESULTS CALL ED TO code = RBCFL) [id number] BY [facility] 05/08/18 2210 FLUID COMMENT (test PATHOLOGST.TO code = COMFL) REVIEW TOTAL CELLS COUNTED 0 cells NONE SEE N. ON DIFF (test code = TOTCELLFL) REVIEWED BY (test PATHOLOGIST code = REVIEW) BODY FLUID CELL [id number] 22:10:00 Test Item Value Reference Range Interpretation [...] 0-50 N RESULTS CALLED TO = RBCFL) [id number] BY NAVID MartínezBRADLEY [facility]OSPITAL 05/08/18 2210 TOTAL CELLS COUNTED cells ON DIFF (test code = TOTCELLFL) REVIEWED BY (test PATHOLOGIST code = REVIEW) BODY FLUID CELL [id number] 16:44:00 Test Item Value Reference Range Interpretation [...] (test PATHOLOGIST code = REVIEW) THYROID PROFILE [id number] 06:15:00 Test Item Value Reference Range Interpretation [...] HYPER : < 0.35 mIU/mL BASIC METABOLIC [id number] 05:57:00 Test Item Value Reference Range Interpretation [...] GFR) formula.Chronic kidney disease is defined as [facility] kidney damageor GFR <60 mL/min/1.73 m2 for >3 months. CREATININE (test code 0.50 mg/dL 0.55-1.02 L Note change in = CREAT) reference range due to change in reagent. BUN/CREATININE RATIO 21.4 10-20 H (test code = BUN/CREA) CALCIUM (test code = 8.7 mg/dL 8.5-10.1 N CA) BASIC METABOLIC [id number] 05:50:00 Test Item Value Reference Range Interpretation [...] (test code = CA) mg/dL 8.5-10.1 PROTHROMBIN [id number] 05:37:00 Test Item Value Reference Range Interpretation [...] (2.5-3.5) IS PATIENT ON ANTICOAGULANTS? NTHROMBOPLASTIN TIME [id number] 05:37:00 Test Item Value Reference Range Interpretation Comments THROMBOPLASTIN TIME PARTIAL 36.7 seconds 25.0-36.5 H (test code = PTT) IS PATIENT ON ANTICOAGULANTS? NCBC W/AUTO [id number] 05:28:00 Test Item Value Reference Range Interpretation [...] 0.00 K/mm3 0.0-0.1 N NRBC#) CBC W/AUTO [id number] 05:21:00 Test Item Value Reference Range Interpretation [...] BA#) K/mm3 0.0-0.2 - MRI ABDOMEN W/O [id number] 11:46:00 FAX: Gilberto Davies [phone] [place]: B St: ADM FAX: Kathleen Michelle MD FAX: Alexis Osorio [phone] Name: ANA PENALOZA [facility] : 1950 Age/S: 67/F [address] [facility] Unit #: [id number] Loc: [facility] [place] [address] Phys: Gilberto Conway MD Acct: [id number] Dis Date: Status: ADM IN PHONE #: [phone] Exam Date: 05/05/2018 1130 FAX #: [phone] Reason: r/o CBD st one EXAMS: CPT CODE: [id number] MRI ABDOMEN W/O CONT 14293 HISTORY: Evaluate for CBD stones. COMPARISON: Ultrasound [...] DO Technologist: Delmar Phoenix)(MR) Trnscrd Date/Time/By: 05/05/2018 (8004) : By: AlexandroTH4 Orig Print D/T: S: 05/05/2018 (0768) PAGE 1 Signed [id number] 03:18:00 Test Item Value Reference Range Interpretation Comments TROPONIN-I (test code = TROPI) <0.015 ng/mL 0-0.045 N COMMENTS TO ROOF BOLTER: COLLECT 3 HOURS AFTER PREVIOUS SAMPLECOMPREHENSIVE METABOLIC [id number] 03:18:00 Test Item Value Reference Range Interpretation [...] ALKP) to change in reagent. COMPREHENSIVE METABOLIC [id number] 03:10:00 Test Item Value Reference Range Interpretation [...] IUnit/L 45-117 code = ALKP) CBC W/AUTO [id number] 02:48:00 Test Item Value Reference Range Interpretation [...] DIFF REQUIRED (test code NO = MDIFF) [id number] 22:26:00 Test Item Value Reference Range Interpretation Comments TROPONIN-I (test code = TROPI) <0.015 ng/mL 0-0.045 N COMMENTS TO ROOF BOLTER: COLLECT 3 HOURS AFTER PREVIOUS SAMPLE- ABDOMEN [facility] 2018-05-03 19:15:00 Name: ANA PENALOZA [facility] : 1950 Age/S: 67 / F [address] Unit #: [id number] Loc: [place] [address] Phys: Kathleen Michelle MD Acct: [id number] Dis Date: Status: ADM IN PHONE #: [phone] Exam Date: 05/03/2018 1840 FAX #: [phone] Reason: RUQ constant pain EXAMS: CPT CODE: [id number] US ABDOMEN LTD 62220 EXAM: Ultrasound abdomen, limited; INFORMATION: Right upper [...] Ayon M.D. CC: Kathleen Michelle MD; Alexis Velazco DO Technologist: Jyothi Perez Trnndb Date/Time: 05/03/2018 (1914) Francisco Orig Print D/T: S: 05/03/2018 (1917) Probe: PAGE 1 Signed Report- CT ABD PELVIS [id number] 16:05:00 Name: ANA PENALOZA [facility] : 1950 Age/S: 67 / F [address] Unit #: [id number] Loc: [place] [address] Phys: Virgilio Hughes MD Acct: [id number] Dis Date: Status: REG ER PHONE #: [phone] Exam Date: 05/03/2018 1443 FAX #: [phone] Reason: RUQ pain EXAMS: CPT CODE:[id number] CT ABD PELVIS W/CONT 25777 EXAM: CT of the abdomen and pelvis with contrast; INFORMATION: Right upper quadrant pain; TECHNIQUE AND FINDINGS: CT dose reduction protocol; 5 mm cuts through the a bdomen and pelvis during and after intravenous infusion of contrast material. The liver is of normalsize and shape. There are multiple cysts in both lobes of the liver; the largest measures 3 cm in diameter. There is a 2.5 cm lesion with nodular enhancement and gradual fill-in on the delayed study. This lesion is located in segment 6 of the liver is consistent with a cavernous hemangioma. 1; a flashenhancing lesion in the anterior lateral aspect of segment 7 also fills in on the delayed scan and is consistent with a small cavernous hemangioma. Status post cholecystectomy; dilatation of extrahepatic bile ducts without evidence of obstructing lesion. Atrophic pancreas without focal lesions. Spleen, adrenal glands and kidneys unremarkable. No hydronephrosis. No acute bowel abnormalities. No pelvicmass lesions. No retroperitoneal adenopathy. Calcified plaques in the abdominal aorta and the iliac arteries. IMPRESSION: 1. No acute abdominal or pelvic abnormalities. 2. Multiple small hepatic cysts.3. 2 cavernous hemangiomas in the right lobe of the liver. 3. Extrahepatic biliary dilatation without evidence of an obstructing lesion. at 1605 Reported and signed by: Kwaku Ayon M.D. CC: Alexis High DO; Vincent Hughes Technologist:Karan Love RT(R),(MR),(CT); CTDI: DLP: Trnscb Date/Time: 05/03/2018 (1605) Francisco Orig Print D/T: S: 05/03/2018 (0849) CTDI: DLP: PAGE 1 Signed Report- CT CHEST [id number] 15:57:00 Name: ANA PENALOZA [facility] : 1950 Age/S: 67 / F [address] Unit #: [id number] Loc: [place] [address] Phys: Virgilio Hughes MD Acct: [id number] Dis Date: Status: REG ER PHONE #: [phone] Exam Date: 05/03/2018 1443 FAX #: [phone] Reason: RUQ pain hypotension suddenonset EXAMS: CPT CODE: [id number] CT CHEST W/CONTRAST 07864 EXAM: CT of the chest with contrast; INFORMATION: Chest pain, hypotension; [...] RT(R),(MR),(CT); CTDI: DLP: Trnscb Date/Time: 05/03/2018 (1557) AlexandroGRW Orig Print D/T: S: 05/03/2018 (1600) CTDI: DLP: PAGE 1 Signed ReportBASIC METABOLIC [id number] 14:04:00 Test Item Value Reference Range Interpretation [...] 8.9 mg/dL 8.5-10.1 N CA) HEPATIC FUNCTION [id number] 14:04:00 Test Item Value Reference Range Interpretation [...] range due ALKP) to change in reagent. [id number] 14:04:00 Test Item Value Reference Range Interpretation Comments LIPASE (test code = LIP) 106 U/L 73.0-393.0 N HCG SERUM [id number] 14:04:00 Test Item Value Reference Range Interpretation Comments HCG SERUM QUAL (test NEGATIVE NEGATIVE This H CGQL test is NOT code = HCGQL) applicable for MALE patients.Check with nurse about probable order error.If Tumor Marker Test needed, nu rse should order test "HCG TU"(Test #[id number])---- - [id number] 14:04:00 Test Item Value Reference Range Interpretation Comments TROPONIN-I (test code = TROPI) <0.015 ng/mL 0-0.045 N BASIC METABOLIC [id number] 14:00:00 Test Item Value Reference Range Interpretation [...] code = CA) mg/dL 8.5-10.1 HEPATIC FUNCTION [id number] 14:00:00 Test Item Value Reference Range Interpretation [...] TOTAL (test IUnit/L 45-117 code = ALKP) [id number] 14:00:00 Test Item Value Reference Range Interpretation Comments LIPASE (test code = LIP) U/L 73.0-393.0 HCG SERUM [id number] 14:00:00 Test Item Value Reference Range Interpretation Comments HCG SERUM QUAL (test NEGATIVE NEGATIVE This H CGQL test is NOT code = HCGQL) applicable for MALE patients.Check with nurse about probable order error.If Tumor Marker Test needed, nu rse should order test "HCG TU"(Test #550.79047)---- - [id number] 14:00:00 Test Item Value Reference Range Interpretation Comments TROPONIN-I (test code = TROPI) ng/mL 0-0.045 BASIC METABOLIC [id number] 13:55:00 Test Item Value Reference Range Interpretation [...] code = CA) mg/dL 8.5-10.1 HEPATIC FUNCTION [id number] 13:55:00 Test Item Value Reference Range Interpretation [...] TOTAL (test IUnit/L 45-117 code = ALKP) [id number] 13:55:00 Test Item Value Reference Range Interpretation Comments LIPASE (test code = LIP) U/L 73.0-393.0 HCG SERUM [id number] 13:55:00 Test Item Value Reference Range Interpretation Comments HCG SERUM QUAL (test code = HCGQL) NEGATIVE [id number] 13:55:00 Test Item Value Reference Range Interpretation Comments TROPONIN-I (test code = TROPI) ng/mL 0-0.045 URINALYSIS [id number] 13:48:00 Test Item Value Reference Range Interpretation [...] A BACU) Urine Source? Clean CatchCBC W/O [id number] 13:46:00 Test Item Value Reference Range Interpretation [...] fL 6.7-11.0 N = MPV) CBC W/O [id number] 13:42:00 Test Item Value Reference Range Interpretation [...] VOLUME (test code fL 6.7-11.0 = MPV) Notes Date/Time Note Provider Source 2018-05-17 00:24:00 [id number]:24:00 [facility] ([facility])Hospitalist Discharg e SummaryREPORT#:[id number] REPORT STATUS: SignedDATE:05/17/18 TIME: 0024 PATIENT: ANA PENALOZA UNIT #: [id number]#: [id number] ROOM/BED: [facility]-ADOB: [birth year] AGE : 67 SEX: F ATTEND: Kathleen Michelle I [facility] AUTHOR: Radha Rich MD * ALL edits o r amendments must be made on the electronic/computer document * PCP PCPPCP:PCP: Alexis High DO Discharge to: home General InformationDate of admission:Observation Start Date: 05/03/18Date of admission: 05/05/18 Discharge date: 05/16/18Admission diagnosis:1.Abdominal pain due to CBD dilatation of unknown etiology2.Thyroid insufficiency3.BradycardiaDischarge diagnosis:1.Abdominal pain due to CBD dilatation of unknown etiology s/p PTC and biliary biopsy2.Thyroid insufficiency3.BradycardiaHospital course:Ms. Penaloza is a 67-year-old female with history of thyroid disease presenting with a right upper quadrant/inframamillary pain. 1.Abdominal pain- Due to CBD dilatation of unknown etiology. Patient status post cholecystectomy. CT abdomen with small hepatic cysts; extrahepatic biliarydilatation with no evidence of obstructin g lesion and 2 hemangioma, patient has been aware of this for years. -Pain control -IV hydration. Advance diet and monitor for tolerance -MRCP findings noted -GI on consult. Consulted surgeon for diagnostic procedures including cholangiogram. -Pt taken for PTC ,drain present .Fluid cx growing E coli and Kleibsella,also streptococcus.Started levaquin. -Tumor markers ordered were negative ,had biliary biopsy .Pathology shows inflammation. -Pt will need choledochojejunostomy ,gen surgery following.2.Thyroid insufficiency-continue patient on levothyroxine3.Bradycardia-Asymptomatic. EKG wit h first-degree AV block. TSH at 6.65, will need outpatient follow-up. -Consider cardiology consult.4.DVT ppx-SCD Patient is full code. Pt refused any further intervention here , wanted t o be seen by her own surgeon and GI in the medical center .Cleared by GI for dc home ,will be dced home with the drain in place.Consultants: gastroenterology, interventional radiology, surgeryPt. condition on discharge: stableAllergies:Allergies:Penicillins (Coded, RASH/HIVES/FLUSHED, 03/15/17)hydromorphone (From DILAUDID) (Coded, NAUSEA VOMITING, 05/03/18)meperidine (From DEMEROL) (Coded, HALLUCINATIONS, 03/15/17) Med Rec Med RecDischarge meds:Continue taking these medications:MULTIVITAMIN (MULTIPLE VITAMIN) 1 TA B TAB 1 TABLET ORAL DAILY. LEVOTHYROXINE (TIROSINT ) 50 MCG CAP 50 MICROGRAM ORAL DAILY. Start taking the following new medications:FAMOTIDINE (PEPCID ) 20 MG TAB 20 MILLIGRAM ORAL TWICE DAILY BEFORE MEALS. Qty = 60 No Refills ONDANSETRON ODT (ZOFRAN ODT) 4 MG TAB.RAPDIS 4 MILLIGRAM SUBLINGUAL EVERY 6 HOURS NEEDED. as needed fo r NAUSEA AND VOMITING Qty = 30 No Refills THIAMINE (VITAMIN B-1) 100 MG TAB 100 MILLIGRAM ORAL DAILY. Qty = 30 No Refills traMADol (ULTRAM) 50 MG TAB 50 MILLIGRAM ORAL EVERY 4 HOURS NEEDED . as needed for severe pain Qty = 30 No Refills Discharge InstructionsDiet: regularOral fluid restriction: NoWeight monitor: Not RequiredActivity: as toleratedWound/dressing care: Dc with drain Notify provider of these s/s:fever,chills,nausea,vomiting,abd pain ,chest pain ,sobAdditional instructions:F/u with bariatric surgeonPrescriptions: on chartDischarg e management: greater than 30 mins Follow-up AppointmentsPCP: PCP: Alexis High DO Follow up timeframe: In 6 daysAttending Physician: Attending Physician: Kathleen Michelle MD Alzyabuyxm provider 1: Provider 1: Gilberto Conway MD Specialty: GASTROENTEROLOGY Follow up timeframe: In 6 days Special instructions:Follow up with bariatric surgeon Objective GeneralVS/I O:Vital Signs: Ky e Time Temp Pulse Resp B/P B/P Pulse O2 O2 Flow FiO2 Mean Ox Delivery Rate 05/16 194 97.9 73 14 127/70 88.9 95 05/16 1537 98.2 59 18 112/71 84.5 95 Room air 05/16 1121 67 16 136/75 95.4 96 Room air 05/16 0737 97.9 60 15 112/71 84.6 94 Room ai r 05/16 0522 97.9 69 14 122/75 90.3 96 Room air 24 hour I O ending at 0700: 05/17 0700 05/16 1900 Intake Total 1800.00 8 Output Total 975 Balance 825.00 8 Intake, IV 950.00 Intake, Oral 850 8 Number Voids 4 Output, 975 Drainage Medications:Active Meds + DC'd Last 24 HrsHydrocodone Bitart/Acetaminophen 1 TAB Q6H [place] N PRN PO (DCD) Promethazine HCl 12.5 MG Q6H PRN [place] N IV (DCD) Sodium Chloride 50 MLLevofloxacin/Dextrose 150 ML Q24H IV (DC) Ondansetron Base 4 MG Q6H PRN PRN SL (DCD) Multivitamins Therapeutic 1 UDTAB BID PO (DCD) Thiamine HCl 100 MG DAILY PO (DCD) Famotidine 20 MG BID AC PO (DCD) Levothyroxine Sodium 50 MCG 0600 PO (DCD) Sodium Chloride 1,000 ML .[Q13H] I V (DCD) Acetaminophen 650 MG Q4H PRN PRN PO (DCD) Ondansetron HCl 4 MG Q6H PRN PRN IV (DCD) Physical ExamGeneral appearance: alert, awake, orientedHead/Eyes: atraumatic, EOMI, normal conjunctiva/sclera, normocephalic, PERRLENT: moist mucosal membranes, normal ear left, normal ear right, normal noseNeck: full range of motion , non-tender, supple/no meningismus, no masses or swellingCardiovascular: normal heart sounds, regular rate rhythm, no murmurRespiratory: aerating well, clear to auscultation, no distressAbdomen: tenderness, normal bowel sounds , soft, no distention, Erythema to the RUQ/Inframammilary area. No significant rash.Drain in RUQ draining biliary fluidGenitourinary: no bladder distentionExtremities: moves all, no clubbing, n o cyanosis, no edemaMusculoskeletal: normal inspection, painless range of motionSkin: dry, intactPsychiatry: normal affect, normal judgment/insight, normal mood Treatments ProceduresTreatments Procedures:1.PTC with drain placement 2.Biliary biopsy Quality MedicationsCurrent medication review:I attest that the foregoing medication list in the medica l record is true, accurate, and complete to the best of my knowledge. Advanced Care Plan 65 or OlderDiscussed with: patientDiscussion included: living will, power of privacy attorney, code status BMI Screening > 25 or < 18.5BMI status/follow-up: abnl BMI, pt to F/U w/PCP Tobacco Use/CounselingTobacco use/counseling: non tobacc o user, no counseling needed HTN Screening/Follow-upLast documented vitals:Last Documented: Result Date Time Pulse Ox 95 05/16 1941 B/P 127/70 05/16 1941 B/P Mean 88.9 05/16 1941 Temp 97.9 05/16 1941 Pulse 73 05/16 1941 Resp 14 05/16 1941 O2 Delivery Room air 05/16 1537 FiO2 21 05/11 0546 O2 Flow Rate 2.294483 05/03 2014 B/P assess/follow-up: normal B/P, no f/u req at 0743 RPT #:[id number] OF REPORTDSDischarge [id number]:24:00V.[id number] v ailable for patient [id number]:16:37 2018-05-16 18:42:00 [id number]:42:00 [facility] ([facility])Gastroenterology Progress NoteREPORT#:[id number] REPORT STATUS: SignedDATE:05/16/18 TIME: 1841 PATIENT: ANA PENALOZA UNIT #: [id number]#: [id number] ROOM/BED: [facility]-ADOB: [birth year] AGE : 67 SEX: F ATTEND: Kathleen Michelle I MDADM AUTHOR: Gilberto Conway MD * AL L edits or amendments must be made on the electronic/computer document * SubjectiveChief Complaint:Abdominal pain Objective Physical ExamGeneral appearance: awake, no acute distressHEENT: anicteric, atraumaticNeck: non-tender, supple/no meningismusCardiovascular: normal heart sounds, normal S1/A2Emytdjkfjgj: aerating well, clear to auscultationAbdomen: non-tender, normal bowel sounds, softExtremities : no clubbing, no cyanosisMusculoskeletal: full range of motionNeuro/PRODUCT MARKETER: alert, oriented X 3Psychiatry: normal affect, normal judgment/insight ResultsFindings/Data:Current Medications Sig/[place] Start time Last Medication Dose Route Stop Time Status Admin Hydrocodone Bitart/ 1 TAB Q6H PRN PRN 05/14 0800 AC 05/16 Acetaminophen PO 05/24 0759 1203 Promethazine HCl 12.5 MG Q6H PRN PRN 05/12 1045 AC 05/16 Sodium Chloride 50 ML IV 06/11 1044 1203 Levofloxacin/Dextrose 150 ML Q24H 05/09 1600 DC 05/15 IV 05/16 1559 1649 Ondansetron Base 4 MG Q6H PRN PRN 05/07 0745 AC 05/12 SL 06/06 0744 0759 Multivitamins 1 UDTAB BID 05/04 1700 CKD 05/16 Therapeutic PO 06/03 1659 1734 Thiamine HCl 100 MG DAILY 05/04 1630 AC 05/16 PO 06/03 1629 0933 Famotidine 20 MG BID AC 05/04 0730 AC 05/16 PO 06/03 0729 1733 Levothyroxine Sodium 50 MCG 0600 05/04 0600 AC 05/16 PO 06/03 0559 0534 Sodium Chloride 1,000 ML .[Q13H] 05/03 1800 AC 05/16 IV 06/02 1759 1203 Acetaminophen 650 MG Q4H PRN PRN 05/03 1700 AC 05/11 PO 06/02 1659 0613 Ondansetron HCl 4 MG Q6H PRN PRN 05/03 1700 AC 05/12 IV 06/02 1659 1041 Diagnosis, Assessmen t PlanFree Text A P:1) RUQ abd pain - better == 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 This could represent an ampullary stone. ERCP would b e of value. Dilated pancreatic duct at 5.8 mm. 2) costochondiritis? 3) hx of gastric bypass4) nausea -- better5) hepatic hemangioma/dilattion of extrahepatic bile duct Plan:- Continue curren t care- Will need choledochojejunostomy -- d/w Dr. Ivory - thiamine, multivitamins- anti-emetics PRN- Pepcid- Patient wants to go home and see her Barriatric surgeon Dr. Daryl Dumont at [facility] at 1845 RPT #:[id number] OF REPORTPRProgress [id number]:42:00V.[id number] corey able for patient cjhnFCQEPNRPQZMEKU3613-84-13N95:45:49 2018-05-16 18:30:00 [id number]:30:00 [facility] ([facility])General Surgery Progress NoteREPORT#:[id number] REPORT STATUS: SignedDATE:05/16/18 TIME: 1830 PATIENT: ANA PENALOZA UNIT #: [id number]#: [id number] ROOM/BED: [facility]-ADOB: [birth year] AGE : 67 SEX: F ATTEND: Kathleen Michelle I MDADM AUTHOR: Khoi Ivory MD * ALL edits or amendments must be made on the electronic/computer document * SubjectivePatient reports:Yes: abdominal pain, tolerating diet. No : vomiting. Objective Physical ExamVS/I OLast Documented: Result Date Time Pulse Ox 95 05/16 1537 B/P 112/71 05/16 1537 B/P Mean 84.5 05/16 1537 O2 Delivery Room air 05/16 1537 Temp 98.2 05/16 1537 Pulse 59 05/16 1537 Resp 18 05/16 153 7 FiO2 21 05/11 0546 O2 Flow Rate 2.669124 05/03 2014 Vital Signs Date Temp Pulse Resp B/P B/P Mean Pulse Ox FiO2 05/15-05/16 97.9-98.4 59-78 14-18 99-136/64-79 75.4-95.4 94-96 24 hour I O ending at 0700: 05/16 0700 05/15 1900 Intake Total 1150.00 1834.00 Output Total 500 600 Balance 650.00 1234.00 Intake, IV 900.00 1100.00 Intake, Oral 250 734 Number Voids 2 3 Output, 50 0 600 Drainage General appearance: alert, awakeAbdomen: guarding (RUQ), soft Diagnosis, Assessment PlanFree Text A P:Persistent pain despite biliary stenting of strictured segment o f distal bile duct. Normal liver enzymes. Pt agree s to consider biliary duodenal bypass if there is certainty of pain resolution. IR plans to balloon-dilate strictured area to test for pain relief. at 1834 RPT #:[id number] OF REPORTPRProgress [id number]:30:00V.[id number] l able for patient mlqpXWIFEAGHLAQYHT8606-82-70H20:35:06 2018-05-15 23:59:00 [id number]:59:00 [facility] ([facility])Hospitalist Progress NoteREPORT#:[id number] REPORT STATUS: SignedDATE:05/15/18 TIME: 2358 PATIENT: ANA PENALOZA UNIT #: [id number]#: [id number] [address] [birth year] AGE : 67 SEX: F ATTEND: Kathleen Michelle I [facility] AUTHOR: Radha Rich MD * ALL edits o r amendments must be made on the electronic/computer document * SubjectiveChief Complaint:Still with right upper quadrant pain.Reports nausea .Had PTC ,still hassignificant drainage.Also had biliary biopsy.Patient reports:Yes: complaints, abdomina l pain, nausea, pain, pain controlled. Nursing reports:Yes: complaints, abdominal pain, nausea, pain, pain controlled. Review of SystemsGI:Reports: abdominal pain, nausea, vomiting. Systems reviewed negative: Allergy/Immun, Cardiovascular, Constitutional, Endocrine, ENT, Eyes, , Heme, Musculoskeletal, Neuro, Psych, Respiratory, Skin Objective GeneralVS/I O:Vital Signs: Date Time Temp Pulse Resp B/P B/P Pulse O2 O2 Flow FiO2 Mean Ox Delivery Rate 05/15 2348 98.4 70 14 99/64 75.4 9 4 Room air 05/15 2035 97.9 78 14 119/79 92.4 95 Room air 05/15 1514 97.9 63 16 132/79 96.8 97 Room air 05/15 1127 98.1 71 16 105/65 78.2 95 Room air 05/15 0723 97.9 63 15 123/79 93.9 95 Room air 05/15 0451 97.9 64 14 113/73 86.5 95 Room air 05/15 0007 98.2 64 14 104/66 78.3 94 Room air 24 hour I O ending at 0700: 05/15 0700 05/14 1900 Intake Total 950.00 1300 Output Total 400 Balance 550.00 1300 Intake, IV 950.00 Intake , Oral 1300 Output, 400 Drainage Medications:Activ e Meds + DC'd Last 24 HrsPotassium Chloride 40 MEQ ONCE ONE PO (DC) Hydrocodone Bitart/Acetaminophe n 1 TAB Q6H PRN PRN PO Promethazine HCl 12.5 MG Q6 H PRN PRN IV Sodium Chloride 50 MLLevofloxacin/Dextrose 150 ML Q24H IV Ondansetron Base 4 MG Q6H PRN PRN SL Multivitamins Therapeutic 1 UDTAB BID PO (CKD) Thiamine HCl 100 MG DAILY PO Famotidine 20 MG BI D AC PO Levothyroxine Sodium 50 MCG 0600 PO Sodium Chloride 1,000 ML .[Q13H] IV Acetaminophen 650 M G Q4H PRN PRN PO Ondansetron HCl 4 MG Q6H PRN PRN IV Physical ExamHead/Eyes: atraumatic, EOMI, normal conjunctiva/sclera, normocephalic, PERRLENT: moist mucosal membranes, normal ear left, normal ear right, normal noseNeck: full range of motion, non-tender, supple/no meningismus, no masses or swellingCardiovascular : normal heart sounds, regular rate rhythm, no murmurRespiratory: aerating well, clear to auscultation, no distressAbdomen: tenderness, normal bowel sounds, soft, no distention, Erythema to the RUQ/Inframammilary area. No significant rash.Drain in RUQ draining biliary fluidGenitourinary: no bladder distentionExtremities: moves all, no clubbing, n o cyanosis, no edemaMusculoskeletal: normal inspection, painless range of motionSkin: dry, intactPsychiatry: normal affect, normal judgment/insight, normal mood ResultsFindings/Data:Laboratory Tests 05/15 041 0 Chemistry Sodium (136 - 145 mmol/L) 144 Potassiu m (3.5 - 5.1 mmol/L) 3.3 L Chloride (98 - 107 mmol/L) 109.0 H Carbon Dioxide (21 - 32 mmol/L) 26.0 Anion Gap (10 - 20) 12.3 BUN (7 - 18 mg/dL ) 12 Creatinine (0.55 - 1.02 mg/dL) 0.60 Glomerula r Filtr Rate (>=60 mL/min) > 60 BUN/Creatinine Ratio (10 - 20) 20.0 Glucose (74 - 106 mg/dL) 82 Calcium (8.5 - 10.1 mg/dL) 8.5 Total Bilirubin (0.0 - 1.0 mg/dL) 1.00 AST (15 - 37 IUnit/L) 116 H ALT (12 - 78 IUnit/L) 173 H Total Alk Phosphatase (45 - 117 IUnit/L) 116 Total Protein (6.4 - 8.2 gram/dL) 5.8 L Albumin (3.4 - 5.0 g/dL) 2.3 L Globulin (2.7 - 4.2 gram/dL) 3.5 Albumin/Globulin Ratio (0.75 - 1.50) 0.7 L Laboratory Tests 05/15 0410 Hematology WBC (4.5 - 12.5 K/mm3) 8.3 RBC (3.7 - 5.2 mill/mm3) 4.08 Hgb (11.5 - 15.5 gram/dL) 11.6 Hct (36.0 - 46.0 %) 37.2 MCV (80 - 98 fL) 91.2 MCH (27.0 - 33.0 picogram) 28.4 MCHC (33.0 - 36.0 gram/dL) 31.2 L RDW (11.6 - 16.2 %) 14.6 RDW Std Deviation (37.0 - 51.0 fL) 49.3 Plt Count (150 - 450 K/mm3) 297 MPV (6.7 - 11.0 fL) 9.1 Neut % (Auto) (39.0 - 69.0 %) 48.5 Lymph % (Auto) (25.0 - 55.0 %) 40.4 [place] % (Auto) (0.0 - 10.0 %) 8.6 Eos % (Auto) (0.0 - 5.0 %) 1.5 Baso % (Auto) (0.0 - 1.0 %) 0. 4 Neut # (Auto) (1.8 - 7.7 K/mm3) 4.02 Lymph # (Auto) (1.0 - 5.0 K/mm3) 3.34 [place] # (Auto) (0 - 0.8 K/mm3) 0.71 Eos # (Auto) (0.0 - 0.5 K/mm3) 0.12 Baso # (Auto) (0.0 - 0.2 K/mm3) 0.03 Nucleated RBC % (0 - 0 %) 0.0 Nucleated RBCs # (Man) (0.0 - 0.1 K/mm3) 0.00 Diagnosis, Assessment Plan Free Text DxA P NotesFree text DxA P notes:Ms. Penaloza is a 67-year-old female with history of thyroid disease presenting with a right upper quadrant/inframamillary pain. 1.Abdominal pain- Due to CBD dilatation of unknown etiology. Patient status post cholecystectomy. CT abdomen with small hepatic cysts; extrahepatic biliarydilatation with no evidence of obstructing lesion and 2 hemangioma, patient has been aware of this for years. -Pain control -IV hydration. Advance diet and monitor for tolerance -MRCP findings noted -GI on consult. Consulted surgeon for diagnostic procedures including cholangiogram. -Pt taken fo r PTC ,drain present .Fluid cx growing E coli and Kleibsella,also streptococcus.Started levaquin. -Tumor markers ordered were negative ,had biliar y biopsy .Pathology shows inflammation. -Pt will need choledochojejunostomy ,gen surgery following.2.Thyroid insufficiency-continue patient on levothyroxine3.Bradycardia-Asymptomatic. EKG wit h first-degree AV block. TSH at 6.65, will need outpatient follow-up. -Consider cardiology consult.4.DVT ppx-SCD Patient is full code. Quality BMI Screening > 25 or < 18.5BMI status/follow-up: abnl BMI, pt to F/U w/PCP at 0023 RPT #:[id number] OF REPORTPRProgress Vnpi3216-42-96Y21:59:00V.[id number] corey able for patient hhkgBDXZMBVMVWEGQC6948-12-21S38:24:09 2018-05-15 17:54:00 [id number]:54:00 [facility] ([facility])Gastroenterology Progress NoteREPORT#:[id number] REPORT STATUS: SignedDATE:05/15/18 TIME: 1754 PATIENT: ANA PENALOZA UNIT #: [id number]#: [id number] ROOM/BED: [facility]-ADOB: [birth year] AGE : 67 SEX: F ATTEND: Kathleen Michelle I [facility] AUTHOR: Gilberto Conway MD * AL L edits or amendments must be made on the electronic/computer document * SubjectiveChief Complaint:Abdominal painPatient reports:No: abdominal pain, nausea, vomiting. Objective Physical ExamGeneral appearance: awake, no acute distressHEENT: anicteric, atraumaticNeck: non-tender, supple/no meningismusCardiovascular: normal heart sounds, normal S1/O8Urwxvyotmsv: aerating well, clear to auscultationAbdomen: non-tender, normal bowel sounds, softExtremities : no clubbing, no cyanosisMusculoskeletal: full range of motionNeuro/PRODUCT MARKETER: alert, oriented X 3Psychiatry: normal affect, normal judgment/insight ResultsFindings/Data:Laboratory Tests: 05/15 0410 Chemistry Sodium (136 - 145 mmol/L) 144 Potassium (3.5 - 5.1 mmol/L) 3.3 L Chloride (98 - 107 mmol/L) 109.0 H Carbon Dioxid e (21 - 32 mmol/L) 26.0 Anion Gap (10 - 20) 12.3 BUN (7 - 18 mg/dL) 12 Creatinine (0.55 - 1.02 mg/dL) 0.60 Glomerular Filtr Rate (>=60 mL/min) > 60 BUN/Creatinine Ratio (10 - 20) 20.0 Glucose (74 - 106 mg/dL) 82 Calcium (8.5 - 10.1 mg/dL) 8.5 Total Bilirubin (0.0 - 1.0 mg/dL) 1.00 AST (15 - 37 IUnit/L) 116 H ALT (12 - 78 IUnit/L) 17 3 H Total Alk Phosphatase (45 - 117 IUnit/L) 116 Total Protein (6.4 - 8.2 gram/dL) 5.8 L Albumin (3.4 - 5.0 g/dL) 2.3 L Globulin (2.7 - 4.2 gram/dL) 3.5 Albumin/Globulin Ratio (0.75 - 1.50 ) 0.7 L Hematology WBC (4.5 - 12.5 K/mm3) 8.3 RBC (3.7 - 5.2 mill/mm3) 4.08 Hgb (11.5 - 15.5 gram/dL) 11.6 Hct (36.0 - 46.0 %) 37.2 MCV (80 - 98 fL) 91.2 MCH (27.0 - 33.0 picogram) 28.4 MCHC (33.0 - 36.0 gram/dL) 31.2 L RDW (11.6 - 16.2 %) 14.6 RDW Std Deviation (37.0 - 51.0 fL) 49.3 Plt Count (150 - 450 K/mm3) 297 MPV (6.7 - 11.0 fL) 9.1 Neut % (Auto) (39.0 - 69.0 %) 48.5 Lymph % (Auto) (25.0 - 55.0 %) 40.4 [place] % (Auto) (0.0 - 10.0 %) 8.6 Eos % (Auto) (0.0 - 5.0 %) 1.5 Baso % (Auto) (0.0 - 1.0 %) 0.4 Neut # (Auto) (1.8 - 7. 7 K/mm3) 4.02 Lymph # (Auto) (1.0 - 5.0 K/mm3) 3.3 4 [place] # (Auto) (0 - 0.8 K/mm3) 0.71 Eos # (Auto) (0.0 - 0.5 K/mm3) 0.12 Baso # (Auto) (0.0 - 0.2 K/mm3) 0.03 Nucleated RBC % (0 - 0 %) 0.0 Nucleated RBCs # (Man) (0.0 - 0.1 K/mm3) 0.00 Current Medications Sig/[place] Start time Last Medication Dose Route Stop Time Status Admin Potassium Chloride 40 MEQ ONCE ONE 05/15 1045 DC 05/15 PO 05/15 1046 1155 Hydrocodone Bitart/ 1 TAB Q6H PRN PRN 05/14 0800 AC 05/15 Acetaminophe n PO 05/24 0759 1524 Promethazine HCl 12.5 MG Q6H PRN PRN 05/12 1045 AC 05/15 Sodium Chloride 50 M L IV 06/11 1044 1524 Levofloxacin/Dextrose 150 ML Q24H 05/09 1600 AC 05/15 IV 05/16 1559 1649 Ondansetron Base 4 MG Q6H PRN PRN 05/07 0745 AC 05/12 SL 06/06 0744 0759 Multivitamins 1 UDTAB BID 05/04 1700 CKD 05/15 Therapeutic PO 06/03 1659 1709 Thiamine HCl 100 MG DAILY 05/04 1630 A C 05/15 PO 06/03 1629 0834 Famotidine 20 MG BID A C 05/04 0730 AC 05/15 PO 06/03 0729 1648 Levothyroxine Sodium 50 MCG 0600 05/04 0600 AC 05/15 PO 06/03 0559 0617 Sodium Chloride 1,000 M L .[Q13H] 05/03 1800 AC 05/14 IV 06/02 1759 0320 Acetaminophen 650 MG Q4H PRN PRN 05/03 1700 AC 05/11 PO 06/02 1659 0613 Ondansetron HCl 4 MG Q6 H PRN PRN 05/03 1700 AC 05/12 IV 06/02 1659 1041 Laboratory Tests 05/15/18 0410:[Embedded Image Not Available]Laboratory Tests 05/15 409 Chemistry Sodium (136 - 145 mmol/L) 144 Potassiu m (3.5 - 5.1 mmol/L) 3.3 L Chloride (98 - 107 mmol/L) 109.0 H Carbon Dioxide (21 - 32 mmol/L) 26.0 Anion Gap (10 - 20) 12.3 BUN (7 - 18 mg/dL) 12 Creatinine (0.55 - 1.02 mg/dL) 0.60 Glomerula r Filtr Rate (>=60 mL/min) > 60 BUN/Creatinine Ratio (10 - 20) 20.0 Glucose (74 - 106 mg/dL) 8 2 Calcium (8.5 - 10.1 mg/dL) 8.5 Total Bilirubin (0.0 - 1.0 mg/dL) 1.00 AST (15 - 37 IUnit/L) 116 H ALT (12 - 78 IUnit/L) 173 H Total Alk Phosphatase (45 - 117 IUnit/L) 116 Total Protein (6.4 - 8.2 gram/dL) 5.8 L Albumin (3.4 - 5.0 g/dL) 2.3 L Globulin (2.7 - 4.2 gram/dL) 3.5 Albumin/Globulin Ratio (0.75 - 1.50) 0.7 L Laboratory Tests 05/15 409 Hematology WBC (4.5 - 12.5 K/mm3) 8.3 RBC (3.7 - 5.2 mill/mm3) 4.08 Hgb (11.5 - 15.5 gram/dL) 11.6 Hct (36.0 - 46.0 %) 37.2 MCV (80 - 98 fL) 91.2 MCH (27.0 - 33.0 picogram) 28.4 MCHC (33.0 - 36.0 gram/dL) 31.2 L RDW (11.6 - 16.2 %) 14.6 RDW Std Deviation (37.0 - 51.0 fL) 49.3 Plt Count (150 - 450 K/mm3) 297 MPV (6.7 - 11.0 fL) 9.1 Neut % (Auto) (39.0 - 69.0 %) 48.5 Lymph % (Auto) (25.0 - 55.0 %) 40.4 [place] % (Auto) (0.0 - 10.0 %) 8.6 Eos % (Auto) (0.0 - 5.0 %) 1.5 Baso % (Auto) (0.0 - 1.0 %) 0. 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 This could represent an ampullary stone. ERCP would be of value. Dilated pancreatic duct at 5. 8 mm. 2) costochondiritis? 3) hx of gastric bypass4) nausea -- better5) hepatic hemangioma/dilattion of extrahepatic bile duct Plan:- Continue current care- Will need choledochojejunostomy -- d/w Dr. Ivory - thiamine, multivitamins- anti-emetics PRN- Pepcid at 9245 RPT #:[id number] OF REPORTPRProgress [id number]:54:00V.[id number] corey able for patient [id number]:55:56 2018-05-14 23:56:00 [id number]:56:00 [facility] ([facility])Hospitalist Progress NoteREPORT#:[id number] REPORT STATUS: SignedDATE:05/14/18 TIME: 2355 PATIENT: ANA PENALOZA UNIT #: [id number]#: [id number] ROOM/BED: 301-ADOB: [birth year] AGE : 67 SEX: F ATTEND: Kathleen Michelle I [facility] AUTHOR: Radha Rich MD * ALL edits o r amendments must be made on the electronic/computer document * SubjectiveChief Complaint:Still with right upper quadrant pain.Reports nausea .Had PTC ,still has significant drainage.Also had biliary biopsy.Patient reports:Yes: complaints, abdomina l pain, nausea, pain, pain controlled. Nursing reports:Yes: complaints, abdominal pain, nausea, pain, pain controlled. Review of SystemsGI:Reports: abdominal pain, nausea, vomiting. Systems reviewed negative: Allergy/Immun, Cardiovascular, Constitutional, Endocrine, ENT, Eyes, , Heme, Musculoskeletal, Neuro, Psych, Respiratory, Skin Objective GeneralVS/I O:Vital Signs: Date Time Temp Pulse Resp B/P B/P Pulse O2 O2 Flow FiO2 Mean Ox Delivery Rate 05/14 2022 97.7 77 16 126/78 94.2 94 Room air 05/14 1536 98.4 63 18 124/70 88.0 96 Room air 05/14 1226 97.7 66 16 117/79 91.6 94 Room air 05/14 0723 98.2 67 16 132/75 93.8 93 Room air 05/14 0439 98.4 72 18 121/75 90.1 93 Room air 24 hour I O ending at 0700: 05/14 0700 05/13 1900 Intake Total Output Total 350 650 Balance -350 -650 Output, 350 650 Drainage Output, Emesis Medications:Active Meds + DC'd Last 24 HrsHydrocodone Bitart/Acetaminophen 1 TA B Q6H PRN PRN PO Promethazine HCl 12.5 MG Q6H PRN PRN IV Sodium Chloride 50 MLLevofloxacin/Dextros e 150 ML Q24H IV Ondansetron Base 4 MG Q6H PRN PRN SL Multivitamins Therapeutic 1 UDTAB BID PO (CKD ) Thiamine HCl 100 MG DAILY PO Famotidine 20 MG BI D AC PO Levothyroxine Sodium 50 MCG 0600 PO Sodium Chloride 1,000 ML .[Q13H] IV Acetaminophen 650 M G Q4H PRN PRN PO Ondansetron HCl 4 MG Q6H PRN PRN IV Physical ExamGeneral appearance: alert, awake , orientedHead/Eyes: atraumatic, EOMI, normal conjunctiva/sclera, normocephalic, PERRLENT: moist mucosal membranes, normal ear left, normal ear right, normal nose, normal sinusNeck: full range of motion, non-tender, supple/no meningismus, no masses or swellingCardiovascular : normal capillary refill, normal heart sounds, regular rate rhythmRespiratory: aerating well, clear to auscultation, no distressAbdomen: tenderness, non-tender, normal bowel sounds, soft, no distention, Erythema to the RUQ/Inframammilary area. No significant rash. Genitourinary: no bladder distentionExtremities: moves all, normal range of motion, no edemaMusculoskeletal: normal inspection, painles s range of motionSkin: dry, intactPsychiatry: normal affect, normal judgment/insight, normal mood Diagnosis, Assessment Plan Free Text DxA P NotesFree text DxA P notes:Ms. Penaloza is a 67-year-old female with history of thyroid disease presenting with a right upper quadrant/inframamillary pain. 1.Abdominal pain- Due to CBD dilatation of unknown etiology. Patient status post cholecystectomy. CT abdomen with small hepatic cysts; extrahepatic biliarydilatation with no evidence of obstructin g lesion and 2 hemangioma, patient has been aware of this for years. -Pain control -IV hydration. Advance diet and monitor for tolerance -MRCP findings noted -GI on consult. Consulted surgeon for diagnostic procedures including cholangiogram. -Pt taken for PTC ,drain present .Fluid cx growing E coli and Kleibsella,also streptococcus.Started levaquin. -Tumor markers ordered were negative ,had biliary biopsy yesterday.Await pathology.2.Thyroid insufficiency-continue patient on levothyroxine3.Bradycardia-Asymptomatic. EKG wit h first-degree AV block. TSH at 6.65, will need outpatient follow-up. -Consider cardiology consult.4.DVT ppx-SCD Patient is full code. Quality BMI Screening > 25 or < 18.5BMI status/follow-up: abnl BMI, pt to F/U w/PCP at 1229 RPT #:[id number] OF REPORTPRProgress [id number]:56:00V.[id number] corey able for patient kwirWCXTQHIYUZWUNK1823-41-55Z10:29:24 2018-05-13 23:56:00 [id number]:56:00 [facility] ([facility])Hospitalist Progress NoteREPORT#:[id number] REPORT STATUS: SignedDATE:05/13/18 TIME: 6 PATIENT: ANA PENALOZA UNIT #: [id number]#: [id number] [address] [birth year] AGE : 67 SEX: F ATTEND: Kathleen Michelle MDADM AUTHOR: Radha Rich MD * ALL edits o r amendments must be made on the electronic/computer document * SubjectiveChief Complaint:Pt s/p PTC and biliary biopsy.Reports pain in abdomen in RUQ and nausea.Drain still draining significant amount.Patient reports:Yes: complaints, abdominal pain, nausea, pain, pain controlled. Nursing reports:Yes: complaints, abdominal pain, nausea, pain, pain controlled. Review of SystemsGI:Reports: abdominal pain, nausea. Systems reviewed negative: Allergy/Immun , Cardiovascular, Constitutional, Endocrine, ENT, Eyes, , Musculoskeletal, Neuro, Psych, Respiratory, Skin Objective GeneralVS/I O:Vital Signs: Date Time Temp Pulse Resp B/P B/P Pulse O2 O2 Flow FiO2 Mean Ox Delivery Rate 05/13 2305 97.9 64 16 100/63 75.6 93 Room air 05/13 1921 98.1 62 16 113/70 84.5 96 Room air 05/13 1629 97.9 70 16 123/88 99.7 97 Room air 05/13 1233 97.7 70 18 107/68 81.0 95 05/13 0811 97.9 71 18 134/78 97.1 96 Room air 05/13 0401 97.9 63 20 128/78 94.5 93 Room air 24 hour I O ending at 0700: 05/13 0700 05/12 1900 Intake Total 800.00 450.00 Output Total 400 775 Balance 400.00 -325.00 Intake, IV 400.00 250.00 Intake, Oral 40 0 200 Number Voids 3 1 Output, 400 775 Drainage Output, Emesis Medications:Active Meds + DC'd Last 24 HrsPromethazine HCl 12.5 MG Q6H PRN PRN IV Sodium Chloride 50 MLLevofloxacin/Dextrose 15 0 ML Q24H IV Hydrocodone Bitart/Acetaminophen 1 TA B Q6H PRN PRN PO (DC) Ondansetron Base 4 MG Q6H [place] N PRN SL Multivitamins Therapeutic 1 UDTAB BID PO (CKD) Thiamine HCl 100 MG DAILY PO Famotidine 20 MG BID AC PO Levothyroxine Sodium 50 MCG 0600 PO Sodium Chloride 1,000 ML .[Q13H] IV Acetaminophe n 650 MG Q4H PRN PRN PO Ondansetron HCl 4 MG Q6H PRN PRN IV Physical ExamGeneral appearance: alert, awake, orientedHead/Eyes: atraumatic, EOMI, normal conjunctiva/sclera, normocephalic, PERRLENT: moist mucosal membranes, normal ear left, normal ear right, normal noseNeck: full range of motion, non-tender, supple/no meningismus, no masses or swellingCardiovascular : normal heart sounds, regular rate rhythm, no murmurRespiratory: aerating well, clear to auscultation, no distressAbdomen: tenderness, normal bowel sounds, soft, no distention, Erythema to the RUQ/Inframammilary area. No significant rash.Drain in RUQ draining biliary fluidGenitourinary: no bladder distentionExtremities: moves all, no clubbing, n o cyanosis, no edemaMusculoskeletal: normal inspection, painless range of motionSkin: dry, intactPsychiatry: normal affect, normal judgment/insight, normal mood Diagnosis, Assessment Plan Free Text DxA P NotesFree text DxA P notes:Ms. Penaloza is a 67-year-old female with history of thyroid disease presenting with a right upper quadrant/inframamillary pain. 1.Abdominal pain- Due to CBD dilatation of unknown etiology. Patient status post cholecystectomy. CT abdomen with small hepatic cysts; extrahepatic biliarydilatation with no evidence of obstructing lesion and 2 hemangioma, patient has been aware of this for years. -Pain control -IV hydration. Advance diet and monitor for tolerance -MRCP findings noted -GI on consult. Consulted surgeon for diagnostic procedures including cholangiogram. -Pt taken fo r PTC ,drain present .Fluid cx growing E coli and Kleibsella,also streptococcus.Started levaquin. -Tumor markers ordered were negative ,had biliar y biopsy .Await pathology.2.Thyroid insufficiency-continue patient on levothyroxine3.Bradycardia-Asymptomatic. EKG wit h first-degree AV block. TSH at 6.65, will need outpatient follow-up. -Consider cardiology consult.4.DVT ppx-SCD Patient is full code. Quality BMI Screening > 25 or < 18.5BMI status/follow-up: abnl BMI, pt to F/U w/PCP at 1228 RPT #:[id number] OF REPORTPRProgress [id number]:56:00V.[id number] corey able for patient arqoSRRGKVCSSSQFZE7546-14-86I25:28:14 2018-05-12 23:53:00 [id number]:53:00 [facility] ([facility])Hospitalist Progress NoteREPORT#:[id number] REPORT STATUS: SignedDATE:05/12/18 TIME: 3 PATIENT: ANA PENALOZA UNIT #: [id number]#: [id number] ROOM/BED: [facility]-ADOB: [birth year] AGE : 67 SEX: F ATTEND: Kathleen Michelle AUTHOR: Radha Rich MD * ALL edits o r amendments must be made on the electronic/computer document * SubjectiveChief Complaint:Pt s/p PTC and biliary biopsy.Reports abdominal pain and nausea.No other complaints.Patient reports:Yes: complaints, abdominal pain, nausea, pain, pain controlled. Nursing reports:Yes: complaints, abdominal pain, nausea, pain, pain controlled. Review of SystemsGI:Reports: abdominal pain, nausea. Systems reviewed negative: Allergy/Immun, Cardiovascular, Constitutional, Endocrine, ENT, Eyes, , Musculoskeletal, Neuro, Psych, Respiratory, Skin Objective GeneralVS/I O:Vital Signs: Date Time Temp Pulse Resp B/P B/P Pulse O 2 O2 Flow FiO2 Mean Ox Delivery Rate 05/12 2337 97.9 59 22 112/70 84.0 95 Room air 05/12 1939 97.7 66 20 112/69 83.6 95 Room air 05/12 1531 98.1 70 17 107/65 79.4 95 Room air 05/12 1123 97.9 64 18 108/70 82.6 97 Room air 05/12 0727 97.5 63 16 150/79 102.5 95 Room air 05/12 0539 97.7 55 14 110/68 82.3 96 Room air 24 hour I O ending at 0700: 05/12 0700 05/11 1900 Intake Total 150.00 Output Total 385 Balance -235.00 Intake, IV 150.00 Output, 385 Drainage Medications:Active Meds + DC'd Last 24 HrsPromethazine HCl 12.5 MG Q6H PRN PRN IV Sodiu m Chloride 50 MLLevofloxacin/Dextrose 150 ML Q24H IV Hydrocodone Bitart/Acetaminophen 1 TAB Q6H [place] N PRN PO Ondansetron Base 4 MG Q6H PRN PRN SL Multivitamins Therapeutic 1 UDTAB BID PO (CKD) Thiamine HCl 100 MG DAILY PO Famotidine 20 MG BI D AC PO Levothyroxine Sodium 50 MCG 0600 PO Sodium Chloride 1,000 ML .[Q13H] IV Acetaminophen 650 M G Q4H PRN PRN PO Ondansetron HCl 4 MG Q6H PRN PRN IV Physical ExamGeneral appearance: alert, awake , orientedHead/Eyes: atraumatic, EOMI, normal conjunctiva/sclera, normocephalic, PERRLENT: moist mucosal membranes, normal ear left, normal ear right, normal noseNeck: full range of motion , non-tender, supple/no meningismus, no masses or swellingCardiovascular: normal capillary refill, normal heart sounds, regular rate rhythmRespiratory: aerating well, no distressAbdomen: tenderness, soft, no distention , Erythema to the RUQ/Inframammilary area. No significant rash.Drain in RUQ draining biliary fluidGenitourinary: no bladder distentionExtremities: moves all, normal capillary refill, normal range of motion, no clubbing, no cyanosis, no edemaMusculoskeletal: normal inspection, painless range of motionSkin: dry, intactPsychiatry: normal affect, normal judgment/insight, normal mood Diagnosis, Assessment Plan Free Text DxA P NotesFree text DxA P notes:Ms. Penaloza is a 67-year-old female with history of thyroid disease presenting with a right upper quadrant/inframamillary pain. 1.Abdominal pain- Due to CBD dilatation of unknown etiology. Patient status post cholecystectomy. CT abdomen with small hepatic cysts; extrahepatic biliarydilatation with no evidence of obstructing lesion and 2 hemangioma, patient has been aware of this for years. -Pain control -IV hydration. Advance diet and monitor for tolerance -MRCP findings noted -GI on consult. Consulted surgeon for diagnostic procedures including cholangiogram. -Pt taken fo r PTC ,drain present .Fluid cx growing E coli and Kleibsella,also streptococcus.Started levaquin. -Tumor markers ordered were negative ,had biliar y biopsy yesterday.Await pathology.2.Thyroid insufficiency-continue patient on levothyroxine3.Bradycardia-Asymptomatic. EKG wit h first-degree AV block. TSH at 6.65, will need outpatient follow-up. -Consider cardiology consult.4.DVT ppx-SCD Patient is full code. Quality BMI Screening > 25 or < 18.5BMI status/follow-up: abnl BMI, pt to F/U w/PCP at 1222 RPT #:[id number] OF REPORTPRProgress [id number]:53:00V.[id number] corey able for patient [id number]:23:13 2018-05-12 16:38:00 [id number]:38:00 [facility] ([facility])Gastroenterology Progress NoteREPORT#:[id number] REPORT STATUS: SignedDATE:05/12/18 TIME: 1638 PATIENT: ANA PENALOZA UNIT #: [id number]#: [id number] [address] [birth year] AGE : 67 SEX: F ATTEND: Kathleen Michelle I [facility] AUTHOR: Gilberto Conway MD * AL L edits or amendments must be made on the electronic/computer document * SubjectiveChief Complaint:Abdominal painPatient reports:No: abdominal pain, nausea, vomiting. Objective Physical ExamGeneral appearance: awake, no acute distressHEENT: anicteric, atraumaticNeck: non-tender, supple/no meningismusCardiovascular: normal heart sounds, normal S1/R6Oyspduiyjde: aerating well, clear to auscultationAbdomen: non-tender, normal bowel sounds, softExtremities : no clubbing, no cyanosisMusculoskeletal: full range of motionNeuro/PRODUCT MARKETER: alert, oriented X 3Psychiatry: normal affect, normal judgment/insight ResultsFindings/Data:Current Medications Sig/[place] Start time Last Medication Dose Route Stop Time Status Admin Promethazine HCl 12.5 MG Q6H PRN PRN 05/12 1045 AC 05/12 Sodium Chloride 50 ML IV 06/11 1044 1141 Morphin e Sulfate 2 MG Q5M PRN PRN 05/11 1330 DC IV 05/11 2125 Morphine Sulfate 4 MG Q5M PRN PRN 05/11 133 0 DC IV 05/11 2125 Ondansetron HCl 4 MG ONCE PRN 05/11 1330 DC IV 05/11 2125 Levofloxacin/Dextros e 150 ML Q24H 05/09 1600 AC 05/12 IV 05/16 1559 1450 Hydrocodone Bitart/ 1 TAB Q6H PRN PRN 05/08 2245 AC 05/12 Acetaminophen PO 05/13 2244 1042 Ondansetron Base 4 MG Q6H PRN PRN 05/07 0745 AC 05/12 SL 06/06 0744 0759 Multivitamins 1 UDTAB BID 05/04 1700 CKD 05/12 Therapeutic PO 06/03 1659 1450 Thiamine HCl 100 MG DAILY 05/04 1630 A C 05/12 PO 06/03 1629 0800 Famotidine 20 MG BID A C 05/04 0730 AC 05/12 PO 06/03 0729 1450 Levothyroxine Sodium 50 MCG 0600 05/04 0600 AC 05/12 PO 06/03 0559 0442 Sodium Chloride 1,000 M L .[Q13H] 05/03 1800 AC 05/04 IV 06/02 1759 2132 Acetaminophen 650 MG Q4H PRN PRN 05/03 1700 AC 05/11 PO 06/02 1659 0613 Ondansetron HCl 4 MG Q6H PRN PRN 05/03 1700 AC 05/12 IV 06/02 1659 1041 Diagnosis, Assessment PlanFree Text A P:1) RUQ abd pain - == 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 This could represent an ampullary stone. ERCP would be of value. Dilated pancreatic duct at 5. 8 mm. 2) costochondiritis? 3) hx of gastric bypass4) nausea -- better5) hepatic hemangioma/dilattion of extrahepatic bile duct Plan:- Continue current care- Awaits biopsy result - thiamine, multivitamins- anti-emetics PRN- Pepcid- Will revisit on Tuesday at 1639 RPT #:[id number] OF REPORTPRProgress [id number]:38:00V.[id number] corey able for patient hpyjOIDIVBWRPDSENS0884-19-15I97:39:36 2018-05-11 23:44:00 [id number]:44:00 [facility] ([facility])Hospitalist Progress NoteREPORT#:[id number] REPORT STATUS: SignedDATE:05/11/18 TIME: 2343 PATIENT: ANA PENALOZA UNIT #: [id number]#: [id number] ROOM/BED: [facility]-ADOB: [birth year] AGE : 67 SEX: F ATTEND: Kathleen Michelle I MDADM AUTHOR: Radha Rich MD * ALL edits o r amendments must be made on the electronic/computer document * SubjectiveChief Complaint:Pt seen and examined ,s/p PTC,reports abdominal pain and nausea .Has drain in RUQ ,still draining significant amount .Taken for biliary biopsy today.Patient reports:Yes: complaints, abdominal pain, nausea, pain, pain controlled. Nursing reports:Yes: complaints, abdominal pain, nausea, pain, pain controlled. Review of SystemsGI:Reports: abdominal pain, nausea. Systems reviewed negative: Allergy/Immun , Cardiovascular, Constitutional, Endocrine, ENT, Eyes, , Musculoskeletal, Neuro, Psych, Respiratory, Skin Objective GeneralVS/I O:Vital Signs: Date Time Temp Pulse Resp B/P B/P Pulse O 2 O2 Flow FiO2 Mean Ox Delivery Rate 05/11 2312 98.2 55 14 109/71 83.5 92 Room air 05/11 2017 97.5 65 16 116/71 86.0 92 Room air 05/11 1748 97.3 54 18 120/73 89.0 91 Room air 05/11 1552 59 14 131/61 94 Room air 05/11 1542 72 14 128/50 95 Room air 05/11 1533 97.7 72 14 127/55 97 Room air 05/11 1522 73 12 125/42 95 Room air 05/11 1515 97.5 78 16 137/52 99 Room air 05/11 1121 98.2 59 16 107/70 82.3 94 Room air 05/11 0728 97.9 62 16 103/66 78.5 94 Room air 05/11 0546 96 Room air 05/11 0509 97.7 63 16 110/72 84.8 9 5 Room air 05/10 2357 97.9 62 14 102/68 79.5 94 Room air 24 hour I O ending at 0700: 05/11 0700 05/10 1900 Intake Total 500 Output Total 350 Balance 150 Intake, Oral 500 Output, 350 Drainag e Output, Emesis Medications:Active Meds + DC'd Last 24 HrsHydrocodone Bitart/Acetaminophen 0 .STK-MED ONE .ROUTE (DCr) Ephedrine Sulfate 0 .STK-MED ONE .ROUTE (DC) Glycopyrrolate 0 .STK-MED ONE .ROUTE (DC) Iopamidol 0 .STK-MED ON E .ROUTE (DC) Bupivacaine HCl 0 .STK-MED ONE .ROUT E (DC) Dexamethasone Sodium Phosphate 0 .STK-MED ONE .ROUTE (DCr) Ondansetron HCl 0 .STK-MED ONE .ROUTE (DCr) Ketamine HCl 0 .STK-MED ONE .ROUTE (DC) Fentanyl Citrate 0 .STK-MED ONE .ROUTE (DCr ) Propofol 20 ML .STK-MED ONE IV (DCr) Midazolam HCl 0 .STK-MED ONE .ROUTE (DC) Morphine Sulfate 2 MG Q5M PRN PRN IV (DC) Morphine Sulfate 4 MG Q5M PRN PRN IV (DC) Ondansetron HCl 4 MG ONCE PRN IV (DC) Levofloxacin/Dextrose 150 ML Q24H IV (r) Hydrocodone Bitart/Acetaminophen 1 TAB Q6H PRN PRN PO Ondansetron Base 4 MG Q6H PRN PRN SL Multivitamins Therapeutic 1 UDTAB BID PO (CKD) Thiamine HCl 100 MG DAILY PO Famotidine 20 MG BI D AC PO Levothyroxine Sodium 50 MCG 0600 PO Sodium Chloride 1,000 ML .[Q13H] IV Acetaminophen 650 M G Q4H PRN PRN PO Ondansetron HCl 4 MG Q6H PRN PRN IV Physical ExamGeneral appearance: alert, awake , orientedHead/Eyes: atraumatic, EOMI, normal conjunctiva/sclera, normocephalic, PERRLENT: moist mucosal membranes, normal ear left, normal ear right, normal noseNeck: full range of motion , non-tender, supple/no meningismus, no masses or swellingCardiovascular: normal capillary refill, normal heart sounds, regular rate rhythmRespiratory: aerating well, clear to auscultation, no distressAbdomen: tenderness, normal bowel sounds, soft, no distention, Erythema to the RUQ/Inframammilary area. No significant rash.Drain in RUQ draining biliary colored fluid.Genitourinary: no bladder distentionExtremities: moves all, normal capillary refill, normal range of motion, no edemaMusculoskeletal: normal inspectionSkin: dry , intactPsychiatry: normal affect, normal judgment/insight, normal mood ResultsFindings/Data:Laboratory Tests 05/11 051 2 Chemistry Sodium (136 - 145 mmol/L) 142 Potassium (3.5 - 5.1 mmol/L) 3.4 L Chloride (98 - 107 mmol/L) 105.0 Carbon Dioxide (21 - 32 mmol/L ) 30.0 Anion Gap (10 - 20) 10.4 BUN (7 - 18 mg/dL) 7 Creatinine (0.55 - 1.02 mg/dL) 0.50 L Glomerular Filtr Rate (>=60 mL/min) > 60 BUN/Creatinine Ratio (10 - 20) 13.6 Glucose (74 - 106 mg/dL) 79 Calcium (8.5 - 10.1 mg/dL) 8.8 Laboratory Tests 05/11 0512 Coagulation INR (0.8 - 1.2) 1.1 PTT (Sandie) (25.0 - 36.5 seconds) 34.7 PT Patient/Control Mix (9.0 - 14.0 seconds) 12.8 Laboratory Tests 05/11 0512 Hematology WBC (4.5 - 12.5 K/mm3) 8.8 RBC (3.7 - 5.2 mill/mm3) 4.12 Hgb (11.5 - 15.5 gram/dL) 11.9 Hct (36.0 - 46.0 %) 38.0 MCV (80 - 98 fL) 92.2 MCH (27.0 - 33.0 picogram) 28.9 MCHC (33.0 - 36.0 gram/dL) 31.3 L RDW (11.6 - 16.2 %) 14.6 RDW Std Deviation (37.0 - 51.0 fL) 49.9 Plt Count (150 - 450 K/mm3) 276 MPV (6.7 - 11.0 fL) 9.4 Neut % (Auto) (39.0 - 69.0 %) 57.3 Lymph % (Auto) (25.0 - 55.0 %) 31.4 [place] % (Auto) (0.0 - 10.0 %) 9.8 Eos % (Auto) (0.0 - 5.0 %) 0.8 Baso % (Auto) (0.0 - 1.0 %) 0. 2 Neut # (Auto) (1.8 - 7.7 K/mm3) 5.03 Lymph # (Auto) (1.0 - 5.0 K/mm3) 2.76 [place] # (Auto) (0 - 0.8 K/mm3) 0.86 H Eos # (Auto) (0.0 - 0.5 K/mm3) 0.07 Baso # (Auto) (0.0 - 0.2 K/mm3) 0.02 Add Manual Diff NO Nucleated RBC % (0 - 0 %) 0.0 Nucleated RBCs # (Man) (0.0 - 0.1 K/mm3) 0.00 Diagnosis, Assessment Plan Free Text DxA P NotesFree text DxA P notes:Ms. Penaloza is a 67-year-old female with history of thyroid disease presenting with a right upper quadrant/inframamillary pain. 1.Abdominal pain- Due to CBD dilatation of unknown etiology. Patient status post cholecystectomy. CT abdomen with small hepatic cysts; extrahepatic biliarydilatation with no evidence of obstructin g lesion and 2 hemangioma, patient has been aware of this for years. -Pain control -IV hydration. Advance diet and monitor for tolerance -MRCP findings noted -GI on consult. Consulted surgeon for diagnostic procedures including cholangiogram. -Pt taken for PTC ,drain present .Fluid cx growing E coli and Kleibsella.Started levaquin. -Tumor markers ordered ,had biliary biopsy today.Await pathology.2.Thyroid insufficiency-continue patient on levothyroxine3.Bradycardia-Asymptomatic. EKG wit h first-degree AV block. TSH at 6.65, will need outpatient follow-up. -Consider cardiology consult.4.DVT ppx-SCD Patient is full code. Quality BMI Screening > 25 or < 18.5BMI status/follow-up: abnl BMI, pt to F/U w/PCP at 1218 RPT #:[id number] OF REPORTPRProgress [id number]:44:00V.[id number] l able for patient bulaKSZOXIVPIZAVLD8916-25-98I14:18:53 2018-05-11 17:39:00 [id number]:39:00 [facility] ([facility])Gastroenterology Progress NoteREPORT#:[id number] REPORT STATUS: SignedDATE:05/11/18 TIME: 1739 PATIENT: ANA PENALOZA UNIT #: [id number]#: [id number] [address] [birth year] AGE : 67 SEX: F ATTEND: Kathleen Michelle I MDADM AUTHOR: Gilberto Conway MD edits or amendments must be made on the electronic/computer document * SubjectiveChief Complaint:Abdominal painPatient reports:Yes: abdominal pain. No: nausea, vomiting. Objective Physical ExamGeneral appearance: awake, no acute distressHEENT: anicteric, atraumaticNeck: non-tender, supple/no meningismusCardiovascular: normal heart sounds, normal S1/Y1Fndkxjnlumt: aerating well, clear to auscultationAbdomen: non-tender, normal bowel sounds, softExtremities : no clubbing, no cyanosisMusculoskeletal: full range of motionNeuro/PRODUCT MARKETER: alert, oriented X 3Psychiatry: normal affect, normal judgment/insight ResultsFindings/Data:Laboratory Tests: 05/11 05 Chemistry Sodium (136 - 145 mmol/L) 142 Potassium (3.5 - 5.1 mmol/L) 3.4 L Chloride (98 - 107 mmol/L) 105.0 Carbon Dioxide (21 - 32 mmol/L) 30.0 Anion Gap (10 - 20) 10.4 BUN (7 - 18 mg/dL) 7 Creatinine (0.55 - 1.02 mg/dL) 0.50 L Glomerular Filtr Rate (>=60 mL/min ) > 60 BUN/Creatinine Ratio (10 - 20) 13.6 Glucose (74 - 106 mg/dL) 79 Calcium (8.5 - 10.1 mg/dL) 8.8 Coagulation INR (0.8 - 1.2) 1.1 PTT (Sandie) (25.0 - 36.5 seconds) 34.7 PT Patient/Control Mi x (9.0 - 14.0 seconds) 12.8 Hematology WBC (4.5 - 12.5 K/mm3) 8.8 RBC (3.7 - 5.2 mill/mm3) 4.12 Hgb (11.5 - 15.5 gram/dL) 11.9 Hct (36.0 - 46.0 %) 38.0 MCV (80 - 98 fL) 92.2 MCH (27.0 - 33.0 picogram) 28.9 MCHC (33.0 - 36.0 gram/dL) 31.3 L RDW (11.6 - 16.2 %) 14.6 RDW Std Deviation (37.0 - 51.0 fL) 49.9 Plt Count (150 - 450 K/mm3) 276 MPV (6.7 - 11.0 fL) 9.4 Neut % (Auto) (39.0 - 69.0 %) 57.3 Lymph % (Auto) (25.0 - 55.0 %) 31.4 [place] % (Auto) (0.0 - 10.0 %) 9.8 Eos % (Auto) (0.0 - 5.0 %) 0.8 Baso % (Auto) (0.0 - 1.0 %) 0. 2 Neut # (Auto) (1.8 - 7.7 K/mm3) 5.03 Lymph # (Auto) (1.0 - 5.0 K/mm3) 2.76 [place] # (Auto) (0 - 0.8 K/mm3) 0.86 H Eos # (Auto) (0.0 - 0.5 K/mm3) 0.07 Baso # (Auto) (0.0 - 0.2 K/mm3) 0.02 Add Manual Diff NO Nucleated RBC % (0 - 0 %) 0.0 Nucleated RBCs # (Man) (0.0 - 0.1 K/mm3) 0.00 Current Medications Sig/[place] Start time Last Medication Dose Route Stop Time Status Admin Hydrocodone Bitart/ 0 .STK-MED ONE 05/11 1537 DC r 05/11 Acetaminophen .ROUTE 1539 Ephedrine Sulfat e 0 .STK-MED ONE 05/11 1416 DC .ROUTE Glycopyrrolate 0 .STK-MED ONE 05/11 1412 DC .ROUTE Iopamidol 0 .STK-MED ONE 05/11 1411 DC 05/11 .ROUTE 1424 Bupivacaine HCl 0 .STK-MED ONE 05/11 1410 DC 05/11 .ROUTE 1424 Dexamethasone Sodium 0 .STK-MED ONE 05/11 1409 DCr Phosphate .ROUTE Ondansetron HCl 0 .STK-MED ONE 05/11 140 9 DCr .ROUTE Ketamine HCl 0 .STK-MED ONE 05/11 134 7 DC .ROUTE Fentanyl Citrate 0 .STK-MED ONE 05/11 1341 DCr .ROUTE Propofol 20 ML .STK-MED ONE 04/22 1 1341 DCr IV Midazolam HCl 0 .STK-MED ONE 05/11 1340 DC .ROUTE Morphine Sulfate 2 MG Q5M PRN PRN 05/11 1330 AC IV 05/11 212 Morphine Sulfate 4 M G Q5M PRN PRN 05/11 1330 AC IV 05/11 212 Ondansetron HCl 4 MG ONCE PRN 05/11 1330 AC IV 05/11 2126 Levofloxacin/Dextrose 150 ML Q24H 05/09 1600 AC 05/10 IV 05/16 1559 1608 Hydrocodone Bitart/ 1 TAB Q6H PRN PRN 05/08 2245 AC 05/11 Acetaminophen PO 05/13 2244 1055 Ondansetron Base 4 MG Q6H PRN PRN 05/07 0745 AC 05/08 SL 06/06 0744 0536 Multivitamins 1 UDTAB BID 05/04 1700 CKD 05/10 Therapeutic PO 06/03 1659 1608 Thiamine HCl 100 MG DAILY 05/04 1630 A C 05/10 PO 06/03 1629 0848 Famotidine 20 MG BID AC 05/04 0730 AC 05/11 PO 06/03 0729 0947 Levothyroxine Sodium 50 MCG 0600 05/04 0600 AC 05/11 PO 06/03 0559 0946 Sodium Chloride 1,000 M L .[Q13H] 05/03 1800 AC 05/04 IV 06/02 1759 2132 Acetaminophen 650 MG Q4H PRN PRN 05/03 1700 AC 05/11 PO 06/02 1659 0613 Ondansetron HCl 4 MG Q6 H PRN PRN 05/03 1700 AC 05/11 IV 06/02 1659 1055 Laboratory Tests 05/11/18 0512:[Embedded Image Not Available]Laboratory Tests 05/12 511 Chemistry Sodium (136 - 145 mmol/L) 142 Potassiu m (3.5 - 5.1 mmol/L) 3.4 L Chloride (98 - 107 mmol/L) 105.0 Carbon Dioxide (21 - 32 mmol/L) 30.0 Anion Gap (10 - 20) 10.4 BUN (7 - 18 mg/dL ) 7 Creatinine (0.55 - 1.02 mg/dL) 0.50 L Glomerular Filtr Rate (>=60 mL/min) > 60 BUN/Creatinine Ratio (10 - 20) 13.6 Glucose (74 - 106 mg/dL) 79 Calcium (8.5 - 10.1 mg/dL) 8.8 Laboratory Tests 05/12 511 Coagulation INR (0. 8 - 1.2) 1.1 PTT ([place]) (25.0 - 36.5 seconds) 34.7 PT Patient/Control Mix (9.0 - 14.0 seconds) 12.8 Laboratory Tests 05/12 511 Hematology WBC (4.5 - 12.5 K/mm3) 8.8 RBC (3.7 - 5.2 mill/mm3) 4.12 Hg b (11.5 - 15.5 gram/dL) 11.9 Hct (36.0 - 46.0 %) 38.0 MCV (80 - 98 fL) 92.2 MCH (27.0 - 33.0 picogram) 28.9 MCHC (33.0 - 36.0 gram/dL) 31.3 L RDW (11.6 - 16.2 %) 14.6 RDW Std Deviation (37.0 - 51.0 fL) 49.9 Plt Count (150 - 450 K/mm3) 276 MPV (6.7 - 11.0 fL) 9.4 Neut % (Auto) (39.0 - 69.0 %) 57.3 Lymph % (Auto) (25.0 - 55.0 %) 31.4 [place] % (Auto) (0.0 - 10.0 %) 9.8 Eos % (Auto) (0.0 - 5.0 %) 0.8 Baso % (Auto) (0.0 - 1.0 %) 0. 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 This could represent an ampullary stone. ERCP would be of value. Dilated pancreatic duct at 5.8 mm. 2) costochondiritis? 3) hx of gastric bypass4) nausea -- better5) hepatic hemangioma/dilattion of extrahepatic bile duct Plan:- Continue curren t care- Awaits biopsy result - thiamine, multivitamins- anti-emetics PRN- Pepcid at 1741 RPT #:[id number] OF REPORTPRProgress [id number]:39:00V.[id number] l able for patient zcgyWWGIMNVSTFOFUR3080-63-56Y65:41:42 2018-05-11 13:26:00 [id number]:26:00 [facility] ([facility])Post Anesthesia EvaluationREPORT#:[id number] REPORT STATUS: SignedDATE:05/11/18 TIME: 1326 PATIENT: ANA PENALOZA UNIT #: [id number]#: [id number] [address] [birth year] AGE : 67 SEX: F ATTEND: Kathleen Michelle AUTHOR: Brenda Vela MD * ALL edits or amendments must be made on the electronic/computer document * Post Anesthesia Evaluation Anes. changes from pre-op evalORM Surgeries: Surgery Date and Time: 05/11/2018 131 5 Primary Procedure: BILIARY BIOPSY Anesthetic: general LMADate: 05/11/18Level of consciousness: no changeVital signs:Last Documented: Result Ky e Time Pulse Ox 92 05/11 2017 B/P 116/71 05/11 201 8 B/P Mean 86.0 05/11 2017 O2 Delivery Room air 05/11 2017 Temp 36.4 05/11 2017 Pulse 65 05/11 2017 Resp 16 05/11 2017 FiO2 21 05/11 0546 O2 Flow Rate 2.494406 05/03 2014 Respiratory/Airway : respiratory system stablePain: adequately controlledHydration: adequatePresence of N/V: no at 2223 RPT #:[id number] OF REPORTCLClinical [id number]:26:00V.[id number] l able for patient [id number]:23:41 2018-05-10 23:46:00 [id number]:46:00 [facility] ([facility])Hospitalist Progress NoteREPORT#:[id number] REPORT STATUS: SignedDATE:05/10/18 TIME: 2345 PATIENT: ANA PENALOZA UNIT #: [id number]#: [id number] [address] [birth year] AGE : 67 SEX: F ATTEND: Kathleen Michelle AUTHOR: Radha Rich MD * ALL edits o r amendments must be made on the electronic/computer document * SubjectiveChief Complaint:Still with right upper quadrant pain.Reports nausea and vomiting .Had PTC ,stillhas significant drainage.Patient reports:Yes: complaints, abdominal pain, nausea, pain, pain controlled, vomiting. Nursing reports:Yes: complaints, abdominal pain, nausea, pain, pain controlled, vomiting. Review of SystemsGI:Reports: abdominal pain, nausea, vomiting. Systems reviewed negative: Allergy/Immun, Cardiovascular, Constitutional, Endocrine, ENT, Eyes, , Heme, Musculoskeletal, Neuro, Psych, Respiratory, Skin Objective GeneralVS/I O:Vital Signs: Date Time Temp Pulse Resp B/P B/P Pulse O2 O2 Flow FiO2 Mean Ox Delivery Rate 05/10 2021 97.9 69 14 118/76 89.8 94 Room air 05/10 1509 97.7 64 18 152/70 97.7 94 Room air 05/10 1136 98.1 60 18 115/75 88.2 94 Room air 05/10 1136 98.1 60 18 115/75 88.2 94 Room air 05/10 0715 98.2 63 16 118/73 88.3 96 Room air 05/10 0457 97.9 53 16 153/74 100.6 95 Room air 24 hour I O ending at 0700: 05/10 0700 05/09 1900 Intake Total 774.00 Output Total 250 450 Balance -250 324.00 Intake, IV 150.00 Intake, Oral 624 Number Voids 2 3 Output, 250 450 Drainage Medications:Active Meds + DC'd Last 24 HrsLevofloxacin/Dextrose 150 ML Q24H IV Hydrocodone Bitart/Acetaminophen 1 TAB Q6H PRN PRN PO Ondansetron Base 4 MG Q6H PRN PRN SL Multivitamins Therapeutic 1 UDTAB BID PO (CKD) Thiamine HCl 100 MG DAILY PO Famotidine 20 MG BID AC PO Levothyroxine Sodium 50 MCG 0600 PO Sodium Chloride 1,000 ML .[Q13H] IV Acetaminophe n 650 MG Q4H PRN PRN PO Ondansetron HCl 4 MG Q6H PRN PRN IV Physical ExamGeneral appearance: alert, awake, orientedHead/Eyes: atraumatic, EOMI, normal conjunctiva/sclera, normocephalic, PERRLENT: moist mucosal membranes, normal ear left, normal ear right, normal nose, normal sinusNeck: full range of motion, non-tender, supple/no meningismus, no masses or swellingCardiovascular: normal capillary refill, normal heart sounds, regular rate rhythmRespiratory: aerating well, clear to auscultation, no distressAbdomen: tenderness, non-tender, normal bowel sounds, soft, no distention, Erythema to the RUQ/Inframammilary area. No significant rash. Genitourinary: no bladder distentionExtremities: moves all, normal range of motion, no edemaMusculoskeletal: normal inspectionSkin: dry, intactPsychiatry: normal affect, normal judgment/insight, normal mood ResultsFindings/Data:Laboratory Tests 05/10 043 9 Chemistry Sodium (136 - 145 mmol/L) 141 Potassiu m (3.5 - 5.1 mmol/L) 3.5 Chloride (98 - 107 mmol/L ) 107.0 Carbon Dioxide (21 - 32 mmol/L) 28.0 Anion Gap (10 - 20) 9.5 L BUN (7 - 18 mg/dL) 7 Creatinine (0.55 - 1.02 mg/dL) 0.50 L Glomerular Filtr Rate (>=60 mL/min) > 60 BUN/Creatinine Ratio (10 - 20) 14.4 Glucose (74 - 106 mg/dL) 87 Calcium (8.5 - 10.1 mg/dL) 8.4 L Total Bilirubin (0.0 - 1.0 mg/dL) 0.30 AST (15 - 37 IUnit/L) 17 ALT (12 - 78 IUnit/L) 22 Total Alk Phosphatase (45 - 117 IUnit/L) 63 Total Protein (6.4 - 8.2 gram/dL) 5.9 L Albumin (3.4 - 5.0 g/dL) 2.5 L Globulin (2.7 - 4.2 gram/dL) 3.4 Albumin/Globuli n Ratio (0.75 - 1.50) 0.7 L Diagnosis, Assessment Plan Free Text DxA P NotesFree text DxA P notes:Ms. Penaloza is a 67-year-old female with history of thyroid disease presenting with a right upper quadrant/inframamillary pain. 1.Abdominal pain- Due to CBD dilatation of unknown etiology. Patient status post cholecystectomy. CT abdomen with small hepatic cysts; extrahepatic biliarydilatation with no evidence of obstructing lesion and 2 hemangioma, patient has been aware of this for years. -Pain control -IV hydration. Advance diet and monitor for tolerance - MRCP findings noted -GI on consult. Consulted surgeon for diagnostic procedures including cholangiogram. -Pt taken fo r PTC yesterday ,drain present .Fluid cx growing g m negative rods.Started levaquin. -Tumor markers ordered ,plan for biliary biopsy tomorrow.2.Thyroid insufficiency-continue patien t on levothyroxine3.Bradycardia-Asymptomatic. EKG with first-degree AV block. TSH at 6.65, will need outpatient follow-up. -Consider cardiology consult.4.DVT ppx-SCD Patient is full code. Quality BMI Screening > 25 or < 18.5BMI status/follow-up: abnl BMI, pt to F/U w/PCP at 1214 RPT #:[id number] OF REPORTPRProgress [id number]:46:00V.[id number] corey able for patient [id number]:14:32 2018-05-09 20:57:00 [id number]:57:00 [facility] ([facility])Hospitalist Progress NoteREPORT#:[id number] REPORT STATUS: SignedDATE:05/09/18 TIME: 2056 PATIENT: ANA PENALOZA UNIT #: [id number]#: [id number] [address] [birth year] AGE : 67 SEX: F ATTEND: Kathleen Michelle I [facility] AUTHOR: Radha Rich MD * ALL edits o r amendments must be made on the electronic/computer document * SubjectiveChief Complaint:Still with right upper quadrant pain. Had PTC yesterday .Reports nausea .Significant drainage in bag.Patient reports:Yes: complaints, abdominal pain, nausea, pain, pain controlled. Nursing reports:Yes: complaints, abdominal pain, nausea, pain, pain controlled. Review of SystemsGI:Reports: abdominal pain, nausea. Systems reviewed negative: Allergy/Immun, Cardiovascular, Constitutional, Endocrine, ENT, Eyes, , Heme, Musculoskeletal, Neuro, Psych, Respiratory, Skin Objective GeneralVS/I O:Vital Signs: Date Time Temp Pulse Resp B/P B/P Pulse O 2 O2 Flow FiO2 Mean Ox Delivery Rate 05/09 2016 98.2 61 18 121/73 89.0 97 Room air 05/09 1600 95 Room air 05/09 1513 98.2 61 17 129/75 93.0 95 Room air 05/09 1125 98.1 62 15 105/65 78.3 94 Room air 05/09 0721 99.1 66 16 108/64 78.7 98 Nasal cannula 05/09 0356 98.1 52 16 126/64 85.0 91 Room air 05/08 2310 98.2 58 16 138/63 87.7 95 Room air 24 hour I O ending at 0700: 05/09 0700 05/08 1900 Intake Total 250 10.00 Output Total 300 Balance -50 10.00 Intake, IV 10.00 Intake, Oral 250 Number 1 Bowel Movements Number Voids 3 2 Output, 300 Drainage Medications:Active Meds + DC'd Last 24 HrsLevofloxacin/Dextrose 150 ML Q24 H IV Hydrocodone Bitart/Acetaminophen 1 TAB Q6H [place] N PRN PO Ondansetron Base 4 MG Q6H PRN PRN SL Multivitamins Therapeutic 1 UDTAB BID PO (CKD) Thiamine HCl 100 MG DAILY PO Famotidine 20 MG BI D AC PO Levothyroxine Sodium 50 MCG 0600 PO Sodium Chloride 1,000 ML .[Q13H] IV Acetaminophen 650 M G Q4H PRN PRN PO Ondansetron HCl 4 MG Q6H PRN PRN IV Physical ExamGeneral appearance: alert, awake , orientedHead/Eyes: atraumatic, EOMI, normal conjunctiva/sclera, normocephalic, PERRLENT: moist mucosal membranes, normal ear left, normal ear right, normal noseNeck: full range of motion , non-tender, supple/no meningismus, no masses or swellingCardiovascular: normal capillary refill, normal heart sounds, regular rate rhythmRespiratory: aerating well, clear to auscultation, no distressAbdomen: tenderness, normal bowel sounds, soft, no distention, Erythema to the RUQ/Inframammilary area. No significant rash. Perc tube and bag present ,draining biliary fluid.Genitourinary: no bladde r distentionExtremities: moves all, no clubbing, n o cyanosis, no edemaMusculoskeletal: normal inspection, painless range of motionSkin: dry, intactPsychiatry: normal affect, normal judgment/insight, normal mood, not homicidal, no t suicidal, no hallucinations Diagnosis, Assessmen t Plan Free Text DxA P NotesFree text DxA P notes:Ms. Penaloza is a 67-year-old female with history of thyroid disease presenting with a right upper quadrant/inframamillary pain. 1.Abdominal pain- Due to CBD dilatation of unknown etiology. Patient status post cholecystectomy. CT abdomen with small hepatic cysts; extrahepatic biliarydilatation with no evidence of obstructing lesion and 2 hemangioma, patient has been aware of this for years. -Pain control -IV hydration. Advance diet and monitor for tolerance - MRCP findings noted -GI on consult. Consulted surgeon for diagnostic procedures including cholangiogram. -Pt taken fo r PTC yesterday ,drain present .Fluid cx growing g m negative rods.Started levaquin. -Tumor markers ordered ,plan for biliary biopsy day after tomorrow.2.Thyroid insufficiency-continue patien t on levothyroxine3.Bradycardia-Asymptomatic. EKG with first-degree AV block. TSH at 6.65, will need outpatient follow-up. -Consider cardiology consult.4.DVT ppx-SCD Patient is full code. Quality BMI Screening > 25 or < 18.5BMI status/follow-up: abnl BMI, pt to F/U w/PCP at 1726 RPT #:[id number] OF REPORTPRProgress [id number]:57:00V.[id number] l able for patient axsrRIKATMXDMFMTQQ3783-02-60C28:26:49 2018-05-09 18:51:00 [id number]:51:00 [facility] ([facility])Gastroenterology Progress NoteREPORT#:[id number] REPORT STATUS: SignedDATE:05/09/18 TIME: 1850 PATIENT: ANA PENALOZA UNIT #: [id number]#: [id number] [address] [birth year] AGE : 67 SEX: F ATTEND: Kathleen Michelle I [facility] AUTHOR: Gilberto Conway MD * MASTER Nicole edits or amendments must be made on the electronic/computer document * SubjectiveChief Complaint:Abdominal painPatient reports:No: abdominal pain, nausea, vomiting. Objective Physical ExamGeneral appearance: awake, no acute distressHEENT: anicteric, atraumaticNeck: non-tender, supple/no meningismusCardiovascular: normal heart sounds, normal S1/R0Kftwczbdimn: aerating well, clear to auscultationAbdomen: tenderness, normal bowel sounds, softExtremities : no clubbing, no cyanosisMusculoskeletal: full range of motionNeuro/PRODUCT MARKETER: alert, oriented X 3Psychiatry: normal affect, normal judgment/insight ResultsFindings/Data:Current Medications Sig/[place] Start time Last Medication Dose Route Stop Time Status Admin Levofloxacin/Dextrose 150 ML Q24H 05/09 1600 AC IV 05/16 1559 Hydrocodone Bitart/ 1 TAB Q6H PRN PRN 05/08 2245 AC 05/09 Acetaminophen PO 05/13 2244 1232 Morphine Sulfate 2 MG Q5M PRN PRN 04/21 8 1245 DC 05/08 IV 05/08 2044 1427 Ondansetron HC l 4 MG ONCE PRN 05/08 1245 DC IV 05/08 2044 Promethazine HCl 12.5 MG PROCEDURE 05/08 1245 DC IM 05/08 2044 Ondansetron Base 4 MG Q6H PRN PRN 05/07 0745 AC 05/08 SL 06/06 0744 0536 Multivitamins 1 UDTAB BID 05/04 1700 CKD 05/09 Therapeutic PO 06/03 1659 0903 Thiamine HCl 100 MG DAILY 05/04 1630 AC 05/09 PO 06/03 1629 0903 Famotidine 20 MG BID AC 05/04 0730 AC 05/09 PO 06/03 0729 1610 Levothyroxine Sodium 50 MCG 0600 05/04 0600 AC 05/09 PO 06/03 0559 0530 Hydrocodone Bitart/ 1 TAB Q6H PRN PRN 05/03 2045 DC 05/08 Acetaminophen PO 05/08 2044 1652 Morphine Sulfate 4 MG Q3H PRN PRN 05/03 1945 DC IV 05/08 193 Sodium Chloride 1,000 ML .[Q13H] 05/03 1800 AC 05/04 IV 06/02 1759 2132 Acetaminophen 650 MG Q4H PRN PRN 05/03 1700 AC 05/09 PO 06/02 1659 1611 Ondansetron HCl 4 MG Q6 H PRN PRN 05/03 1700 AC 05/08 IV 06/02 1659 2253 Diagnosis, Assessment PlanFree Text A P:1) RUQ abd pain - == PTC showed high grade stricture of CBD -- Awaits biopsy MRCP: Dilated CBD at 1.3 cm with abrupt termination at the ampulla. This could represent an ampullary stone. ERCP would b e of value. Dilated pancreatic duct at 5.8 mm. 2) costochondiritis? 3) hx of gastric bypass4) nausea 5) hepatic hemangioma/dilattion of extrahepatic bile duct Plan:- Continue current care- tumor markers still pending - thiamine, multivitamins- anti-emetics PRN- Pepcid at 1853 RPT #:[id number] OF REPORTPRProgress [id number]:51:00V.[id number] corey able for patient cevjLHOYGPXUSFHPJZ0033-55-09G06:53:50 2018-05-08 20:02:00 [id number]:02:00 [facility] ([facility])Gastroenterology Progress NoteREPORT#:[id number] REPORT STATUS: SignedDATE:05/08/18 TIME: 2001 PATIENT: ANA PENALOZA UNIT #: [id number]#: [id number] ROOM/BED: [facility]-ADOB: [birth year] AGE : 67 SEX: F ATTEND: Kathleen Michelle I MDADM AUTHOR: Gilberto Conway MD * AL L edits or amendments must be made on the electronic/computer document * SubjectiveChief Complaint:Abdominal pain Patient reports:Yes: abdominal pain. No: nausea, vomiting (s/p PTC). Objective Physical ExamGeneral appearance: awake , no acute distressHEENT: anicteric, atraumaticNeck: non-tender, supple/no meningismusCardiovascular: normal heart sounds, normal S1/K3Ruqvdypmrhx: aerating well, clear to auscultationAbdomen: abnormal bowel sounds (PTC in place), tenderness, normal bowel sounds, softExtremities: no clubbing, no cyanosisMusculoskeletal: full range of motionNeuro/PRODUCT MARKETER: alert, oriented X 3Psychiatry: normal affect, normal judgment/insight ResultsFindings/Data:Laboratory Tests: 05/08 05/08 05/08 1354 0443 0443 Chemistry Sodium (136 - 145 mmol/L) 147 H Potassium (3.5 - 5.1 mmol/L) 3.8 Chloride (98 - 107 mmol/L) 111.0 H Carbon Dioxide (21 - 32 mmol/L) 30.0 Anion Gap (10 - 20 ) 9.8 L BUN (7 - 18 mg/dL) 11 Creatinine (0.55 - 1.02 mg/dL) 0.50 L Glomerular Filtr Rate (>=60 mL/min) > 60 BUN/Creatinine Ratio (10 - 20) 21.4 H Glucose (74 - 106 mg/dL) 82 Calcium (8.5 - 10. 1 mg/dL) 8.7 TSH (0.36 - 3.74 uIU/mL) 6.650 H Darren e T4 Index (1.3 - 5.1 FTI) 3.16 Thyroxine (T4) (4. 5 - 13.9 ug/dL) 9.3 T3 Uptake (30.0 - 40.0 %) 34. 0 Coagulation INR (0.8 - 1.2) 1.0 PTT ([place]) (25.0 - 36.5 seconds) 36.7 H PT Patient/Control Mix (9.0 - 14.0 seconds) 11.8 Hematology WBC (4.5 - 12.5 K/mm3) 7.6 RBC (3.7 - 5.2 mill/mm3) 4.30 Hgb (11.5 - 15.5 gram/dL) 12.5 Hct (36.0 - 46.0 %) 40.1 MCV (80 - 98 fL) 93.3 MCH (27.0 - 33.0 picogram) 29.1 MCHC (33.0 - 36.0 gram/dL) 31.2 L RDW (11.6 - 16.2 %) 14.5 RDW Std Deviation (37.0 - 51.0 fL) 49.1 Plt Count (150 - 450 K/mm3) 302 MPV (6.7 - 11.0 fL) 9.6 Neut % (Auto) (39.0 - 69.0 %) 47.1 Lymph % (Auto) (25.0 - 55.0 %) 43.8 [place] % (Auto) (0.0 - 10.0 %) 6.8 Eos % (Auto) (0.0 - 5.0 %) 1.6 Baso % (Auto) (0.0 - 1.0 %) 0. 3 Neut # (Auto) (1.8 - 7.7 K/mm3) 3.56 Lymph # (Auto) (1.0 - 5.0 K/mm3) 3.31 [place] # (Auto) (0 - 0.8 K/mm3) 0.51 Eos # (Auto) (0.0 - 0.5 K/mm3) 0.12 Baso # (Auto) (0.0 - 0.2 K/mm3) 0.02 Nucleated RBC % (0 - 0 %) 0.0 Nucleated RBCs # (Man) (0.0 - 0.1 K/mm3) 0.00 Other Body Source Fluid WBC (cells/uL) 30 Fluid RBC (cells/uL) 1000 Fluid Tot Cell Count (0 cells/uL) 33 Microbiology: Date/Time Procedure - Status Sourc e Growth 05/08 1354 Body Fluid Culture - RES BF OTHER 05/08 1354 Anaerobic Culture - RES BF OTHE R 05/08 1354 Gram Stain - RES BF OTHER Current Medications Sig/[place] Start time Last Medication Dose Route Stop Time Status Admin Ondansetron HCl 0 .STK-MED ONE 05/08 1444 DCr .ROUTE Morphin e Sulfate 0 .STK-MED ONE 05/08 1424 DCr .ROUTE Fentanyl Citrate 0 .STK-MED ONE 05/08 1348 DCr .ROUTE Ephedrine Sulfate 0 .STK-MED ONE 05/08 1300 DC .ROUTE Levofloxacin/Dextrose 100 ML .STK-MED ONE 05/08 1252 DCr IV Glycopyrrolate 0 .STK-MED ONE 05/08 1248 DCr .ROUTE Dexamethasone Sodium 0 .STK-MED ONE 05/08 1247 DC Phosphate .ROUTE Fentanyl Citrate 0 .STK-MED ONE 05/08 124 7 DC .ROUTE Ondansetron HCl 0 .STK-MED ONE 05/08 1246 DCr IV Morphine Sulfate 2 MG Q5M PRN PRN 05/08 1245 AC 05/08 IV 05/08 2044 1427 Ondansetron HCl 4 MG ONCE PRN 05/08 1245 AC IV 05/08 2044 Promethazine HCl 12.5 MG PROCEDURE 05/08 1245 CKD IM 05/08 2044 Bupivacaine HCl 0 .STK-MED ONE 05/08 1236 DC 05/08 .ROUTE 1300 Iopamidol 0 .STK-MED ONE 05/08 1236 DC 05/08 .ROUTE 1300 Lidocaine HCl 0 .STK-MED ONE 05/08 1228 DC .ROUTE Propofol 20 ML .STK-MED ONE 05/08 1228 DC IV Ondansetron Base 4 MG Q6H PRN PRN 05/07 0745 AC 05/08 SL 06/06 0744 0536 Multivitamins 1 UDTAB BID 05/04 1700 CKD 05/08 Therapeutic PO 06/03 1659 1650 Thiamine HCl 100 MG DAILY 05/04 1630 AC 05/07 PO 06/03 1629 0810 Famotidine 20 MG BID AC 05/04 0730 AC 05/08 PO 06/03 0729 1650 Levothyroxine Sodium 50 MCG 060 0 05/04 0600 AC 05/08 PO 06/03 0559 0536 Hydrocodone Bitart/ 1 TAB Q6H PRN PRN 05/03 2045 AC 05/08 Acetaminophen PO 05/08 2044 1652 Morphine Sulfate 4 MG Q3H PRN PRN 05/03 1945 DC IV 05/08 1932 Sodium Chloride 1,000 ML .[Q13H] 05/03 1800 AC 05/04 IV 06/02 1759 2132 Acetaminophen 650 MG Q4H PRN PRN 05/03 1700 AC P O 06/02 1659 Ondansetron HCl 4 MG Q6H PRN PRN 04/21 3 1700 r 05/08 IV 06/02 1659 1532 Laboratory Test s 05/08/18 0443:[Embedded Image Not Available]Laboratory Tests 05/083 044 3 Chemistry Sodium (136 - 145 mmol/L) 147 H Potassium (3.5 - 5.1 mmol/L) 3.8 Chloride (98 - 107 mmol/L) 111.0 H Carbon Dioxide (21 - 32 mmol/L) 30.0 Anion Gap (10 - 20) 9.8 L BUN (7 - 18 mg/dL) 11 Creatinine (0.55 - 1.02 mg/dL) 0.5 0 L Glomerular Filtr Rate (>=60 mL/min) > 60 BUN/Creatinine Ratio (10 - 20) 21.4 H Glucose (7 4 - 106 mg/dL) 82 Calcium (8.5 - 10.1 mg/dL) 8.7 TSH (0.36 - 3.74 uIU/mL) 6.650 H Free T4 Index (1.3 - 5.1 FTI) 3.16 Thyroxine (T4) (4.5 - 13.9 ug/dL) 9.3 T3 Uptake (30.0 - 40.0 %) 34.0 Laboratory Tests 05/08 442 Coagulation INR (0. 8 - 1.2) 1.0 PTT (Sandie) (25.0 - 36.5 seconds) 36.7 H PT Patient/Control Mix (9.0 - 14.0 seconds) 11.8 Laboratory Tests 05/08 442 Hematology WBC (4.5 - 12.5 K/mm3) 7.6 RBC (3.7 - 5.2 mill/mm3) 4.30 Hgb (11.5 - 15.5 gram/dL) 12.5 Hct (36.0 - 46.0 %) 40.1 MCV (80 - 98 fL) 93.3 MCH (27.0 - 33.0 picogram) 29.1 MCHC (33.0 - 36.0 gram/dL) 31.2 L RDW (11.6 - 16.2 %) 14.5 RDW Std Deviation (37.0 - 51.0 fL) 49.1 Plt Count (150 - 450 K/mm3) 302 MPV (6.7 - 11.0 fL) 9.6 Neut % (Auto) (39.0 - 69.0 %) 47.1 Lymph % (Auto) (25.0 - 55.0 %) 43.8 [place] % (Auto) (0.0 - 10.0 %) 6.8 Eos % (Auto) (0.0 - 5.0 %) 1.6 Baso % (Auto) (0. 0 - 1.0 %) 0.3 Neut # (Auto) (1.8 - 7.7 K/mm3) 3.56 Lymph # (Auto) (1.0 - 5.0 K/mm3) 3.31 [place] # (Auto) (0 - 0.8 K/mm3) 0.51 Eos # (Auto) (0.0 - 0.5 K/mm3) 0.12 Baso # (Auto) (0.0 - 0.2 K/mm3) 0.02 Nucleated RBC % (0 - 0 %) 0.0 Nucleated RBC s # (Man) (0.0 - 0.1 K/mm3) 0.00 Laboratory Tests 05/08 1354 Other Body Source Fluid WBC (cells/uL) 30 Fluid RBC (cells/uL) 1000 Fluid To t Cell Count (0 cells/uL) 33 Diagnosis, Assessment PlanFree Text A P:1) RUQ abd pain - == sp PTC MRCP: Dilated CBD at 1.3 cm with abrupt termination at the ampulla. This could represent an ampullary stone. ERCP would be of value. Dilated pancreatic duct at 5.8 mm. 2) costochondiritis? 3) hx of gastric bypass4) nausea5) hepatic hemangioma/dilattion of extrahepatic bile duct Plan:- Continue current care- tumor markers - thiamine, multivitamins- anti-emetics PRN- Pepcid at 2004 RPT #:[id number] OF REPORTPRProgress [id number]:02:00V.[id number] l able for patient ketfFPFKYUWPXSSBOA1110-70-55S15:04:37 2018-05-08 19:24:00 [id number]:24:00 [facility] ([facility])Post Anesthesia EvaluationREPORT#:[id number] REPORT STATUS: SignedDATE:05/08/18 TIME: 1923 PATIENT: ANA PENALOZA UNIT #: [id number]#: [id number] ROOM/BED: [facility]-ADOB: [birth year] AGE : 67 SEX: F ATTEND: Kathleen Michelle I [facility] AUTHOR: Osmani Barajas DO * ALL edits or amendments must be made on the electronic/computer document * Post Anesthesia Evaluation Anes. changes from pre-op evalAnesthetic: general LMASurgery:perc insertio n of bile duct tubeDate: 05/08/18Level of consciousness: patient awakeVital signs:Last Documented: Result Date Time Pulse Ox 95 05/08 1632 B/P 161/71 05/08 1632 B/P Mean 101.1 05/08 1632 O2 Delivery Room air 05/08 1632 Temp 36.3 05/08 1632 Pulse 57 05/08 1632 Resp 18 05/08 163 2 O2 Flow Rate 2.773528 05/03 2014 Cardiovascular: CV system stableRespiratory/Airway: respiratory system stablePain: adequately controlledHydration: adequateTemp status: normothermicPresence of N/V: noAnesthesia complications: noOther changes requiring f/u: noneConclusions: no apparent anes. issues at 1925 RPT #:[id number] OF REPORTCLClinical [id number]:24:00V.[id number] l able for patient tzcaFYVLHQWNTBRPMB1408-11-25G28:25:18 2018-05-08 13:36:00 [id number]:36:00 [facility] ([facility] Progress NoteREPORT#:[id number] REPORT STATUS: SignedDATE:05/08/18 TIME: 1336 PATIENT: ANA PENALOZA UNIT #: [id number]#: [id number] ROOM/BED: [facility]-ADOB: [birth year] AGE : 67 SEX: F ATTEND: Kathleen Michelle I MDADM AUTHOR: Kathleen Michelle MD * ALL edits or amendments must be made on the electronic/computer document * SubjectiveChief Complaint:Still with right upper quadrant pain. For PTC today Objective GeneralVS/I O:Vital Signs: Date Time Temp Pulse Resp B/P B/P Pulse O 2 O2 Flow FiO2 Mean Ox Delivery Rate 05/08 0802 98.4 49 18 109/70 82.9 95 Room air 05/07 2353 97.5 50 14 114/59 77.5 92 05/07 1911 98.6 67 14 124/73 90.3 95 05/07 1634 98.6 52 18 148/59 89.1 96 Room air 24 hour I O ending at 0700: 05/08 0700 05/07 1900 Intake Total 525 Output Total Balance 525 Intake, Oral 525 Number 1 Bowel Movements Number Voids 6 Medications:Active Meds + DC'd Last 24 HrsEphedrine Sulfate 0 .STK-MED ONE .ROUTE (DC) Levofloxacin/Dextrose 100 ML .STK-MED ONE IV (DCr) Glycopyrrolate 0 .STK-MED ONE .ROUTE (DCr) Dexamethasone Sodium Phosphate 0 .STK-MED ONE .ROUTE (DC) Fentanyl Citrate 0 .STK-MED ONE .ROUTE (DCr) Ondansetron HCl 0 .STK-MED ONE .ROUTE (DCr) Morphine Sulfate 2 MG Q5M PRN PRN IV Ondansetron HCl 4 MG ONCE PRN IV Promethazine HCl 12.5 MG PROCEDURE IM (CKD) Bupivacaine HCl 0 .STK-MED ONE .ROUTE (DC) Iopamidol 0 .STK-MED ONE .ROUTE (DC) Lidocaine HCl 0 .STK-MED ONE .ROUTE (DC) Propofol 20 ML .STK-MED ONE IV (DCr) Ondansetron Base 4 MG Q6H PRN PRN SL Multivitamins Therapeutic 1 UDTAB BID PO (CKD) Thiamine HCl 100 MG DAILY PO Famotidine 20 MG BID AC PO Levothyroxine Sodium 50 MCG 0600 PO Hydrocodone Bitart/Acetaminophen 1 TAB Q6H [place] N PRN PO Morphine Sulfate 4 MG Q3H PRN PRN IV Sodium Chloride 1,000 ML .[Q13H] IV Acetaminophe n 650 MG Q4H PRN PRN PO Ondansetron HCl 4 MG Q6H PRN PRN IV Physical ExamGeneral appearance: alert, awakeHead/Eyes: atraumatic, clear cornea, EOMI, normal conjunctiva/sclera, normal eyelids/periorb., normocephalic, PERRLENT: jose l dentition, normal ear left, normal ear right, normal nose, normal pharynx, normal sinusNeck: full range of motion, non-tender, normal thyroid , supple/no meningismus, no bruit/NL carotids, no JVD, no masses or swellingCardiovascular: normal capillary refill, regular rate rhythmRespiratory : aerating well, no distressAbdomen: tenderness, soft, no distention, Erythema to the RUQ/Inframammilary area. No significant rash. Extremities: moves all, normal capillary refill, normal range of motion, no edemaMusculoskeletal: normal inspectionSkin: dry, intactPsychiatry: normal affect, normal judgment/insight, normal mood, not homicidal, not suicidal, no hallucinations ResultsFindings/Data:Laboratory Tests 05/08 0443 Chemistry Sodium (13 6 - 145 mmol/L) 147 H Potassium (3.5 - 5.1 mmol/L) 3.8 Chloride (98 - 107 mmol/L) 111.0 H Carbon Dioxide (21 - 32 mmol/L) 30.0 Anion Gap (10 - 20 ) 9.8 L BUN (7 - 18 mg/dL) 11 Creatinine (0.55 - 1.02 mg/dL) 0.50 L Glomerular Filtr Rate (>=60 mL/min) > 60 BUN/Creatinine Ratio (10 - 20) 21.4 H Glucose (74 - 106 mg/dL) 82 Calcium (8.5 - 10. 1 mg/dL) 8.7 TSH (0.36 - 3.74 uIU/mL) 6.650 H Free T4 Index (1.3 - 5.1 FTI) 3.16 Thyroxine (T4) (4. 5 - 13.9 ug/dL) 9.3 T3 Uptake (30.0 - 40.0 %) 34. 0 Laboratory Tests 05/08 442 Coagulation INR (0. 8 - 1.2) 1.0 PTT (Sandie) (25.0 - 36.5 seconds) 36.7 H PT Patient/Control Mix (9.0 - 14.0 seconds) 11.8 Laboratory Tests 05/08 0443 Hematology WBC (4.5 - 12.5 K/mm3) 7.6 RBC (3.7 - 5.2 mill/mm3) 4.30 Hgb (11.5 - 15.5 gram/dL) 12.5 Hct (36.0 - 46.0 %) 40.1 MCV (80 - 98 fL) 93.3 MCH (27.0 - 33.0 picogram) 29.1 MCHC (33.0 - 36.0 gram/dL) 31.2 L RDW (11.6 - 16.2 %) 14.5 RDW Std Deviatio n (37.0 - 51.0 fL) 49.1 Plt Count (150 - 450 K/mm3 ) 302 MPV (6.7 - 11.0 fL) 9.6 Neut % (Auto) (39.0 - 69.0 %) 47.1 Lymph % (Auto) (25.0 - 55.0 %) 43.8 [place] % (Auto) (0.0 - 10.0 %) 6.8 Eos % (Auto) (0.0 - 5.0 %) 1.6 Baso % (Auto) (0.0 - 1.0 %) 0. 3 Neut # (Auto) (1.8 - 7.7 K/mm3) 3.56 Lymph # (Auto) (1.0 - 5.0 K/mm3) 3.31 [place] # (Auto) (0 - 0.8 K/mm3) 0.51 Eos # (Auto) (0.0 - 0.5 K/mm3) 0.12 Baso # (Auto) (0.0 - 0.2 K/mm3) 0.02 Nucleated RBC % (0 - 0 %) 0.0 Nucleated RBCs # (Man) (0.0 - 0.1 K/mm3) 0.00 Diagnosis, Assessment Plan Free Text DxA P NotesFree text DxA P notes:Ms. Penaloza is a 67-year-old female with history of thyroid disease presenting with a right upper quadrant/inframamillary pain.#Abdominal pain- due to CBD dilatation of unknown etiology. Patient status postcholecystectomy. CT abdomen with small hepatic cysts; extrahepatic biliary dilatation with no evidence of obstructing lesion and 2 hemangioma, patient has been aware of this for years. -Pain control -IV hydration. Advance diet and monitor for tolerance - MRCP findings noted -GI on consult. Consulted surgeon for diagnostic procedures including cholangiogram#Thyroid insufficiency-continue patient on levothyroxine#Bradycardia-asymptomatic. EKG with first-degree AV block. TSH at 6.65, will need outpatient follow-up. -Consider cardiology consult.#DVT ppx-SCDPatient is full code Quality BMI Screening > 25 or < 18.5BMI status/follow-up : abnl BMI, pt to F/U w/PCP at 1339 RPT #:[id number] OF REPORTPRProgress Jwbf8031-46-57Q86:36:00V.[id number] l able for patient giyeACOXEFUSBMOTYV9014-71-43T36:39:05 2018-05-08 12:40:00 IOyqjywituc696033704071-09-87U94:40:00 [facility] ([facility])Pre-Anesthesia EvaluationREPORT#:[id number] REPORT STATUS: SignedDATE:05/08/18 TIME: 1240 PATIENT: ANA PENALOZA UNIT #: [id number]#: [id number] [address] AGE: 67 SEX: F ATTEND: Kathleen Michelle I [facility] AUTHOR: Brenda Vela MD * ALL edits or amendments must be made on the electronic/computer document * Pre-Anesthesia Evaluation Pre-Anesthesia EvaluationORM Surgeries: Surgery Date and Time: 05/08/2018 1100 Proposed Primary Procedure: CHOLANGIOGRAM WITH POSS BILIARY DRAIN Pre-op diagnosis:dilated bile ducts, ampullary narrowingAnesthesia plan discussed:[x] General [ ] Spinal [] Epidural [] Nerve Block/IV Regional[] MAC - Medical Necessity: [] Therapeutic drug monitoring secondary or integrall to propofol us e [] Strong possibility of expansion of procedureSuccessful procedure without MAC unlikely due to: [] History of severe anxiety, panic attacks, and/or phobias [] History of low pain threshold [] History of chronic severe pain [] Other - See patient's history/diagnosis/comorbidities Medications:Home Medications: Medication Dose/Rte/Freq Days Qty Entered Last Max Daily Dose Reviewed LEVOTHYROXINE 50 MCG PO DAILY 05/03/18 05/03/18 (TIROSINT) 1438 1438 Strength: 50 MCG CAP MULTIVITAMIN 1 TAB PO DAILY 03/14/17 05/03/18 (MULTIPLE VITAMIN) 1443 1436 Strength: 1 TAB TAB Current Hospital Medications:Cardiovascular Drug s Sig/[place] Start time Last Medication Dose Route Stop Time Status Admin Lidocaine HCl 0 .STK-MED ONE 05/08 1228 DC (LIDOCAINE HCL 2%) .ROUTE Central Nervous System Agents Sig/[place] Start time Last Medication Dose Route Stop Time Status Admi n Propofol 20 ML .STK-MED ONE 05/08 1228 DCr (PROPOFOL) IV Hydrocodone Bitart/ 1 TAB Q6H PRN PRN 05/03 2045 AC 05/08 Acetaminophen PO 05/08 204 0536 (NORCO 7.5/325 TABLET) Morphine Sulfat e 4 MG Q3H PRN PRN 05/03 1945 AC (morphine SULFATE ) IV 05/08 1932 Acetaminophen 650 MG Q4H PRN PRN 05/03 1700 AC (TYLENOL) PO 06/02 1659 Diagnosti c Agents Sig/[place] Start time Last Medication Dose Route Stop Time Status Admin Iopamidol 0 .STK-ME D ONE 05/08 1236 DC (ISOVUE-370) .ROUTE Electrolytic, Caloric, And Roberth Sig/[place]ism[place] Start rosemarie e Last Medication Dose Route Stop Time Status Admi n Sodium Chloride 1,000 ML .[Q13H] 05/03 1800 AC 05/04 (SODIUM CHLORIDE IV 06/02 1759 2132 0.9%) Gastrointestinal Drugs Sig/[place] Start time Last Medication Dose Route Stop Time Status Admin Ondansetron Base 4 MG Q6H PRN PRN 05/07 0745 AC 05/08 (ZOFRAN ODT) SL 06/06 0744 0536 Famotidine 20 MG BID AC 05/04 0730 AC 05/07 (PEPCID TAB) PO 06/03 0729 1821 Ondansetron HCl 4 MG Q6H PRN PRN 05/03 1700 AC 05/05 (ONDANSETRON HCL) IV 06/02 1659 1800 Hormones And Synthetic Substit Sig/[place] Start time Last Medication Dose Route Stop Time Status Admin Levothyroxine Sodium 50 MCG 0600 05/04 0600 AC 05/08 (Levothyroxine PO 06/03 0559 0536 Sodium) Local Anesthetics (Parenteral) Sig/[place] Start time Last Medication Dose Route Stop Time Status Admin Bupivacaine HCl 0 .STK-ME D ONE 05/08 1236 DC (BUPIVACAINE HCL) .ROUTE Vitamins Sig/[place] Start time Last Medication Dose Route Stop Time Status Admin Multivitamins 1 UDTAB BID 05/04 170 CKD 05/07 Therapeutic PO 06/03 1659 1821 (THERAGRAN) Thiamine HCl 100 MG DAILY 05/04 1630 AC 05/07 (THIAMINE HCL) PO 05/22 3 1629 0810 Additional information:npo x norco, levothyrox HistoryHx of anesthetic problems: Hx of anesthetic problems: yes (nausea with narcotics)Past medical history: Endocrine: thyroid (hypo)Past surgical history: appendectomy, bypass (gastric), cholecystectomy, hysterectomy, tonsillectomy, breast bx, partial thyroidectomy Allergies:Coded Allergies:Penicillins (RASH/HIVES/FLUSHED 03/15/17)hydromorphone (From DILAUDID) (NAUSEA VOMITING 05/03/18)meperidine (From DEMEROL) (HALLUCINATIONS 03/15/17) Physical ExamVital signs:Last Documented: Result Date Time Pulse Ox 95 05/08 0802 B/P 109/70 05/08 0802 B/P Mean 82. 9 05/08 0802 O2 Delivery Room air 05/08 0802 Temp 36.9 05/08 0802 Pulse 49 05/08 0802 Resp 18 04/21 8 0802 O2 Flow Rate 2.648978 05/03 2014 Airway: adequateMallampati Class: IIIDentition: poor dentition, denies looseRespiratory: clear to auscultationCardiovascular: regular rate and rhythmAdditional information:163 cm 96 kg ResultsFindings/Data:Laboratory Tests 05/08/18 0443:[Embedded Image Not Available]Coagulation: 05/08 442 Coagulation INR (0.8 - 1.2) 1.0 Additional InformationRisks/benefits/consents:Th e following plan including risks/benefits/alternatives/complications discussedwith accepted by:[x] Patient []Parent [ ] Guardian: [] Via TranslatorGLMA for ASA 3 IP PTC, cholangiography at 1244 RPT #:[id number] OF REPORTCLClinical [id number]:40:00V.[id number] l able for patient llevMEYNUYQEHEHHSP0356-41-30K96:44:09 2018-05-08 12:40:00 KAxivdbtahg670560760902-87-61N64:40:00 [facility] ([facility])Pre-Anesthesia EvaluationREPORT#:[id number] REPORT STATUS: SignedDATE:05/08/18 TIME: 1240 PATIENT: ANA PENALOZA UNIT #: [id number]#: [id number] [address] [birth year] AGE: 67 SEX: F ATTEND: Kathleen Michelle I [facility] AUTHOR: Brenda Vela MD * ALL edits or amendments must be made on the electronic/computer document * See AddendumPre-Anesthesia Evaluation Pre-Anesthesia EvaluationORM Surgeries: Surgery Date and Time: 05/08/2018 1100 Proposed Primary Procedure: CHOLANGIOGRAM WITH POSS BILIARY DRAIN Pre-op diagnosis:dilated bile ducts, ampullary narrowingAnesthesia plan discussed:[x] General [ ] Spinal [] Epidural [] Nerve Block/IV Regional[] MAC - Medical Necessity: [] Therapeutic drug monitoring secondary or integrall to propofol us e [] Strong possibility of expansion of procedureSuccessful procedure without MAC unlikely due to: [] History of severe anxiety, panic attacks, and/or phobias [] History of low pain threshold [] History of chronic severe pain [] Other - See patient's history/diagnosis/comorbidities Medications:Home Medications: Medication Dose/Rte/Freq Days Qty Entered Last Max Daily Dose Reviewed LEVOTHYROXINE 50 MCG PO DAILY 05/03/18 05/03/18 (TIROSINT) 1438 1438 Strength: 50 MCG CAP MULTIVITAMIN 1 TAB PO DAILY 03/14/17 05/03/18 (MULTIPLE VITAMIN) 1443 1436 Strength: 1 TAB TAB Current Hospital Medications:Cardiovascular Drug s Sig/[place] Start time Last Medication Dose Route Stop Time Status Admin Lidocaine HCl 0 .STK-MED ONE 05/08 1228 DC (LIDOCAINE HCL 2%) .ROUTE Central Nervous System Agents Sig/[place] Start time Last Medication Dose Route Stop Time Status Admi n Propofol 20 ML .STK-MED ONE 05/08 1228 DCr (PROPOFOL) IV Hydrocodone Bitart/ 1 TAB Q6H PRN PRN 05/03 204 AC 05/08 Acetaminophen PO 05/08 204 0536 (NORCO 7.5/325 TABLET) Morphine Sulfat e 4 MG Q3H PRN PRN 05/03 1945 AC (morphine SULFATE ) IV 05/08 193 Acetaminophen 650 MG Q4H PRN PRN 05/03 1700 AC (TYLENOL) PO 06/02 1659 Diagnostic Agents Sig/[place] Start time Last Medication Dose Route Stop Time Status Admin Iopamidol 0 .STK-ME D ONE 05/08 1236 DC (ISOVUE-370) .ROUTE Electrolytic, Caloric, And Roberth Sig/[place] Start rosemarie e Last Medication Dose Route Stop Time Status Admi n Sodium Chloride 1,000 ML .[Q13H] 05/03 1800 AC 05/04 (SODIUM CHLORIDE IV 06/02 1759 2132 0.9%) Gastrointestinal Drugs Sig/[place] Start time Last Medication Dose Route Stop Time Status Admin Ondansetron Base 4 MG Q6H PRN PRN 05/07 0745 AC 05/08 (ZOFRAN ODT) SL 06/06 0744 0536 Famotidine 20 MG BID AC 05/04 0730 AC 05/07 (PEPCID TAB) PO 06/03 0729 1821 Ondansetron HCl 4 MG Q6H PRN PRN 05/03 1700 AC 05/05 (ONDANSETRON HCL) IV 06/02 1659 1800 Hormones And Synthetic Substit Sig/[place] Start time Last Medication Dose Route Stop Time Status Admin Levothyroxine Sodium 50 MCG 0600 05/04 0600 AC 05/08 (Levothyroxine PO 06/03 0559 0536 Sodium) Local Anesthetics (Parenteral) Sig/[place] Start time Last Medication Dose Route Stop Time Status Admin Bupivacaine HCl 0 .STK-ME D ONE 05/08 1236 DC (BUPIVACAINE HCL) .ROUTE Vitamins Sig/[place] Start time Last Medication Dose Route Stop Time Status Admin Multivitamins 1 UDTAB BID 05/04 1700 CKD 05/07 Therapeutic PO 06/03 1659 1821 (THERAGRAN) Thiamine HCl 100 MG DAILY 05/04 1630 AC 05/07 (THIAMINE HCL) PO 05/22 3 1629 0810 Additional information:npo x norco, levothyrox HistoryHx of anesthetic problems: Hx of anesthetic problems: yes (nausea with narcotics)Past medical history: Endocrine: thyroid (hypo)Past surgical history: appendectomy, bypass (gastric), cholecystectomy, hysterectomy, tonsillectomy, breast bx, partial thyroidectomy Allergies:Coded Allergies:Penicillins (RASH/HIVES/FLUSHED 03/15/17)hydromorphone (From DILAUDID) (NAUSEA VOMITING 05/03/18)meperidine (From DEMEROL) (HALLUCINATIONS 03/15/17) Physical ExamVital signs:Last Documented: Result Date Time Pulse Ox 95 05/08 0802 B/P 109/70 05/08 0802 B/P Mean 82.9 05/08 0802 O2 Delivery Room air 05/08 0802 Temp 36.9 05/08 0802 Pulse 49 05/08 0802 Resp 1 8 05/08 0802 O2 Flow Rate 2.848350 05/03 2014 Airway: adequateMallampati Class: IIIDentition: poor dentition, denies looseRespiratory: clear t o auscultationCardiovascular: regular rate and rhythmAdditional information:163 cm 96 kg ResultsFindings/Data:Laboratory Tests 05/08/18 0443:[Embedded Image Not Available]Coagulation: 05/08 442 Coagulation INR (0.8 - 1.2) 1.0 Additional InformationRisks/benefits/consents:Th e following plan including risks/benefits/alternatives/complications discussedwith accepted by:[x] Patient []Parent [ ] Guardian: [] Via TranslatorGLMA for ASA 3 IP PTC, cholangiography at 1244 Addendum 1: 05/11/18 1324 by Brenda Vela MD Preanesthetic eval, intraop anesthesia record reviewed; H P unchanged.Last Documented: Result Date Time Pulse Ox 94 05/11 1121 B/P 107/70 05/11 1121 B/P Mean 82.3 05/11 1121 O2 Delivery Room air 05/11 1121 Temp 36.8 05/11 1121 Pulse 59 05/11 1121 Resp 16 05/11 112 1 FiO2 21 05/11 0546 O2 Flow Rate 2.597163 05/03 2014 Laboratory Tests 05/11/18 0512:[Embedded Image Not Available] 05/10/18 0439:[Embedded Image Not Available]Anesthesia Plan:GLMA for ASA 3 IP biliary duct brush bx at 1326 RPT #:[id number] OF REPORTCLClinical [id number]:40:00V.[id number] l able for patient eqjsATQALVFPLVILJI7265-82-16K04:26:02 2018-05-08 10:53:00 [id number]:53:00 [facility] ([facility])General Surgery Progress NoteREPORT#:[id number] REPORT STATUS: SignedDATE:05/08/18 TIME: 1053 PATIENT: ANA PENALOZA UNIT #: [id number]#: [id number] ROOM/BED: [facility]-ADOB: [birth year] AGE : 67 SEX: F ATTEND: Kathleen Michelle I MDADM AUTHOR: Khoi Ivory MD * ALL edits or amendments must be made on the electronic/computer document * SubjectivePatient reports:Yes: abdominal pain. No: vomiting. Objective Physical ExamVS/I OLast Documented: Result Date Time Pulse Ox 95 05/08 0802 B/P 109/70 05/08 0802 B/P Mean 82.9 05/08 0802 O2 Delivery Room air 05/08 801 Temp 98.4 05/08 080 2 Pulse 49 05/08 08 Resp 18 05/08 08 O2 Flow Rate 2.702849 05/03 2014 Vital Signs Date Temp Pulse Resp B/P B/P Mean Pulse Ox FiO2 05/07-05/08 97.5-98.6 49-67 14-18 109-148/59-73 77.5-90.3 92-96 24 hour I O ending at 0700: 04/21 8 0700 05/07 1900 Intake Total 525 Output Total Balance 525 Intake, Oral 525 Number 1 Bowel Movements Number Voids 6 General appearance: alert, awakeAbdomen: soft (+RUQ tenderness) ResultsFindings/Data:Laboratory Tests 05/08/18442:[Embedded Image Not Available]Laboratory Tests 05/08 Chemistry Sodium (136 - 145 mmol/L) 147 H Potassium (3.5 - 5.1 mmol/L) 3.8 Chloride (98 - 107 mmol/L) 111.0 H Carbon Dioxide (21 - 32 mmol/L) 30.0 Anion Gap (10 - 20) 9.8 L BUN (7 - 18 mg/dL) 11 Creatinine (0.55 - 1.02 mg/dL) 0.50 L Glomerular Filtr Rate (>=60 mL/min) > 60 BUN/Creatinine Ratio (10 - 20 ) 21.4 H Glucose (74 - 106 mg/dL) 82 Calcium (8.5 - 10.1 mg/dL) 8.7 TSH (0.36 - 3.74 uIU/mL) 6.650 H Free T4 Index (1.3 - 5.1 FTI) 3.16 Thyroxine (T4) (4.5 - 13.9 ug/dL) 9.3 T3 Uptake (30.0 - 40.0 %) 34.0 Laboratory Tests 05/08 442 Coagulation INR (0.8 - 1.2) 1.0 PTT ([place]) (25.0 - 36.5 seconds) 36.7 H PT Patient/Control Mix (9.0 - 14.0 seconds) 11.8 Laboratory Tests 05/08 442 Hematology WBC (4.5 - 12.5 K/mm3) 7.6 RBC (3.7 - 5.2 mill/mm3) 4.30 Hgb (11.5 - 15.5 gram/dL) 12.5 Hct (36.0 - 46.0 %) 40.1 MCV (80 - 98 fL) 93.3 MCH (27.0 - 33.0 picogram) 29.1 MCH C (33.0 - 36.0 gram/dL) 31.2 L RDW (11.6 - 16.2 %) 14.5 RDW Std Deviation (37.0 - 51.0 fL) 49.1 Pl t Count (150 - 450 K/mm3) 302 MPV (6.7 - 11.0 fL) 9.6 Neut % (Auto) (39.0 - 69.0 %) 47.1 Lymph % (Auto) (25.0 - 55.0 %) 43.8 [place] % (Auto) (0.0 - 10.0 %) 6.8 Eos % (Auto) (0.0 - 5.0 %) 1.6 Baso % (Auto) (0.0 - 1.0 %) 0.3 Neut # (Auto) (1.8 - 7.7 K/mm3) 3.56 Lymph # (Auto) (1.0 - 5.0 K/mm3 ) 3.31 [place] # (Auto) (0 - 0.8 K/mm3) 0.51 Eos # (Auto) (0.0 - 0.5 K/mm3) 0.12 Baso # (Auto) (0. 0 - 0.2 K/mm3) 0.02 Nucleated RBC % (0 - 0 %) 0.0 Nucleated RBCs # (Man) (0.0 - 0.1 K/mm3) 0.00 Diagnosis, Assessment PlanFree Text A P:Work up distal bile duct narrowing today with PTC at 1054 RPT #:[id number] OF REPORTPRProgress [id number]:53:00V.[id number] corey able for patient dtpsTQKQGGNKNMPVXD8969-55-75J37:54:57 2018-05-07 10:45:00 [id number]:45:00 [facility] ([facility])Hospitalist Progress NoteREPORT#:[id number] REPORT STATUS: SignedDATE:05/07/18 TIME: 1045 PATIENT: ANA PENALOZA UNIT #: [id number]#: [id number] [address] [birth year] AGE : 67 SEX: F ATTEND: Kathleen Michelle I [facility] AUTHOR: Kathleen Michelle MD * ALL edits or amendments must be made on the electronic/computer document * SubjectiveChief Complaint:Still with right upper quadrant pain. s/p MRCP. Objective GeneralVS/I O:Vital Signs: Date Time Temp Pulse Resp B/P B/P Pulse O2 O2 Flow FiO2 Mean Ox Delivery Rate 05/07 0841 97.5 51 18 142/68 93.1 98 Room air 05/07 0338 97.9 51 18 122/73 89.4 93 Room air 05/06 2304 99.0 61 18 117/55 75.5 94 Room air 05/065 98.1 54 18 157/81 106.6 95 Room air 05/07 2007 98.2 58 18 118/79 92.2 94 05/06 1748 98.1 67 20 131/79 96.4 98 05/06 1141 97.9 57 20 147/80 102.0 97 Medications:Active Meds + DC'd Last 24 HrsOndansetron Base 4 MG Q6H PRN PRN SL Multivitamins Therapeutic 1 UDTAB BID PO (CKD) Thiamine HCl 100 MG DAILY PO Famotidine 20 MG BID AC PO Levothyroxine Sodium 50 MCG 0600 PO Hydrocodone Bitart/Acetaminophen 1 TAB Q6H PRN PRN PO Morphine Sulfate 4 MG Q3H PRN PRN IV Sodium Chloride 1,000 ML .[Q13H] IV Acetaminophe n 650 MG Q4H PRN PRN PO Ondansetron HCl 4 MG Q6H PRN PRN IV Physical ExamGeneral appearance: alert, awakeHead/Eyes: atraumatic, clear cornea, EOMI, normal conjunctiva/sclera, normal eyelids/periorb., normocephalic, PERRLENT: jose l dentition, normal ear left, normal ear right, normal nose, normal pharynx, normal sinusNeck: full range of motion, non-tender, normal thyroid , supple/no meningismus, no bruit/NL carotids, no JVD, no masses or swellingCardiovascular: normal capillary refill, regular rate rhythmRespiratory : aerating well, no distressAbdomen: tenderness, soft, no distention, Erythema to the RUQ/Inframammilary area. No significant rash. Extremities: moves all, normal capillary refill, normal range of motion, no edemaMusculoskeletal: normal inspectionSkin: dry, intactPsychiatry: normal affect, normal judgment/insight, normal mood, not homicidal, not suicidal, no hallucinations Diagnosis, Assessment Plan Free Text DxA P NotesFree text DxA P notes:Ms. Penaloza is a 67-year-old female with history of thyroid disease presenting with a right upper quadrant/inframamillary pain.#Abdominal pain- du e to CBD dilatation of unknown etiology. Patient status postcholecystectomy. CT abdomen with smal l hepatic cysts; extrahepatic biliary dilatation with no evidence of obstructing lesion and 2 hemangioma, patient has been aware of this for years. -Pain control -IV hydration. Advance diet and monitor for tolerance - MRCP findings noted -GI on consult. Consulted surgeon for diagnostic procedures including cholangiogram#Thyroid insufficiency-continue patient on levothyroxine#Bradycardia-asymptomatic. Check EK G and TSH#DVT ppx-SCDPatient is full code Quality BMI Screening > 25 or < 18.5BMI status/follow-up : abnl BMI, pt to F/U w/PCP at 1700 RPT #:[id number] OF REPORTPRProgress [id number]:45:00V.[id number] l able for patient [id number]:00:08 2018-05-06 13:02:00 [id number]:02:00 [facility] ([facility])Gastroenterology Progress NoteREPORT#:[id number] REPORT STATUS: SignedDATE:05/06/18 TIME: 1302 PATIENT: ANA PENALOZA UNIT #: [id number]#: [id number] ROOM/BED: [facility]-ADOB: [birth year] AGE : 67 SEX: F ATTEND: Kathleen Michelle I MDADM AUTHOR: Brigette Tenorio * ALL edits or amendments must be made on the electronic/computer document * Brigette Tenorio 05/06/18 1302:SubjectiveChief Complaint:MRCP positive for ampullary stone+abd pain Review of SystemsConstitutional:Denies: chills, fatigue. Respiratory:Denies: NELSON (dyspnea on exertion), hemoptysis. GI:Reports: abdominal pain. Denies: nausea, vomiting. Objective Physical ExamVS/I O:Last Documented: Result Date Time Pulse Ox 97 05/06 1141 B/P 147/80 05/06 1141 B/P Mean 102.0 05/06 1141 Temp 36.6 05/06 1141 Pulse 57 05/06 1141 Resp 20 05/06 1141 O2 Delivery Nasal cannul a 05/03 2014 O2 Flow Rate 2.707677 05/03 2014 24 hour I O ending at 0700: 05/06 0700 05/05 1900 Intake Total 1900.00 Output Total Balance 1900.0 0 Intake, IV 900.00 Intake, Oral 1000 Number Void s 5 Medications:Active Meds + DC'd Last 24 HrsAlprazolam 0.125 MG ONCE ONE PO (DC) Alprazolam 0.25 MG ONCE ONE PO (CAN) Multivitamins Therapeutic 1 UDTAB BID PO (CKD) Thiamine HCl 100 MG DAILY PO Famotidine 20 MG BI D AC PO Levothyroxine Sodium 50 MCG 0600 PO Hydrocodone Bitart/Acetaminophen 1 TAB Q6H PRN PRN PO Morphine Sulfate 4 MG Q3H PRN PRN IV Sodium Chloride 1,000 ML .[Q13H] IV Acetaminophe n 650 MG Q4H PRN PRN PO Ondansetron HCl 4 MG Q6H PRN PRN IV General appearance: alert, awake, orientedHEENT: anicteric, atraumaticNeck: non-tender, supple/no meningismusCardiovascular: normal heart sounds, normal S1/E8Cfpgqbtuwgg: aerating well, clear to auscultationAbdomen: tenderness, normal bowel sounds, softExtremities : no clubbing, no cyanosisMusculoskeletal: full range of motionNeuro/PRODUCT MARKETER: alert, oriented X 3Psychiatry: normal affect, normal judgment/insight Diagnosis, Assessment PlanFree Text A P:1) RUQ abd pain - s/p arsenio MRCP: Dilated CBD at 1.3 cm with abrupt termination at the ampulla. This could represent an ampullary stone. ERCP would be of value. Dilated pancreati c duct at 5.8 mm. 2) costochondiritis? 3) hx of gastric bypass4) nausea5) hepatic hemangioma/dilattion of extrahepatic bile duct Plan:- Patient not good candidate for ERCP due t o gastric bypass. - Surgical consult, consult IR for Percutaneous transhepatic cholangiogram on Tuesday- thiamine, multivitamins- anti-emetics PRN- Pepcid Gilberto Conway 05/07/18 0946:Attestations Midlevel/Physician AttestationPhysician attestation:Agree with the findings and plan as documented at 0947 RPT #:[id number] OF REPORTPRProgress Auqh9075-37-33X66:02:00V.[id number] l able for patient pfyoNOIZQYGEDBIUWN2496-78-16I65:47:16 2018-05-06 13:02:00 BVuhmbpxrxf100472896635-20-01M69:02:00 [facility] ([facility])Gastroenterology Progress NoteREPORT#:[id number] REPORT STATUS: SignedDATE:05/06/18 TIME: 1302 PATIENT: ANA PENALOZA UNIT #: [id number]#: [id number] [address] [birth year] AGE: 67 SEX: F ATTEND: Kathleen Michelle AUTHOR: Brigette Teonrio * ALL edits or amendments must be made on the electronic/computer document * Brigette Tenorio 05/06/18 1302:SubjectiveChief Complaint:MRCP positive for ampullary stone+abd pain Review of SystemsConstitutional:Denies: chills, fatigue. Respiratory:Denies: NELSON (dyspnea on exertion), hemoptysis. GI:Reports: abdominal pain. Denies: nausea, vomiting. Objective Physical ExamVS/I O:Last Documented: Result Date Time Pulse Ox 97 05/06 1141 B/P 147/80 05/06 1141 B/P Mean 102.0 05/06 1141 Temp 36.6 05/06 1141 Pulse 57 05/06 1141 Resp 20 05/06 1141 O2 Delivery Nasal cannul a 05/03 2014 O2 Flow Rate 2.771754 05/03 2014 24 hour I O ending at 0700: 05/06 0700 05/05 1900 Intake Total 1900.00 Output Total Balance 1900.0 0 Intake, IV 900.00 Intake, Oral 1000 Number Void s 5 Medications:Active Meds + DC'd Last 24 HrsAlprazolam 0.125 MG ONCE ONE PO (DC) Alprazolam 0.25 MG ONCE ONE PO (CAN) Multivitamins Therapeutic 1 UDTAB BID PO (CKD) Thiamine HCl 100 MG DAILY PO Famotidine 20 MG BI D AC PO Levothyroxine Sodium 50 MCG 0600 PO Hydrocodone Bitart/Acetaminophen 1 TAB Q6H PRN PRN PO Morphine Sulfate 4 MG Q3H PRN PRN IV Sodium Chloride 1,000 ML .[Q13H] IV Acetaminophe n 650 MG Q4H PRN PRN PO Ondansetron HCl 4 MG Q6H PRN PRN IV General appearance: alert, awake, orientedHEENT: anicteric, atraumaticNeck: non-tender, supple/no meningismusCardiovascular: normal heart sounds, normal S1/Q7Bvpodxhzjeq: aerating well, clear to auscultationAbdomen: tenderness, normal bowel sounds, softExtremities : no clubbing, no cyanosisMusculoskeletal: full range of motionNeuro/PRODUCT MARKETER: alert, oriented X 3Psychiatry: normal affect, normal judgment/insight Diagnosis, Assessment PlanFree Text A P:1) RUQ abd pain - s/p arsenio MRCP: Dilated CBD at 1.3 cm with abrupt termination at the ampulla. This could represent an ampullary stone. ERCP would be of value. Dilated pancreati c duct at 5.8 mm. 2) costochondiritis? 3) hx of gastric bypass4) nausea5) hepatic hemangioma/dilattion of extrahepatic bile duct Plan:- Patient not good candidate for ERCP due t o gastric bypass. - Surgical consult, consult IR for Percutaneous transhepatic cholangiogram on Tuesday- thiamine, multivitamins- anti-emetics PRN- Pepcid Gilberto Conway 05/07/18 0946:Attestations Midlevel/Physician AttestationPhysician attestation:Agree with the findings and plan as documented at 0947 at 0046 RPT #:[id number] OF REPORTPRProgress Hyru5122-59-21Q96:02:00V.[id number] l able for patient lxfyEALYAHJOFABNAA9066-32-75M20:47:12 2018-05-06 09:59:00 [id number]:59:[id number] 085 [facility] PATIENT NAME: ANA PENALOZA ADMIT DATE: 05/05/18ACCOUNT NO: [id number] ROOM NO: V.3032 AGE: 67 REPORT TYPE: CONSULTATION REPORT SEX: F DATE OF : [birth year]ADMITTING PHYSICIAN:Kathleen Michelle MD ATTENDING PHYSICIAN:Kathleen Michelle MD CONSULTATION DATE: 05/06/2018 CONSULTING PHYSICIAN: Khoi Ivory MD CHIEF COMPLAINT: Right-sided pain. HISTORY OF PRESENT ILLNESS: The patient is a 67-year-old female with 5-dayhistory of pain in his right upper quadrant along the rib cage with no nausea,vomiting, fever, chills, or cough. The patient had a history of gastric bypassapproximately a year ago. She also had cholecystectomy approximately 12 yearsago for gallstone. The patient tolerated diet currently with no nausea or vomiting. PAST MEDICAL HISTORY : Her past medical history is positive for morbid obesityand history of thyroid nodules. PAST SURGICAL HISTORY: Positive for recent gastric bypass surgery, partialthyroidectomy in the past , and cholecystectomy. SOCIAL HABITS: She denies smoking. Social alcohol use. ALLERGIES: SHE IS ALLERGIC TO PENICILLIN, DEMEROL, AND DILAUDID. REVIEW OF SYSTEMS: No chest pain or shortness of breath. PHYSICAL EXAMINATION:VITAL SIGNS: On exam; the patient's vital signs are stable, afebrile.GENERAL: She is awake, alert, in moderate discomfort.HEENT: Sclerae are nonicteric.NECK: Supple.LUNGS: Clear.HEART: Regular rate and rhythm.ABDOMEN: Soft. Point tenderness is along the lateral right costal margins,which is quite tender to touch. There is no deep palpation in the right upperquadrant. No guarding or rebound.EXTREMITIES: No cyanosis or edema. LABORATORY DATA: White cell count is 8, hemoglobin of 12, and platelet cpafe530. Creatinine is 0.4. Lipase 106 and bilirubin of 0.3 with alkalinephosphatase of 64. DIAGNOSTIC DATA: Ultrasound of the gallbladder showed dilation of theextrahepatic bile duct without obvious obstruction. MRCP showed dilated common PATIENT NAME: ANA PENALOZA bile duct at 1.3 cm with abrupt termination of the ampulla, which couldrepresent an ampullary stone. CT of the abdomen showed extrahepatic biliarydilatation without obstructing lesion. ASSESSMENT: Pain along the right costal margins, which could becostochondritis, especially since the patient has no gastrointestinal symptomsand tolerated diet at this point. Findings of extrahepatic biliary dilatationcould be post-cholecystectomy versus obstruction in the distal bile duct as seenon MRCP. PLAN: We discussed with care teams regarding further diagnostic measures. Wemay proceed with a percutaneous transhepatic cholangiogram for further workup ifindicated. Th e patient also maybe followed clinically and monitor hepaticfunction panel and treat for costochondritis. Dictated By: Khoi Ivory MD WT: CON:MATIAS/SHANNAN/NTSDD: 05/06/2018 09:59:01DT: 05/06/2018 12:55:20Conf#: [id number]/DID#: [id number] Authenticated and Edited b y Khoi Ivory MD On 05/08/18 10:58:56 AM at 1105 PATIENT NAME: ANA PENALOZA :55:00V.H I [id number] for patient [id number]:05:41 2018-05-06 09:21:00 [id number]:21:00 [facility] ([facility])Hospitalist Progress NoteREPORT#:[id number] REPORT STATUS: SignedDATE:05/06/18 TIME: 920 PATIENT: ANA PENALOZA UNIT #: [id number]#: [id number] [address] [birth year] AGE : 67 SEX: F ATTEND: Kathleen Michelle I [facility] AUTHOR: Kathleen Michelle MD * ALL edits or amendments must be made on the electronic/computer document * SubjectiveChief Complaint:Still with right upper quadrant pain. s/p MRCP. Objective GeneralVS/I O:Vital Signs: Date Time Temp Pulse Resp B/P B/P Pulse O2 O2 Flow FiO2 Mean Ox Delivery Rate 05/06 0745 98.6 57 20 122/72 88.9 97 05/06 0420 98.4 60 16 125/6 9 87.3 95 05/06 0117 54 16 114/67 82.6 95 05/06 0111 97.9 54 19 99/52 67.8 92 05/05 2105 97.9 55 16 112/59 76.7 05/05 2105 97.9 55 16 112/59 76. 7 05/05 1659 98.4 64 114/64 80.9 93 05/05 165 98. 4 64 114/64 80.9 93 24 hour I O ending at 0700: 05/06 0700 05/05 1900 Intake Total 1900.00 Outpu t Total Balance 1900.00 Intake, IV 900.00 Intake, Oral 1000 Number Voids 5 Medications:Active Meds + DC'd Last 24 HrsAlprazolam 0.125 MG ONCE ONE P O (DC) Alprazolam 0.25 MG ONCE ONE PO (CAN) Multivitamins Therapeutic 1 UDTAB BID PO (CKD) Thiamine HCl 100 MG DAILY PO Famotidine 20 MG BI D AC PO Levothyroxine Sodium 50 MCG 0600 PO Hydrocodone Bitart/Acetaminophen 1 TAB Q6H PRN PRN PO Morphine Sulfate 4 MG Q3H PRN PRN IV Sodium Chloride 1,000 ML .[Q13H] IV Acetaminophe n 650 MG Q4H PRN PRN PO Ondansetron HCl 4 MG Q6H PRN PRN IV Physical ExamGeneral appearance: alert, awakeHead/Eyes: atraumatic, clear cornea, EOMI, normal conjunctiva/sclera, normal eyelids/periorb., normocephalic, PERRLENT: jose l dentition, normal ear left, normal ear right, normal nose, normal pharynx, normal sinusNeck: full range of motion, non-tender, normal thyroid , supple/no meningismus, no bruit/NL carotids, no JVD, no masses or swellingCardiovascular: normal capillary refill, regular rate rhythmRespiratory : aerating well, no distressAbdomen: tenderness, soft, no distention, Erythema to the RUQ/Inframammilary area. No significant rash. Extremities: moves all, normal capillary refill, normal range of motion, no edemaMusculoskeletal: normal inspectionSkin: dry, intactPsychiatry: normal affect, normal judgment/insight, normal mood, not homicidal, not suicidal, no hallucinations ResultsRadiology data:Recent Impressions:MAGNETIC RESONANCE IMAGING - MRI ABDOMEN W/O CONT 05/05 1123 Report Impression - Status: SIGNED Entered: 05/05/2018 1149 IMPRESSION: Dilated CBD at 1.3 cm with abrupt termination at the ampulla. Thiscould represent an ampullary stone. ERCP would be of value. Dilatedpancreatic duct at 5.8 mm.Impression By: AlexandroTH4 - Guilherme Silverman M.D. Diagnosis, Assessment Plan Free Text DxA P NotesFree text DxA P notes:Ms. Penaloza is a 67-year-old female with history of thyroid disease presenting with a right upper quadrant/inframamillary pain.#Abdominal pain- due to CBD dilatation of unknown etiology. Patient status postcholecystectomy. CT abdomen with small hepatic cysts; extrahepatic biliary dilatation with no evidence of obstructing lesion and 2 hemangioma, patient has been aware of this for years. -Pain control -IV hydration. Advance diet and monitor for tolerance - MRCP findings noted -GI on consult. Consulted surgeon for diagnostic procedures including cholangiogram#Thyroid insufficiency-continue patient on levothyroxine#DVT ppx-SCDPatient is full code Quality BMI Screening > 25 or < 18.5BMI status/follow-up: abnl BMI, pt to F/U w/PCP at 1045 RPT #:[id number] OF REPORTPRProgress Epwl0077-51-65P37:21:00V.[id number] corey [facility] for patient vwyeYSIRNDAQDRLKMT3024-12-87F52:45:12 2018-05-05 15:26:00 [id number]:26:00 [facility] ([facility])Gastroenterology Progress NoteREPORT#:[id number] REPORT STATUS: SignedDATE:05/05/18 TIME: 152 PATIENT: ANA PENALOZA UNIT #: [id number]#: [id number] ROOM/BED: 2016-ADOB: [birth year] AGE : 67 SEX: F ATTEND: Kathleen Michelle I [facility] AUTHOR: Brigette Tenorio * ALL edits or amendments must be made on the electronic/computer document * Brigette Tenorio 05/05/18 1526:SubjectiveChief Complaint:MRCP positive for ampullary stone Review of SystemsConstitutional:Reports: fatigue, generalized weakness. Respiratory:Denies: NELSON (dyspnea on exertion), hemoptysis. GI:Reports: abdominal pain. Denies: nausea, vomiting. Objective Physical ExamVS/I O:Last Documented: Result Date Time Pulse Ox 95 05/05 830 B/P 124/77 05/05 830 B/P Mean 92.7 05/05 830 Temp 36.4 05/05 830 Pulse 57 05/05 830 Resp 18 04/21 5 0831 O2 Delivery Nasal cannula 05/03 2014 O2 Serafin w Rate 2.265579 05/03 2014 Medications:Active Meds + DC'd Last 24 HrsAlprazolam 0.125 MG ONCE ONE P O (DC) Alprazolam 0.25 MG ONCE ONE PO (CAN) Multivitamins Therapeutic 1 UDTAB BID PO (CKD) Thiamine HCl 100 MG DAILY PO Famotidine 20 MG BID AC PO Levothyroxine Sodium 50 MCG 0600 PO Hydrocodone Bitart/Acetaminophen 1 TAB Q6H PRN PRN PO Morphine Sulfate 4 MG Q3H PRN PRN IV Sodium Chloride 1,000 ML .[Q13H] IV Acetaminophe n 650 MG Q4H PRN PRN PO Ondansetron HCl 4 MG Q6H PRN PRN IV HEENT: anicteric, atraumaticNeck: non-tender, supple/no meningismusCardiovascular: normal heart sounds, normal S1/E3Ctwkfmnquls: aerating well, clear to auscultationAbdomen: tenderness, normal bowel sounds, softExtremities : no clubbing, no cyanosisMusculoskeletal: full range of motionNeuro/PRODUCT MARKETER: alert, oriented X 3Psychiatry: normal affect, normal judgment/insight ResultsRadiology Data:Recent Impressions:MAGNETIC RESONANCE IMAGING - MRI ABDOMEN W/O CONT 05/05 1123 Report Impression - Status: SIGNED Entered: 05/05/2018 1149 IMPRESSION: Dilated CBD at 1.3 cm with abrupt termination at the ampulla. Thiscould represent an ampullary stone. ERCP would be of value. Dilatedpancreatic duct at 5.8 mm.Impression By: AlexandroTH4 - Guilherme Silverman M.D. Results: labs reviewed, vital signs stable Diagnosis, Assessment PlanFree Text A P:1) RUQ abd pain - s/p arsenio MRCP: Dilated CBD at 1.3 cm with abrup t termination at the ampulla. This could represent an ampullary stone. ERCP would be of value. Dilated pancreatic duct at 5.8 mm. 2) costochondiritis? 3) hx of gastric bypass4) nausea5) hepatic hemangioma/dilattion of extrahepatic bile duct Plan:- Patient not good candidate for MRCP due to gastric bypass. - Surgical consult, consult IR for Percutaneous transhepatic cholangiogram- thiamine, multivitamins- anti-emetics PRN- Pepcid Gilberto Conway 05/05/18 1855:Attestations Midlevel/Physician AttestationPhysician attestation:Agree with the findings and plan as documented Unable to do ERCP due to previous h/o of gastric bypassWill get PTC and surgical evaluationd/w patient in length at 1856 RPT #:[id number] OF REPORTPRProgress Dcnw2644-66-43C17:26:00V.[id number] corey able for patient imbsPZEXTHFVKTEIBT7803-38-39A83:56:37 2018-05-05 15:26:00 [id number]:26:00 [facility] ([facility])Gastroenterology Progress NoteREPORT#:[id number] REPORT STATUS: SignedDATE:05/05/18 TIME: 152 PATIENT: ANA PENALOZA UNIT #: [id number]#: [id number] ROOM/BED: 2016-ADOB: [birth year] AGE : 67 SEX: F ATTEND: Kathleen Michelle I MDADM AUTHOR: Brigette Tenorio * ALL edits or amendments must be made on the electronic/computer document * Brigette Tenorio 05/05/18 1526:SubjectiveChief Complaint:MRCP positive for ampullary stone Review of SystemsConstitutional:Reports: fatigue, generalized weakness. Respiratory:Denies: NELSON (dyspnea on exertion), hemoptysis. GI:Reports: abdominal pain. Denies: nausea, vomiting. Objective Physical ExamVS/I O:Last Documented: Result Date Time Pulse Ox 95 03/15 0831 B/P 124/77 05/05 830 B/P Mean 92.7 05/05 830 Temp 36.4 05/05 830 Pulse 57 05/05 830 Resp 18 05/05 830 O2 Delivery Nasal cannula 05/03 2014 O2 Flow Rate 2.679871 05/03 2014 Medications:Active Meds + DC'd Last 24 HrsAlprazolam 0.125 MG ONCE ONE PO (DC) Alprazolam 0.25 MG ONCE ONE PO (CAN) Multivitamins Therapeutic 1 UDTAB BID PO (CKD) Thiamine HCl 100 MG DAILY PO Famotidine 20 MG BI D AC PO Levothyroxine Sodium 50 MCG 0600 PO Hydrocodone Bitart/Acetaminophen 1 TAB Q6H PRN PRN PO Morphine Sulfate 4 MG Q3H PRN PRN IV Sodium Chloride 1,000 ML .[Q13H] IV Acetaminophe n 650 MG Q4H PRN PRN PO Ondansetron HCl 4 MG Q6H PRN PRN IV HEENT: anicteric, atraumaticNeck: non-tender, supple/no meningismusCardiovascular: normal heart sounds, normal S1/X3Ffrajgvcjua: aerating well, clear to auscultationAbdomen: tenderness, normal bowel sounds, softExtremities : no clubbing, no cyanosisMusculoskeletal: full range of motionNeuro/PRODUCT MARKETER: alert, oriented X 3Psychiatry: normal affect, normal judgment/insight ResultsRadiology Data:Recent Impressions:MAGNETIC RESONANCE IMAGING - MRI ABDOMEN W/O CONT 05/05 1123 Report Impression - Status: SIGNED Entered: 05/05/2018 1149 IMPRESSION: Dilated CBD at 1.3 cm with abrupt termination at the ampulla. Thiscould represent an ampullary stone. ERCP would be of value. Dilatedpancreatic duct at 5.8 mm.Impression By: AlexandroTH4 - Guilherme Silverman M.D. Results: labs reviewed, vital signs stable Diagnosis, Assessment PlanFree Text A P:1) RUQ abd pain - s/p arsenio MRCP: Dilated CBD at 1.3 cm with abrup t termination at the ampulla. This could represent an ampullary stone. ERCP would be of value. Dilated pancreatic duct at 5.8 mm. 2) costochondiritis? 3) hx of gastric bypass4) nausea5) hepatic hemangioma/dilattion of extrahepatic bile duct Plan:- Patient not good candidate for ERCP due to gastric bypass. - Surgical consult, consult IR for Percutaneous transhepatic cholangiogram- thiamine, multivitamins- anti-emetics PRN- Pepcid Gilberto Conway 05/05/18 1855:Attestations Midlevel/Physician AttestationPhysician attestation:Agree with the findings and plan as documented Unable to do ERCP due to previous h/o of gastric bypassWill get PTC and surgical evaluationd/w patient in length at 1856 RPT #:[id number] OF REPORTPRProgress Ucwl2835-91-00J39:26:00V.[id number] corey able for patient pwqqTCMWKRDOKCZKRX5640-72-86T12:30:18 2018-05-05 15:26:00 [id number]:26:00 [facility] ([facility])Gastroenterology Progress NoteREPORT#:[id number] REPORT STATUS: SignedDATE:05/05/18 TIME: 1525 PATIENT: ANA PENALOZA UNIT #: [id number]#: [id number] [address] [birth year] AGE: 67 SEX: F ATTEND: Kathleen Michelle I MDADM AUTHOR: Brigette Tenorio * ALL edits or amendments must be made on the electronic/computer document * Brigette Tenorio 05/05/18 1526:SubjectiveChief Complaint:MRCP positive for ampullary stone Review of SystemsConstitutional:Reports: fatigue, generalized weakness. Respiratory:Denies: NELSON (dyspnea on exertion), hemoptysis. GI:Reports: abdominal pain. Denies: nausea, vomiting. Objective Physical ExamVS/I O:Last Documented: Result Date Time Pulse Ox 95 05/05 830 B/P 124/77 05/05 830 B/P Mean 92.7 05/05 0831 Temp 36.4 05/05 0831 Pulse 57 05/05 0831 Resp 18 04/21 5 0831 O2 Delivery Nasal cannula 05/03 2014 O2 Serafin w Rate 2.957252 05/03 2014 Medications:Active Meds + DC'd Last 24 HrsAlprazolam 0.125 MG ONCE ONE P O (DC) Alprazolam 0.25 MG ONCE ONE PO (CAN) Multivitamins Therapeutic 1 UDTAB BID PO (CKD) Thiamine HCl 100 MG DAILY PO Famotidine 20 MG BI D AC PO Levothyroxine Sodium 50 MCG 0600 PO Hydrocodone Bitart/Acetaminophen 1 TAB Q6H PRN PRN PO Morphine Sulfate 4 MG Q3H PRN PRN IV Sodium Chloride 1,000 ML .[Q13H] IV Acetaminophe n 650 MG Q4H PRN PRN PO Ondansetron HCl 4 MG Q6H PRN PRN IV HEENT: anicteric, atraumaticNeck: non-tender, supple/no meningismusCardiovascular: normal heart sounds, normal S1/L4Fjpagabyqzc: aerating well, clear to auscultationAbdomen: tenderness, normal bowel sounds, softExtremities : no clubbing, no cyanosisMusculoskeletal: full range of motionNeuro/PRODUCT MARKETER: alert, oriented X 3Psychiatry: normal affect, normal judgment/insight ResultsRadiology Data:Recent Impressions:MAGNETIC RESONANCE IMAGING - MRI ABDOMEN W/O CONT 05/05 1123 Report Impression - Status: SIGNED Entered: 05/05/2018 1149 IMPRESSION: Dilated CBD at 1.3 cm with abrupt termination at the ampulla. Thiscould represent an ampullary stone. ERCP would be of value. Dilatedpancreatic duct at 5.8 mm.Impression By: AlexandroTH4 - Guilherme Silverman M.D. Results: labs reviewed, vital signs stable Diagnosis, Assessment PlanFree Text A P:1) RUQ abd pain - s/p arsenio MRCP: Dilated CBD at 1.3 cm with abrup t termination at the ampulla. This could represent an ampullary stone. ERCP would be of value. Dilated pancreatic duct at 5.8 mm. 2) costochondiritis? 3) hx of gastric bypass4) nausea5) hepatic hemangioma/dilattion of extrahepatic bile duct Plan:- Patient not good candidate for ERCP due to gastric bypass. - Surgical consult, consult IR for Percutaneous transhepatic cholangiogram- thiamine, multivitamins- anti-emetics PRN- Pepcid Gilberto Conway 05/05/18 1855:Attestations Midlevel/Physician AttestationPhysician attestation:Agree with the findings and plan as documented Unable to do ERCP due to previous h/o of gastric bypassWill get PTC and surgical evaluationd/w patient in length at 1856 at 0057 RPT #:[id number] OF REPORTPRProgress Wrrl4441-75-90P87:26:00V.[id number] corey able for patient nduvFSCHWVYKNLFXDQ5086-30-51G03:57:36 2018-05-05 15:09:00 GWncxzmdgbx79854215563-83-12V34:09:00 [facility] ([facility])Hospitalist Progress NoteREPORT#:[id number] REPORT STATUS: SignedDATE:05/05/18 TIME: 1509 PATIENT: ANA PENALOZA UNIT #: [id number]#: [id number] ROOM/BED: 2016-ADOB: [birth year] AGE : 67 SEX: F ATTEND: Kathleen Michelle AUTHOR: Kathleen Michelle MD * ALL edits or amendments must be made on the electronic/computer document * SubjectiveChief Complaint:Still with right upper quadrant pain. s/p MRCP. for EGD later today Objective GeneralVS/I O:Vital Signs: Date Time Temp Pulse Resp B/P B/P Pulse O2 O2 Flow FiO2 Mean Ox Delivery Rate 05/05 0831 97.5 57 18 124/77 92.7 95 05/05 0439 98.1 61 18 124/77 93.0 95 05/05 0023 97.9 56 18 113/66 81.3 100 03/14 2103 98.6 58 18 137/81 99.2 96 05/04 1659 97.3 55 2 113/66 81.6 97 Medications:Active Meds + DC'd Last 24 HrsAlprazolam 0.125 MG ONCE ONE PO (DC) Alprazolam 0.25 MG ONCE ONE PO (CAN) Multivitamins Therapeutic 1 UDTAB BID PO (CKD) Thiamine HCl 100 MG DAILY PO Famotidine 20 MG BI D AC PO Levothyroxine Sodium 50 MCG 0600 PO Hydrocodone Bitart/Acetaminophen 1 TAB Q6H PRN PRN PO Morphine Sulfate 4 MG Q3H PRN PRN IV Sodium Chloride 1,000 ML .[Q13H] IV Acetaminophe n 650 MG Q4H PRN PRN PO Ondansetron HCl 4 MG Q6H PRN PRN IV Physical ExamGeneral appearance: obese, alert, awakeHead/Eyes: atraumatic, clear cornea, EOMI, normal conjunctiva/sclera, normal eyelids/periorb., normocephalic, PERRLENT: jose l dentition, normal ear left, normal ear right, normal nose, normal pharynx, normal sinusNeck: full range of motion, non-tender, normal thyroid , supple/no meningismus, no bruit/NL carotids, no JVD, no masses or swellingCardiovascular: normal capillary refill, regular rate rhythmRespiratory : aerating well, no distressAbdomen: tenderness, soft, no distention, Erythema to the RUQ/Inframammilary area. No significant rash. Extremities: moves all, normal capillary refill, normal range of motion, no edemaMusculoskeletal: normal inspectionSkin: dry, intactPsychiatry: normal affect, normal judgment/insight, normal mood, not homicidal, not suicidal, no hallucinations ResultsRadiology data:Recent Impressions:MAGNETIC RESONANCE IMAGING - MRI ABDOMEN W/O CONT 05/05 1123 Report Impression - Status: SIGNED Entered: 05/05/2018 1149 IMPRESSION: Dilated CBD at 1.3 cm with abrupt termination at the ampulla. Thiscould represent an ampullary stone. ERCP would be of value. Dilatedpancreatic duct at 5.8 mm.Impression By: AlexandroTH4 - Guilherme Silverman M.D. Diagnosis, Assessment Plan Free Text DxA P NotesFree text DxA P notes:Ms. Penaloza is a 67-year-old female with history of thyroid disease presenting with a right upper quadrant/inframamillary pain.#Abdominal pain-broad differential. Patient status post cholecystectomy. CT abdomen with small hepatic cysts; extrahepatic biliary dilatation with no evidence of obstructing lesio n and 2 hemangioma, patient has been aware of this for years. -Pain control -IV hydration. Advance diet and monitor for tolerance - MRCP findings noted -GI for EGD today and possibly cholangiogram#Thyroid insufficiency-continue patient on levothyroxine#DVT ppx-SCDPatient is full code Quality BMI Screening > 25 or < 18.5BM I status/follow-up: abnl BMI, pt to F/U w/PCP at 0905 RPT #:[id number] OF REPORTPRProgress [id number]:09:00V.[id number] [facility] gdpaLWFEKIZWECXCKU6153-15-93J77:05:03 2018-05-04 15:51:00 [id number]:51:00 [facility] ([facility])GE Consultation NoteREPORT#:[id number] REPORT STATUS: SignedDATE:05/04/18 TIME: 1551 PATIENT: ANA PENALOZA UNIT #: [id number]#: [id number] ROOM/BED: V.2016-ADOB: [birth year] AGE : 67 SEX: F ATTEND: Kathleen Michelle I MDADM AUTHOR: Brigette Tenorio * ALL edit s or amendments must be made on the electronic/computer document * Brigette Tenorio 05/04/18 1551:History of Present IllnessRequesting clinician: Dr. Issa for consult:abd pain Chief complaint:abd painHPI:Patient is a 67-year-old female with pas t medical history of thyroid nodules andgastric bypass who presented to the ED with reports of right upper quadrant abdominal pain that started yesterday. Patient states she has had an EGD June 2017 prior to her gastric bypass. She denies any melena, hematochezia or hematemesis.AST 8ALT 12ABD CT IMPRESSION: 1. No acute abdominal or pelvic abnormalities. 2. Multiple small hepatic cysts. 3. 2 cavernous hemangiomas in the right lobe of the liver. 3. Extrahepatic biliary dilatation without evidence of an obstructing lesion. History - Adult longitudinalPast medical history:Reports: Transfusion history. Past surgical history:Reports: Cholecystectomy, Hysterectomy, Tonsillectomy. Additional surgical history:Ankle surgery; breast bx (neg.)Additiona l family history:DeniesAlcohol use: Alcohol useDru g use: Denies recreational drugsSmoking status for patients 13 years old or older: Never SmokerMedications:Home Medications: Medication Dose/Rte/Freq Days Qty Entered Last Max Daily Dose Reviewed LEVOTHYROXINE 50 MCG PO DAILY 05/03/18 05/03/18 (TIROSINT) 1438 1438 Strength: 50 MCG CAP MULTIVITAMIN 1 TAB PO DAILY 03/14/17 05/03/18 (MULTIPLE VITAMIN) 1443 1436 Strength: 1 TAB TAB Current Hospital Medications:Central Nervous System Agents Sig/[place] Start time Last Medication Dose Route Stop Time Status Admin Hydrocodone Bitart/ 1 TAB Q6H PRN PRN 05/03 2045 AC 05/04 Acetaminophen PO 05/08 204 1306 (NORCO 7.5/325 TABLET) Morphine Sulfate 4 MG Q3H PRN NY N 05/03 1945 AC (morphine SULFATE) IV 05/08 193 Acetaminophen 650 MG Q4H PRN PRN 05/03 1700 AC (TYLENOL) PO 06/02 1659 Aspirin 325 MG X1ED ONE 05/03 1700 DC (ASPIRIN) PO 05/03 1701 Morphine Sulfate 4 MG Q4H PRN PRN 05/03 1700 DC (morphine SULFATE) IV 05/08 1659 Electrolytic, Caloric, An d Roberth Sig/[place]ism[place] Start time Last Medication Dose Rout e Stop Time Status Admin Sodium Chloride 1,000 ML .[Q13H] 05/03 1800 AC 05/04 (SODIUM CHLORIDE IV 06/02 1759 0913 0.9%) Sodium Chloride 1,000 ML .Q8H ONE 05/03 1700 DC 05/03 (SODIUM CHLORIDE IV 05/04 0059 1730 0.9%) Gastrointestinal Drugs Sig/[place]ism[place] Start time Last Medication Dose Route Stop Time Status Admin Famotidine 20 MG BID AC 05/04 0730 AC 05/04 (PEPCID TAB) PO 06/03 0729 0725 Ondansetron HCl 4 MG Q6H PRN PRN 05/03 1700 AC 05/04 (ONDANSETRON HCL) IV 06/02 1659 0725 Hormones And Synthetic Substit Sig/[place]ism[place] Start rosemarie e Last Medication Dose Route Stop Time Status Admin Levothyroxine Sodium 50 MCG 0600 05/04 060 0 AC 05/04 (Levothyroxine PO 06/03 0559 0538 Sodium) Allergies:Coded Allergies:Penicillins (RASH/HIVES/FLUSHED 03/15/17)hydromorphone (From DILAUDID) (NAUSEA VOMITING 05/03/18)meperidine (From DEMEROL) (HALLUCINATIONS 03/15/17) Review of SystemsConstitutional:Denies: chills, fatigue , fever. Respiratory:Denies: NELSON (dyspnea on exertion), hemoptysis. GI:Reports: abdominal pain. Denies: nausea, vomiting. Objective Physical ExamVS/I O:Last Documented: Result Date Time Pulse Ox 98 05/04 1145 B/P 113/57 05/04 114 5 B/P Mean 75.4 05/04 1145 Temp 36.4 05/04 1145 Pulse 54 05/04 1145 Resp 20 05/04 1145 O2 Delivery Nasal cannula 05/03 2014 O2 Flow Rate 2.242446 05/03 2014 24 hour I O ending at 0700: 05/04 0700 05/03 1900 Intake Total Output Total Balance Patient 96.364 kg Weight Weight Stated/Reported Measurement Method Medications:Active Meds + DC'd Last 24 HrsFamotidine 20 MG BID AC PO Levothyroxine Sodium 50 MCG 0600 PO Hydrocodone Bitart/Acetaminophen 1 TAB Q6H PRN PRN PO Morphine Sulfate 4 MG Q3H PRN PRN IV Sodium Chloride 1,000 ML .[Q13H] IV Acetaminophen 650 M G Q4H PRN PRN PO Aspirin 325 MG X1ED ONE PO (DC) Morphine Sulfate 4 MG Q4H PRN PRN IV (DC) Ondansetron HCl 4 MG Q6H PRN PRN IV Sodium Chloride 1,000 ML .Q8H ONE IV (DC) General appearance: alert, awake, orientedHEENT: anicteric, atraumaticNeck: non-tender, supple/no meningismusCardiovascular: normal heart sounds, normal S1/I8Akfxrenhxub: aerating well, clear to auscultationAbdomen: non-tender, normal bowel soundsExtremities: no clubbing, no cyanosisMusculoskeletal: full range of motionNeuro/PRODUCT MARKETER: alert, oriented X 3Skin: abnormal colorPsychiatry: normal affect, normal judgment/insight ResultsFindings/Data:Laboratory Tests 05/04/18 0234:[Embedded Image Not Available]Laboratory Tests 05/04 05/04 05/03 023 4 0234 2156 Chemistry Sodium (136 - 145 mmol/L) 143 Potassium (3.5 - 5.1 mmol/L) 3.7 Chloride (9 8 - 107 mmol/L) 110.0 H Carbon Dioxide (21 - 32 mmol/L) 22.0 Anion Gap (10 - 20) 14.7 BUN (7 - 1 8 mg/dL) 8 Creatinine (0.55 - 1.02 mg/dL) 0.40 L Glomerular Filtr Rate (>=60 mL/min) > 60 BUN/Creatinine Ratio (10 - 20) 20.5 H Glucose (7 4 - 106 mg/dL) 89 Calcium (8.5 - 10.1 mg/dL) 8.0 L Total Bilirubin (0.0 - 1.0 mg/dL) 0.30 AST (15 - 37 IUnit/L) 8 L ALT (12 - 78 IUnit/L) 12 Total Alk Phosphatase (45 - 117 IUnit/L) 64 Troponin I (0 - 0.045 ng/mL) <0.015 <0.015 Total Protein (6.4 - 8.2 gram/dL) 5.2 L Albumin (3.4 - 5.0 g/dL) 2.8 L Globulin (2.7 - 4.2 gram/dL) 2.4 L Albumin/Globulin Ratio (0.75 - 1.50) 1.2 Laboratory Tests 05/04 0234 Hematology WBC (4.5 - 12.5 K/mm3) 8.1 RBC (3.7 - 5.2 mill/mm3) 4.12 Hgb (11.5 - 15.5 gram/dL) 12.0 Hct (36.0 - 46.0 %) 37.9 MCV (80 - 98 fL) 92.0 MCH (27.0 - 33.0 picogram) 29.1 MCHC (33.0 - 36.0 gram/dL) 31.7 L RDW (11.6 - 16.2 %) 14.6 RDW Std Deviation (37.0 - 51.0 fL) 49.1 Plt Count (150 - 450 K/mm3) 255 MPV (6.7 - 11.0 fL) 9.2 Neut % (Auto) (39.0 - 69.0 %) 57.6 Lymph % (Auto) (25.0 - 55.0 %) 32.8 [place] % (Auto) (0.0 - 10.0 %) 7.8 Eos % (Auto) (0.0 - 5.0 %) 1.4 Baso % (Auto) (0.0 - 1.0 %) 0. 2 Neut # (Auto) (1.8 - 7.7 K/mm3) 4.65 Lymph # (Auto) (1.0 - 5.0 K/mm3) 2.65 [place] # (Auto) (0 - 0.8 K/mm3) 0.63 Eos # (Auto) (0.0 - 0.5 K/mm3) 0.11 Baso # (Auto) (0.0 - 0.2 K/mm3) 0.02 Add Manual Diff NO Nucleated RBC % (0 - 0 %) 0.0 Nucleated RBCs # (Man) (0.0 - 0.1 K/mm3) 0.00 Radiology data:Recent Impressions:ULTRASOUND - CompStak ABDOMEN LTD 05/04 1819 Report Impression - Status: SIGNED Entered: 05/03/20181917 IMPRESSION:1. Multiple hepatic cysts and small cavernous hemangioma. The largehemangioma demonstrated by CT he was not identified sonographically.2. Dilatation of the extrahepati c bile duct without obviousobstructing lesion and mild dilatation of intrahepatic ducts.Impression By: Francisco - Kwaku Ayon M.D. Results: labs reviewed, vital signs stable Diagnosis, Assessment PlanOrders:1) RUQ abd pain - s/p chole2) costochondiritis? 3) hx of gastric bypass4) nausea5) hepatic hemangioma/dilattion o f extrahepatic bile duct Plan:- EGD tmrw to r/o PUD. NPO after midnight. consent ordered. - thiamine, multivitamins- anti-emetics PRN- Pepci Gilberto Yates 05/04/182041:Attestations Midlevel/Physician AttestationPhysician attestation:Agree with the findings and plan as documented Will get MRCP at 2042 RPT #:[id number] OF REPORTQSJuwkafikzmuu4277-26-11B65:51:00V.PDOC 2 [id number] for patient qsyxLNXDSZUHWOVVDZ0161-87-91K40:42:45 2018-05-04 15:51:00 [id number]:51:00 [facility] ([facility])GE Consultation NoteREPORT#:[id number] REPORT STATUS : SignedDATE:05/04/18 TIME: 1551 PATIENT: ANA PENALOZA UNIT #: [id number]#: [id number] [address] [birth year] AGE : 67 SEX: F ATTEND: Kathleen Michelle I MDADM AUTHOR: Brigette Tenorio * ALL edit s or amendments must be made on the electronic/computer document * Brigette Tenorio 05/04/18 1551:History of Present IllnessRequesting clinician: Dr. Issa for consult:abd pain Chief complaint:abd painHPI:Patient is a 67-year-old female with pas t medical history of thyroid nodules andgastric bypass who presented to the ED with reports of right upper quadrant abdominal pain that started yesterday. Patient states she has had an EGD June 2017 prior to her gastric bypass. She denies any melena, hematochezia or hematemesis.AST 8ALT 12ABD CT IMPRESSION: 1. No acute abdominal or pelvic abnormalities. 2. Multiple small hepatic cysts. 3. 2 cavernous hemangiomas in the right lobe of the liver. 3. Extrahepatic biliary dilatation without evidence of an obstructing lesion. History - Adult longitudinalPast medical history:Reports: Transfusion history. Past surgical history:Reports: Cholecystectomy, Hysterectomy, Tonsillectomy. Additional surgical history:Ankle surgery; breast bx (neg.)Additiona l family history:DeniesAlcohol use: Alcohol useDru g use: Denies recreational drugsSmoking status for patients 13 years old or older: Never SmokerMedications:Home Medications: Medication Dose/Rte/Freq Days Qty Entered Last Max Daily Dose Reviewed LEVOTHYROXINE 50 MCG PO DAILY 05/03/18 05/03/18 (TIROSINT) 1438 1438 Strength: 50 MCG CAP MULTIVITAMIN 1 TAB PO DAILY 03/14/17 05/03/18 (MULTIPLE VITAMIN) 1443 1436 Strength: 1 TAB TAB Current Hospital Medications:Central Nervous System Agents Sig/[place]ism[place] Start time Last Medication Dose Route Stop Time Status Admin Hydrocodone Bitart/ 1 TAB Q6H PRN PRN 05/03 2045 AC 05/04 Acetaminophen PO 05/08 204 1306 (NORCO 7.5/325 TABLET) Morphine Sulfate 4 MG Q3H PRN PRN 05/03 1945 AC (morphine SULFATE) IV 05/08 193 Acetaminophen 650 MG Q4H PRN PRN 05/03 1700 AC (TYLENOL) PO 06/02 1659 Aspirin 325 MG X1ED ONE 05/03 1700 DC (ASPIRIN) PO 05/03 1701 Morphine Sulfate 4 MG Q4H PRN PRN 05/03 1700 DC (morphine SULFATE) IV 05/08 1659 Electrolytic, Caloric, And Roberth Sig/[place]ismark Start time Last Medication Dose Route Stop Time Status Admin Sodium Chloride 1,000 ML .[Q13H] 05/03 1800 AC 05/04 (SODIUM CHLORIDE IV 06/02 1759 0913 0.9%) Sodium Chloride 1,000 ML .Q8H ONE 05/03 1700 DC 05/03 (SODIUM CHLORIDE IV 05/04 0059 1730 0.9%) Gastrointestinal Drugs Sig/[place]ism[place] Start time Last Medication Dose Route Stop Time Status Admin Famotidine 20 MG BID AC 05/04 0730 AC 05/04 (PEPCID TAB) PO 06/03 0729 0725 Ondansetron HCl 4 MG Q6H PRN PRN 05/03 1700 AC 05/04 (ONDANSETRON HCL) IV 06/02 1657 0758 Hormones And Synthetic Substit Sig/Ibsmark Start time Last Medication Dose Route Stop Time Status Admin Levothyroxine Sodiu m 50 MCG 0600 05/04 0600 AC 05/04 (Levothyroxine P O 06/03 0559 0538 Sodium) Allergies:Coded Allergies:Penicillins (RASH/HIVES/FLUSHED 03/15/17)hydromorphone (From DILAUDID) (NAUSEA VOMITING 05/03/18)meperidine (From DEMEROL) (HALLUCINATIONS 03/15/17) Review of SystemsConstitutional:Denies: chills, fatigue, fever. Respiratory:Denies: NELSON (dyspnea on exertion), hemoptysis. GI:Reports: abdominal pain. Denies: nausea, vomiting. Objective Physical ExamVS/I O:Last Documented: Result Date Time Pulse Ox 98 05/04 1145 B/P 113/57 05/04 114 5 B/P Mean 75.4 05/04 1145 Temp 36.4 05/04 1145 Pulse 54 05/04 1145 Resp 20 05/04 1145 O2 Delivery Nasal cannula 05/03 2014 O2 Flow Rate 2.723738 05/03 2014 24 hour I O ending at 0700: 05/04 0700 05/03 1900 Intake Total Output Total Balance Patient 96.364 kg Weight Weight Stated/Reported Measurement Method Medications:Active Meds + DC'd Last 24 HrsFamotidine 20 MG BID AC PO Levothyroxine Sodium 50 MCG 0600 PO Hydrocodone Bitart/Acetaminophen 1 TAB Q6H PRN PRN PO Morphine Sulfate 4 MG Q3H PRN PRN IV Sodium Chloride 1,000 ML .[Q13H] IV Acetaminophen 650 M G Q4H PRN PRN PO Aspirin 325 MG X1ED ONE PO (DC) Morphine Sulfate 4 MG Q4H PRN PRN IV (DC) Ondansetron HCl 4 MG Q6H PRN PRN IV Sodium Chloride 1,000 ML .Q8H ONE IV (DC) General appearance: alert, awake, orientedHEENT: anicteric, atraumaticNeck: non-tender, supple/no meningismusCardiovascular: normal heart sounds, normal S1/Q8Peogsugfhdq: aerating well, clear to auscultationAbdomen: non-tender, normal bowel soundsExtremities: no clubbing, no cyanosisMusculoskeletal: full range of motionNeuro/PRODUCT MARKETER: alert, oriented X 3Skin: abnormal colorPsychiatry: normal affect, normal judgment/insight ResultsFindings/Data:Laboratory Tests 05/04/18 0234:[Embedded Image Not Available]Laboratory Tests 05/04 05/04 05/03 023 4 0234 2156 Chemistry Sodium (136 - 145 mmol/L) 14 3 Potassium (3.5 - 5.1 mmol/L) 3.7 Chloride (98 - 107 mmol/L) 110.0 H Carbon Dioxide (21 - 32 mmol/L) 22.0 Anion Gap (10 - 20) 14.7 BUN (7 - 1 8 mg/dL) 8 Creatinine (0.55 - 1.02 mg/dL) 0.40 L Glomerular Filtr Rate (>=60 mL/min) > 60 BUN/Creatinine Ratio (10 - 20) 20.5 H Glucose (7 4 - 106 mg/dL) 89 Calcium (8.5 - 10.1 mg/dL) 8.0 L Total Bilirubin (0.0 - 1.0 mg/dL) 0.30 AST (15 - 37 IUnit/L) 8 L ALT (12 - 78 IUnit/L) 12 Total Alk Phosphatase (45 - 117 IUnit/L) 64 Troponin I (0 - 0.045 ng/mL) <0.015 <0.015 Total Protein (6.4 - 8.2 gram/dL) 5.2 L Albumin (3.4 - 5.0 g/dL) 2.8 L Globulin (2.7 - 4.2 gram/dL) 2.4 L Albumin/Globulin Ratio (0.75 - 1.50) 1.2 Laboratory Tests 05/044 Hematology WBC (4.5 - 12.5 K/mm3) 8.1 RBC (3.7 - 5.2 mill/mm3) 4.12 Hgb (11.5 - 15.5 gram/dL) 12.0 Hct (36.0 - 46.0 %) 37.9 MCV (80 - 98 fL) 92.0 MCH (27.0 - 33.0 picogram) 29.1 MCHC (33.0 - 36.0 gram/dL) 31.7 L RDW (11.6 - 16.2 %) 14.6 RDW Std Deviation (37.0 - 51.0 fL) 49.1 Plt Count (150 - 450 K/mm3) 255 MPV (6.7 - 11.0 fL) 9.2 Neut % (Auto) (39.0 - 69.0 %) 57.6 Lymph % (Auto) (25.0 - 55.0 %) 32.8 [place] % (Auto) (0.0 - 10.0 %) 7.8 Eos % (Auto) (0.0 - 5.0 %) 1.4 Baso % (Auto) (0.0 - 1.0 %) 0. 2 Neut # (Auto) (1.8 - 7.7 K/mm3) 4.65 Lymph # (Auto) (1.0 - 5.0 K/mm3) 2.65 [place] # (Auto) (0 - 0.8 K/mm3) 0.63 Eos # (Auto) (0.0 - 0.5 K/mm3) 0.11 Baso # (Auto) (0.0 - 0.2 K/mm3) 0.02 Add Manual Diff NO Nucleated RBC % (0 - 0 %) 0.0 Nucleated RBCs # (Man) (0.0 - 0.1 K/mm3) 0.00 Radiology data:Recent Impressions:ULTRASOUND - CompStak ABDOMEN [facility] 05/03 5010 Report Impression - Status: SIGNED Entered: 05/03/2018 841 IMPRESSION:1. Multiple hepatic cysts and small cavernous hemangioma. The largehemangioma demonstrated by CT he was not identified sonographically.2. Dilatation of the extrahepati c bile duct without obviousobstructing lesion and mild dilatation of intrahepatic ducts.Impression By: Francisco - Kwaku Ayon M.D. Results: labs reviewed, vital signs stable Diagnosis, Assessment PlanOrders:1) RUQ abd pain - s/p chole2) costochondiritis? 3) hx of gastric bypass4) nausea5) hepatic hemangioma/dilattion o f extrahepatic bile duct Plan:- EGD tmrw to r/o PUD. NPO after midnight. consent ordered. - thiamine, multivitamins- anti-emetics PRN- Pepci d Gilberto Conway 05/04/18 2042:Attestations Midlevel/Physician AttestationPhysician attestation:Agree with the findings and plan as documented Will get MRCP at 2042 at 0046 RPT #:[id number] OF REPORTMIKlnntfoydwyx3443-07-40Z00:51:00V.PDOC 2 [id number] for patient xaswLHGWYFNSSLQRNU5096-09-58R79:46:39 2018-05-04 12:48:00 EVaeihptqnf87554095755-64-18V93:48:00 [facility] Progress NoteREPORT#:[id number] REPORT STATUS: SignedDATE:05/04/18 TIME: 1248 PATIENT: ANA PENALOZA UNIT #: [id number]#: [id number] ROOM/BED: 2016-ADOB: [birth year] AGE : 67 SEX: F ATTEND: Kathleen Michelle I [facility] AUTHOR: Kathleen Michelle MD * ALL edits or amendments must be made on the electronic/computer document * SubjectiveChief Complaint:Still with right upper quadrant pain. No rash in the area. Objective GeneralVS/I O:Vital Signs: Date Time Temp Pulse Resp B/P B/P Pulse O2 O2 Flow FiO2 Mean Ox Delivery Rate 05/04 1145 97.5 54 20 113/57 75.4 98 05/04 0724 97.7 55 20 98/60 72.9 97 05/04 0438 97.7 64 18 109/68 81.4 97 05/04 0145 60 101/59 73.4 93 03/ 4 0031 97.3 62 18 90/50 0.0 95 05/037 62 99 05/03 2017 97.7 57 18 131/65 86.9 100 05/03 201 5 Nasal 2.012402 cannula 05/03 1858 98.0 58 17 125/59 81 99 Nasal 2.726641 cannula 05/03 1747 98.5 57 18 105/51 69 99 Nasal 2.608473 cannula 05/03 1720 65 17 98 Nasal 2.330840 cannula 05/03 1657 96 Nasal 2.995684 cannula 05/03 1652 98.4 70 18 102/59 73 91 Room air 05/03 1547 98.1 58 1 8 118/53 74 95 Room air 05/03 1316 98.1 65 18 133/59 83 98 Room air 24 hour I O ending at 0700 : 05/04 0700 05/03 1900 Intake Total Output Total Balance Patient 96.364 kg Weight Weight Stated/Reported Measurement Method Medications:Active Meds + DC'd Last 24 HrsFamotidine 20 MG BID AC PO Levothyroxine Sodium 50 MCG 0600 PO Hydrocodone Bitart/Acetaminophen 1 TAB Q6H PRN PRN PO Morphine Sulfate 4 MG Q3H PRN PRN IV Sodium Chloride 1,000 ML .[Q13H] IV Acetaminophen 650 M G Q4H PRN PRN PO Aspirin 325 MG X1ED ONE PO (DC) Morphine Sulfate 4 MG Q4H PRN PRN IV (DC) Ondansetron HCl 4 MG Q6H PRN PRN IV Sodium Chloride 1,000 ML .Q8H ONE IV (DC) Morphine Sulfate 4 MG X1ED STA IV (DC) Iopamidol 0 .STK-MED ONE .ROUTE (DC) Ondansetron HCl 4 MG X1ED PRN PRN IV (DC) Physical ExamGeneral appearance: alert, awakeHead/Eyes: atraumatic, clear cornea, EOMI, normal conjunctiva/sclera, normal eyelids/periorb., normocephalic, PERRLENT : normal dentition, normal ear left, normal ear right, normal nose, normal pharynx, normal sinusNeck: full range of motion, non-tender, normal thyroid, supple/no meningismus, no bruit/NL carotids, no JVD, no masses or swellingCardiovascular: normal capillary refill, regular rate rhythmRespiratory: aerating well, n o distressAbdomen: tenderness, soft, no distention , Erythema to the RUQ/Inframammilary area. No significant rash. Extremities: moves all, normal capillary refill, normal range of motion, no edemaMusculoskeletal: normal inspectionSkin: dry , intactPsychiatry: normal affect, normal judgment/insight, normal mood, not homicidal, no t suicidal, no hallucinations ResultsFindings/Data:Laboratory Tests 05/04 04/21 4 05/034 0234 2156 1300 Chemistry Sodiu m (136 - 145 mmol/L) 143 144 Potassium (3.5 - 5.1 mmol/L) 3.7 3.4 L Chloride (98 - 107 mmol/L) 110.0 H 111.0 H Carbon Dioxide (21 - 32 mmol/L) 22.0 24.0 Anion Gap (10 - 20) 14.7 12.4 BUN (7 - 18 mg/dL) 8 13 Creatinine (0.55 - 1.02 mg/dL) 0.40 L 0.70 Glomerular Filtr Rate (>=60 mL/min) > 60 > 60 BUN/Creatinine Ratio (10 - 20) 20.5 H 19.3 Glucose (74 - 106 mg/dL) 89 84 Calcium (8.5 - 10.1 mg/dL) 8.0 L 8.9 Total Bilirubin (0.0 - 1.0 mg/dL) 0.30 0.40 Direct Bilirubin (0.0 - 0.20 mg/dL) 0.10 AST (15 - 37 IUnit/L) 8 L 11 L ALT (12 - 78 IUnit/L) 12 16 Total Alk Phosphatase (45 - 117 IUnit/L) 64 72 Troponin I (0 - 0.045 ng/mL) <0.015 <0.015 <0.015 Total Protein (6.4 - 8.2 gram/dL) 5.2 L 6.5 Albumin (3.4 - 5.0 g/dL) 2.8 L 2.9 L Globuli n (2.7 - 4.2 gram/dL) 2.4 L 3.6 Albumin/Globulin Ratio (0.75 - 1.50) 1.2 0.8 Lipase (73.0 - 393.0 U/L) 106 Serum , Qual (NEGATIVE) NEGATIVE Laboratory Tests 05/04 05/03 0234 1300 Hematology WBC (4.5 - 12.5 K/mm3) 8.1 8.9 RBC (3.7 - 5.2 mill/mm3) 4.12 4.42 Hgb (11.5 - 15.5 gram/dL) 12.0 13.1 Hct (36.0 - 46.0 %) 37.9 39.8 MCV (80 - 98 fL) 92.0 90.0 MCH (27.0 - 33.0 picogram) 29.1 29.6 MCHC (33.0 - 36.0 gram/dL) 31.7 L 32.9 L RDW (11.6 - 16.2 %) 14.6 14.6 RDW Std Deviation (37.0 - 51.0 fL) 49.1 Plt Count (150 - 450 K/mm3) 255 282 MPV (6.7 - 11.0 fL) 9. 2 9.9 Neut % (Auto) (39.0 - 69.0 %) 57.6 Lymph % (Auto) (25.0 - 55.0 %) 32.8 [place] % (Auto) (0.0 - 10.0 %) 7.8 Eos % (Auto) (0.0 - 5.0 %) 1.4 Baso % (Auto) (0.0 - 1.0 %) 0.2 Neut # (Auto) (1.8 - 7. 7 K/mm3) 4.65 Lymph # (Auto) (1.0 - 5.0 K/mm3) 2.6 5 [place] # (Auto) (0 - 0.8 K/mm3) 0.63 Eos # (Auto) (0.0 - 0.5 K/mm3) 0.11 Baso # (Auto) (0.0 - 0.2 K/mm3) 0.02 Add Manual Diff NO Nucleated RBC % ( 0 - 0 %) 0.0 Nucleated RBCs # (Man) (0.0 - 0.1 K/mm3) 0.00 Laboratory Tests 05/03 1305 Urines Urine Color (YELLOW) STRAW Urine Appearance (CLEAR) CLEAR Urine pH (5.0 - 8.0) 7.0 Ur Specific [place] (1.001 - 1.035) 1.005 Urine Protein (NEGATIVE mg/dL) Negative Urine Glucose (UA) (NEGATIVE mg/dL) NEGATIVE Urine Ketones (NEGATIVE mg/dL) 20 (Small) H Urine Blood (NEGATIVE) Negative Urine Nitrite (NEGATIVE) NEGATIVE Urine Bilirubin (NEGATIVE mg/dL) NEGATIVE Urine Urobilinogen (NEGATIVE mg/dL) NEGATIVE Ur Leukocyte Esterase (NEGATIVE) NEGATIVE Urine RBC (0 - 5 #/HPF) 0-2 Urine WBC (0 - 5 #/HPF) 0-5 Ur Epithelial Cells (FEW per HPF) FEW Urine Bacteria (NONE #/HPF) MODERATE H Radiology data:Recent Impressions:CAT SCAN - CT ABD PELVIS W/CONT 05/03 1433 Report Impressio n - Status: SIGNED Entered: 05/03/2018 1608 IMPRESSION:1. No acute abdominal or pelvic abnormalities.2. Multiple small hepatic cysts.3. 2 cavernous hemangiomas in the right lobe of the liver.3. Extrahepatic biliary dilatation without evidence of an obstructinglesion.Impression By: Francisco Ayon M.D.CAT SCAN - CT CHEST W/CONTRAST 05/03 1433 Report Impression - Status: SIGNED Entered: 05/03/2018 1600 IMPRESSION:No evidence of pulmonary embolism, aortic dissection or other acuteabnormalities. Impression By: Francisco Ayon M.D.ULTRASOUND - US ABDOMEN [facility] 05/03 1820 Report Impression - Status: SIGNED Entered: 05/03/2018 1918 IMPRESSION:1. Multiple hepatic cysts and small cavernous hemangioma. The largehemangioma demonstrated by CT he was not identified sonographically.2. Dilatation of the extrahepatic bile duct without obviousobstructin g lesion and mild dilatation of intrahepatic ducts.Impression By: Francisco Ayon M.D. Diagnosis, Assessment Plan Free Text DxA P NotesFree text DxA P notes:Ms. Penaloza is a 67-year-old female with history of thyroid disease presenting with a right upper quadrant/inframamillary pain.#Abdominal pain-broad differential. Patient status post cholecystectomy. CT abdomen with small hepatic cysts; extrahepatic biliary dilatation with no evidence of obstructing lesion and 2 hemangioma, patient has been aware of this for years. Cannot rule out herpes zoster. -Pain control -IV hydration. Advance diet and monitor for toleranc e -Consulted GI#Thyroid insufficiency-continue patient on levothyroxine#DVT ppx-SCDPatient is full codeDisposition-we will discharge patient home once evaluated and cleared by GI. at 1252 RPT #:[id number] OF REPORTPRProgress [id number]:48:00V.[id number] l able for patient [id number]:51:55 2018-05-03 17:45:00 [id number]:45:00 [facility] ([facility])Hospitalist History PhysicalREPORT#:[id number] REPORT STATUS: SignedDATE:05/03/18 TIME: 1745 PATIENT: ANA PENALOZA UNIT #: [id number]#: [id number] ROOM/BED: [place] [id number]: [birth year] AGE: 67 SEX: F ATTEND: Kathleen Michelle I [facility] AUTHOR: Kathleen Michelle MD * ALL edits or amendments must be made on the electronic/computer document * History of Presen t Illness HPIChief complaint:Right upper quadrant painPCP:PCP: Alexis High DO HPI:Ms. Penaloza is a 67-year-old female with history of thyroid nodule status post partial thyroidectomy who presents with complaints of right upper quadrant pain. Patient is also status post cholecystectomy. Pain started this morning and hasbeen remained constant, rated at 10 out of 10 at worst intensity. She had associated nausea without any vomiting. Pain radiates to the right flank area. There is no rash to the area.Informant/historian: patient HistoryPast medical history:Reports: Transfusion history. Past surgical history:Reports: Cholecystectomy, Hysterectomy, Tonsillectomy. Additional surgical history:Ankle surgery; breast bx (neg.)Additiona l family history:DeniesAlcohol use: Alcohol useDru g use: Denies recreational drugsSmoking status for patients 13 years old or older: Never Smoker Medication/Allergy-Vaccine HxMedications:Home Medications: Medication Dose/Rte/Freq Days Qty Entered Last Max Daily Dose Reviewed LEVOTHYROXINE 50 MCG PO DAILY 03/13/19 03/13/19 (TIROSINT) 1438 1438 Strength: 50 MCG CAP MULTIVITAMIN 1 TAB PO DAILY 03/14/17 05/03/18 (MULTIPLE VITAMIN) 1443 1436 Strength: 1 TAB TA B Current Hospital Medications:Central Nervous System Agents Sig/[place] Start time Last Medication Dose Route Stop Time Status Admin Acetaminophen 650 MG Q4H PRN PRN 05/03 1700 AC (TYLENOL) PO 06/02 1659 Aspirin 325 MG X1ED ONE 05/03 1700 DC (ASPIRIN) PO 05/03 1701 Morphine Sulfate 4 MG Q4 H PRN PRN 05/03 1700 AC (morphine SULFATE) IV 04/21 8 1659 Morphine Sulfate 4 MG X1ED STA 05/03 1503 D C 05/03 (morphine SULFATE) IV 05/03 1504 1508 Morphine Sulfate 4 MG X1ED STA 05/03 1233 DC 05/03 (morphine SULFATE) IV 05/03 1234 1319 Diagnostic Agents Sig/[place]ism[place] Start time Last Medication Dose Route Stop Time Status Admin Iopamidol 0 .STK-MED ONE 05/03 1443 DC 05/03 (ISOVUE-370) .ROUTE 1444 Electrolytic, Caloric, And Roberth Sig/Bismark Start time Last Medication Dose Route Stop Time Status Admin Sodium Chloride 1,000 ML .[Q13H] 05/03 1800 AC (SODIUM CHLORIDE IV 06/02 1759 0.9%) Sodium Chloride 1,000 ML .Q8 H ONE 05/03 1700 AC 05/03 (SODIUM CHLORIDE IV 04/21 4 0059 1730 0.9%) Sodium Chloride 1,[address] A 05/03 1237 DC 05/03 (SODIUM CHLORIDE IV 05/03 1238 1319 0.9%) Gastrointestinal Drugs Sig/[place]ism[place] Start time Last Medication Dose Route Stop Time Status Admin Famotidine 20 MG BID AC 05/04 0730 AC (PEPCID TAB) PO 06/03 0729 Ondansetron HCl 4 MG Q6H PRN PRN 05/03 1700 AC (ONDANSETRON HCL) I V 06/02 1659 Ondansetron HCl 4 MG X1ED PRN PRN 05/03 1245 DC 05/03 (ONDANSETRON HCL) IV 1319 Hormones And Synthetic Substit Sig/[place]ism[place] Start rosemarie e Last Medication Dose Route Stop Time Status Admi n Levothyroxine Sodium 50 MCG 0600 05/04 0600 AC (Levothyroxine PO 06/03 0559 Sodium) Allergies:Coded Allergies:Penicillins (RASH/HIVES/FLUSHED 03/15/17)meperidine (From DEMEROL) (HALLUCINATIONS 03/15/17)Uncoded Allergies:"ALL NARCOTICS" (NAUSEA/VOMITTING 03/14/17) Review of SystemsGI:Reports: abdominal pain, nausea. Systems reviewed negative: Allergy/Immun, Cardiovascular, Constitutional, Endocrine, ENT, Eyes, , Musculoskeletal, Neuro , Psych, Respiratory, Skin Objective GeneralVS/I O:Vital Signs: Date Time Temp Pulse Resp B/P B/P Pulse O2 O2 Flow FiO2 Mean Ox Delivery Rate 04/21 3 1747 98.5 57 18 105/51 69 99 Nasal 2.268172 cannula 05/03 1720 65 17 98 Nasal 2.361856 cannula 05/03 1657 96 Nasal 2.467037 cannula 05/03 1652 98.4 70 18 102/59 73 91 Room air 04/21 3 1547 98.1 58 18 118/53 74 95 Room air 05/03 1316 98.1 65 18 133/59 83 98 Room air 05/03 1232 98.7 78 17 126/74 91 98 Room air Medications:Active Meds + DC'd Last 24 HrsFamotidine 20 MG BID AC P O Levothyroxine Sodium 50 MCG 0600 PO Sodium Chloride 1,000 ML .[Q13H] IV Acetaminophen 650 M G Q4H PRN PRN PO Aspirin 325 MG X1ED ONE PO (DC) Morphine Sulfate 4 MG Q4H PRN PRN IV Ondansetron HCl 4 MG Q6H PRN PRN IV Sodium Chloride 1,000 ML .Q8H ONE IV Morphine Sulfate 4 MG X1ED STA IV (DC) Iopamidol 0 .STK-MED ONE .ROUTE (DC) Ondansetron HCl 4 MG X1ED PRN PRN IV (DC) Sodium Chloride 1,000 ML X1ED STA IV (DC) Morphine Sulfate 4 MG X1ED STA IV (DC) Physical ExamGeneral appearance: alert, awakeHead/Eyes: atraumatic, clear cornea, EOMI, normal conjunctiva/sclera, normal eyelids/periorb., normocephalic, PERRLENT: normal dentition, jose l ear left, normal ear right, normal nose, normal pharynx, normal sinusNeck: full range of motion, non-tender, normal thyroid, supple/no meningismus, no bruit/NL carotids, no JVD, no masses or swellingCardiovascular: normal capillary refill, regular rate rhythmRespiratory : aerating well, no distressAbdomen: tenderness, soft, no distention, Erythema to the RUQ/Inframammilary area. No significant rash. Extremities: moves all, normal capillary refill, normal range of motion, no edemaMusculoskeletal: normal inspectionSkin: dry, intactPsychiatry: normal affect, normal judgment/insight, normal mood, not homicidal, not suicidal, no hallucinations ResultsFindings/Data:Laboratory Tests 05/03 1300 Chemistry Sodium (136 - 145 mmol/L) 144 Potassium (3.5 - 5.1 mmol/L) 3.4 L Chloride (98 - 107 mmol/L) 111.0 H Carbon Dioxid e (21 - 32 mmol/L) 24.0 Anion Gap (10 - 20) 12.4 BUN (7 - 18 mg/dL) 13 Creatinine (0.55 - 1.02 mg/dL) 0.70 Glomerular Filtr Rate (>=60 mL/min) > 60 BUN/Creatinine Ratio (10 - 20) 19.3 Glucose (74 - 106 mg/dL) 84 Calcium (8.5 - 10.1 mg/dL) 8.9 Total Bilirubin (0.0 - 1.0 mg/dL) 0.40 Direc t Bilirubin (0.0 - 0.20 mg/dL) 0.10 AST (15 - 37 IUnit/L) 11 L ALT (12 - 78 IUnit/L) 16 Total Alk Phosphatase (45 - 117 IUnit/L) 72 Troponin I (0 - 0.045 ng/mL) <0.015 Total Protein (6.4 - 8.2 gram/dL) 6.5 Albumin (3.4 - 5.0 g/dL) 2.9 L Globulin (2.7 - 4.2 gram/dL) 3.6 Albumin/Globuli n Ratio (0.75 - 1.50) 0.8 Lipase (73.0 - 393.0 U/L ) 106 Serum , Qual (NEGATIVE) NEGATIVE Laboratory Tests 05/03 1300 Hematology WBC (4.5 - 12.5 K/mm3) 8.9 RBC (3.7 - 5.2 mill/mm3) 4.42 Hgb (11.5 - 15.5 gram/dL) 13.1 Hct (36.0 - 46.0 %) 39.8 MCV (80 - 98 fL) 90.0 MCH (27.0 - 33.0 picogram) 29.6 MCHC (33.0 - 36.0 gram/dL) 32.9 L RDW (11.6 - 16.2 %) 14.6 Plt Count (150 - 450 K/mm3) 282 MPV (6.7 - 11.0 fL) 9.9 Laboratory Tests 05/03 1305 Urines Urine Color (YELLOW) STRAW Urine Appearance (CLEAR) CLEAR Urine pH (5.0 - 8.0) 7.0 Ur Specific [place] (1.001 - 1.035) 1.005 Urine Protein (NEGATIVE mg/dL) Negative Urine Glucose (UA) (NEGATIVE mg/dL) NEGATIVE Urine Ketones (NEGATIVE mg/dL) 20 (Small) H Urine Blood (NEGATIVE) Negative Urine Nitrite (NEGATIVE) NEGATIVE Urine Bilirubin (NEGATIVE mg/dL) NEGATIVE Urine Urobilinogen (NEGATIVE mg/dL) NEGATIVE Ur Leukocyte Esterase (NEGATIVE) NEGATIVE Urine RBC (0 - 5 #/HPF) 0-2 Urine WBC (0 - 5 #/HPF) 0-5 Ur Epithelial Cells (FEW per HPF) FEW Urine Bacteria (NONE #/HPF) MODERATE H Radiology data:Recent Impressions:CAT SCAN - CT ABD PELVIS W/CONT 05/03 1433 Report Impression - Status: SIGNED Entered: 05/03/2018 1608 IMPRESSION:1. No acute abdominal or pelvic abnormalities.2. Multiple small hepatic cysts.3. 2 cavernous hemangiomas in the right lobe of the liver.3. Extrahepatic biliary dilatation without evidence of an obstructinglesion.Impression By: Francisco Ayon M.D.CAT SCAN - CT CHEST W/CONTRAST 05/03 1433 Report Impression - Status: SIGNED Entered: 05/03/2018 1600 IMPRESSION:No evidence of pulmonary embolism, aortic dissection or other acuteabnormalities. Impression By: Francisco Ayon M.D. Diagnosis, Assessment PlanFree Text A P:Ms. Penaloza is a 67-year-old female with history of thyroid disease presenting with a right upper quadrant/inframamillary pain.#Abdominal pain-broad differential. Patient status post cholecystectomy. CT abdomen with small hepatic cysts; extrahepatic biliary dilatation with no evidence of obstructing lesion and 2cm hemangioma. Cannot rule out herpes zoster. -Pain control -IV hydration. Clear liquid diet. -Right upper quadrant ultrasound; consider MRCP#Thyroid insufficiency-continue patient on levothyroxine#DVT ppx-SCDPatient is full codeOrders: Procedure Date/time Status US ABDOMEN LTD 05/03 1753 Active Resuscitation Status + 05/03 1746 Active Vital Signs 05/03 174 7 Active Sequential Compression Device 05/03 1746 Active Present on Admission 05/03 1746 Active Notify MD- Vitals 05/03 1746 Active MRSA Screenings 05/03 1746 Active Activity 05/03 1746 Active LEVEL OF CARE 05/03 1746 Active Quality MedicationsCurrent medication review:I attest that the foregoing medication list in the medica l record is true, accurate, and complete to the best of my knowledge. BMI Screening > 25 or < 18.5Patient's BMI:Current BMI: 36.5 BMI status/follow-up: abnl BMI, pt to F/U w/PCP at 1759 RPT #:[id number] OF REPORTHPHistory and physical [id number]:45:00V.[id number] AVAvailable for patient [id number]:59:28 2018-05-03 12:34:00 [id number]:34:00 [facility] ([facility])EMERGENCY PROVIDER REPORTREPORT#:[id number] REPORT STATUS: SignedDATE:05/03/18 TIME: 1234 PATIENT: ANA PENALOZA UNIT #: [id number]#: [id number] ROOM/BED:AGE: 67 SEX: F PCP PHYS: Alexis High DOSERVICE AUTHOR: Virgilio Hughes MD * ALL edits or amendments must b e made on the electronic/computer document * HPI-Abd Pain F 40 and Over GeneralInitial Greet Date/Time 05/03/18 1233PCPKiralfglidden PresentationChief Complaint Abdominal painHx Obtained From Patient, Prior medical records (no old records noted)Sudden in Onset? NoOnset Occurred TodaySymptom Duration Since onsetProgression since Onset Gradually worseningCaused by No trauma by historyLocation RUQQuality AchingRadiationDoes not radiate. Migration/Movement NoneSeverity: Onset ModerateSeverity: Current ModerateAssociated withDenies: Fever, Hematemesis, Hematochezia, Melena. Exacerbated by NothingRelieved by Diogenes chun Risk-Abd Pain F 40 and Over)( Abdominal Aortic Aneurysm Risk factors reviewedEctopic Risk factors reviewedCoronary Artery Disease Ris k factors reviewedThoracic Aortic Dissection Risk factors reviewed Review of Systems ROS StatementsAll systems rev neg except as marked. Focused Review of SystemsRespiratoryDenies: Cough, non-productive, Cough, productive, Shortness of breath. CardiovascularDenies: Chest pain, Syncope. Past Medical History - AdultState d Complaint ABDOMINAL PAIN AND HYPOTENSIONAllergiesCoded Allergies:Penicillins (RASH/HIVES/FLUSHED 03/15/17)meperidine (From DEMEROL) (HALLUCINATIONS 03/15/17)Uncoded Allergies:"ALL NARCOTICS" (NAUSEA/VOMITTING 03/14/17) Home MedicationsReported MedicationsLEVOTHYROXINE (TIROSINT) 50 MCG PO DAILY MULTIVITAMIN (MULTIPLE VITAMIN) 1 TAB PO DAILY Pt reports no significant: Past medical historyPast Surgical History:Reports: Cholecystectomy, Hysterectomy, Tonsillectomy. Additional Surgical HistoryAnkle surgery; breast bx (neg.)Alcohol Use Alcohol useDrug Use Denies recreational drugs Physical Exam Vital SignsVita l SignsFirst Documented: Result Date Time Pulse Ox 98 05/03 1232 B/P 126/74 05/03 1232 B/P Mean 91 05/03 1232 O2 Delivery Room air 05/03 1232 Temp 37.1 05/03 1232 Pulse 78 05/03 1232 Resp 17 03/ 3 1232 Last Documented: Result Date Time Pulse Ox 95 05/03 1547 B/P 118/53 05/03 1547 B/P Mean 74 05/03 1546 O2 Delivery Room air 05/03 1546 Temp 36.7 05/03 1546 Pulse 58 05/03 154 Resp 18 04/21 3 1547 Review of Vital Signs Reviewed Focused PEGeneral/Const General/Const Awake, AlertMS Head Head NormocephalicEyes Eyes PERRLEars/Nose/Throat Ears/Nose/Throat Airway patent, Mucous membranes moist, Pharynx NLResp/Chest Respiratory/Chest Breath sounds NL, Breath sounds = bilat, No respiratory distress, No rales, No rhonchi, No wheezingCardiovascular Cardiovascular Heart rate NL, Regular rhythm, Heart sounds NL, Peripheral circulation NLAbdomen/GI Abdomen/G I Soft, McBurney's non-tender, No guarding, No rebound, BS normoactive, No distention, No hernia, No palpable mass, No pulsatile mass Tenderness/Guarding/Rebound Tender RUQ. MS Back Back Inspection NL, Non-tender, No CVA tendernessSkin Skin Color NL, Warm, Dry, Turgor NLNeurologic Neurologic Oriented X3, Speech NL, No motor deficits, No sensory deficits Interpretation Diagnostics Lab Results InterpretationResultsLaboratory Tests 05/03/18 1300:[Embedded Image Not Available]Laboratory Tests: 05/03 05/03 1305 1300 Chemistry Sodium (136 - 145 mmol/L) 144 Potassium (3.5 - 5.1 mmol/L) 3.4 L Chloride (98 - 107 mmol/L) 111.0 H Carbon Dioxide (21 - 32 mmol/L) 24.0 Anion Gap (10 - 20) 12.4 BUN (7 - 18 mg/dL) 13 Creatinine (0.55 - 1.02 mg/dL) 0.70 Glomerular Filtr Rate (>=60 mL/min) > 60 BUN/Creatinine Ratio (10 - 20 ) 19.3 Glucose (74 - 106 mg/dL) 84 Calcium (8.5 - 10.1 mg/dL) 8.9 Total Bilirubin (0.0 - 1.0 mg/dL ) 0.40 Direct Bilirubin (0.0 - 0.20 mg/dL) 0.10 T (15 - 37 IUnit/L) 11 L ALT (12 - 78 IUnit/L) 16 Total Alk Phosphatase (45 - 117 IUnit/L) 72 Troponin I (0 - 0.045 ng/mL) <0.015 Total Protei n (6.4 - 8.2 gram/dL) 6.5 Albumin (3.4 - 5.0 g/dL) 2.9 L Globulin (2.7 - 4.2 gram/dL) 3.6 Albumin/Globulin Ratio (0.75 - 1.50) 0.8 Lipase (73.0 - 393.0 U/L) 106 Serum , Qual (NEGATIVE) NEGATIVE Hematology WBC (4.5 - 12.5 K/mm3) 8.9 RBC (3.7 - 5.2 mill/mm3) 4.42 Hgb (11.5 - 15.5 gram/dL) 13.1 Hct (36.0 - 46.0 %) 39.8 MCV (80 - 98 fL) 90.0 MCH (27.0 - 33.0 picogram) 29.6 MCHC (33.0 - 36.0 gram/dL) 32.9 L RDW (11.6 - 16.2 %) 14.6 Plt Count (150 - 450 K/mm3) 282 MPV (6.7 - 11.0 fL) 9.9 Urines Urine Color (YELLOW) STRAW Urine Appearance (CLEAR) CLEAR Urine pH (5.0 - 8.0) 7.0 Ur Specific [place] (1.001 - 1.035) 1.005 Urine Protein (NEGATIVE mg/dL) Negative Urine Glucose (UA) (NEGATIVE mg/dL) NEGATIVE Urine Ketones (NEGATIV E mg/dL) 20 (Small) H Urine Blood (NEGATIVE) Negative Urine Nitrite (NEGATIVE) NEGATIVE Urine Bilirubin (NEGATIVE mg/dL) NEGATIVE Urine Urobilinogen (NEGATIVE mg/dL) NEGATIVE Ur Leukocyte Esterase (NEGATIVE) NEGATIVE Urine RBC (0 - 5 #/HPF) 0-2 Urine WBC (0 - 5 #/HPF) 0-5 Ur Epithelial Cells (FEW per HPF) FEW Urine Bacteri a (NONE #/HPF) MODERATE H Recent Impressions:CAT SCAN - CT ABD PELVIS W/CONT 05/03 9813 Report Impression - Status: SIGNED Entered: 05/03/2018 2171 IMPRESSION:1. No acute abdominal or pelvic abnormalities.2. Multiple small hepatic cysts.3. 2 cavernous hemangiomas in the right lobe of the liver.3. Extrahepatic biliary dilatation without evidence of an obstructinglesion.Impression By: Francisco Ayon M.D.CAT SCAN - CT CHEST W/CONTRAST 05/03 1433 Report Impression - Status: SIGNED Entered: 05/03/2018 1600 IMPRESSION:No evidence of pulmonary embolism, aortic dissection or other acuteabnormalities. Impression By: Francisco Ayon M.D. Point of Care TestingPulse Oximetry Pulse Ox % 9 8 On: Room air Interpretation Interpreted by me, Pulse oximetry normal Time 1238 ECG #1 InterpretationTime 1520Interpreted by ED physicianNL ECG Interpretation Normal rate, No STEMI, Normal QRS, Normal axis, Adequate tracing , 1st degree avbECG Q-T-ST - CT Non-specific ST changes Re-Evaluation MDM )( Re-Evaluation/Progress #1Time of Re-Eval 1654)( Re-Eval Status patient still with abdominal pain will admit for further workup ED CourseMedication(s) OrderedMedication(s) Ordered:Central Nervous System Agents Sig/[place]ism[place] Start time Last Medication Dose Route Stop Time Status Admin Morphine Sulfate 4 MG X1ED STA 04/21 3 1503 DC 05/03 IV 05/03 1504 1508 Morphine Sulfate 4 MG X1ED STA 05/03 1233 DC 05/03 IV 05/03 1234 1319 Diagnostic Agents Sig/[place] Start time Last Medication Dose Route Stop Time Status Admin Iopamidol 0 .STK-MED ONE 05/03 1443 DC 05/03 .ROUTE 1444 Electrolytic, Caloric, And Wa t Sig/[place]ism[place] Start time Last Medication Dose Route Stop Time Status Admin Sodium Chloride 1,000 ML X1ED STA 05/03 1237 DC 05/03 IV 05/03 1238 1319 Gastrointestinal Drugs Sig/[place] Start time Last Medication Dose Route Stop Time Status Admin Ondansetron HCl 4 MG X1ED PRN PRN 05/03 1245 DC 05/03 IV 1319 Patient Discharge Departure Vital Signs/ConditionVital SignsFirst Documented: Result Date Time Pulse Ox 98 05/03 1232 B/P 126/74 05/03 1232 B/P Mean 91 05/03 1232 O2 Delivery Room air 05/03 1232 Temp 37.1 05/03 123 2 Pulse 78 05/03 1232 Resp 17 05/03 1232 Last Documented: Result Date Time Pulse Ox 95 05/03 1547 B/P 118/53 05/03 1547 B/P Mean 74 05/03 1547 O2 Delivery Room air 05/03 1547 Temp 36.7 05/03 1547 Pulse 58 05/03 1547 Resp 18 05/03 1547 All vital signs available at the time of this entry have been reviewed. Clinical ImpressionClinical ImpressionPrimary Impression: Abdominal pain Disposition DecisionAdmit Admit Physician Name Kathleen Michelle MD Admit Physicia n Hospitalist Request Time 165 Request Date 05/03/18 )( Admission Accepts Yes )( Accepted Time 165 )( Accepted Date 05/03/18 Call Information will see patient, agrees with eval, agrees with plan at 1657RPT #:[id number] OF REPORTEDEmernorthwest health [facility] department [id number]:34:00V.[id number] a ilable for patient [id number]:57:58
[2023-01-25 13:33] VITALS: BMI 23.1
[2023-01-25 14:49] VITALS: O2SAT 96
[2023-01-25] MEDS: HYDROCODONE/APAP 7.5/325 MG TAB PO PRN (15:34)
[2023-01-25] MEDS: PROMETHAZINE INJ 25 MG/ML AMP IV PRN (17:12)
[2023-01-25 18:09] LABS: Hematocrit 32.2 % (36.0-45.0)
--- NOTE | 2023-01-25 18:54 | P.HP ---
Date of Service: 01/25/23 Patient Name: ANA PENALOZA Date of : 1950 Patient Status: Recurring Attending Provider: Uri Vergara Date: 01/25/23 18:39 Initialization Date: 01/25/23 18:39 Certification for Inpatient Patient admitted to: Inpatient With expected LOS: <2 Midnights Patient will require the following post-hospital care: None Practitioner: I am a practitioner with admitting privileges, knowledge of patient current condition, hospital course, and medical plan of care. Services: Services provided to patient in accordance with Admission requirements found in Title 42 Section 412.3 of the Code of Federal Regulations Patient History Date of Service: 01/25/23 Reason for admission: Post op right hip replacement History of Present Illness: is a 72-year-old female with a history of hypothyroidism and GERD, DJD of right hip came to the floor after Right total hip arthroplasty. Patient is alert and oriented x3. Patient reports chronic right hip pain, uncontrolled with the pain medication for a long time. On examination, vital signs are stable, SPO2 fluctuating on the lower 70s on room air. Patient denies any breathing difficulty, bilateral air entry is good on auscultation oxygen 2 L via nasal cannula ordered to keep the saturation above 92%. Medication reviewed, admitted the patient. Management of of right hip replacement. Allergies chicken derived Allergy (Verified 01/25/23 17:15) Nausea/Vomiting gabapentin Allergy (Verified 01/19/23 09:24) Dizzy/Blurred Vision/Upset Stomach hydromorphone from Dilaudid allergy (Verified 01/19/23 09:24) Severe Vomiting meperidine from Demerol allergy (Verified 01/19/23 09:24) Hallucinations morphine Allergy (Verified 01/19/23 09:24) "Does not work"/Nausea Penicillins Allergy (Verified 01/19/23 09:24) Shortness of breath/Rash/Flushing Home Medications: Levothyroxine Synthroid*50 mcg PO [id number] 08/30/21 Famotidine Pepcid*20 mg PO BID 12/10/21 Cannabidiol (Cbd) Epidiolex 2 drop PO PRN PRN 01/19/23 Multivitamin 1 each PO DAILY 01/19/23 - Past Medical/Surgical History Diabetic: No -: peptic ulcers -: hypothyroid -: arthritis -: gastric bypass 2017 -: 1975 total hysterectomy -: 1953 tonsillectomy/adenoidectomy -: 1972 appendectomy -: 1999 laproscopic cholecystectomy -: 1975 open reduction with screw left ankle, then removal Psychosocial/ Personal History: Patient lives at home. - Family History Mother -: Other (see notes) Notes: brain tumor Father -: Other (see notes) Notes: 1964 - Social History Smoking therapy provided: Yes Patient receptive to therapy: Yes Alcohol use: No CD- Drugs: No Caffeine use: Yes Review of Systems 10-point ROS is otherwise unremarkable Physical Examination - Physical Exam General: Alert, Oriented x3 HEENT: Atraumatic, Normocephalic Neck: Supple, 2+ carotid pulse no bruit Respiratory: Clear to auscultation bilaterally, Normal air movement Cardiovascular: No edema, Normal pulses, Normal S1 S2 Capillary refill: <2 Seconds Gastrointestinal: Normal bowel sounds, Soft and benign Musculoskeletal: No clubbing, No swelling Integumentary: Other (right surgical incision, dry and intact) Neurological: Normal speech, Normal tone, Normal affect Assessment and Plan - Problems (Diagnosis) (1) Status post total hip replacement, right Status: Acute (2) GERD (gastroesophageal reflux disease) Status: Acute (3) Cigarette nicotine dependence Status: Acute Discharge Plan: Home Plan to discharge in: 48 Hours Plan: * Admitted to the hospital * Right hip arthroplasty, site dry and intact * Analgesics, IV fluid, antibiotics ordered, PT consulted * Patient noted to have a low SPO2, bilateral air entry good on auscultation, not oxygen at 2 L via nasal cannula, titrate to keep the SPO2 above 92% * Patient cigarette smoker-discussed cigarette cessation * Chest x-ray ordered * Labs ordered, replace electrolytes as per hospital protocol * Reconcile home medication and start home medication as appropriate * Will continue to monitor the patient closely * History of GERD-pantoprazole IV - Advance Directives Does patient have a Living Will: No Does patient have a Durable POA for Healthcare: No - Code Status/Comfort Care Code Status Assessed: Yes (full code) Code Status: Full Code Physician Review: Patient Assessed, Agree with Above Assessment and Plan Critical Care: No Time Spent Managing Pts Care (In Minutes): 55 (minutes) <Lala Main - Last Filed: 01/25/23 18:58> Pt seen and examined. I agree with the note by the COT[employer]AG[employer]. Pt is a 72 yo female with past medical history of gastric bypass, PUD, GERD and arthritis who has right total hip replacement. medicine was consulted for medical management. Will monitor H/H. Will give prn oxygen and duoneb for hypoxia. Continue protonix Right hip replacement: Ortho primary. Will continue prn pain med and PT. Monitor BP. Code; full <Eddie Gillespie - Last Filed: 01/26/23 08:25>
[2023-01-25] MEDS ORDERED: SODIUM CHLORIDE 0.9% 10ML INJ IV PRN (18:55)
[2023-01-25] MEDS: PANTOPRAZOLE 40 MG INJ IVP SCH (20:17)
[2023-01-25] MEDS: CEFAZOLIN 1 GM in NA CHLORIDE 0.9% 50 ML IVPB SCH (20:18)
[2023-01-26] MEDS: HYDROCODONE/APAP 7.5/325 MG TAB PO PRN ×4 (00:59→18:37)
[2023-01-26] MEDS: CEFAZOLIN 1 GM in NA CHLORIDE 0.9% 50 ML IVPB SCH ×2 (00:59→10:33)
[2023-01-26 07:23] LABS: Absolute Lymphocytes (CBC) 2.2 K/uL (0.7-4.9); Hematocrit 28.6 % (36.0-45.0); Lymphocytes % 26.1 % (15.3-44.8); MCV 87.7 fL (80-100); MPV 6.7 fL (7.6-11.3); Platelets 258 thou/uL (152-406); RBC Red Blood Cell Count 3.26 M/uL (3.86-4.86)
[2023-01-26 07:47] LABS: Magnesium 1.8 mg/dL (1.6-2.4); Phosphorus 3.7 mg/dL (2.5-4.9); Potassium 4.2 mEq/L (3.5-5.1); Thyroid Stimulating Hormone 0.79 uIU/mL (0.358-3.740)
--- NOTE | 2023-01-26 08:39 | P.PN ---
Subjective Date of Service: 01/26/23 Chief Complaint: s/p Right Arthroplasy Subjective: No C/O voiced, Improving, Doing well Patient is alert and oriented x3 Breathing normal at room air, SPO2 at 96% Patient denies any discomfort at this time Right hip dressing dry and intact Vital signs stable Review of Systems 10-point ROS is otherwise unremarkable Physical Examination - Vital Signs Temperature: 97.4 F Blood Pressure: 116/43 Pulse: 63 Respirations: 18 Pulse Ox (%): 97 - Physical Exam General: Alert, Oriented x3 HEENT: Atraumatic, PERRLA Neck: Supple, 2+ carotid pulse no bruit Respiratory: Clear to auscultation bilaterally, Normal air movement Cardiovascular: No edema, Normal pulses, Regular rate/rhythm Capillary refill: <2 Seconds Gastrointestinal: Normal bowel sounds, Soft and benign Musculoskeletal: No clubbing, No swelling, Other (Right hip. Surgical dressing dry and intact) Integumentary: Other (right hip incision ) Neurological: Normal speech, Normal tone, Normal affect - Studies Laboratory Data (last 24 hrs) 01/26/23 01/26/23 01/26/23 07:08 07:08 05:00 WBC 8.60 Hgb 9.6 L D Hct 28.6 L Plt Count 258 Sodium 137 Potassium 4.2 BUN 16 Creatinine 0.72 Glucose 113 H Phosphorus 3.7 Cancelled Magnesium 1.8 Cancelled Triglycerides 124 Cancelled Cholesterol 184 Cancelled HDL Cholesterol 77 H Cancelled Cholesterol/HDL Ratio 2.39 Cancelled 01/26/23 01/26/23 01/25/23 05:00 05:00 17:45 WBC Cancelled Hgb Cancelled 10.7 L Hct Cancelled 32.2 L Plt Count Cancelled Sodium Cancelled Potassium Cancelled BUN Cancelled Creatinine Cancelled Glucose Cancelled Phosphorus Magnesium Triglycerides Cholesterol HDL Cholesterol Cholesterol/HDL Ratio 01/25/23 10:22 WBC Hgb 10.6 L Hct 32.0 L Plt Count Sodium Potassium BUN Creatinine Glucose Phosphorus Magnesium Triglycerides Cholesterol HDL Cholesterol Cholesterol/HDL Ratio Assessment And Plan - Plan Assessment and Plan - Problems (Diagnosis) (1) Status post total hip replacement, right Status: Acute (2) GERD (gastroesophageal reflux disease) Status: Acute (3) Cigarette nicotine dependence (4)Hypothyroid Plan: * Right hip arthroplasty, site dry and intact, Will continue prn pain med and PT. * Will monitor H/H. * Will give prn oxygen and duoneb for hypoxia. * Continue protonix * Monitor BP * Continue Analgesics, IV fluids, antibiotics and PT * SPO2 96% on RA, bilateral air entry good on auscultation, SPO2 checks Q4hrs and oxygen 2 L via nasal cannula, titrate to keep the SPO2 above 92% * Patient cigarette smoker-discussed cigarette cessation * Chest x-ray reviewed * Replace electrolytes as per hospital protocol * Will Reconcile home medication and start home medication as appropriate, Resume Levothyroxine 50mcg po daily * Will continue to monitor the patient closely * History of GERD-pantoprazole IV Discharge Plan: Correction Plan to discharge in: 48 Hours - Code Status/Comfort Care Code Status Assessed: Yes (Full code) Code Status: Full Code Physician Review: Patient Assessed, Agree with Above Assessment and Plan Critical Care: No Time Spent Managing PTS Care (In Minutes): 35 (minutes)
[2023-01-26] MEDS: PROMETHAZINE INJ 25 MG/ML AMP IV PRN (08:44)
[2023-01-26] MEDS ORDERED: ENOXAPARIN 40 MG/0.4 ML SQ SCH (09:00)
[2023-01-26] MEDS: PANTOPRAZOLE 40 MG INJ IVP SCH (10:33)
[2023-01-26 10:40] LABS: Absolute Lymphocytes (CBC) 2.2 K/uL (0.7-4.9); Hematocrit 29.5 % (36.0-45.0); Lymphocytes % 24.6 % (15.3-44.8); MCV 87.9 fL (80-100); Platelets 259 thou/uL (152-406); RBC Red Blood Cell Count 3.35 M/uL (3.86-4.86)
[2023-01-26 18:35] VITALS: BP 113/51; TEMP 98.5
--- NOTE | 2023-01-26 19:16 | P.DS ---
Admission Date: 01/25/23 Discharge Date: 01/26/23 Reason for Admission: s/p Right Arthroplasy Brief History of Present Illness: History of Present Illness: is a 72-year-old female with a history of hypothyroidism and GERD, DJD of right hip came to the floor after Right total hip arthroplasty. Patient is alert and oriented x3. Patient reports chronic right hip pain, uncontrolled with the pain medication for a long time. On examination, vital signs are st able, SPO2 fluctuating on the lower 70s on room air. Patient denies any breathing difficulty, bilateral air entry is good on auscultation oxygen 2 L via nasal cannula ordered to keep the saturation above 92%. Medication reviewed, admitted the patient. Management of of right hip replacement. A copy of this discharge summary will be sent to the above providers to facilitate continuity of care. Hospital Course: is a 72-year-old female with a history of hypothyroidism and GERD, DJD of right hip who admitted to the [facility] on after Right total hip arthroplasty on 01/26/2023. Postoperatively patient was stable, received IV fluid, analgesics, IV antibiotics. On 01/26/2023, patient was seen on morning rounds and deemed medically stable for discharge. [text] was discharged with instructions to schedule follow-up appointments with orthopedic surgeon Dr. Vergara in 2 to week. Patient was provided prescriptions for analgesics. The patient and family members were given the opportunity to ask questions and reported no further questions. <Lala Main - Last Filed: 01/26/23 19:16> Admission Date: 01/25/23 Discharge Date: 01/27/23 Hospital Course: Pt seen and examined. I agree with the note by the LOADING MACHINE OPERATOR. Pt was advised to continue physical therapy at home and take home meds. She will follow uo with orthopedic surgeon within 2 weeks. <Eddie Gillespie - Last Filed: 01/27/23 17:28> Disposition: ROUTINE DISCHARGE Discharge Condition: GOOD Vital Signs/Physical Exam: Temp Pulse Resp BP Pulse Ox 98.5 F 71 16 113/51 L 96 01/26/23 16:00 01/26/23 16:00 01/26/23 18:37 01/26/23 16:00 01/26/23 18:37 General: Alert, Oriented x3 HEENT: Atraumatic, Normocephalic Neck: Supple Respiratory: Clear to auscultation bilaterally, Normal air movement Cardiovascular: No edema, Normal pulses, Regular rate/rhythm Capillary refill: <2 Seconds Gastrointestinal: Normal bowel sounds, Soft and benign Musculoskeletal: No clubbing, No swelling Integumentary: No rashes, No breakdown Neurological: Normal gait, Normal speech Laboratory Data at Discharge: WBC 8.80 thou/uL (4.3-10.9) 01/26/23 10:27 Hgb 9.8 g/dL (12.0-15.0) L 01/26/23 10:27 Hct 29.5 % (36.0-45.0) L 01/26/23 10:27 Plt Count 259 thou/uL (152-406) 01/26/23 10:27 PT 10.6 SECONDS (9.5-12.5) 01/19/23 10:00 INR 0.96 01/19/23 10:00 APTT 34.9 SECONDS (24.3-36.9) 01/19/23 10:00 APTT Cancelled 01/19/23 10:00 Sodium 137 mEq/L (136-145) 01/26/23 07:08 Potassium 4.2 mEq/L (3.5-5.1) 01/26/23 07:08 BUN 16 mg/dL (7-18) 01/26/23 07:08 Creatinine 0.72 mg/dL (0.55-1.02) 01/26/23 07:08 Glucose 113 mg/dL (74-106) H 01/26/23 07:08 Phosphorus 3.7 mg/dL (2.5-4.9) 01/26/23 07:08 Magnesium 1.8 mg/dL (1.6-2.4) 01/26/23 07:08 Total Bilirubin 0.4 mg/dL (0.2-1.0) 01/19/23 10:00 AST 12 U/L (15-37) L 01/19/23 10:00 ALT 16 U/L (13-56) 01/19/23 10:00 Alkaline Phosphatase 73 U/L (45-117) 01/19/23 10:00 Triglycerides 124 mg/dL (<150) 01/26/23 07:08 Cholesterol 184 mg/dL (<200) 01/26/23 07:08 HDL Cholesterol 77 mg/dL (40-60) H 01/26/23 07:08 Cholesterol/HDL Ratio 2.39 01/26/23 07:08 <Lala Main - Last Filed: 01/26/23 19:16> Vital Signs/Physical Exam: Temp Pulse Resp BP Pulse Ox 98.5 F 71 16 113/51 L 96 01/26/23 16:00 01/26/23 16:00 01/26/23 18:37 01/26/23 16:00 01/26/23 18:37 Laboratory Data at Discharge: WBC 8.80 thou/uL (4.3-10.9) 01/26/23 10:27 Hgb 9.8 g/dL (12.0-15.0) L 01/26/23 10:27 Hct 29.5 % (36.0-45.0) L 01/26/23 10:27 Plt Count 259 thou/uL (152-406) 01/26/23 10:27 PT 10.6 SECONDS (9.5-12.5) 01/19/23 10:00 INR 0.96 01/19/23 10:00 APTT 34.9 SECONDS (24.3-36.9) 01/19/23 10:00 APTT Cancelled 01/19/23 10:00 Sodium 137 mEq/L (136-145) 01/26/23 07:08 Potassium 4.2 mEq/L (3.5-5.1) 01/26/23 07:08 BUN 16 mg/dL (7-18) 01/26/23 07:08 Creatinine 0.72 mg/dL (0.55-1.02) 01/26/23 07:08 Glucose 113 mg/dL (74-106) H 01/26/23 07:08 Phosphorus 3.7 mg/dL (2.5-4.9) 01/26/23 07:08 Magnesium 1.8 mg/dL (1.6-2.4) 01/26/23 07:08 Total Bilirubin 0.4 mg/dL (0.2-1.0) 01/19/23 10:00 AST 12 U/L (15-37) L 01/19/23 10:00 ALT 16 U/L (13-56) 01/19/23 10:00 Alkaline Phosphatase 73 U/L (45-117) 01/19/23 10:00 Triglycerides 124 mg/dL (<150) 01/26/23 07:08 Cholesterol 184 mg/dL (<200) 01/26/23 07:08 HDL Cholesterol 77 mg/dL (40-60) H 01/26/23 07:08 Cholesterol/HDL Ratio 2.39 01/26/23 07:08 <Eddie Gillespie - Last Filed: 01/27/23 17:28> Diet: Regular Activity: Ad camille <Lala Main - Last Filed: 01/26/23 19:16> <Eddie Gillespie - Last Filed: 01/27/23 17:28> Home Medications: Levothyroxine [Synthroid*] 50 mcg PO KSIHA4ES 08/30/21 Famotidine [Pepcid*] 20 mg PO BID 12/10/21 Multivitamin 1 each PO DAILY 01/19/23 Physician Discharge Instructions: is a 72-year-old female with a history of hypothyroidism and GERD, DJD of right hip who admitted to the [facility] on after Right total hip arthroplasty on 01/26/2023. Postoperatively patient was stable, received IV fluid, analgesics, IV antibiotics. On 01/26/2023, patient was seen on morning rounds and deemed medically stable for discharge. [text] was discharged with instructions to schedule follow-up appointments with orthopedic surgeon Dr. Vergara in 2 to week. Patient was provided prescriptions for analgesics. The patient and family members were given the opportunity to ask questions and reported no further questions. Followup: Uri Vergara MD [ACTIVE - CAN ADMIT] - 1 Week Kassandra Claros MD [Primary Care Provider] -
[2023-01-27] MEDS ORDERED: LEVOTHYROXINE SOD 0.05 MG TABLET PO SCH (06:00)
== END 2023-01-26 18:58 | disposition home or self-care (01) ==
LOC: OR 05:59 → 4TH 12:47
PROVIDERS: ADMIT Orthopaedic Surgery; ATTEND Orthopaedic Surgery
PROC: 0SR901A Replacement of Right Hip Joint with Metal Synthetic Substitute, Uncemented, Open Approach (ICD-10-PCS; principal; 2023-01-25 07:00)
DX: M16.11 Unilateral primary osteoarthritis, right hip (principal); M70.61 Trochanteric bursitis, right hip; K21.9 Gastro-esophageal reflux disease without esophagitis; F17.210 Nicotine dependence, cigarettes, uncomplicated; E03.9 Hypothyroidism, unspecified
CPT/HCPCS: 27130; 85025 ×3; 80048; 36415 ×3; 86900; 83735; 86850; 84100; 85610; 80061; 86901; 88304; 88311; 85730; 84443; 85018 ×2; 85014 ×2; 81003; 84439; 80053; 71045; 71046; 73501; 97110; 97116 ×2; 97161; 97530; 94760; G0379; C1776 ×3; J2550 ×2; J2704; J1100; J2001; C9113 ×2; J1650; J2250; J0171; J2405 ×2; J7120; J0690 ×3; G0378 ×2; 88305

== ENCOUNTER 2024-12-04 05:22 | Day surgery (SDC) | payer OTHER ==
[2024-11-30 11:26] LABS: Absolute Lymphocytes (CBC) 2.7 K/uL (0.7-4.9); Hematocrit 38.5 % (36.0-45.0); Hemoglobin 12.7 g/dL (12.0-15.0); MCH 29.0 pg (27.0-35.0); MCHC 33.1 g/dL (32.0-36.0); MCV 87.7 fL (80-100); MPV 7.7 fL (7.6-11.3); Nucleated RBC Absolute Count 0.0 (0-0); Nucleated Red Blood Cells % 0.1 % (0-0); RBC Red Blood Cell Count 4.39 M/uL (3.86-4.86); White Blood Count 7.60 thou/uL (4.3-10.9)
[2024-11-30 11:29] LABS: Sqamous Epithelial <5 /HPF (None Seen); Urine Crystals Unidentified Few /HPF (None Seen); Urine Culture Reflex Order NOT NEEDED; Urine Microscopic Reflex YN ORDER UMIC; Urine Yeast (Budding) Trace /HPF (None Seen)
--- NOTE | 2024-11-30 11:29 | RAD REPORT ---
EXAM: Chest Pa And Lat (2 Views) HISTORY: 74 years Female Pre-op pending knee arthroplasty COMPARISON: 01/19/2023 FINDINGS: LUNGS/PLEURA: The lungs are clear. No pleural effusions or pneumothorax. No pulmonary edema. CARDIAC/MEDIASTINUM: The cardiac silhouette is within normal limits. UPPER ABDOMEN: No significant abnormality. BONES: No acute abnormality. LINES/TUBES/OTHER: N/A IMPRESSION: No evidence of acute cardiopulmonary disease.
[2024-11-30 11:43] LABS: PT Prothrombin Time 11.3 SECONDS (10-13.0); PTT, Activated Partial Thromb 29.7 SECONDS (27.2-37.4); Protime INR 1.0
[2024-11-30 11:50] LABS: ALT/SGPT 19.0 U/L (13-56); Albumin 3.1 g/dL (3.4-5.0); Albumin/Globulin Ratio 0.8 (1.1-1.8); Alkaline Phosphatase 61.0 U/L (45-117); Anion Gap 8.2 mEq/L (5.0-15.0); BUN Blood Urea Nitrogen 11.0 mg/dL (7-18); Globulin 4.0 g/dL (2.3-3.5); Glucose Level 95.0 mg/dL (74-106)
[2024-11-30 11:51] LABS: AST/SGOT 22.0 U/L (15-37); Potassium 4.2 mEq/L (3.5-5.1)
[2024-11-30 13:03] LABS: White Blood Cell Scan OK (OK)
[2024-11-30 13:12] LABS: Anisocytosis SLIGHT; Blood Morphology Comment NOTED (NOT SEEN); Macrocytosis SLIGHT; Poikilocytosis SLIGHT
[2024-11-30 13:13] LABS: Ovalocytes SLIGHT
[2024-12-04] MEDS ORDERED: ACETAMINOPHEN 500 MG TAB ONE (05:50)
[2024-12-04] MEDS: Ringers Lactate 1,000 ML IV ONE (05:55)
[2024-12-04] MEDS ORDERED: LIDOCAINE 1% MPF 5 ML VIAL ONE (06:08)
[2024-12-04] MEDS ORDERED: BUPIVACAINE 0.5% PF 10 ML VIAL ONE (06:08)
[2024-12-04] MEDS ORDERED: MIDAZOLAM HCL 2 MG/2 ML INJ ONE (06:09)
[2024-12-04] MEDS ORDERED: EPINEPHRINE 1 MG/ML VIAL ONE (06:09)
[2024-12-04] MEDS ORDERED: FENTANYL CITR 100 MCG/2 ML ONE (06:09)
[2024-12-04] MEDS ORDERED: BUPIVACAINE 0.25% PF 30 ML VIAL ONE (06:09)
[2024-12-04] MEDS: Oxycodone HCl/Acetaminophen 5/325 MG TAB ONE (06:15)
[2024-12-04] MEDS: CELECOXIB 100 MG CAPSULE ONE (06:15)
[2024-12-04] MEDS ORDERED: CEFAZOLIN SODIUM 2 GM/VIAL ONE (06:24)
[2024-12-04] MEDS ORDERED: TRANEXAMIC ACID 1,000 MG/10 ML VIAL IV ONE (06:56)
[2024-12-04] MEDS ORDERED: MAGNESIUM SULFATE 1 gm IVPB 1 GM/100 ML BAG IV ONE ×2 (07:11→07:36)
[2024-12-04] MEDS ORDERED: DEXMEDETOMIDINE HCL 200 MCG/2 ML VIAL ONE (07:11)
[2024-12-04] MEDS: CLINDAMYCIN 900MG/D5W 900 MG/50 ML IVPB IV ONE (07:14)
[2024-12-04] MEDS ORDERED: LIDOCAINE 2% MPF 5 ML VIAL ONE ×3 (07:17→07:33)
[2024-12-04] MEDS ORDERED: KETOROLAC 30 MG/ML INJ ONE (07:17)
[2024-12-04] MEDS ORDERED: ONDANSETRON 4 MG/2 ML VIAL ONE (07:17)
[2024-12-04] MEDS ORDERED: KETAMINE HCL IN 0.9 % NACL 50 MG/5 ML SYRINGE IV ONE (07:34)
[2024-12-04] MEDS ORDERED: DOCUSATE NA 100 MG CAP PO PRN (09:42)
[2024-12-04] MEDS ORDERED: ONDANSETRON 4 MG/2 ML VIAL IV PRN (09:42)
--- NOTE | 2024-12-04 09:48 | P.BOP ---
Preoperative diagnosis: right knee arthritis Postoperative diagnosis: same Primary procedure: right total knee arthoplasty Estimated blood loss: 50 ccs Anesthesia: General Complications: None Transferred to: Recovery Room Condition: Good
[2024-12-04] MEDS: FENTANYL CITR 100 MCG/2 ML ONE ×2 (10:39→10:59)
--- NOTE | 2024-12-04 10:57 | OP ---
Date of Procedure: 12/04/2024 Surgeon: Uri Vergara MD Preoperative Diagnosis: Right knee severe arthritis. Postoperative Diagnosis: Right knee severe arthritis. Procedure Performed: Right total knee arthroplasty using the [employer] knee system. Estimated Blood Loss: 50 cc. Complications: There were no complications. Indications For Operation: Ms. Castillo is a 74-year-old female, who unfortunately has been having brina n in her right knee for some time. This continues despite conservative measures and limits her activ ities of daily living. Risks, benefits, and alternatives of different methods of treating this have been discussed with her and at this time, she opts for total knee arthroplasty. Description Of Procedure: The patient was taken to the operating room and placed in supine position. She has previously had a block in the holding area. General anesthesia was obtained by the Anest[facility] staff. Following this, a well-padded tourniquet was placed on superior right thigh. Right lower extremity was then prepped and draped in the usual sterile fashion for the procedure. After this, t he knee was then elevated and gently exsanguinated. The knee was bent and tourniquet was raised. A standard anterior incision was made carefully through skin only. Meticulous hemostasis being maintai juwan using Bovie electrocautery. This leads down to the appropriate level, which was then exposed, ex posing the extensor mechanism. Following this, the superior medial pole of patella was then marked a s well as the planned medial parapatellar arthrotomy, which was then performed with liberation of geovanna roximately 30 cc of rather normal-appearing synovial fluid. It should be noted that the tibial tuber chani is a little bit more lateral than normal and that she does have a valgus knee. Some fat pad was removed in order to get better visualization and the medial and lateral menisci as well as ACL are ex cised. After this, an intramedullary alignment guide was then placed. The distal cutting block was then made. There was excessive wear on the posterior medial condyle. Therefore, it was gently eleva sofi slightly off that to avoid internal rotation of the femur as it was sized. After sizing, it was then cut using a standard cutting block. It appeared to be good cut. PCL was then excised. PCL ret ractor was placed and the tibia was addressed. A standard tibial cut was then made and it was then s ized. After this, femur was placed with trial tibia. It comes to full extension and appears to be b alanced. The patella does appear to glide somewhat more laterally than usual. However, steps were a gain taken for this. The patella was then calipered, it was found to be a thickness of 20. It was f elt that the smallest patella button would have the least thickness and be the best. It was also sugar briseyda in a more medial position to avoid dislocation as well. The knee was brought through range of mo tion. It does appear to be somewhat tight laterally with regard to patellofemoral joint. This was n oted and femur slightly lateralized and larger drilled. After this, the femur was removed and the ti elda was then very carefully placed with the most anterior center being at the medial third of the tib ial tubercle, being a little more externally rotated than normal. It was then punched and drilled. After this, the surfaces were prepped for cementation. Final components were then placed with the ex ception of the polyethylene which was trial polyethylene for the tibia. The cement was allowed to dr y. The knee was brought through range of motion. Patella does hold over some pretty generous finger pressure, but decision was made to do a small pullback/release of this side which levels up the cotto lla. The final tibial polyethylene was placed and locked into place easily. It was brought through range of motion and was found to glide well. The tourniquet was dropped to investigate whether we wo uld have any significant bleeding from the superior geniculate artery not as seen and meticulous hemo stasis was maintained. The tourniquet was down using Bovie. The extensor mechanism was then repaire d back using heavy Ethibond sutures, it was again irrigated. Skin was closed using 2-0 Vicryl suture s followed by elsa. The patient was placed in a well-padded sterile dressing, awakened, and taken to recovery room in good condition. There were no complications. /GORDY Voice ID: [id number] Report ID: [id number]
[2024-12-04] MEDS: PROMETHAZINE INJ 25 MG/ML AMP ONE (11:13)
[2024-12-04 12:38] VITALS: BMI 27.1
[2024-12-04] MEDS: HYDROCODONE/APAP 7.5/325 MG TAB PO PRN (13:05)
[2024-12-04] MEDS: CLINDAMYCIN 900MG/D5W 900 MG/50 ML IVPB IV SCH (16:54)
[2024-12-05] MEDS: LEVOTHYROXINE SOD 0.05 MG TABLET PO SCH (05:41)
[2024-12-05] MEDS: ENOXAPARIN 30 MG/0.3 ML SQ SCH (05:41)
[2024-12-05 08:49] LABS: Hematocrit 34.2 % (36.0-45.0); Hemoglobin 11.2 g/dL (12.0-15.0)
[2024-12-05 08:51] VITALS: BP 133/75; TEMP 98.2
[2024-12-05 09:37] VITALS: O2SAT 98
== END 2024-12-05 11:10 | disposition home health service (06) ==
LOC: OR 05:22 → 4TH 09:42 → OR 12-05 11:10
PROVIDERS: ATTEND Orthopaedic Surgery
PROC: 0SRC0J9 Replacement of Right Knee Joint with Synthetic Substitute, Cemented, Open Approach (ICD-10-PCS; principal; 2024-12-04 07:00)
DX: M17.11 Unilateral primary osteoarthritis, right knee (principal); E03.9 Hypothyroidism, unspecified; F32.A Depression, unspecified
CPT/HCPCS: 93005; 85025; 81001; 36415 ×2; 85610; 88305; 88311; 85730; 85018; 85014; 80053; 71046; 97116 ×3; 97139; 97161; 97530; 94010 ×3; 27447; J3490; C1776 ×2; J1885; J2550; J3475 ×2; J2704; J2003 ×4; J1650; J2250; J3010 ×3; J1100 ×2; J0169; J2405; J7120; 88304